=== PATIENT | female | born 1960 | race Two or more races ===

== ENCOUNTER 2020-04-25 13:24 | Outpatient (REF) | payer MEDICAID, SELFPAY ==
[2020-04-29 07:48] LABS: HPV mRNA E6/E7 Not Detected (Not Detected)
== END 2020-04-25 13:25 | disposition home or self-care (01) ==
LOC: HO.LAB 13:24
PROVIDERS: PCP Family Medicine; Visit Provider Obstetrics & Gynecology
DX: Z01.419 Encounter for gynecological examination (general) (routine) without abnormal findings (principal)
CPT/HCPCS: 87624; 88142

== ENCOUNTER 2020-05-13 10:08 | Outpatient (REF) | payer MEDICAID, SELFPAY | END 2020-05-13 10:09 | disposition home or self-care (01) | LOC: HO.LAB 10:08 | PROVIDERS: Visit Provider Internal Medicine | DX: Z20.828 Contact with and (suspected) exposure to other viral communicable diseases (principal) | CPT/HCPCS: C9803; U0003 ==

== ENCOUNTER 2020-07-11 17:25 | Outpatient (REF) | payer MEDICAID, SELFPAY | END 2020-07-11 17:26 | disposition home or self-care (01) | LOC: HO.LAB 17:25 | PROVIDERS: Visit Provider Internal Medicine | DX: Z20.822 Contact with and (suspected) exposure to COVID-19 (principal) | CPT/HCPCS: 36415; C9803; U0003 ==

== ENCOUNTER 2020-07-29 10:39 | Outpatient (REF) | payer MEDICAID, SELFPAY ==
--- NOTE | 2020-07-29 10:44 | MM_ITS ---
EXAMINATION: MM SCREENING DIGITAL BREAST TOMOSYNTHESIS, BILATERAL CLINICAL INFORMATION: Screening. Asymptomatic. The lifetime risk of breast cancer based on the Tyrer-Cuzick Model is 4.1%. COMPARISON: Mammography: 07/24/2019 and studies dating back to 03/24/2010 TECHNIQUE: Digital breast tomosynthesis is performed in both the craniocaudal and mediolateral oblique views along with computer-aided detection (CAD). Synthesized 2D images are generated from the tomosynthesis. FINDINGS: The breasts are heterogeneously dense, which may obscure small masses (ACR BI-RADS breast composition Category c). There is a stable parenchymal pattern within the right breast with no new abnormal dominant mass or suspicious grouping of microcalcifications. About the inferolateral aspect of the left breast, there is a 4 x 3 mm circumscribed density not definitely seen on previous studies lying approximately 6.5 cm from the nipple. Spot compression film and possible ultrasound is recommended. MM/MM tomosynthesis screening BI IMPRESSION: Left breast density for further evaluation as described. ASSESSMENT: BI-RADS 0: Incomplete - Need Additional Imaging Evaluation RECOMMENDATION: 1. Additional views of the left breast 2. Targeted ultrasound if warranted after review of the additional views. 3. Radiology department staff will contact the patient for additional imaging. This patient's information was entered into a reminder system with a target due date for their next mammogram.
== END 2020-07-29 10:40 | disposition home or self-care (01) ==
LOC: HO.MAMMO 10:39
PROVIDERS: PCP Family Medicine; Visit Provider Family Medicine
DX: Z12.31 Encounter for screening mammogram for malignant neoplasm of breast (principal)
CPT/HCPCS: 77063; 77067

== ENCOUNTER 2020-08-05 09:27 | Outpatient (REF) | payer MEDICAID, SELFPAY ==
--- NOTE | ~2020-08-05 | MM_ITS ---
EXAMINATION: MM DIAGNOSTIC DIGITAL BREAST TOMOSYNTHESIS, LEFT TARGETED LEFT BREAST ULTRASOUND CLINICAL INFORMATION: New density mid lateral inferior left breast. COMPARISON: Mammography: 07/29/2020 and studies dating back to 10/09/2011. TECHNIQUE: Digital breast tomosynthesis is performed. 2D images are generated from the tomosynthesis. The following views are obtained: Spot compression views of the left breast in mediolateral oblique and craniocaudal projections. Targeted left breast ultrasound. FINDINGS: The breasts are heterogeneously dense, which may obscure small masses (ACR BI-RADS breast composition Category c). Additional views demonstrate an approximately 6 x 3 mm density which on mediolateral oblique view has slightly irregular margins. This lies approximately 4.5 cm from the nipple. No associated microcalcifications. Targeted ultrasound evaluation of the left breast demonstrated a hypoechoic solid-appearing mass without internal vascularity measuring approximately 3 x 2 x 3 mm in size without distal sound shadowing and without distal sound enhancement. The margins are not definitely smooth. This lies at approximately the 3-4 o'clock position 4 cm from the nipple. Results are discussed with the patient at time of visit. MM/MM tomosynthesis added view BI IMPRESSION: Hypoechoic mass left breast for which ultrasound-guided core biopsy is recommended. ASSESSMENT: BI-RADS 4: Suspicious RECOMMENDATION: Ultrasound-guided core biopsy left breast hypoechoic lesion. The above was discussed with the patient at time of study. Breast center patient navigator will call report to referring provider's office. This patient's information was entered into a reminder system with a target due date for their next mammogram.
--- NOTE | ~2020-08-05 | US_ITS ---
EXAMINATION: US DIAGNOSTIC ULTRASOUND BREAST, LEFT CLINICAL INFORMATION: Density lower outer quadrant. COMPARISON: Mammography of same day as well as studies dating back to April 03, 2013. TECHNIQUE: Ultrasound of the breast is performed with real-time saunders scale imaging and color Doppler. FINDINGS: Targeted ultrasound evaluation of the left breast demonstrated a hypoechoic solid-appearing mass without internal vascularity measuring approximately 3 x 2 x 3 mm in size without distal sound shadowing and without distal sound enhancement. The margins are not definitely smooth. This lies at approximately the 3-4 clock position 4 cm from the nipple. Results are discussed with the patient at time of visit. US/US breast LT limited IMPRESSION: Hypoechoic mass left breast for which ultrasound-guided core biopsy is recommended. ASSESSMENT: BI-RADS 4: Suspicious RECOMMENDATION: Ultrasound-guided core biopsy left breast hypoechoic lesion. The above was discussed with the patient at time of study. Breast center patient navigator will call report to referring provider's office.
== END 2020-08-05 09:28 | disposition home or self-care (01) ==
LOC: HO.MAMMO 09:27
PROVIDERS: Visit Provider Family Medicine
DX: R92.2 Inconclusive mammogram (principal); N63.25 Unspecified lump in the left breast, overlapping quadrants
CPT/HCPCS: 76642; 77062; 77066

== ENCOUNTER 2020-08-16 09:11 | Outpatient (REF) | payer MEDICAID, SELFPAY ==
--- NOTE | ~2020-08-16 | US_ITS ---
EXAMINATION: ULTRASOUND GUIDED CORE BIOPSY BREAST, LEFT POST PROCEDURE DIGITAL MAMMOGRAM, LEFT CLINICAL INFORMATION: Tiny nodule 3 mm left breast with circumscribed margins. COMPARISON: Targeted left breast ultrasound 08/05/2020; mammography 07/29/2020, 07/24/2020. FINDINGS: Proper informed consent is obtained from the patient after discussion of the procedure, potential risks and complications, and alternatives. Patient was given an opportunity for questions. The patient appeared to understand. The patient consented to the procedure and signed the consent form. Hospital provided sheep and wheat farmer assisted for both the consent and throughout procedure. GUIDANCE: Ultrasound-guided; aseptic technique. LESION: 3 mm hypoechoic nodule, suspect benign complicated cyst or apocrine metaplasia. APPROACH: Lateral medial. ANESTHESIA: 8 mL 1% lidocaine. DERMATOTOMY: Single skin lupe dermatotomy performed. NEEDLE: 14-gauge Achieve core biopsy device with 13.5-gauge co-axial guide needle. CORES: 3. The lesion is not clearly visible after first sampling. CLIP: HydroMARK; shape: open coil. Clip placed in vicinity of sampling. The lesion is not clearly visible after first pass sampling. POST PROCEDURE UNILATERAL DIGITAL MAMMOGRAM: The post biopsy mammogram is performed in separate room using separate digital mammography equipment from the biopsy procedure. CC and ML views are obtained. The breasts are heterogeneously dense, which may obscure small masses (breast composition category: c). The clip marker is in expected position. The small nodule for sampling is no longer visible. No gross hematoma. The patient tolerated the procedure well. No immediate complications. Home instructions reviewed with the patient. Final pathology results are pending. US/US breast ndl core biopsy LT IMPRESSION: 1. Status post ultrasound-guided core biopsy left breast. 2. Clip placed: HydroMARK; shape: open coil. 3. Pathology pending. An addendum report will be issued.
== END 2020-08-16 09:12 | disposition home or self-care (01) ==
LOC: HO.MAMMO 09:11
PROVIDERS: PCP Family Medicine; Visit Provider Family Medicine
DX: N63.20 Unspecified lump in the left breast, unspecified quadrant (principal); N60.82 Other benign mammary dysplasias of left breast; R92.8 Other abnormal and inconclusive findings on diagnostic imaging of breast; F41.8 Other specified anxiety disorders; M79.7 Fibromyalgia; G62.9 Polyneuropathy, unspecified; E78.00 Pure hypercholesterolemia, unspecified; K21.9 Gastro-esophageal reflux disease without esophagitis; F17.200 Nicotine dependence, unspecified, uncomplicated; Z79.899 Other long term (current) drug therapy
CPT/HCPCS: 19083; 77065; 88305; 99202; A4648

== ENCOUNTER → 2020-08-19 09:43 | Outpatient (BNVA) | payer MEDICAID, SELFPAY | PROVIDERS: PCP Family Medicine; Visit Provider Surgery | DX: R92.8 Other abnormal and inconclusive findings on diagnostic imaging of breast (principal) | CPT/HCPCS: 99212 ==

== ENCOUNTER 2020-11-04 12:28 | Outpatient (REF) | payer MEDICAID, SELFPAY | END 2020-11-04 12:29 | disposition home or self-care (01) | LOC: HO.LAB 12:28 | PROVIDERS: Visit Provider Internal Medicine | DX: Z20.822 Contact with and (suspected) exposure to COVID-19 (principal) | CPT/HCPCS: C9803; U0003; U0005 ==

== ENCOUNTER 2021-02-10 12:41 | Outpatient (REF) | payer MEDICAID, SELFPAY | END 2021-02-10 12:42 | disposition home or self-care (01) | LOC: HO.LAB 12:41 | PROVIDERS: PCP Family Medicine; Visit Provider Internal Medicine | DX: Z20.822 Contact with and (suspected) exposure to COVID-19 (principal) | CPT/HCPCS: C9803; U0003; U0005 ==

== ENCOUNTER 2021-04-13 09:11 | Outpatient (REF) | payer MEDICAID, SELFPAY ==
--- NOTE | ~2021-04-13 | US_ITS ---
EXAMINATION: US ABDOMEN COMPLETE CLINICAL INFORMATION: Cholesterolosis of the gallbladder. COMPARISON: Ultrasound abdomen 09/23/2019 and 08/07/2018. CT abdomen and pelvis 11/18/2018. TECHNIQUE: Real-time imaging of the abdominal viscera. FINDINGS: PANCREAS: Normal. ABDOMINAL AORTA: Mild distal atherosclerosis. No significant dilatation. INFERIOR VENA CAVA: Visualized portions are normal. LIVER: The liver is normal in size. The liver contour is normal. There is diffuse increased liver parenchymal echogenicity, consistent with hepatic steatosis. Focal fatty sparing adjacent to the gallbladder fossa. No focal hepatic lesion. There is no intrahepatic biliary duct dilatation seen. GALLBLADDER: Nonmobile gallbladder wall polyps measuring 0.4 and 0.3 cm. The gallbladder is physiologically distended without evidence of stones, sludge, polyps, wall thickening or pericholecystic fluid. COMMON BILE DUCT: Normal in caliber measuring 0.4 cm in diameter. RIGHT KIDNEY: Hypertrophied column of Karthikeyan. No hydronephrosis. No renal calculi or focal parenchymal lesions. The kidney measures 11.5 cm in maximum dimension. LEFT KIDNEY: Hypertrophied column of Karthikeyan. No hydronephrosis. No renal calculi or focal parenchymal lesions. The kidney measures 11.8 cm in maximum dimension. SPLEEN: Normal. The spleen measures 10.4 cm in maximum dimension. FREE FLUID: None. US/US abdomen complete IMPRESSION: 1. Nonmobile gallbladder wall polyps measuring 0.4 and 0.3 cm. No cholelithiasis, gallbladder wall thickening, or pericholecystic free fluid to suggest acute cholecystitis. 2. Hepatic steatosis.
[2021-04-13 10:34] LABS: Cholesterol 155 mg/dL; HDL Cholesterol 39 mg/dL; LDL Cholesterol Calculated 83 mg/dl; Triglycerides 166 mg/dL
== END 2021-04-13 09:12 | disposition home or self-care (01) ==
LOC: HO.US 09:11
PROVIDERS: Absent Provider Internal Medicine Cardiovascular Disease; PCP Family Medicine; Visit Provider Family Medicine
DX: E78.5 Hyperlipidemia, unspecified (principal); K82.4 Cholesterolosis of gallbladder
CPT/HCPCS: 36415; 76700; 80061

== ENCOUNTER 2021-09-12 14:37 | Outpatient (REF) | payer MEDICAID, SELFPAY ==
--- NOTE | ~2021-09-12 | MM_ITS ---
EXAMINATION: MM SCREENING DIGITAL BREAST TOMOSYNTHESIS, BILATERAL CLINICAL INFORMATION: Screening. Asymptomatic. Benign left breast biopsy 08/16/2020 (Benign breast tissue with columnar cell change and apocrine metaplasia; no atypia or malignancy identified). The lifetime risk of breast cancer based on the Tyrer-Cuzick Model is 4%. COMPARISON: Mammography: 08/16/2020, 08/05/2020, 07/24/2019, 07/22/2018, 07/19/2017 TECHNIQUE: Digital breast tomosynthesis is performed in both the craniocaudal and mediolateral oblique views along with computer-aided detection (CAD). Synthesized 2D images are generated from the tomosynthesis. FINDINGS: The breasts are heterogeneously dense, which may obscure small masses (ACR BI-RADS breast composition Category c). Parenchymal pattern is similar to prior exams. There is no developing density or interval mass or interval architectural changes or abnormal calcifications. Chronic mild accentuated reticular markings are again seen overlying both axilla. There is a tiny oval nodule close to skin right axilla on MLO view similar to right MLO view 2018. The left breast has a biopsy clip marker overlying small stable nodule consistent with the apocrine metaplasia noted on previous biopsy. No significant changes. MM/MM tomosynthesis screening BI IMPRESSION: No mammographic evidence of malignancy. ASSESSMENT: BI-RADS 2: Benign RECOMMENDATION: Routine annual mammography screening. This patient's information was entered into a reminder system with a target due date for their next mammogram.
== END 2021-09-12 14:38 | disposition home or self-care (01) ==
LOC: HO.MAMMO 14:37
PROVIDERS: PCP Family Medicine; Visit Provider Family Medicine
DX: Z12.31 Encounter for screening mammogram for malignant neoplasm of breast (principal)
CPT/HCPCS: 77063; 77067

== ENCOUNTER 2021-09-13 10:43 | Outpatient (REF) | payer MEDICAID, SELFPAY ==
--- NOTE | ~2021-09-13 | US_ITS ---
EXAMINATION: US THYROID CLINICAL INFORMATION: Hypothyroidism. COMPARISON: Ultrasound soft tissue head/neck thyroid dated 03/27/2019 TECHNIQUE: Linear transducer grayscale and color Doppler examination with attention to the region of the thyroid. FINDINGS: SIZE: Measurements of the thyroid lobes and nodules are given in sagittal, anteroposterior and transverse dimensions respectively. Right Thyroid Lobe: 4.39 x 1.28 x 1.43 cm, volume 4.19 mL. Previously 4.5 x 1.9 x 1.3 cm, volume 5.7 mL. Parenchyma: The gland echotexture is heterogeneous. Thyroid vascularity is increased. Left Thyroid Lobe: 4.15 x 1.0 x 1.6 cm, volume 3.49 mL. Previously 4.0 x 1.2 x 1.7 cm, volume 4.1 mL. Parenchyma: The gland echotexture is heterogeneous. Thyroid vascularity is increased. Isthmus: 0.7 cm in maximum AP dimension. Previously 0.68 cm. Estimated total number of nodules greater than or equal to 1 cm: 0. [place]er nodules are described as follows: 1. Location: Isthmus. Size: 0.6 x 0.4 x 0.6 cm, volume 0.1 mL. Previously: 0.5 x 0.3 x 0.4 cm, volume 0.1 mL. Nodule characteristics: Composition: Solid (2). Echogenicity: Hypoechoic (2). Shape: Not taller than wide (0). Margins: Smooth (0). Echogenic Foci: None (0). ACR TI-RADS total points: 4 ACR TI-RADS category: 4 Significant change in size (>/= 20% in 2 dimensions and minimal increase of 2 mm or 50% or greater increase in volume): No Change in features: No Change in ACR TI-RADS risk category: No NODES: No lymphadenopathy is seen in the tissue surrounding the thyroid gland. US/US thyroid IMPRESSION: A 0.6 cm TR 4 isthmus nodule is not significantly changed in size. This does not meet criteria for follow-up given size less than 1 cm. Heterogeneous hypervascular thyroid which be seen in the setting of thyroiditis. ACR TI-RADS RECOMMENDATION REFERENCE: Ultrasound-guided fine-needle aspiration, followup ultrasound, no further follow up. * TR1 (0 point) and TR 2 (2 points): No FNA or follow up * TR3 (3 points): FNA if more than or equal to 2.5 cm in maximum dimension, followup ultrasound in 1, 3 and 5 years if 1.5 to 2.4 cm in maximum dimension. * TR4 (4-6 points): FNA if more than or equal to 1.5 cm in maximum dimension, followup ultrasound in 1, 2, 3 and 5 years if 1 to 1.4 cm in maximum dimension. * TR5 (more than or equal to 7 points): FNA if more than or equal to 1 cm in maximum dimension, followup ultrasound every year for 5 years if 0.5 to 0.9 cm in maximum dimension. * TR3, TR4 or TR5 nodules that are below the size threshold for follow up receive no follow up.
== END 2021-09-13 10:44 | disposition home or self-care (01) ==
LOC: HO.HMGCX 10:43
PROVIDERS: PCP Family Medicine; Visit Provider Family Medicine
DX: E03.9 Hypothyroidism, unspecified (principal)
CPT/HCPCS: 76536

== ENCOUNTER 2022-07-20 08:02 | Outpatient (REF) | payer MEDICAID, SELFPAY ==
[2022-07-20 08:57] LABS: Cholesterol 159 mg/dL; HDL Cholesterol 42 mg/dL; LDL Cholesterol Calculated 87 mg/dl; Triglycerides 154 mg/dL
== END 2022-07-20 08:03 | disposition home or self-care (01) ==
LOC: HO.LAB 08:02
PROVIDERS: PCP Family Medicine; Visit Provider Internal Medicine Cardiovascular Disease
DX: E78.5 Hyperlipidemia, unspecified (principal)
CPT/HCPCS: 36415; 80061

== ENCOUNTER 2022-07-25 07:14 | Outpatient (REF) | payer MEDICAID, SELFPAY ==
--- NOTE | ~2022-07-25 | US_ITS ---
EXAMINATION: US ABDOMEN COMPLETE CLINICAL INFORMATION: Cholesterolosis of gallbladder. COMPARISON: Ultrasound abdomen complete 04/13/2021 and 09/23/2019. CT abdomen and pelvis with contrast 11/18/2018. TECHNIQUE: Real-time imaging of the abdominal viscera. FINDINGS: PANCREAS: Normal. ABDOMINAL AORTA: The proximal, mid, and distal segments are normal in caliber. INFERIOR VENA CAVA: Visualized portions are normal. LIVER: The liver is normal in size. The liver contour is normal. There is diffuse increased liver parenchymal echogenicity, consistent with hepatic steatosis. No focal hepatic lesion. There is no intrahepatic biliary duct dilatation seen. GALLBLADDER: Gallbladder polyps measuring less than 3 mm. The gallbladder is physiologically distended without evidence of stones, sludge, wall thickening or pericholecystic fluid. COMMON BILE DUCT: Normal in caliber measuring 0.4 cm in diameter. RIGHT KIDNEY: No hydronephrosis. No renal calculi or focal parenchymal lesions. The kidney measures 10.5 cm in maximum dimension. LEFT KIDNEY: No hydronephrosis. No renal calculi or focal parenchymal lesions. The kidney measures 11.0 cm in maximum dimension. SPLEEN: Normal. The spleen measures 10.3 cm in maximum dimension. FREE FLUID: None. US/US abdomen complete IMPRESSION: A gallbladder polyp measuring less than 3 mm. If patient has no risk factors for gallbladder malignancy* or symptoms attributable to the gallbladder, follow-up recommendations are repeat ultrasound at one, 3, and 5 years from the date of original exam documenting the findings. If patient has symptoms attributable to the gallbladder, cholecystectomy is suggested if there are no alternative causes for the symptoms and the patient is fit for and accepts surgery. If cholecystectomy is not deemed appropriate follow-up as below. If patient has no symptoms and risk factors are present or patient is symptomatic and cholecystectomy is deemed not appropriate, follow-up.
== END 2022-07-25 07:15 | disposition home or self-care (01) ==
LOC: HO.US 07:14
PROVIDERS: PCP Family Medicine; Visit Provider Family Medicine
DX: K82.4 Cholesterolosis of gallbladder (principal)
CPT/HCPCS: 76700

== ENCOUNTER 2022-12-13 09:43 | Outpatient (REF) | payer MEDICAID, SELFPAY ==
--- NOTE | ~2022-12-13 | MM_ITS ---
EXAMINATION: MM SCREENING DIGITAL BREAST TOMOSYNTHESIS, BILATERAL CLINICAL INFORMATION: Screening. Asymptomatic. The lifetime risk of breast cancer based on the Tyrer-Cuzick Model is 4%. COMPARISON: Mammography: 09/12/2021, 08/16/2020, 08/05/2020, 07/29/2020, 07/24/2019 TECHNIQUE: Digital breast tomosynthesis is performed in both the craniocaudal and mediolateral oblique views along with computer-aided detection (CAD). Synthesized 2D images are generated from the tomosynthesis. Additional left CC view is provided. FINDINGS: The breasts are heterogeneously dense, which may obscure small masses (ACR BI-RADS breast composition Category c). There are no significant masses, abnormal calcifications, or other abnormalities. There is a biopsy clip marker mid 3:00 left breast. No developing density or architectural abnormality. Axillary nodes are unremarkable. There are accentuated reticular stromal markings overlying the axilla is similar to prior exams, possibly related to an old injury or infection/inflammatory process. No interval skin thickening or coarsening of the Tiburcio's ligaments. Right MLO view has a 4 mm circumscribed superficial nodule upper breast, 12 cm from nipple, possibly dermal in nature. Patient will be recalled for additional imaging. MM/MM tomosynthesis screening BI IMPRESSION: Right: -4 mm nodule close to skin upper right breast 12 cm from nipple. Left: -No mammographic evidence of malignancy. ASSESSMENT: BI-RADS 0: Incomplete - Need Additional Imaging Evaluation RECOMMENDATION: 1. Assess for dermal lesion and obtain image with dermal marker if applicable. 2. Otherwise, targeted ultrasound if warranted. 3. Radiology department staff will contact the patient for additional imaging. This patient's information was entered into a reminder system with a target due date for their next mammogram.
== END 2022-12-13 09:44 | disposition home or self-care (01) ==
LOC: HO.MAMMO 09:43
PROVIDERS: PCP Family Medicine; Visit Provider Family Medicine
DX: Z12.31 Encounter for screening mammogram for malignant neoplasm of breast (principal)
CPT/HCPCS: 77063; 77067

== ENCOUNTER 2023-05-13 12:12 | Outpatient (REF) | payer MEDICAID, SELFPAY ==
--- NOTE | ~2023-05-13 | MM_ITS ---
EXAMINATION: MM DIAGNOSTIC DIGITAL BREAST TOMOSYNTHESIS, RIGHT CLINICAL INFORMATION: Assess for dermal lesion in right inferior axillary region. COMPARISON: Mammography: 12/13/2022, 09/12/2021, 07/29/2020. TECHNIQUE: Digital right breast tomosynthesis is performed in mediolateral oblique view only along with computer-aided detection (CAD). Synthesized 2D images are generated from the tomosynthesis. FINDINGS: There are scattered areas of fibroglandular density (ACR BI-RADS breast composition Category b). A dermal marker has been placed on the small nodule in the inferior right axilla, marking density abnormality is indeed dermal in nature and has a central black spot suggestive of a sebaceous cyst. Otherwise, There are no suspicious masses, suspicious grouped calcifications, or areas of architectural distortion in the right breast. The parenchymal pattern is stable from prior exams. MM/MM tomosynthesis diagnostic RT IMPRESSION: No evidence of malignancy. The right inferior axillary asymmetry is dermal in origin, likely a sebaceous cyst, and clinical follow-up recommended if necessary. Otherwise, recommend resuming annual screening mammography. ASSESSMENT: BI-RADS BI-RADS 2 - Benign Findings RECOMMENDATION: 1 year F/U Results were provided to the patient at time of visit by the technologist. This patient's information was entered into a reminder system with a target due date for their next mammogram.
== END 2023-05-13 12:13 | disposition home or self-care (01) ==
LOC: HO.MAMMO 12:12
PROVIDERS: PCP Family Medicine; Visit Provider Family Medicine
DX: N63.31 Unspecified lump in axillary tail of the right breast (principal)
CPT/HCPCS: 77061; 77065

== ENCOUNTER → 2023-05-13 13:30 | Outpatient (BNV) | payer MEDICAID, SELFPAY | PROVIDERS: PCP Family Medicine; Visit Provider Radiology Diagnostic Radiology | DX: N60.01 Solitary cyst of right breast (principal) | CPT/HCPCS: 77061; 77065 ==

== ENCOUNTER 2023-05-17 09:41 | Outpatient (AMB) | payer MEDICAID, SELFPAY ==
--- NOTE | 2023-05-17 08:37 | A.OFFVIS_ITS ---
Intake Intake Visit Reasons: LDCT SD Allergies No Known Allergies Allergy (Mild, Verified 03/12/22 07:56) NONE HPI LDCT SD HPI Details Initial telehealth/phone SDM visit for this Pakistani speaking patient with interpretive services ([id number]) Lenora is a 62yo smoker with a 22PYH. She has been smoking since age 17 for 45 years at 1/2ppd. . Denies marijuana use. Denies second hand smoke exposure. Denies exposure to chemicals or substances like asbestos. . Denies known family history of lung cancer. Denies personal history of cancers. Denies chest CT in last year. . Denies recent travel outside the [place]. Denies recent respiratory illness or recent hospitalization for respiratory issues. Denies testing positive for COVID. Admits receiving COVID Vaccine. x 4. . Denies fever, chills, new/worsening cough, hemoptysis, hoarseness or dysphagia. Denies significant chest pain, significant dyspnea or unintentional weight loss. Patient Lung Cancer Screening Questionnaire reviewed with patient by provider. . Shared Decision Making Completed. Patient meets criteria. Discussed in detail with patient, the risk vs benefit of LDCT screening. Patient consents to proceed with scan. Discussed smoking cessation. [facility] Medical History (Updated 05/02/23 @ 14:37 by Jeannette Black PA-C) Fibromyalgia PAD (peripheral artery disease) High cholesterol Hypothyroidism Obstructive airway disease Nicotine dependence, cigarettes, uncomplicated GERD (gastroesophageal reflux disease) Irritable bowel syndrome with constipation Fatty liver Tubular adenoma of colon (~2012) Anemia Depression Neuropathy Post-menopausal Surgical History (Updated 05/02/23 @ 14:30 by Jeannette Black PA-C) History of left breast biopsy History of esophagogastroduodenoscopy (EGD) History of colonoscopy History of ovarian cystectomy History of bilateral tubal ligation Family History Father Kidney problem Mother Diabetes Social History (Updated 05/17/23 @ 09:49 by Jeannette Black PA-C) Household Members: None Housing: Apartment Alcohol intake: never Patient Tobacco Use Status: Current everyday Tobacco user Tobacco use type: Cigarette Years Smoked: onset 17yo - 1/2ppd x 45yrs - 22phy Current occupational status: disabled Sexual orientation: Straight/Heterosexual Gender identity: Female Female Reproductive History Menstrual Age of Menarche: 17 Date of menopause: 07/01/02 Assessment & Plan Assessment & Plan (1) Nicotine dependence, cigarettes, uncomplicated: Comment: (current smoker - onset 17yo - 1/2ppd x 45yrs - 22phy) Code(s): F17.210 - Nicotine dependence, cigarettes, uncomplicated Plan: - SDM visit completed today via phone, with interpretive services. - Patient meets criteria for LDCT for lung cancer screening purposes and is asymptomatic. - Smoking cessation counseling offered. Patients can always call [phone]. - Will arrange for a LDCT scan of the chest for screening purposes at [facility]. - Risks, benefits, and alternatives were discussed in detail and the patient agrees to proceed. - Risks discussed include but are not limited to: radiation exposure, anxiety during testing and while awaiting results, false negatives, false positives and possibility of additional intervention such as further imaging or surgical procedures for benign disease. - Benefits are obviously detection of lung cancer at an early stage which can lead to improved outcomes. - Discussed the importance of screening program compliance with adherence to yearly LDCT scan as scheduled - or sooner interval scans for personalized screening regimen. - Discussed follow up plan. Our office will send a letter discussing results and if needed set up phone call and office visit based on CT findings. - Patient educated on results categorization and the management decisions for suspicious findings potentially found on the screening LDCT scan. Any patient with a Lung RADS score of 3 or 4 will be reviewed by a multidisciplinary team at [facility] to form a plan of action in regards to scan findings. - If further work up is warranted for a suspicious lung finding this will be followed by the Lung Cancer Screening program in conjunction with the Thoracic Surgery Department at [facility]. - A copy of the office note and LDCT will be sent to the patient's PCP - as well as documentation on any associated further plans of care. - Incidental findings on LDCT are the PCP's responsibility. These findings are indicated with an S finding on the LDCT Assessment. A note discussing the findings will be sent to the PCP who is then responsible for further management. - All questions answered.? Telehealth Telehealth Location of provider rendering services: practice address Location of patient: address on file Patient Identification confirmed using: Name, : Yes Telehealth method: voice only Patient verbally consented to treatment: Yes Patient verbally consented to billing insurance company: Yes Patient informed of any privacy concerns related to visit: Yes Minutes spent on Phone/Video with Pt.: 15 Coding Level of Care Code Lung Cancer Screening [id number] Diagnoses Nicotine dependence, cigarettes, uncomplicated F17.210
== END 2023-05-17 10:26 | disposition home or self-care (01) ==
LOC: HO.HMS 09:41
PROVIDERS: PCP Family Medicine; Visit Provider Physician Assistant Medical
DX: F17.210 Nicotine dependence, cigarettes, uncomplicated (principal)
CPT/HCPCS: G0296

== ENCOUNTER 2023-05-17 13:48 | Outpatient (REF) | payer MEDICAID, SELFPAY ==
--- NOTE | ~2023-05-17 | CT_ITS ---
EXAMINATION: CT CHEST SCREENING CLINICAL INFORMATION: Current smoker, 50 pack year history. COMPARISON: None available. TECHNIQUE: Multidetector volumetric CT imaging of the chest is performed without contrast using low dose technique. Additional 2D coronal and sagittal reformatted images and axial 3D maximum intensity projection (MIP) images are generated on the CT workstation. This CT examination was performed using dose optimization techniques as appropriate, variously including the following: *Automated exposure control *Adjustment of mA and/or kV according to patient size (this includes techniques or standardized protocols for targeted exams where dose is matched to indication/reason for exam; i.e. extremities or head) *Use of iterative reconstruction technique DLP: 40 mGy-cm FINDINGS: TECHNOLOGY TEACHER: Clear lungs LUNGS: Trachea and bronchi are patent. Mild biapical pleural thickening. Scattered mild atelectasis. 3 mm CAROLINA subpleural nodule, 4:23. MEDIASTINUM: No thyroid nodules. No pathologic lymphadenopathy. Nonenlarged heart. No pericardial effusion. Degree of coronary calcifications: Mild. Nonaneurysmal aorta with atherosclerotic calcifications. Nonenlarged pulmonary arteries. PLEURA: There is no pleural effusion. No pleural mass or thickening. AXILLA: No lymphadenopathy. UPPER ABDOMEN: Possible tiny gallstones versus polyps in otherwise unremarkable gallbladder. OSSEOUS STRUCTURES: No suspicious osseous lesions. CT/CT lung screening IMPRESSION: 3 mm pulmonary nodule. ASSESSMENT: Lung-RADS category 2: Benign RECOMMENDATION: Routine annual low-dose CT screening in 12 months.
== END 2023-05-17 13:49 | disposition home or self-care (01) ==
LOC: HO.CT 13:48
PROVIDERS: PCP Family Medicine; Visit Provider Physician Assistant Medical
DX: Z12.2 Encounter for screening for malignant neoplasm of respiratory organs (principal); F17.210 Nicotine dependence, cigarettes, uncomplicated
CPT/HCPCS: 71271; G0296

== ENCOUNTER 2023-06-11 10:33 | Outpatient (REF) | payer MEDICAID, SELFPAY ==
[2023-06-11 12:30] LABS: Free T4 (Free Thyroxine) 0.88 ng/dL (0.71-1.85); Thyroid Stimulating Hormone 1.37 uIU/mL (0.32-4.0)
== END 2023-06-11 10:34 | disposition home or self-care (01) ==
LOC: HO.HHCL 10:33
PROVIDERS: Visit Provider Family Medicine
DX: E03.8 Other specified hypothyroidism (principal)
CPT/HCPCS: 36415; 84439; 84443

== ENCOUNTER 2023-09-16 11:18 | Outpatient (AMB) | payer MEDICAID, SELFPAY ==
--- NOTE | 2023-09-16 11:23 | MHC.OFFVIS ---
Intake Vital Signs 09/16/23 11:26 Height 5 ft 6 in Weight 150 lb BMI 24.2 BP 122/68 Intake Visit Reasons: Annual/confirmed appt Cabana Attendant Required: Yes Cabana Attendant Language: Dock Loader Name: Brooke BALL Information Interpreted: non-clinical & clinical Phosphorus Processing Supervisor: Phosphorus Processing Supervisor Present (Brooke BALL) Accompanied by: Self / Same As Patient Allergies No Known Allergies Allergy (Mild, Verified 09/16/23 11:31) NONE Post menopausal: Yes HPI HPI Comments History of Present Illness Details Presenting for annual exam. No complaints. Last Pap/HPV was negative in 04/19 Last Mammogram was BI-RADS 2 in 05/23 Last Colonoscopy was in 07/19, the recommendation was to repeat in 5 years [facility] Medical History Fibromyalgia PAD (peripheral artery disease) High cholesterol Hypothyroidism Obstructive airway disease Nicotine dependence, cigarettes, uncomplicated GERD (gastroesophageal reflux disease) Irritable bowel syndrome with constipation Fatty liver Tubular adenoma of colon (~2012) Anemia Depression Neuropathy Post-menopausal Surgical History History of left breast biopsy History of esophagogastroduodenoscopy (EGD) History of colonoscopy History of ovarian cystectomy History of bilateral tubal ligation Family History Father Kidney problem Mother Diabetes Social History Household Members: None Housing: Apartment Alcohol intake: never Patient Tobacco Use Status: Current everyday Tobacco user Tobacco use type: Cigarette Years Smoked: onset 17yo - 1/2ppd x 45yrs - 22phy Current occupational status: disabled Sexual orientation: Straight/Heterosexual Gender identity: Female Female Reproductive History Menstrual Age of Menarche: 17 Date of menopause: 07/01/02 Total pregnancies: 3 Full term: 3 Number of Living Children: 3 Date of last pap smear: 04/26/20 Date of Mammogram: 05/13/23 Review of Systems Const All systems reviewed & are unremarkable except as noted in HPI and below Card Reports as per HPI Resp Reports as per HPI GI Reports as per HPI and Reports no additional complaints Reports as per HPI Physical Exam Vital Signs: Last Vital Signs BP 122/68 09/16/23 11:26 BMI result Body Mass Index 24.2 Const General: cooperative, healthy appearing and comfortable Chest Chest palpation & inspection: normal inspection of the chest and normal palpation of entire chest wall Breast/axilla inspection: normal inspection of the breasts and normal inspection of the axillae Breast/axilla palpation: normal palpation of the breasts, normal palpation of the axillae and no axillary lymphadenopathy Resp Effort & Inspection: normal respiratory effort Auscultation: clear to auscultation bilaterally Percussion: percussion normal Cardio Palpation: normal PMI Rate: regular rate Rhythm: regular rhythm Heart sounds: no murmurs and no rubs Peripheral pulses: Peripheral pulses 2+ throughout GI Inspection: Yes normal to inspection Palpation (GI): Soft to palpation, nontender, no guarding, not rigid and No hepatosplenomegaly present Percussion: Yes normal to percussion Auscultation: normal bowel sounds Rectal Exam - Female: deferred General: Yes bladder normal to palpation External Female Exam: No lesion Speculum Exam - Vagina: normal appearance of the vagina, normal palpation, normal vaginal discharge and not erythematous Speculum Exam - Cervix: normal appearance of the cervix and normal palpation Bimanual exam- vagina & uterus: normal bimanual exam, normal palpation, uterine size normal, bladder normal to palpation, consistency normal and normal palpation Bimanual Exam- Adnexa, other: normal adnexae, no masses and no tenderness Assessment & Plan Assessment & Plan (1) Well woman exam: Code(s): Z01.419 - Encounter for gynecological examination (general) (routine) without abnormal findings Plan: Co testing at indicated this year. Counseled the patient about the recommended dietary allowance of 1200 mg of Calcium & 600 IU of vitamin D. Instructions given the patient to schedule next screening Mammogram in 05/23. The patient is scheduled with her GI for another screening colonoscopy in 01/21 . The patient was instructed to perform monthly self-breast exams and schedule annual exam in a year. All questions answered and the patient verbalized understanding. Coding Level of Care Code Est Pt Prev Care 40-64y(91136) Diagnoses Well woman exam Z01.419
[2023-09-16 11:26] VITALS: BP 122/68; BMI 24.2
== END 2023-09-16 11:48 | disposition home or self-care (01) ==
LOC: HO.HWS 11:18
PROVIDERS: PCP Family Medicine; Visit Provider Obstetrics & Gynecology
DX: Z01.419 Encounter for gynecological examination (general) (routine) without abnormal findings (principal)
CPT/HCPCS: 99396

== ENCOUNTER → 2023-09-16 11:18 | Outpatient (BNVA) | payer MEDICAID, SELFPAY | PROVIDERS: PCP Family Medicine; Visit Provider Obstetrics & Gynecology | DX: Z01.419 Encounter for gynecological examination (general) (routine) without abnormal findings (principal) | CPT/HCPCS: 99396 ==

== ENCOUNTER 2023-09-23 08:22 | Outpatient (REF) | payer MEDICAID, SELFPAY ==
[2023-09-23 12:04] LABS: Hematocrit 45.3 % (37.0-47.0); Hemoglobin 15.3 g/dl (12.0-16.0); Mean Corpuscular HGB Conc 33.8 g/dl (31.0-35.0); Mean Corpuscular Hemoglobin 30.1 pg (27.0-33.0); Mean Corpuscular Volume 89.2 fL (80.0-98.0); Mean Platelet Volume 10.4 fL (9.4-12.3); Platelet Count 316 X10*3/uL (160-400); Red Blood Count 5.08 X10*6/uL (4.20-5.50); Red Cell Distribution Width 12.9 % (11.0-16.0); White Blood Count 8.1 X10*3/uL (4.8-10.8)
[2023-09-23 12:44] LABS: Estimated Average Glucose 123 mg/dL; Hemoglobin A1c % 5.9 % (<6.0)
[2023-09-23 13:22] LABS: Alanine Aminotransferase 23 U/L (0-31); Albumin Level 4.1 g/dL (3.5-5.0); Alkaline Phosphatase 64 U/L (39-117); Anion Gap 11 (12-20); Aspartate Amino Transferase 21 U/L (5-31); Bilirubin Direct 0.2 mg/dL (0.0-0.5); Bilirubin Total 0.3 mg/dL (0.0-1.0); Blood Urea Nitrogen 11 mg/dL (9-16); Calcium 9.9 mg/dL (8.4-10.2); Carbon Dioxide 29 mmol/L (22-29); Chloride 104 mmol/L (96-108); Cholesterol 151 mg/dL (<200); Estimated Glomerular Filt Rate > 60; Free T4 (Free Thyroxine) 1.14 ng/dL (0.71-1.85); Glucose Random 111 mg/dL (60-115); HDL Cholesterol 42 mg/dL (>40); LDL Cholesterol Calculated 64 mg/dL (<100); Sodium 140 mmol/L (135-145); Thyroid Stimulating Hormone 0.55 uIU/mL (0.32-4.0); Total Protein 7.2 g/dL (6.5-8.0); Triglycerides 229 mg/dL (<150); Vitamin D 25-OH Total 68.8 ng/mL (>30)
[2023-09-23 13:54] LABS: Microalbum/Creatinine Ratio Ur 534.1 ug/mg cr (<30)
[2023-09-26 12:53] LABS: Alpha Fetoprotein 3.4 ng/mL
== END 2023-09-23 08:23 | disposition home or self-care (01) ==
LOC: HO.HHCL 08:22
PROVIDERS: Visit Provider Family Medicine
DX: K76.0 Fatty (change of) liver, not elsewhere classified (principal); E78.49 Other hyperlipidemia; E03.9 Hypothyroidism, unspecified
CPT/HCPCS: 36415; 80048; 80061; 80076; 82043; 82105; 82306; 82570; 83036; 84439; 84443; 85027

== ENCOUNTER 2023-09-30 10:20 | Outpatient (REF) | payer MEDICAID, SELFPAY ==
--- NOTE | ~2023-09-30 | US_ITS ---
EXAMINATION: US ABDOMEN COMPLETE CLINICAL INFORMATION: Fatty liver, gallbladder polyp followup. COMPARISON: Ultrasound abdomen complete 07/25/2022 and 04/13/2021. CT abdomen and pelvis 11/18/2018. TECHNIQUE: Real-time imaging of the abdominal viscera. Limited visualization due to bowel gas. FINDINGS: PANCREAS: Limited visualization of pancreatic tail and head. Imaged portion of pancreatic body is unremarkable. ABDOMINAL AORTA: Atherosclerosis in the [id number] abdominal aorta. INFERIOR VENA CAVA: Visualized portions are normal. LIVER: Increased hepatic parenchymal heterogeneity and echogenicity could be associated with hepatocellular disease/hepatic steatosis and substantially limits visualization. Correlation with liver function tests and clinical exam recommended to determine further management. Right hepatic 1.0 cm cyst. GALLBLADDER: No gallbladder wall thickening. Multiple small 2-3 mm echogenic foci in the gallbladder are characteristic of mobile gallstones. It is possible that these correspond to previously identified less than 3 mm gallbladder polyps seen on exam of 07/25/2022. COMMON BILE DUCT: Normal in caliber measuring 0.4 cm in diameter. RIGHT KIDNEY: 0.6 cm midpole cyst with benign features. There is no indication for follow-up imaging. No hydronephrosis or renal calculi. Limited visualization. The kidney measures 11.4 cm in maximum dimension. LEFT KIDNEY: 0.6 cm lateral midpole cyst with benign features. There is no indication for follow-up imaging. No hydronephrosis or renal calculi. Limited visualization. The kidney measures 11.4 cm in maximum dimension. SPLEEN: Normal. The spleen measures 10.3 cm in maximum dimension. FREE FLUID: None. US/US abdomen complete IMPRESSION: 1. Increased hepatic parenchymal heterogeneity and echogenicity could be associated with hepatocellular disease/hepatic steatosis and substantially limits visualization. Correlation with liver function tests and clinical exam recommended to determine further management. 2. Multiple small 2-3 mm echogenic foci in the gallbladder are characteristic of mobile gallstones. It is possible that these correspond to previously identified less than 3 mm gallbladder polyps seen on exam of 07/25/2022. 3. Atherosclerosis in the [id number]-mceokq abdominal aorta.
== END 2023-09-30 10:21 | disposition home or self-care (01) ==
LOC: HO.US 10:20
PROVIDERS: PCP Family Medicine; Visit Provider Family Medicine
DX: K76.0 Fatty (change of) liver, not elsewhere classified (principal); K82.4 Cholesterolosis of gallbladder
CPT/HCPCS: 76700

== ENCOUNTER 2023-10-11 09:33 | Outpatient (REF) | payer MEDICAID, SELFPAY ==
--- NOTE | ~2023-10-11 | XR_ITS ---
EXAMINATION: XR KNEE, LEFT CLINICAL INFORMATION: Pain after injury COMPARISON: None available. TECHNIQUE: Four views of the left knee. FINDINGS: No fracture or dislocation. No suprapatellar joint effusion. Joint spaces are well-maintained. No appreciable degenerative changes. No focal soft tissue swelling of the anterior knee. XR/XR knee LT 4V IMPRESSION: Unremarkable radiographs of the left knee.
--- NOTE | ~2023-10-11 | XR_ITS ---
EXAMINATION: XR ELBOW, LEFT CLINICAL INFORMATION: Fall 8 days ago. Pain. COMPARISON: None available. TECHNIQUE: AP, lateral, and oblique views of the left elbow. FINDINGS: Bone alignment is normal. There is no definite acute fracture or dislocation. There is question osteophyte versus posttraumatic change to the coronoid process, probably old. Soft tissue calcification adjacent to the radial head, question chondrocalcinosis. Joint spaces are otherwise normal. There is an elbow joint effusion. XR/XR elbow LT min 3V IMPRESSION: No definite acute fracture seen. Elbow joint effusion. Mild degenerative changes.
== END 2023-10-11 09:34 | disposition home or self-care (01) ==
LOC: HO.HHCX 09:33
PROVIDERS: Visit Provider Family Medicine
DX: M25.562 Pain in left knee (principal); M25.522 Pain in left elbow
CPT/HCPCS: 73080; 73564

== ENCOUNTER 2024-01-06 11:01 | Outpatient (REF) | payer MEDICAID, SELFPAY ==
[2024-01-06 14:56] LABS: Creatinine Urine 95.59 mg/dL
[2024-01-06 15:13] LABS: Microalbum/Creatinine Ratio Ur 766.8 ug/mg cr (<30)
== END 2024-01-06 11:02 | disposition home or self-care (01) ==
LOC: HO.HHCL 11:01
PROVIDERS: Visit Provider Family Medicine
DX: R73.03 Prediabetes (principal)
CPT/HCPCS: 82043; 82570

== ENCOUNTER 2024-05-01 12:59 | Outpatient (REF) | payer MEDICAID, SELFPAY ==
[2024-05-01 16:49] LABS: Hematocrit 43.6 % (37.0-47.0); Hemoglobin 15.5 g/dl (12.0-16.0); Mean Corpuscular HGB Conc 35.6 g/dl (31.0-35.0); Mean Corpuscular Hemoglobin 30.5 pg (27.0-33.0); Mean Corpuscular Volume 85.7 fL (80.0-98.0); Platelet Count 342 X10*3/uL (160-400); Red Blood Count 5.09 X10*6/uL (4.20-5.50); Red Cell Distribution Width 13.6 % (11.0-16.0); White Blood Count 10.9 X10*3/uL (4.8-10.8)
[2024-05-01 16:54] LABS: Estimated Average Glucose 123 mg/dL; Hemoglobin A1C 163.2389 umol/L; Hemoglobin A1c % 5.9 % (<6.0); Total Hemoglobin (HGBA1C) 4003.3145 umol/L
[2024-05-01 17:03] LABS: Alanine Aminotransferase 24 U/L (0-31); Albumin Level 4.4 g/dL (3.5-5.0); Alkaline Phosphatase 69 U/L (39-117); Anion Gap 16 (12-20); Aspartate Amino Transferase 26 U/L (5-31); Bilirubin Direct 0.2 mg/dL (0.0-0.5); Bilirubin Total 0.5 mg/dL (0.0-1.0); Blood Urea Nitrogen 9 mg/dL (9-16); Calcium 10.5 mg/dL (8.4-10.2); Carbon Dioxide 24 mmol/L (22-29); Chloride 105 mmol/L (96-108); Cholesterol 162 mg/dL (<200); Estimated Glomerular Filt Rate > 60; Glucose Random 90 mg/dL (60-115); HDL Cholesterol 43 mg/dL (>40); LDL Cholesterol Calculated 85 mg/dL (<100); Potassium 3.4 mmol/L (3.3-5.1); Sodium 142 mmol/L (135-145); Total Protein 7.8 g/dL (6.5-8.0); Triglycerides 171 mg/dL (<150)
[2024-05-01 17:18] LABS: Thyroid Stimulating Hormone 2.19 uIU/mL (0.32-4.0); Vitamin D 25-OH Total 62.7 ng/mL (>30)
[2024-05-01 17:39] LABS: Microalbum/Creatinine Ratio Ur 931.5 ug/mg cr (<30)
== END 2024-05-01 13:00 | disposition home or self-care (01) ==
LOC: HO.HHCL 12:59
PROVIDERS: Visit Provider Family Medicine
DX: R61 Generalized hyperhidrosis (principal); R80.9 Proteinuria, unspecified
CPT/HCPCS: 36415; 80048; 80061; 80076; 82043; 82306; 82570; 83036; 84439; 84443; 85027

== ENCOUNTER 2024-05-06 06:21 | Day surgery (SDC) | payer MEDICAID, SELFPAY ==
[2024-05-04 14:04] VITALS: BMI 24.4
--- NOTE | 2024-05-05 08:23 | P.CONAN_ITS ---
Documented by User: Zoey Levine NP 05/05/24 08:26 HPI - Anesthesia Eval Consult details Narrative: 63yo F for Colonoscopy PMFSH Active Problems Active Problems: All Active Problems Nicotine dependence, cigarettes, uncomplicated (Acute) Past Medical History Medical History Irritable bowel syndrome with constipation Fatty liver PAD (peripheral artery disease) Hypothyroidism Post-menopausal Obstructive airway disease Tubular adenoma of colon (~2012) Nicotine dependence, cigarettes, uncomplicated Neuropathy High cholesterol Anemia Depression GERD (gastroesophageal reflux disease) Fibromyalgia Family History Family History Father Kidney problem Mother Diabetes Surgical History Surgical History Hx of eye surgery History of left breast biopsy History of esophagogastroduodenoscopy (EGD) History of colonoscopy History of ovarian cystectomy History of bilateral tubal ligation Social History Social History Household Members: None Household Members Other:: lives alone Housing: Apartment Are you a primary anesthesiologist and critical care to a significant other at home: No Alcohol intake: never Patient Tobacco Use Status: Current everyday Tobacco user Tobacco use type: Cigarette Cigarettes Per Day: 10 Years Smoked: onset 17yo - 1/2ppd x 45yrs - 22phy Use of substances other than those prescribed or required for medical reasons: No Have you been hit, kicked, punched, or otherwise hurt by someone within the past year? If so, by whom?: No Are you DNR?: No Advance Directives: No Advance Directives Information Provided: Yes Recently lost weight without trying: No Nutrition Risks: No Nutritional Risk Current occupational status: disabled Sexual orientation: Straight/Heterosexual Gender identity: Female Meds Allergies Allergy/AdvReac Type Severity Reaction Status Date / Time No Known Allergies Allergy Verified 05/04/24 14:09 Home Medications ?Medication ?Instructions ?Recorded ?Confirmed ?Last Taken ?Type amitriptyline 10 mg tablet 20 mg PO BEDTIME 08/16/20 05/04/24 Unknown History aspirin 81 mg tablet,delayed 81 mg PO DAILY 08/16/20 05/06/24 04/05/24 History release (Adult Aspirin Regimen) levothyroxine 50 mcg capsule 100 mcg PO DAILY 08/16/20 05/04/24 Unknown History omeprazole 20 mg capsule,delayed 20 mg PO DAILY 08/16/20 05/04/24 Unknown History release rosuvastatin 20 mg tablet (Crestor) 20 mg PO DAILY 08/16/20 05/04/24 Unknown History Exam Height,Weight and Vital Signs: Height 5 ft 6 in Weight 68.492 kg Pertinent Lab Results Pertinent Lab Results: Laboratory Tests 05/01/24 13:00 WBC 10.9 H Hgb 15.5 Hct 43.6 Plt Count 342 Sodium 142 Potassium 3.4 Chloride 105 Carbon Dioxide 24 BUN 9 Creatinine 0.68 Documented by User: Jewels Dubois MD 05/06/24 08:17 [facility] Past Medical History Medical History Irritable bowel syndrome with constipation Fatty liver PAD (peripheral artery disease) Hypothyroidism Post-menopausal Obstructive airway disease Tubular adenoma of colon (~2012) Nicotine dependence, cigarettes, uncomplicated Neuropathy High cholesterol Anemia Depression GERD (gastroesophageal reflux disease) Fibromyalgia Family History Family History Father Kidney problem Mother Diabetes Family history of problems with anesthesia: No Surgical History Surgical History Hx of eye surgery History of left breast biopsy History of esophagogastroduodenoscopy (EGD) History of colonoscopy History of ovarian cystectomy History of bilateral tubal ligation History of Problems with Anesthesia: No Social History Social History Household Members: None Household Members Other:: lives alone Housing: Apartment Are you a primary anesthesiologist and critical care to a significant other at home: No Alcohol intake: never Patient Tobacco Use Status: Current everyday Tobacco user Tobacco use type: Cigarette Cigarettes Per Day: 10 Years Smoked: onset 17yo - 1/2ppd x 45yrs - 22phy Use of substances other than those prescribed or required for medical reasons: No Have you been hit, kicked, punched, or otherwise hurt by someone within the past year? If so, by whom?: No Are you DNR?: No Advance Directives: No Advance Directives Information Provided: Yes Recently lost weight without trying: No Nutrition Risks: No Nutritional Risk Current occupational status: disabled Sexual orientation: Straight/Heterosexual Gender identity: Female Meds Allergies Allergy/AdvReac Type Severity Reaction Status Date / Time No Known Allergies Allergy Verified 05/04/24 14:09 Home Medications ?Medication ?Instructions ?Recorded ?Confirmed ?Last Taken ?Type amitriptyline 10 mg tablet 20 mg PO BEDTIME 08/16/20 05/04/24 Unknown History aspirin 81 mg tablet,delayed 81 mg PO DAILY 08/16/20 05/06/24 04/05/24 History release (Adult Aspirin Regimen) levothyroxine 50 mcg capsule 100 mcg PO DAILY 08/16/20 05/04/24 Unknown History omeprazole 20 mg capsule,delayed 20 mg PO DAILY 08/16/20 05/04/24 Unknown History release rosuvastatin 20 mg tablet (Crestor) 20 mg PO DAILY 08/16/20 05/04/24 Unknown History Exam Airway Mallampati Class: II (caps all top teeth) TM Dist: >3cm Neck ROM: Full Heart: rrr Lungs: cta Assessment and Plan Assessment Anesthesia Assessment: Anesthesia Plan Discussed and Chart Reviewed Final Anesthetic Review Family History of Problems with Anesthesia: No History of Problems with Anesthesia: No NPO: Yes ASA Class: II Final Preanesthetic Review: No Changes in Pt Med Stat, Meds/Allgs Chart Reviewed and Consent Obtained/Reviewed Patient Risk: Low Procedure Risk: Low Anesthetic Plan Anesthetic Plan: MAC: Disposition: Standard PACU
[2024-05-06 07:49] VITALS: BMI 23.8
[2024-05-06 08:02] VITALS: BP 131/80; PULSE 75; RESP 16; TEMP 35.9; O2SAT 97
[2024-05-06] MEDS: Lactated Ringers 1,000 ML 100 ML IVCONT (08:11)
[2024-05-06 09:28] VITALS: BP 159/84; PULSE 65; RESP 16; TEMP 36.1; O2SAT 100
--- NOTE | 2024-05-06 09:31 | PM.OP ---
Brief Operative Note Date of Service: 05/06/24 Pre-op diagnosis: Screening Post-op diagnosis: other (Colon polyps) Procedure: Colonoscopy to the cecum and TI with cold snare polypectomy x 2 Surgeon: Rosendo Padilla MD Anesthesia: MAC Was an Pc Installation Engineer used for this Procedure?: No Estimated blood loss (mL): 2.0 Pathology: other (A. Polyps at 20cm) Condition: stable Disposition: PACU
[2024-05-06 09:43] VITALS: BP 132/58; PULSE 70; RESP 16; TEMP 36.2; O2SAT 100
--- NOTE | 2024-05-06 09:55 | OP_ITS ---
DATE OF SERVICE: 05/06/2024 SURGEON: Rosendo Padilla MD INDICATIONS: The patient presents for evaluation of colorectal cancer screening and personal history of tubular adenoma of the colon. Full consent has been obtained from her for this, including risks of bleeding and perforation. PREOPERATIVE DIAGNOSIS: Colorectal cancer screening and personal history of tubular adenoma of the colon. POSTOPERATIVE DIAGNOSIS: Colorectal cancer screening and personal history of tubular adenoma of the colon, colon polyps, diverticulosis, and internal hemorrhoids. PROCEDURE PERFORMED: Colonoscopy to cecum and terminal ileum with cold snare polypectomy x2. ESTIMATED BLOOD LOSS: COMPLICATIONS: ANESTHESIA: Monitored anesthesia care. ASSISTANTS: SPECIMENS: DESCRIPTION OF PROCEDURE: The patient was placed in the left lateral decubitus position. The digital rectal exam revealed no abnormalities. The Olympus video pediatric colonoscope was entered into the rectum and advanced easily to the cecum. Once in the cecum, I did identify normal-appearing cecal pouch with appendiceal orifice and a normal-appearing ileocecal valve. The terminal ileum was cannulated and appeared normal. The scope was withdrawn back in the colon. The entire cecum and ileocecal valve appeared normal. The scope was slowly withdrawn assessing all mucosal surfaces carefully. Preparation was excellent. At 20 cm, there were 2 less than 10 mm polyps, which were each removed by cold snare polypectomy. At least 1 was recovered by suction. The polypectomy sites appeared clean, without any sign of residual polyp nor significant bleeding. I did not visualize any other polyps, colitis, or angiodysplasia. There was a mild amount of sigmoid diverticulosis. In the rectum, scope was retroflexed visualizing internal hemorrhoids, but no other pathology. The rectal mucosa appeared normal. The scope was straightened and withdrawn from the patient. She tolerated the procedure well and was returned to the recovery area in stable condition. IMPRESSION: 1. Colon polyps. 2. Diverticulosis. 3. Internal hemorrhoids. PLAN: The results of the pathology will be checked. I would recommend a repeat colonoscopy in 5 years. She was advised not to use any aspirin or NSAIDs for 1 week. MD BRENDAN Mora/MAKEDA / [phone]
== END 2024-05-06 10:12 | disposition home or self-care (01) ==
PROVIDERS: PCP Family Medicine; Visit Provider Internal Medicine
PROC: 0DJD8ZZ Inspection of Lower Intestinal Tract, Via Natural or Artificial Opening Endoscopic (ICD-10-PCS; CPT 45378; principal; 2024-05-06 08:20)
DX: Z12.11 Encounter for screening for malignant neoplasm of colon (principal); K63.5 Polyp of colon; K57.30 Diverticulosis of large intestine without perforation or abscess without bleeding; K64.8 Other hemorrhoids; E78.5 Hyperlipidemia, unspecified; D64.9 Anemia, unspecified; K58.1 Irritable bowel syndrome with constipation; K76.0 Fatty (change of) liver, not elsewhere classified; G47.33 Obstructive sleep apnea (adult) (pediatric); F17.210 Nicotine dependence, cigarettes, uncomplicated; Z86.0101 Personal history of adenomatous and serrated colon polyps; Z79.82 Long term (current) use of aspirin; Z79.02 Long term (current) use of antithrombotics/antiplatelets; Z79.899 Other long term (current) drug therapy
CPT/HCPCS: 45385; 88305; J2003; J2704

== ENCOUNTER 2024-05-08 09:49 | Outpatient (AMB) | payer MEDICAID, SELFPAY ==
--- NOTE | 2024-05-08 10:36 | HO.NEPHOV ---
Vital Signs 05/08/24 10:37 Height 5 ft 6 in Weight 152 lb 4 oz BMI 24.6 BP 110/60 Blood Pressure Location Rt brachial Position Sitting Intake Visit Reasons: Proteinuria-LVM Fireworks Maker Required: Yes Fireworks Maker Language: Senior Peoplesoft Developer Services: Fireworks Maker Present Fireworks Maker Name: Joselito [id number] Accompanied by: Self / Same As Patient Allergies No Known Allergies Allergy (Verified 05/08/24 10:37) HPI Comments Details: I had the pleasure of seeing Ada in consultation for proteinuria. She has PAD. She denies being diabetic and hypertensive. She has been on PPI for a long time. Her proteinuria has been getting worse. She denies epistaxis, photosensitivity, new joint pains, new joint swellings, edema, new skin rashes, hematuria or sensori neural deafness. She has H/O tubular adenoma of the colon. She does not take excess NSAID's or has new bone/back pain. Her renal functions has been stable. [facility] Medical History (Updated 05/18/24 @ 21:14 by Zander Chacon MD) Irritable bowel syndrome with constipation Fatty liver PAD (peripheral artery disease) Hypothyroidism Post-menopausal Obstructive airway disease Tubular adenoma of colon (~2012) Nicotine dependence, cigarettes, uncomplicated Neuropathy High cholesterol Anemia Depression GERD (gastroesophageal reflux disease) Fibromyalgia Surgical History Hx of eye surgery History of left breast biopsy History of esophagogastroduodenoscopy (EGD) History of colonoscopy History of ovarian cystectomy History of bilateral tubal ligation Family History Father Kidney problem Mother Diabetes Social History Household Members: None Household Members Other:: lives alone Housing: Apartment Are you a primary interior plant caretaker to a significant other at home: No Alcohol intake: never Patient Tobacco Use Status: Current everyday Tobacco user Tobacco use type: Cigarette Cigarettes Per Day: 10 Years Smoked: onset 17yo - 1/2ppd x 45yrs - 22phy Current occupational status: disabled Sexual orientation: Straight/Heterosexual Gender identity: Female Female Reproductive History Menstrual Age of Menarche: 17 Date of menopause: 07/01/02 Review of Systems Const All systems reviewed & are unremarkable except as noted in HPI and below Physical Exam Vital Signs: Last Vital Signs BP 110/60 05/08/24 10:37 BMI result Body Mass Index 24.6 Const General: comfortable and no acute distress Orientation/consciousness: patient oriented x3 HEENT Head: Yes normocephalic Mouth: Normal oral and palatal mucosa present Eyes EOM: EOMs intact bilaterally Neck Neck: Yes supple Resp Auscultation: clear to auscultation bilaterally Cardio Jugular venous distension: no JVD Rate: regular rate GI Palpation (GI): Soft to palpation Auscultation: normal bowel sounds General: Yes no CVA tenderness Back/Spine/Pelvis Back: no CVA tenderness Skin General skin exam: no rashes or lesions noted Neuro General: patient oriented x3 and moves all extremities Extrem General: Yes no pedal edema Results Reviewed Nephrology Results: Hgb 15.5 g/dl (12.0-16.0) 05/01/24 WBC 10.9 X10*3/uL (4.8-10.8) H 05/01/24 Plt Count 342 X10*3/uL (160-400) 05/01/24 Sodium 142 mmol/L (135-145) 05/01/24 Potassium 3.4 mmol/L (3.3-5.1) 05/01/24 Chloride 105 mmol/L (96-108) 05/01/24 Carbon Dioxide 24 mmol/L (22-29) 05/01/24 BUN 9 mg/dL (9-16) 05/01/24 Creatinine 0.68 mg/dL (0.5-1.4) 05/01/24 Calcium 10.5 mg/dL (8.4-10.2) H 05/01/24 Urine Creatinine 179.60 mg/dL 05/01/24 Assessment & Plan Assessment & Plan (1) Proteinuria: Code(s): R80.9 - Proteinuria, unspecified Category: Medical Qualifiers: Proteinuria type: other Qualified Code(s): R80.8 - Other proteinuria (2) Renal cyst: Code(s): N28.1 - Cyst of kidney, acquired Category: Medical Plan Ada has proteinuria likely from vascular disease. Differentials are broad. She is on PPI for a long time. She does not take any excess NSAID's. Her renal USS has showed simple renal cysts. She has no new systemic complaints. I ordered detailed work up. She may need renal biopsy. I plan to initiate her on low dose ACEI @ next visit , if possible. Answered all questions. F/U given Orders: Orders Electrolytes 2 Weeks R80.9 - Proteinuria, unspecified Blood Urea Nitrogen 2 Weeks R80.9 - Proteinuria, unspecified Creatinine 2 Weeks R80.9 - Proteinuria, unspecified Hepatitis B Surface Antigen 2 Weeks R80.9 - Proteinuria, unspecified Anti DNA DS Antibody 2 Weeks R80.9 - Proteinuria, unspecified Myeloperoxidase Antibody 2 Weeks R80.9 - Proteinuria, unspecified Anti Glomerular Basement Memb 2 Weeks R80.9 - Proteinuria, unspecified Complement C3 2 Weeks R80.9 - Proteinuria, unspecified Immunofixation Pnl, Serum 2 Weeks R80.9 - Proteinuria, unspecified Immunofixation, Random Urine 2 Weeks R80.9 - Proteinuria, unspecified Calcium 2 Weeks R80.9 - Proteinuria, unspecified Hepatitis B Core Antibody 2 Weeks R80.9 - Proteinuria, unspecified Proteinase 3 PR3 Antibodies 2 Weeks R80.9 - Proteinuria, unspecified Complement C4 2 Weeks R80.9 - Proteinuria, unspecified Phospholipase A2 Receptor Pnl 2 Weeks R80.9 - Proteinuria, unspecified Complete Blood Count Auto Diff 2 Weeks R80.9 - Proteinuria, unspecified Prothrombin Time INR 2 Weeks R80.9 - Proteinuria, unspecified Coding Level of Care Code New Pt Level 4 (20596) Diagnoses Other proteinuria R80.8 Proteinuria type: other Renal cyst N28.1
[2024-05-08 10:37] VITALS: BP 110/60; BMI 24.6
== END 2024-05-08 11:03 | disposition home or self-care (01) ==
PROVIDERS: PCP Family Medicine; Referring Provider Family Medicine; Visit Provider Internal Medicine Nephrology
DX: R80.8 Other proteinuria (principal); N28.1 Cyst of kidney, acquired
CPT/HCPCS: 99204

== ENCOUNTER → 2024-05-08 09:49 | Outpatient (BNVA) | payer MEDICAID, SELFPAY | PROVIDERS: PCP Family Medicine; Referring Provider Family Medicine; Visit Provider Internal Medicine Nephrology | DX: N28.1 Cyst of kidney, acquired (principal); R80.8 Other proteinuria; I73.9 Peripheral vascular disease, unspecified; E11.9 Type 2 diabetes mellitus without complications; I10 Essential (primary) hypertension | CPT/HCPCS: 99202 ==

== ENCOUNTER 2024-05-15 16:19 | Outpatient (REF) | payer MEDICAID, SELFPAY | END 2024-05-15 16:20 | disposition home or self-care (01) | LOC: HO.CT 16:19 | PROVIDERS: PCP Family Medicine; Visit Provider Family Medicine | DX: R51.9 Headache, unspecified (principal) | CPT/HCPCS: 70450 ==

== ENCOUNTER 2024-05-19 12:11 | Outpatient (REF) | payer MEDICAID, SELFPAY ==
--- NOTE | ~2024-05-19 | MM_ITS ---
EXAMINATION: MM SCREENING DIGITAL BREAST TOMOSYNTHESIS, BILATERAL CLINICAL INFORMATION: Screening. Asymptomatic. COMPARISON: Mammography: Comparison is made with available priors TECHNIQUE: Digital breast mammography with tomosynthesis is performed in both the craniocaudal and mediolateral oblique views along with computer-aided detection (CAD). FINDINGS: The breasts are heterogeneously dense, which may obscure small masses (ACR BI-RADS breast composition Category c). There are no significant masses, abnormal calcifications, or other abnormalities. MM/MM tomosynthesis screening BI IMPRESSION: No mammographic evidence of malignancy. ASSESSMENT: BI-RADS BI-RADS 1 - Negative RECOMMENDATION: Routine annual mammography screening. 1 year F/U This examination should not preclude the clinical evaluation of a suspicious palpable abnormality. This patient's information was entered into a reminder system with a target due date for their next mammogram. Electronically signed by: Ashley Lazcano DO 05/27/2024 08:17 AM ELI
== END 2024-05-19 12:12 | disposition home or self-care (01) ==
LOC: HO.MAMMO 12:11
PROVIDERS: PCP Family Medicine; Visit Provider Family Medicine
DX: Z12.31 Encounter for screening mammogram for malignant neoplasm of breast (principal)
CPT/HCPCS: 77063; 77067

== ENCOUNTER → 2024-05-19 13:45 | Outpatient (BNV) | payer MEDICAID, SELFPAY | PROVIDERS: PCP Family Medicine; Visit Provider Internal Medicine | DX: Z12.31 Encounter for screening mammogram for malignant neoplasm of breast (principal) | CPT/HCPCS: 77063; 77067 ==

== ENCOUNTER 2024-05-21 12:04 | Outpatient (REF) | payer MEDICAID, SELFPAY | END 2024-05-21 12:05 | disposition home or self-care (01) | LOC: HO.CT 12:04 | PROVIDERS: PCP Family Medicine; Visit Provider Physician Assistant Medical | DX: Z12.2 Encounter for screening for malignant neoplasm of respiratory organs (principal); F17.210 Nicotine dependence, cigarettes, uncomplicated | CPT/HCPCS: 71271 ==

== ENCOUNTER 2024-05-22 09:23 | Outpatient (REF) | payer MEDICAID, SELFPAY ==
[2024-05-22 09:57] LABS: MANUAL DIFF FLAG NO
[2024-05-22 10:35] LABS: Basophils Absolute Auto 0.1 X10*3/uL (0.0-0.2); Eosinophils Absolute Auto 0.2 X10*3/uL (0.0-0.4); Eosinophils Percent Auto 1.9 % (0-4); Hematocrit 45.2 % (37.0-47.0); Hemoglobin 15.6 g/dl (12.0-16.0); Imm Gran Abs Auto 0.03 X10*3/uL (0.00-0.03); Imm Gran Pct Auto 0.4 % (0.0-0.4); Lymphocytes Absolute Auto 3.3 X10*3/uL (1.2-4.9); Lymphocytes Percent Auto 39.4 % (20-40); Mean Corpuscular HGB Conc 34.5 g/dl (31.0-35.0); Mean Corpuscular Hemoglobin 30.2 pg (27.0-33.0); Mean Corpuscular Volume 87.4 fL (80.0-98.0); Mean Platelet Volume 10.1 fL (9.4-12.3); Monocytes Absolute Auto 0.4 X10*3/uL (0.1-1.2); Monocytes Percent Auto 5.3 % (2-11); Neutrophils Absolute Auto 4.3 x10*3/uL (2.0-8.3); Platelet Count 366 X10*3/uL (160-400); Red Blood Count 5.17 X10*6/uL (4.20-5.50); Red Cell Distribution Width 13.9 % (11.0-16.0); White Blood Count 8.3 X10*3/uL (4.8-10.8)
[2024-05-22 10:50] LABS: INTERNATIONAL NORM RATIO 0.9 (0.9-1.1); Prothrombin Time 10.8 SEC (10.9-12.4)
[2024-05-22 11:12] LABS: Anion Gap 15 (12-20); Blood Urea Nitrogen 10 mg/dL (9-16); Calcium 10.1 mg/dL (8.4-10.2); Carbon Dioxide 26 mmol/L (22-29); Chloride 104 mmol/L (96-108); Estimated Glomerular Filt Rate > 60; Potassium 3.7 mmol/L (3.3-5.1); Sodium 141 mmol/L (135-145)
[2024-05-22 11:26] LABS: HBc Num1 0.07 S/CO (0.00-0.79); HBsAGNum1 0.31 S/CO (0.00-0.99); Hepatitis B Core Antibody Nonreactive (Nonreactive); Hepatitis B Surface Antigen Negative (Negative)
[2024-05-25 09:04] LABS: Complement C3 178 mg/dL (83-193)
[2024-05-25 21:28] LABS: Anti DNA DS Antibody 3 IU/mL; Anti Glomerular Basement Memb <1.0 AI; Myeloperoxidase Antibody <1.0 AI; Proteinase 3 PR3 Antibodies <1.0 AI
[2024-05-26 18:14] LABS: IgA 347 mg/dL (70-320); IgG 1019 mg/dL (600-1540); IgM 96 mg/dL (50-300)
[2024-05-30 22:43] LABS: Phospholipase A2 IgG ELISA <4 RU/mL; Phospholipase A2 IgG IFA NEGATIVE (NEGATIVE)
== END 2024-05-22 09:24 | disposition home or self-care (01) ==
LOC: HO.LAB 09:23
PROVIDERS: PCP Family Medicine; Visit Provider Internal Medicine Nephrology
DX: R80.9 Proteinuria, unspecified (principal)
CPT/HCPCS: 80051; 82310; 82565; 82784; 83520; 84520; 85025; 85610; 86021; 86160; 86225; 86255; 86334; 86335; 86704; 87340

== ENCOUNTER 2024-06-08 09:52 | Outpatient (AMB) | payer MEDICAID, SELFPAY ==
--- NOTE | 2024-06-08 09:58 | HO.NEPHOV_ITS ---
Vital Signs 06/08/24 10:02 Height 5 ft 6 in Weight 150 lb 8 oz BMI 24.3 BP 132/70 Blood Pressure Location Lt brachial Position Sitting Intake Visit Reasons: Proteinuria/ Conf Lead Painter Required: Yes Lead Painter Language: Mental Health Program Specialist Services: Lead Painter Offered & Declined ([facility] internet sales manager services refused. ) Accompanied by: Self / Same As Patient Allergies No Known Allergies Allergy (Verified 06/08/24 10:00) HPI Comments Details: I had the pleasure of seeing Ada in follow up for proteinuria. She has PAD. She denies being diabetic and hypertensive. She has been on PPI for a long time. Her proteinuria has been getting worse. She denies epistaxis, photosensitivity, new joint pains, new joint swellings, edema, new skin rashes, hematuria or sensori neural deafness. She has H/O tubular adenoma of the colon. She does not take excess NSAID's or has new bone/back pain. Her renal functions has been stable. Her dad of renal issues at the age of 37 years. Her niece has renal issues from lupus [facility] Medical History (Updated 05/18/24 @ 21:14 by Zander Chacon MD) Irritable bowel syndrome with constipation Fatty liver PAD (peripheral artery disease) Hypothyroidism Post-menopausal Obstructive airway disease Tubular adenoma of colon (~2012) Nicotine dependence, cigarettes, uncomplicated Neuropathy High cholesterol Anemia Depression GERD (gastroesophageal reflux disease) Fibromyalgia Surgical History Hx of eye surgery History of left breast biopsy History of esophagogastroduodenoscopy (EGD) History of colonoscopy History of ovarian cystectomy History of bilateral tubal ligation Family History Father Kidney problem Mother Diabetes Social History Household Members: None Household Members Other:: lives alone Housing: Apartment Are you a primary acute care registered nurse to a significant other at home: No Alcohol intake: never Patient Tobacco Use Status: Current everyday Tobacco user Tobacco use type: Cigarette Cigarettes Per Day: 10 Years Smoked: onset 17yo - 1/2ppd x 45yrs - 22phy Current occupational status: disabled Sexual orientation: Straight/Heterosexual Gender identity: Female Female Reproductive History Menstrual Age of Menarche: 17 Date of menopause: 07/01/02 Review of Systems Const All systems reviewed & are unremarkable except as noted in HPI and below Physical Exam Vital Signs: Last Vital Signs BP 132/70 06/08/24 10:02 BMI result Body Mass Index 24.3 Const General: comfortable and no acute distress Orientation/consciousness: patient oriented x3 HEENT Head: Yes normocephalic Mouth: Normal oral and palatal mucosa present Eyes EOM: EOMs intact bilaterally Neck Neck: Yes supple Resp Auscultation: clear to auscultation bilaterally Cardio Jugular venous distension: no JVD Rate: regular rate GI Palpation (GI): Soft to palpation Auscultation: normal bowel sounds General: Yes no CVA tenderness Back/Spine/Pelvis Back: no CVA tenderness Skin General skin exam: no rashes or lesions noted Neuro General: patient oriented x3 and moves all extremities Extrem General: Yes no pedal edema Results Reviewed Nephrology Results: Hgb 15.6 g/dl (12.0-16.0) 05/22/24 WBC 8.3 X10*3/uL (4.8-10.8) 05/22/24 Plt Count 366 X10*3/uL (160-400) 05/22/24 Sodium 141 mmol/L (135-145) 05/22/24 Potassium 3.7 mmol/L (3.3-5.1) 05/22/24 Chloride 104 mmol/L (96-108) 05/22/24 Carbon Dioxide 26 mmol/L (22-29) 05/22/24 BUN 10 mg/dL (9-16) 05/22/24 Creatinine 0.69 mg/dL (0.5-1.4) 05/22/24 Calcium 10.1 mg/dL (8.4-10.2) 05/22/24 Urine Creatinine 179.60 mg/dL 05/01/24 Assessment & Plan Assessment & Plan (1) Proteinuria: Code(s): R80.9 - Proteinuria, unspecified Category: Medical Qualifiers: Proteinuria type: other Qualified Code(s): R80.8 - Other proteinuria (2) Renal cyst: Code(s): N28.1 - Cyst of kidney, acquired Category: Medical Plan Ada has proteinuria likely from vascular disease. W/U so far is negative. She is on PPI for a long time. She does not take any excess NSAID's. Her renal USS has showed simple renal cysts. She has no new systemic complaints. I started her on lisinopril 2.5 mg daily. I discussed about interactions including NSAID's and need for hydration. She wants t wait for renal biopsy. Answered all questions. F/U given Orders: Orders Blood Urea Nitrogen 3 Months R80.8 - Other proteinuria Creatinine 3 Months R80.8 - Other proteinuria Electrolytes 3 Months R80.8 - Other proteinuria Protein Creatinine Ratio, Ur 3 Months R80.8 - Other proteinuria Medications: New lisinopril 2.5 mg PO DAILY 90 days 90 tabs 3RF Coding Level of Care Code Est Pt Level 4 (76417) Diagnoses Other proteinuria R80.8 Proteinuria type: other Renal cyst N28.1
[2024-06-08 10:02] VITALS: BP 132/70; BMI 24.3
--- OUTSIDE RECORDS SUMMARY | 2024-06-10 14:15 | XMS_ITS ---
Author Organization [facility] Address [address] [place] [address] Care Team Providers Care Electronics Parts Sales Representative Name Role Phone Sabina Cervantes M.D. Primary Care Provider Amy Rosendo Interiano Unavailable [phone] ALLERGIES No Known Allergies REASON FOR VISIT Patient presents today for a screening colonoscopy MEDICATIONS Medication SIG (Take, Route, Frequency, Duration) Notes Start Date End Date Status Amitriptyline HCl 10 MG TAKE 2 TABLETS B Y MOUTH EVERY DAY AT BEDTIME Oral for 90 R52,Unavailable Active Omeprazole 20 MG TAKE 1 CAPSULE BY MOUTH EVERY DAY BEFORE A MEAL Oral for 90 Active D3 Super Strength 50 MCG (2000 UT) TAKE 1 CAPSULE BY MOUTH EVERY DAY Oral for 90 E559,Unavailabl e Active Aspirin 81 MG 1 tablet Orally Once a day Active Simethicone 125 MG CHEW AND SWALLOW 1 TABLET BY MOUTH FOUR TIMES DAILY NEEDED FOR GAS Oral for 15 R140,Unavailabl e Active Loratadine 10 MG TAKE 1 TABLET BY MOUTH EVERY DAY Oral for 90 J302,Unavailabl e Active Rosuvastatin Calcium 20 MG TAKE 1 TABLET BY MOUTH EVERY DAY Oral for 90 I739,Unavailabl e Active Levothyroxine Sodium 100 MCG TAKE 1 TABLET BY MOUTH DAILY BEFORE BREAKFAST Oral for 90 Active Latanoprost 0.005 % INSTILL 1 DROP INTO BOTH EYES EVERY DAY AT NIGHT Ophthalmic for 90 Active Dicyclomine HCl 10 MG TAKE 1 CAPSULE BY MOUTH THREE TIMES DAILY NEEDED FOR ABDOMINAL PAIN Oral for 10 Active PROBLEMS Problem Type ICD Code Onset Dates Problem Status W/U Status Risk SNOMED Code Notes Problem GERD without esophagitis (K21.9) Active confirmed Gastroesophagea l reflux disease (318251490) VITAL SIGNS BMI 24.37 kg/m2 01/09/2024 Blood pressure systolic 00 mm Hg 01/09/20 24 Blood pressure diastolic 00 mm Hg 024 Height 66 in 01/09/2024 Weight 151 lbs 01/09/2024 Encounters Encounter Location Date Provider Diagnosis [facility] [address] [place] [address] 01/09/2024 Rosendo Padilla History of adenomato us polyp of colon Z86.010 ; GERD without esophagitis K21.9 and Encounter for screening for malignant neoplasm of colon Z12.11 ASSESSMENTS Encounter Date Diagnosis Assessment Notes Treatment Notes Treatment Clinical Notes 01/09/2024 History of adenomatous polyp of colon (ICD-10 - Z86.010) Stop aspirin for 1 week before the colonoscopy 01/09/2024 GERD without esophagitis (ICD-10 - K21.9) 01/09/2024 Encounter for screening for malignant neoplasm of colon (ICD-10 - Z12.11) PLAN OF TREATMENT Treatment Notes Assessment Notes History of adenomatous polyp of colon St op aspirin for 1 week before the colonoscopy Future Test Test Name Order Date COLONOSCOPY 01/09/2024 Next Appt Details Follow Up: prn, Reason: Progress Notes * Examination Category Sub-Category Detail Notes General Examination GENERAL APPEARANCE: pleasant , well nourished, well developed, in no acute distress EYES: sclera non-icteric NECK/THYROID: no cervical lymphade nopathy, neck supple HEART: S1, S2 normal LUNGS: clear to auscultatio n bilaterally ABDOMEN: normal bowel sounds, no guarding or rigidity, no hepatosplenomegaly, no masses palpable, soft, nontender, nondistended. NEUROLOGIC: alert and oriented SKIN: nonjaundiced, no spi ariana angiomata. EXTREMITIES: no edema ORAL CAVITY: mucosa moist
--- OUTSIDE RECORDS SUMMARY | 2024-06-10 14:15 | XMS_ITS ---
Author Organization [facility] Address [address] [place] [address] Care Team Providers Care Executive Officer Name Role Phone Sabina Cervantes M.D. Primary Care Provider Amy vailable Rosendo Padilla Unavailable [phone] REASON FOR VISIT screening,hx polyps PROBLEMS Problem Type ICD Code Onset Dates Problem Status W/U Status Risk SNOMED Code Notes Problem Diverticulosis of large intestine without perforation or abscess without bleeding (K57.30) Active confirmed Diverticul ar disease of colon (589538103) Encounters Encounter Location Date Provider Diagnosis [facility] [place] [address] [place], [place] [id number] 05/06/2024 Rosendo Padilla Colon cancer scree bhavesh Z12.11 ; Colon polyps K63.5 ; Diverticulosis of large intestine without perforation or abscess without bleeding K57.30 and Other hemorrhoids K64.8 ASSESSMENTS Encounter Date Diagnosis Assessment Notes Treatment Notes Treatment Clinical Notes 05/06/2024 Colon cancer screening (ICD-10 - Z12.11) 05/06/2024 Colon polyps (ICD-10 - K63.5) 05/06/2024 Diverticulosis of large intestine without perforation or abscess without bleeding (ICD-10 - K57.30) 05/06/2024 Other hemorrhoids (ICD-10 - K64.8) PLAN OF TREATMENT No Information
--- OUTSIDE RECORDS SUMMARY | 2024-06-10 14:15 | XMS_ITS | Patient Health Record ---
Author Organization [facility] Address [address] [place] [address] Care Team Providers Care Roving Changer Name Role Phone Sbaina Cervantes M.D. Primary Care Provider Rosendo Gilmore Unavailable [phone] ALLERGIES No Known Allergies RESULTS Component Value Reference Range Notes Pathology (Not yet reviewed by provider) Interpretation: Performing Lab:[facility], [address] [place] [id number] Notes/Report: REASON FOR REFERRAL Referring Provider First Name Sabina Referring Provider Last Name Billy Referred Organization [facility] Referred Provider Rosendo Padilla Referred Address [address],[place],[address], Referred Provider Specialty Gastroentero logy General Notes Tammy Villa 024 10:02:40 AM EDT > requested a [facility] referral [facility] for visit with Dr. Padilla on 01-09-2024. dx screening [phone] Referral Priority Routine MEDICATIONS Medication SIG (Take, Route, Frequency, Duration) Notes Start Date End Date Status Rosuvastatin Calcium 20 MG TAKE 1 TABLET BY MOUTH EVERY DAY Oral for 90 I739,Unavailabl e Active Levothyroxine Sodium 100 MCG TAKE 1 TABLET BY MOUTH DAILY BEFORE BREAKFAST Oral for 90 Active Amitriptyline HCl 10 MG TAKE 2 TABLETS B Y MOUTH EVERY DAY AT BEDTIME Oral for 90 R52,Unavailable Active Dulcolax (colon prep) 5 MG take at 3:00 p.m and 7:00p.m. Orally two tablets twice a day for one day for 1 day 01/11/2024 Active Omeprazole 20 MG TAKE 1 CAPSULE BY MOUTH EVERY DAY BEFORE A MEAL Oral for 90 Active Simethicone 125 MG CHEW AND SWALLOW 1 TABLET BY MOUTH FOUR TIMES DAILY NEEDED FOR GAS Oral for 15 R140,Unavailabl e Active Loratadine 10 MG TAKE 1 TABLET BY MOUTH EVERY DAY Oral for 90 J302,Unavailabl e Active Latanoprost 0.005 % INSTILL 1 DROP INTO BOTH EYES EVERY DAY AT NIGHT Ophthalmic for 90 Active Dicyclomine HCl 10 MG TAKE 1 CAPSULE BY MOUTH THREE TIMES DAILY NEEDED FOR ABDOMINAL PAIN Oral for 10 Active D3 Super Strength 50 MCG (1999 UT) TAKE 1 CAPSULE BY MOUTH EVERY DAY Oral for 90 E559,Unavailabl e Active MiraLax (colon prep) 17 GM/SCOOP 1 238Gm bottle mixed with Gatorade or Crystal Light Orally begin at 5:00 p.m. the day before the procedure for 1 day 01/11/2024 Active Aspirin 81 MG 1 tablet Orally Once a day Active IMMUNIZATIONS Vaccine Route Administration Date Status Comme nts Influenza Unknown 05/01/2018 Administered SOCIAL HISTORY Sex Assigned At : Social History Observation Description Sex Assigned At Unknown PROBLEMS Problem Type ICD Code Onset Dates Problem Status W/U Status Risk SNOMED Code Notes Problem Encounter for screening for malignant neoplasm of colon (Z12.11) Active confirmed 383182190 Problem History of adenomatous polyp of colon (Z86.010) Active confirmed 174772140 Problem Diverticulosis of large intestine without perforation or abscess without bleeding (K57.30) Active confirmed Diverticul ar disease of colon (494953675) Problem Constipation, unspecified constipation type (K59.00) Active confirmed 43392345 Problem GERD without esophagitis (K21.9) Active confirmed Gastroesophagea l reflux disease (276237807) VITAL SIGNS Blood pressure diastolic 00 mm Hg 01/09/2024 Height 66 in 01/09/2024 Blood pressure systolic 00 mm Hg 01/09/2024 Weight 151 lbs 01/09/2024 BMI 24.37 kg/m2 01/09/2024 Encounters Encounter Location Date Provider Diagnosis [facility] [address] [place], [place] [phone] 05/06/2024 Rosendo Padilla Colon cancer screeni ng Z12.11 ; Colon polyps K63.5 ; Diverticulosis of large intestine without perforation or abscess without bleeding K57.30 and Other hemorrhoids K64.8 [facility] [address] [facility] [place] [address] 01/09/2024 Rosendo Padilla History of adenomato us polyp of colon Z86.010 ; GERD without esophagitis K21.9 and Encounter for screening for malignant neoplasm of colon Z12.11 [facility] [address] [place] [address] 01/09/2024 Rosendo Padilla ASSESSMENTS Encounter Date Diagnosis Assessment Notes Treatment Notes Treatment Clinical Notes 05/06/2024 Colon cancer screening (ICD-10 - Z12.11) 05/06/2024 Colon polyps (ICD-10 - K63.5) 01/09/2024 History of adenomatous polyp of colon (ICD-10 - Z86.010) Stop aspirin for 1 week before the colonoscopy 01/09/2024 GERD without esophagitis (ICD-10 - K21.9) 05/06/2024 Diverticulosis of large intestine without perforation or abscess without bleeding (ICD-10 - K57.30) 01/09/2024 Encounter for screening for malignant neoplasm of colon (ICD-10 - Z12.11) 05/06/2024 Other hemorrhoids (ICD-10 - K64.8) PLAN OF TREATMENT Pending Test Test Name Order Date Pathology 05/06/2024 Future Test Test Name Order Date COLONOSCOPY 03/31/2013 COLONOSCOPY 05/06/2018 COLONOSCOPY 01/09/2024 Insurance Providers Payer Name Payer Address Payer Phone Subscriber Number Group Number Insured Name Patient Relationship to Insured Coverage Start Date Coverage End Date MEDICAID OF [employer] [address] [place] [address] [id number] RUBY CALLE Self - patient is the insured MEDICAL (GENERAL) HISTORY Medical History History ICD Code EGD 09-27-2010---mild gastritis-no H.pylo ri-no esophagitis GERD Claudication Fibromyalgia Ovarian cysts Denies SD,DM,CVA,Lung disease,renal dise ase Bronchitis Neuropathy--feet Colonoscopy in 03/2013--smal l tubular adenomas, diverticulosis, internal hemorroids Gallbladder polyps--sees Dr. Burnham Colonoscopy 07/2018 with 1 small tubular adenoma removed Surgical History Surgery Date(Month/Year) Tubal ligation Glaucoma eye surgery 2023
--- OUTSIDE RECORDS SUMMARY | 2024-06-10 14:15 | XMS_ITS ---
Author Organization [facility] Address [address] [place] [address] Care Team Providers Care Electronics Lead Name Role Phone Sbaina Cervantes M.D. Primary Care Provider Amy Rosendo Interiano Unavailable [phone] REASON FOR VISIT bowel prep MEDICATIONS Medication SIG (Take, Route, Frequency, Duration) Notes Start Date End Date Status Dulcolax (colon prep) 5 MG take at 3:00 p.m and 7:00p.m. Orally two tablets twice a day for one day for 1 day 01/11/2024 Active MiraLax (colon prep) 17 GM/SCOOP 1 238Gm bottle mixed with Gatorade or Crystal Light Orally begin at 5:00 p.m. the day before the procedure for 1 day 01/11/2024 Active Encounters Encounter Location Date Provider Diagnosis [facility] [address] [place] [address] [address] 01/09/2024 Rosendo Padilla PLAN OF TREATMENT Medication Medication Name Sig Start Date Stop Date Notes Dulcolax (colon prep) 5 MG take at 3:00 p.m and 7:00p.m. Orally two tablets twice a day for one day for 1 day 01/11/2024 MiraLax (colon prep) 17 GM/SCOOP 1 238Gm bottle mixed with Gatorade or Crystal Light Orally begin at 5:00 p.m. the day before the procedure for 1 day 01/11/2024
== END 2024-06-08 11:32 | disposition home or self-care (01) ==
PROVIDERS: PCP Family Medicine; Visit Provider Internal Medicine Nephrology
DX: R80.8 Other proteinuria (principal); N28.1 Cyst of kidney, acquired
CPT/HCPCS: 99214

== ENCOUNTER → 2024-06-08 09:52 | Outpatient (BNVA) | payer MEDICAID, SELFPAY | PROVIDERS: PCP Family Medicine; Visit Provider Internal Medicine Nephrology | DX: R80.8 Other proteinuria (principal); N28.1 Cyst of kidney, acquired | CPT/HCPCS: 99212 ==

== ENCOUNTER 2024-09-24 09:56 | Outpatient (REF) | payer MEDICAID, SELFPAY ==
[2024-09-24 11:23] LABS: Anion Gap 12 (12-20); Blood Urea Nitrogen 13 mg/dL (9-16); Carbon Dioxide 26 mmol/L (22-29); Chloride 107 mmol/L (96-108); Estimated Glomerular Filt Rate > 60; Potassium 4.2 mmol/L (3.3-5.1); Sodium 141 mmol/L (135-145)
[2024-09-24 11:50] LABS: Creatinine Urine 213.56 mg/dL
[2024-09-24 12:13] LABS: Protein/Creatinine Ratio, Ur 1.59 (<0.2); Total Protein Urine Random 339 mg/dL (<12)
== END 2024-09-24 09:57 | disposition home or self-care (01) ==
LOC: HO.LAB 09:56
PROVIDERS: PCP Family Medicine; Visit Provider Internal Medicine Nephrology
DX: R80.8 Other proteinuria (principal)
CPT/HCPCS: 36415; 80051; 82565; 82570; 84156; 84520

== ENCOUNTER 2024-09-30 09:39 | Outpatient (AMB) | payer MEDICAID, SELFPAY ==
--- NOTE | 2024-09-30 09:41 | HO.NEPHOV ---
Vital Signs 09/30/24 09:42 Height 5 ft 6 in Weight 147 lb 2 oz BMI 23.7 BP 110/60 Blood Pressure Location Rt brachial Position Sitting Intake Visit Reasons: Proteinuria-Conf Assistant Teaching Professor Required: No Accompanied by: Self / Same As Patient Allergies No Known Allergies Allergy (Verified 09/30/24 09:42) HPI Comments Details: Lenora was seen in follow up for proteinuria. She has PAD. She denies being diabetic and hypertensive. She has been on PPI for a long time. Her proteinuria has been getting worse. She denies epistaxis, photosensitivity, new joint pains, new joint swellings, edema, new skin rashes, hematuria or sensori neural deafness. She has H/O tubular adenoma of the colon. She does not take excess NSAID's or has new bone/back pain. Her renal functions has been stable. Her dad of renal issues at the age of 37 years. Her niece has renal issues from lupus. [facility] Medical History (Updated 07/31/24 @ 13:12 by Jeannette Black PA-C) Irritable bowel syndrome with constipation Fatty liver PAD (peripheral artery disease) Hypothyroidism Post-menopausal Obstructive airway disease Tubular adenoma of colon (~2012) Nicotine dependence, cigarettes, uncomplicated Neuropathy High cholesterol Anemia Depression GERD (gastroesophageal reflux disease) Fibromyalgia Surgical History Hx of eye surgery History of left breast biopsy History of esophagogastroduodenoscopy (EGD) History of colonoscopy History of ovarian cystectomy History of bilateral tubal ligation Family History Father Kidney problem Mother Diabetes Social History Household Members: None Household Members Other:: lives alone Housing: Apartment Are you a primary personal care worker to a significant other at home: No Alcohol intake: never Patient Tobacco Use Status: Current everyday Tobacco user Tobacco use type: Cigarette Cigarettes Per Day: 10 Years Smoked: onset 17yo - 1/2ppd x 45yrs - 22phy Current occupational status: disabled Sexual orientation: Straight/Heterosexual Gender identity: Female Female Reproductive History Menstrual Age of Menarche: 17 Date of menopause: 07/01/02 Review of Systems Const All systems reviewed & are unremarkable except as noted in HPI and below Physical Exam Vital Signs: Last Vital Signs BP 110/60 09/30/24 09:42 BMI result Body Mass Index 23.7 Const General: comfortable and no acute distress Orientation/consciousness: patient oriented x3 HEENT Head: Yes normocephalic Mouth: Normal oral and palatal mucosa present Eyes EOM: EOMs intact bilaterally Neck Neck: Yes supple Resp Auscultation: clear to auscultation bilaterally Cardio Jugular venous distension: no JVD Rate: regular rate GI Palpation (GI): Soft to palpation Auscultation: normal bowel sounds General: Yes no CVA tenderness Back/Spine/Pelvis Back: no CVA tenderness Skin General skin exam: no rashes or lesions noted Neuro General: patient oriented x3 and moves all extremities Extrem General: Yes no pedal edema Results Reviewed Nephrology Results: Hgb 15.6 g/dl (12.0-16.0) 05/22/24 WBC 8.3 X10*3/uL (4.8-10.8) 05/22/24 Plt Count 366 X10*3/uL (160-400) 05/22/24 Sodium 141 mmol/L (135-145) 09/24/24 Potassium 4.2 mmol/L (3.3-5.1) 09/24/24 Chloride 107 mmol/L (96-108) 09/24/24 Carbon Dioxide 26 mmol/L (22-29) 09/24/24 BUN 13 mg/dL (9-16) 09/24/24 Creatinine 0.65 mg/dL (0.5-1.4) 09/24/24 Calcium 10.1 mg/dL (8.4-10.2) 05/22/24 Urine Creatinine 213.56 mg/dL 09/24/24 Protein/Creatinin Ratio 1.59 (<0.2) H 09/24/24 Assessment & Plan Assessment & Plan (1) Proteinuria: Code(s): R80.9 - Proteinuria, unspecified Category: Medical Qualifiers: Proteinuria type: other Qualified Code(s): R80.8 - Other proteinuria Plan Ada has proteinuria likely from vascular disease. W/U so far is negative. She is on PPI for a long time. She does not take any excess NSAID's. Her renal USS has showed simple renal cysts. She has no new systemic complaints. I increased her lisinopril to 5 mg daily. I discussed about interactions including NSAID's and need for hydration. She wants to wait for renal biopsy. Answered all questions. F/U given Orders: Orders Protein Creatinine Ratio, Ur Today R80.8 - Other proteinuria Creatinine Today R80.8 - Other proteinuria Blood Urea Nitrogen Today R80.8 - Other proteinuria Electrolytes Today R80.8 - Other proteinuria Medications: Changed From lisinopril 2.5 mg PO DAILY 90 days 90 tabs 3RF To lisinopril 2.5 mg PO BID 90 days 180 tabs 3RF Coding Level of Care Code Est Pt Level 4 (41369) Diagnoses Other proteinuria R80.8 Proteinuria type: other
[2024-09-30 09:42] VITALS: BP 110/60; BMI 23.7
--- OUTSIDE RECORDS SUMMARY | 2024-09-30 10:54 | XMS_ITS | Encounter Summary ---
Author Organization [facility] Address [address] [place] [address] [address] [place] [address] Care Team Providers Care Blood Bank Custodian Name Role Phone Sabina Cervantes DO Primary Care Provider Encounter Details Date Type Department Care Team (Late st Contact Info) Description 06/13/2022 Orders Only [facility] [address] [place] [address] Va Toribio LPN Social History Tobacco Use Types Packs/Day Years Used Date Smoking Tobacco: Never Assessed Comments Unknown Sex and Gender Information Value Date Recorded Sex Assigned at Female 04/30/2022 10:18 AM EDT Legal Sex Female 10:18 AM EDT Gender Identity Female 04/30/2022 10:18 AM EDT Sexual Orientation Straight 04/30/2022 10 :18 AM EDT documented as of this encounter Plan of Treatment Upcoming Encounters Date Type Department Care Team (Late st Contact Info) Description 10/02/2024 11:00 AM EDT Office Visit [facility] [address] [place] [address] Joselito Quiñonez DDS [address] [place] [address] documented as of this encounter Visit Diagnoses Not on filedocumented in this encounter Care Teams Blood Bank Custodian Relationship Specialty Start Date End Date Sabina Cervantes DO [address] [place] [address] PCP - General Family Medicine 06/13/12 documented as of this encounter
--- OUTSIDE RECORDS SUMMARY | 2024-09-30 10:54 | XMS_ITS | Encounter Summary ---
Author Organization [employer] Address [address] [place] [address] [address] [place] [address] Care Team Providers Care Manager Market Intelligence Name Role Phone Sabina Cervantes DO Primary Care Provider + [phone] Reason for Visit * Reason Comments Med Refill Encounter Details Date Type Department Care Team (Late st Contact Info) Description 10/05/2022 Refill [facility] [address] [place] [address] Anika Hernandez MD [address] [place] [address] Social History Tobacco Use Types Packs/Day Years Used Date Smoking Tobacco: Every Day Cigarettes Passive Smoke Exposure: Current Alcohol Use Standard Drinks/Week Comments Never 0 (1 standard drink = 0.6 oz pur e alcohol) Depression Answer Date Recorded Patient Health Questionnaire-9 Score 0 07/23/2022 Depression Answer Date Recorded Patient Health Questionnaire-2 Score 0 07/23/2022 Comments Unknown Sex and Gender Information Value [...] Description 10/02/2024 11:00 AM EDT Office Visit [facility] [address] [place] [address] Joselito Quiñonez DDS [address] [place] [address] documented as of this encounter Visit Diagnoses Not on filedocumented in this encounter Additional Health Concerns Assessment Noted Time PHQ-9 Depression Total Score: 0 07/23/19 23 11:34 AM EST documented as of this encounter Care Teams Manager Market Intelligence Relationship Specialty Start Date End Date Sabina Cervantes DO [address] [place] [address] PCP - General Family Medicine 06/13/12 documented as of this encounter
--- OUTSIDE RECORDS SUMMARY | 2024-09-30 10:54 | XMS_ITS ---
Author Organization [facility] Address [address] [place] [address] Care Team Providers Care Maintenance Shop Manager Name Role Phone Sabina Cervantes M.D. Primary Care Provider Amy Rosendo Interiano [phone] REASON FOR VISIT bowel prep Medications Medication SIG (Take, Route, Frequency, Duration) Notes [...] Active Encounters Encounter Location Date Provider Diagnosis [facility] [address] [place] [address] 01/09/2024 Rosendo Padilla Plan Of Treatment Medication Medication Name Sig Start Date Stop Date Notes Dulcolax (colon prep) 5 MG take at 3:00 p.m and 7:00p.m. Orally two tablets twice a day for one day for 1 day 01/11/2024 MiraLax (colon prep) 17 GM/SCOOP 1 238Gm bottle mixed with Gatorade or Crystal Light Orally begin at 5:00 p.m. the day before the procedure for 1 day 01/11/2024 Progress Notes * RUBY CALLEDOB:1960 ( 63 yo F)Acc No.[id number]:01/09/2024 Patient:?SEMIDEY, ADA :1960???Age:63 Y???Sex:Female Address:[address] [place] [address] , [place] [address] * Refills? Start MiraLax (colon prep) Powder, 17 GM/SCOOP, Orally, 1, 1 238Gm bottle mixed with Gatorade or Crystal Light, begin at 5:00 p.m. the day before the procedure, 1 day, Refills=0 Start Dulcolax (colon prep) Tablet Delayed Release, 5 MG, Orally, 4, take at 3:00 p.m and 7:00p.m., two tablets twice a day for one day, 1 day, Refills=0 * true * Date:? Generated for Patria horta/Keanu/Nikkiitting on:?09/30/2024 10:54 AM EDT
--- OUTSIDE RECORDS SUMMARY | 2024-09-30 10:54 | XMS_ITS | Encounter Summary ---
Author Organization [employer] [facility] Address [address] [place] [address] [address] [place] [id number] Care Team Providers Care Oil Well Perforator Operator Name Role Phone Sabina Cervantes DO Primary Care Provider [phone] Encounter Details Date Type Department Care Team (Latest Contact Info) Description 04/22/2019 Abstract [facility] CONVERSIONS Dental, Provider, DDS Social History Tobacco Use Types Packs/Day Years [...] Description 10/02/2024 11:00 AM EDT Office Visit [facility] [address] [place] [address] Joselito Quiñonez, DDS [address] [place] [address] documented as of this encounter Visit Diagnoses Not on filedocumented in this encounter Care Teams Oil Well Perforator Operator Relationship Specialty Start Date End Date Sabina Cervantes DO [address] [place] [address] PCP - General Family Medicine 06/13/12 documented as of this encounter
--- OUTSIDE RECORDS SUMMARY | 2024-09-30 10:54 | XMS_ITS | Encounter Summary ---
Author Organization [employer] Address [address] [place] [address] Care Team Providers Care Senior Administrative Services Officer Name Role Phone Sabina Cervantes DO Primary Care Provider + [phone] Encounter Details Date Type Department Care Team (Late st Contact Info) Description 10/08/2023 Orders Only [facility] [address] [place], [place] [phone] Provider, MD Lizett Social History Tobacco Use Types Packs/Day Years Used Date Smoking Tobacco: Every Day Cigarettes Passive Smoke Exposure: Current Smokeless Tobacco: Never Alcohol Use Standard Drinks/Week Comments Never 0 (1 standard drink = 0.6 oz pur e alcohol) Depression Answer Date Recorded Patient Health Questionnaire-9 Score 0 07/23/2022 Housing Stability Answer Date Recorded What is your housing situation today? I have peter anders 04/18/[address] you li ve. Do you have problems with any of the following? None of the above 04/18/2023 Food Insecurity Answer Date Recorded Within the past 12 months, y ou worried that your food would run out before you got money to buy more: Never True 04/18/2023 Within the past 12 months,th e food you bought just didn't last and you didn't have enough money to get more: Never True Transportation Answer Date Recorded In the past 12 months, has l ack of transportation kept you from medical appts, meetings, work or from getting things needed for daily living? No 04/18/2023 Utilities Answer Date Recorded In the past 12 months, has t he electric, gas, oil or water company threatened to shut off services in your home? No 04/18/2023 Depression Answer Date Recorded Patient Health Questionnaire-2 [...] Description 10/02/2024 11:00 AM EDT Office Visit [facility] [address] [place] [address] Joselito Quiñonez DDS [address] [place] [address] documented as of this encounter Procedures Procedure Name Priority Date/Time Associated Diagnosis Comments HM COLONOSCOPY Routine 07/25/2018 10:20 AM EST documented in this encounter Results * Hm Colonoscopy (07/25/2018 10:20 AM EST) Historical Provider HEALTH MAINTENANCE Final Result documented in this encounter Visit Diagnoses Not on filedocumented in this encounter Additional Health Concerns Assessment Noted Time PHQ-9 Depression Total Score: 0 07/23/19 23 11:34 AM EST documented as of this encounter Care Teams Senior Administrative Services Officer Relationship Specialty Start Date End Date Sabina Cervantes DO [address] [place] [address] PCP - General Family Medicine 06/13/12 documented as of this encounter
--- OUTSIDE RECORDS SUMMARY | 2024-09-30 10:54 | XMS_ITS | Encounter Summary ---
Author Organization [employer] [facility] Address [address] [facility] [address] [place] [id number] Care Team Providers Care Carpet Sewing Machine Operator Name Role Phone Sabina Cervantes DO Primary Care Provider + [phone] Encounter Details Date Type Department Care Team (Late st Contact Info) Description 04/05/2023 Abstract [facility] [address] [place] [address] Padma Kim Social History Tobacco Use Types Packs/Day Years [...] Description 10/02/2024 11:00 AM EDT Office Visit [facility] [address] [place] [address] Joselito Quiñonez DDS [address] [place], [place] [phone] documented as of this encounter Procedures Procedure Name Priority Date/Time Associated Diagnosis Comments HM PAP/HPV Routine 04/25/2020 documented in this encounter Results * Hm Pap Smear (04/25/2020) Pap Negative for intraephithelial lesion or malignancy Negative for intraephithelial lesion or malignancy, Other us Historical Provider HEALTH MAINTENANCE Final Result documented in this encounter Visit Diagnoses Not on filedocumented in this encounter Additional Health Concerns Assessment Noted Time PHQ-9 Depression Total Score: 0 07/23/19 23 11:34 AM EST documented as of this encounter Care Teams Carpet Sewing Machine Operator Relationship Specialty Start Date End Date Sabina Cervantes DO [address] [place] [address] PCP - General Family Medicine 06/13/12 documented as of this encounter
--- OUTSIDE RECORDS SUMMARY | 2024-09-30 10:54 | XMS_ITS | Clinical Summary ---
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 Name Role Phone Sabina Cervantes DO Primary Care Provider Allergies No known active allergies Medications latanoprost (Xalatan) 0.005 % ophthalmic solution INSTILL 1 DROP INTO BOTH EYES AT BEDTIME 2 Active dicyclomine (Bentyl) 10 MG capsule TAKE 1 CAPSULE BY MOUTH THREE TIMES DAILY NEEDED FOR ABDOMINAL PAIN 30 capsule 1 3 Active simethicone (Mylicon) 125 MG chewable tabletIndication s:Bloating CHEW and SWALLOW 1 TABLET BY MOUTH FOUR TIMES DAILY NEEDED FOR GAS 60 tablet 1 3 Active Aspirin Adult Low Strength 81 MG EC tabletIndication s:Peripheral vascular disease (CMS/HCC) TAKE 1 TABLET BY MOUTH EVERY DAY 90 tablet 3 4 Active fluticasone (Flonase) 50 MCG/ACT nasal spray USE 2 SPRAYS IN EACH NOSTRIL EVERY DAY 48 g 4 Active rosuvastatin (Crestor) 20 MG tabletIndication s:Peripheral vascular disease (CMS/HCC) TAKE 1 TABLET BY MOUTH EVERY DAY 90 tablet 3 4 Active omeprazole (PriLOSEC) [address] capsule TAKE 1 CAPSULE BY MOUTH EVERY DAY BEFORE A MEAL 90 capsule 3 4 Active D3 Super Strength 50 MCG (1999 UT) capsuleIndicatio ns:Vitamin D deficiency TAKE 1 CAPSULE BY MOUTH EVERY DAY 90 capsule 3 4 Active ibuprofen 600 MG tablet TAKE 1 TABLET BY MOUTH EVERY 6 HOURS WITH FOOD NEEDED 40 tablet 4 Active Blood Pressure kit 1 each 1 (one) time per week. 1 kit 4 Active levothyroxine (Synthroid) 100 MCG tablet Take 1 tablet (100 mcg) by mouth before breakfast. 90 tablet 3 4 01/17/20 25 Active amitriptyline (Elavil) 10 MG tabletIndication s:Pain Take 2 tablets (20 mg) by mouth at bedtime. 180 tablet 1 4 Active Diclofenac Sodium 1 % gel Apply 2 g topically if needed in the morning, at noon, in the evening, and at bedtime (pain). 150 g 3 4 Active lidocaine (Lidoderm) 5 % patch Apply 2 patches topically if needed each day for mild pain. Remove & discard patch within 12 hours or as directed by MD. 60 patch 3 4 Active loratadine (Claritin) 10 MG tabletIndication s:Seasonal allergic rhinitis, unspecified trigger TAKE 1 TABLET BY MOUTH EVERY DAY 90 tablet 4 Active butalbital-aceta minophen-caffein e 50-325-40 MG tablet TAKE 1 TABLET BY MOUTH EVERY DAY NEEDED FOR HEADACHE 20 tablet 1 4 Active Active Problems Problem Noted Date Diagnosed Date Glaucoma 01/17/2024 History of adenomatous polyp of colon 09/20/2023 Dental calculus 01/14/2023 Localized gingival recession 01/14/2023 Healthcare maintenance 07/23/2022 Assessment & Plan (09/20/2023 1:29 PM EDT): -s/p flu vaccine MAY 2023 -encouraged COVID vaccine -encouraged RSV vaccine -s/p Tdap MAR 2012, repeat with RN next week -s/p pneumovax MAR 2013 -encouraged PCV20 with team RN -s/p Shingrix vaccine AUG 2021 -Hep A/B immune -pap smear nml/HPV negative MAR [address] Latisha VALERA 02 MAY 2023 -colonoscopy with diverticulosis, internal hemorrhoids and tubular adenoma JUL 2018, appt DEC 2023 -A1c 5.9% NOV 2022->repeat prior to next visit -STI/HIV screen negative DEC 2019 Hypothyroidism 07/23/2022 Assessment & Plan (09/20/2023 1:27 PM EDT): TFTs nml MAY 2023 -thyroid US with heterogenous thyroid with 0.6cm T4 nodule with no significant change from prior, no need for f/u AUG 2021 -cont levothyroxine daily -repeat TFTs prior to next visit Gallbladder polyp 07/23/2022 Assessment & Plan (09/20/2023 1:30 PM EDT): -abd US with polyps <3mm JUL 2022->referred for repeat -f/u with GS prn Fatty liver 07/23/2022 Assessment & Plan (09/20/2023 1:26 PM EDT): -abd US with echogenic liver, no focal lesion JUL 2022 -AFP nml DEC 2019->repeat with fasting labs -LFTs nml NOV 2022 -Hep A/B immune Assessment & Plan (07/23/2022 1:10 PM EST): -abd US with echogenic liver with fatty sparing Jul 2017 -LFTs, AFP wnl Jul 2018 -Hep A/B immune Hyperlipidemia 07/23/2022 Assessment & Plan (09/20/2023 1:26 PM EDT): LDL at-goal NOV 2022 -cont crestor nightly -cont aspirin daily -repeat lipids prior to next visit Assessment & Plan (07/23/2022 1:07 PM EST): LDL at-goal JAN 2022 -cont crestor nightly -cont aspirin daily Chronic low back pain 07/23/2022 Assessment & Plan (09/20/2023 1:29 PM EDT): No indication for surgical mgmt per NS, pain controlled -L-spine MRI with annular fissure and bulging disc L5-S1 AUG 2016 -cont baclofen and ibuprofen prn -she declines referral to PT or pain mgmt -advised rtc if sx worsen Prediabetes 07/12/2022 Anxiety 05/03/2015 Fibromyalgia 05/03/2015 Assessment & Plan (09/20/2023 1:30 PM EDT): With chronic pain -cont amitriptyline nightly -ESR, CRP, BERNARD and RF wnl MAR 2014 -cont baclofen and ibuprofen as needed -f/u with rheum prn Chronic gastroesophageal reflux disease 05/03/20 15 Irritable bowel syndrome with constipation 05/03 Assessment & Plan (09/20/2023 1:30 PM EDT): -continue bentyl as needed -f/u with GI prn Peripheral arterial disease 05/03/2015 Assessment & Plan (09/20/2023 1:27 PM EDT): -cont aspirin and statin daily -strongly encouraged tobacco cessation -f/u with cardiology annually as scheduled, due AUG 2024 Major depression, recurrent, chronic 05/03/2015 Assessment & Plan (09/20/2023 1:27 PM EDT): -she denies any current SI/HI -she has the number for crisis and contracts for safety -cont amitriptyline nightly -she declines referral to a therapist Tobacco dependence 05/03/2015 Assessment & Plan (09/20/2023 1:28 PM EDT): ~1/2 ppd x 45 years, she is not ready to quit at this time -CT chest LRADS 02 MAY 2023 Resolved Problems Problem Noted Date Diagnosed Date Resolved Date Low back pain radiating to both legs 07/23/2022 07/23/2022 Abdominal cramping 07/23/2022 4 Pain in lower limb 04/16/2016 3 Elevated fasting glucose 05/03/2015 Hyperlipidemia LDL goal <100 05/03/2015 01/17/2024 Steatosis of liver 05/03/2015 3 Encounters Date Type Department Care Team Description 09/24/2024 Telephone [facility] [address] [place] [address] Sabina Cervantes DO Results 09/24/2024 Orders Only GENERIC EXTERNAL DATA DEPARTMENT Provider, Generic External Data 09/11/2024 Population Health Risk Score [facility] ([facility]) [address] [phone] Provider, Population Health Generic from Last 3 Months Immunizations Name Administration Dates Next Due Hep B, adult 05/20/2007,05/31/2006,05/02/2006 Influenza injectable quadriv alent IIV4 with preservative 04/29/2018,07/18/2017,04/16/2016,05/03 Influenza injectable quadriv alent preservative free 06/11/2023,03/20/2021,04/21/2020,03/26 Influenza, IIV3, injectable 05/01/2018, 4 Influenza, Split (incl. lolis fied surface antigen) 04/16/2013,05/28/2012 Moderna Covid-19 Vaccine 12+ 07/23/2022 Pneumococcal Conjugate PCV 20 01/17/2024 Pneumococcal Polysaccharide PPSV23 04/16/2013 Tdap 09/24/2023,04/16/2013 Zoster, Recombinant 09/04/2021,03/16/2021 Family History Medical History Relation Name Comments Kidney disease Father Alcohol abuse Mother Diabetes Mother Liver disease Mother Diabetes Sister Relation Name Status Comments Father Mother Sister Social History Tobacco Use Types Packs/Day Years Used Date Smoking Tobacco: Every Day Cigarettes Passive Smoke Exposure: Current Smokeless Tobacco: Never Tobacco Cessation:Ready to Q uit: Not Asked; Counseling Given: Not Answered Alcohol Use Standard Drinks/Week Comments Never 0 (1 standard drink = 0.6 oz pur e alcohol) Depression Answer Date Recorded Patient Health Questionnaire-9 Score 0 01/17/2024 Patient Health Questionnaire-9 Score 0 01/17/2024 Last PHQ-9: Questionnaire Data Not on file 0 01/17/2024 Housing Stability Answer Date Recorded What is your housing situation today? I have peter anders 01/17/[address] you li ve. Do you have problems with any of the following? None of the above 01/17/2024 Food Insecurity Answer Date Recorded Within the past 12 months, y ou worried that your food would run out before you got money to buy more: Never True 01/17/2024 Within the past 12 months,th e food you bought just didn't last and you didn't have enough money to get more: Never True Transportation Answer Date Recorded In the past 12 months, has l ack of transportation kept you from medical appts, meetings, work or from getting things needed for daily living? No 01/17/2024 Utilities Answer Date Recorded In the past 12 months, has t he electric, gas, oil or water company threatened to shut off services in your home? No 01/17/2024 Depression Answer Date Recorded Patient Health Questionnaire-2 Score 0 01/17/2024 Internet Access Answer Date Recorded Internet Access Q1 No 03/02/2024 Internet Access Q2 I do not want or need it 08/2023 Comments Unknown Sex and Gender Information Value Date Recorded Sex Assigned at Female 04/30/2022 10:18 AM EDT Legal Sex Female 10:18 AM EDT Gender Identity Female 04/30/2022 10:18 AM EDT Sexual Orientation Straight 04/30/2022 10 :18 AM EDT Last Filed Vital Signs Vital Sign Reading Time Taken Comments Blood Pressure 144/80 05/04/2024 10:26 AM EST Pulse 83 05/04/2024 10:26 AM EST Temperature 36.8 ??C (98.3 ??F) 05/04/2024 10:[address] Respiratory Rate 18 05/04/2024 10:26 AM EST Oxygen Saturation 96% 05/04/2024 10:26 AM EST Inhaled Oxygen Concentration - - Weight 68.9 kg (152 lb) 05/04/2024 10:26 AM EST Height 167.6 cm (5' 6 ) 05/01/2024 11:05 AM EDT Body Mass Index 24.53 05/01/2024 11:05 AM EDT Plan of Treatment Upcoming Encounters Date Type Department Care Team (Late st Contact Info) Description 10/02/2024 11:00 AM EDT Office Visit [facility] [address] [place] [address] Joselito Quiñonez DDS [address] [place] [address] Health Maintenance Due Date Last Done Comments CT Colonography 1961 FIT DNA/Cologuard 1960 FIT 1960 FOBT 1960 Sigmoidoscopy 1960 Alcohol/Substance Use Screening 1973 Hepatitis A Vaccines (1 of 2 - Risk 2-dose series) 1980 RSV Patients and Patients Aged 60 years or older (1 - Risk 60-74 years 1-dose series) 2021 Dental Oral Exam 07/18/2023 01/14/2023, , 12/23/2017, Additional history exists Colonoscopy 07/25/2023 07/25/2018 Colorectal Cancer Screening 07/25/2023 Dental X-Ray: Bitewings 01/16/2024 01/15/20 23, 04/22/2019, 12/23/2017, Additional history exists COVID-19 Vaccine ( season) 2024 07/23/2022, 08/02/2021, 10/25/2020, Additional history exists Influenza Vaccine (#1) 2024 , 03/20/2021, 04/21/2020, Additional history exists Dental Prophylaxis 03/27/2024 09/24/2023, 0 01/14/2023, 04/22/2019, Additional history exists Depression Screening 01/16/2025 01/17/2024, 01/17/20 24 SDOH Screening 01/16/2025 01/17/2024 Cervical Cancer Screening 04/25/2025 HPV/Cotest 04/25/2025 04/25/2020 Pap Smear 04/25/2025 04/25/2020 Diabetes: Hemoglobin A1C 05/01/2025 024, 09/23/2023, 12/14/2022, Additional history exists Tobacco Screening 05/04/2025 05/04/2024 Mammogram 05/19/2025 05/19/2024, 05/01, 12/13/2022, Additional history exists Dental X-Ray: Full Mouth 01/15/2026 023, 12/23/2017, 09/10/2013 Lipid Panel 05/01/2029 05/01/2024, 08/30, 12/14/2022, Additional history exists DTaP/Tdap/Td Vaccines (3 - Td or Tdap) 09/23/2033 09/24/2023, 04/16/2013 Hepatitis B Vaccines Completed 05/20/2007, 05/31/2006, 05/02/2006 HIV Screening Completed 01/29/2020 Hepatitis C Screening Completed 01/29/2020 Zoster Vaccines Completed 09/04/2021, 03/16/2021 Pneumococcal Vaccine: 50+ Years Completed 01/17/2024, 04/16/2013 HIB Vaccines Aged Out No longer eligi ble based on patient's age to complete this topic HPV Vaccines Aged Out No longer eligi ble based on patient's age to complete this topic IPV Vaccines Aged Out No longer eligi ble based on patient's age to complete this topic Meningococcal Vaccine Aged Out No tomasa antonino eligible based on patient's age to complete this topic RSV under 20 months Aged Out No longe r eligible based on patient's age to complete this topic Rotavirus Vaccines Aged Out No longer eligible based on patient's age to complete this topic Procedures Procedure Name Priority Date/Time Associated Diagnosis Comments PROTEIN CREATININE RATIO, URINE Routine 09/24/2024 10:28 AM EDT CREATININE, SERUM Routine 09/24/2024 10: 27 AM EDT UREA NITROGEN (BUN) Routine 09/24/2024 1 0:27 AM EDT ELECTROLYTE PANEL Routine 09/24/2024 10: 27 AM EDT BI MAMMOGRAM SCREENING TOMOSYNTHESIS BILATERAL Routine 05/19/2024 12:33 PM EST HEMOGLOBIN A1C Routine 05/01/2024 1:00 PM EDT Excessive sweating LIPID PANEL, STANDARD Routine 05/01/2024 1:00 PM EDT Excessive sweating Full PROPHYLAXIS - ADULT Routine 09/24/2023 8:00 AM EDT INTRAORAL - COMPLETE SERIES OF RADIOGRAPHIC IMAGES Routine 01/14/2023 1:00 PM EDT Dental calculus Localized gingival recession PERIODIC ORAL EVALUATION - ESTABLISHED PATIENT Routine 01/14/2023 1:00 PM EDT ZZZ HISTORICAL HPV MRNA E6/E7 Routine 04/25/2020 2:46 PM EDT HM PAP/HPV Routine 04/25/2020 ZZZ HISTORICAL HEPATITIS C AB W/REFL TO HCV RNA, QN, PCR Routine 01/29/2020 10:04 AM EDT HIV 1/2 ANTIGEN/ANTIBODY, FOURTH GENERATION W/RFL Routine 01/29/2020 10:04 AM EDT HM COLONOSCOPY Routine 07/25/2018 10:20 AM EST from Last 3 Months or Most Recently Relevant to Health Maintenance Results * (ABNORMAL) Protein Creatinine Ratio, Urine (09/24/2024 10:28 AM EDT) Creatinine, Urine 213.56 mg/dL [facility] Protein, Total, Random Urine 339(H) <12 mg/dL [facility] Protein/Creati nine Ratio, Ur 1.59(H) <0.2 [facility] Comment:The spot urine prote in:creatinine ratio may increase to 0.3during normal . 09/24/2024 10:2 8 AM EDT 09/24/2024 11:02 AM EDT us Generic External Data Provider LAB URINE ORDERAB LES Final Result [facility] [address] [place] [address] [phone] * Creatinine, Serum (09/24/2024 10:27 AM EDT) Creatinine, Serum 0.65 0.5 - 1.4 mg/dL [facility] Estimated Glomerular Filt Rate >60 [facility] Comment:Chronic Kidney Disea se: Estimated GFR < 60 mL/min/[id number] Kidney Disease: Estimated GFR < 15 mL/min/1.73m2 09/24/2024 10:2 7 AM EDT 09/24/2024 10:27 AM EDT Generic External Data Provider LAB BLOOD ORDERAB LES Final Result Performing Organization Address [facility] Co de Phone Number [facility] [address] [place] [phone] * BUN (Blood Urea Nitrogen) (09/24/2024 10:27 AM EDT) Urea Nitrogen (BUN) 13 9 - 16 mg/dL [facility] 09/24/2024 10:2 7 AM EDT 09/24/2024 10:27 AM EDT Generic External Data Provider LAB BLOOD ORDERAB LES Final Result Performing Organization Address [facility] Phone Number [facility] [address] [place] [phone] * Electrolyte Panel (09/24/2024 10:27 AM EDT) Sodium 141 135 - 145 mmol/L [facility] Potassium 4.2 3.3 - 5.1 mmol/L [facility] Chloride 107 96 - 108 mmol/L [facility] Carbon Dioxide 26 22 - 29 mmol/L [facility] Anion Gap 12 12 - 20 [facility] 09/24/2024 10:2 7 AM EDT 09/24/2024 10:27 AM EDT Generic External Data Provider LAB BLOOD ORDERAB LES Final Result Performing Organization Address [facility] de Phone Number [facility] [address] [place] [phone] * BI Mammogram Screening Tomosynthesis Bilateral (05/19/2024 12:33 PM EST) Anatomical Region Laterality Modality Breast Bilateral Mammography 05/19/2024 12:3 3 PM EST Narrative 05/27/2024 8:21 AM EST ? [facility] ? [address] ?[place] [address] ? Mammography Report ? Signed ? Patient: Semidey,Ada I ?MR#: [id number] ?? 6 ? : 1960 ?Acct:[id number] ? Age/Sex: 63 / F ?ADM Date: 05/19/24 ? Loc: [place].MAMMO ? Attending Dr: Sabina Cervantes DO ? Ordering Physician: Sabina Cervantes DO ?Results: 1N ?? egative ? Date of Service: 05/19/24 ?Follow Up: 1 Year From Orig ?? inal Mammogram ? Procedure(s): MM tomosynthesis screening BI ?? Accession Number(s): [id number] ? cc: Sabina Cervantes DO ? EXAMINATION: ?? MM SCREENING DIGITAL BREAST TOMOSYNTHESIS, BILATERAL ? CLINICAL INFORMATION: ? Screening. Asymptomatic. ? COMPARISON: ?? Mammography: Comparison is made with available priors ? TECHNIQUE: ?? Digital breast mammography with tomosynthesis is performed in both the ?? craniocaudal and mediolateral oblique views along with computer-aided ?? detection (CAD). ? FINDINGS: ?? The breasts are heterogeneously dense, which may obscure small masses ?? (ACR BI-RADS breast composition Category c). ? There are no significant masses, abnormal calcifications, or other ?? abnormalities. ? MM/MM tomosynthesis screening BI ?? IMPRESSION: ?? No mammographic evidence of malignancy. ? ASSESSMENT: ? BI-RADS BI-RADS 1 - Negative ? RECOMMENDATION: ?? Routine annual mammography screening. ? 1 year F/U ? This examination should not preclude the clinical evaluation of a ?? suspicious palpable abnormality. ? This patient's information was entered into a reminder system with a ?? target due date for their next mammogram. ? Electronically signed by: ??Ashley Lazcano DO ??05/27/2024 08:17 AM EST ?? RP ? Dictated By: ?Ashley Lazcano DO ? Signed By: ?<Electronically signed by Ashley Lazcano, DO in OV> ? 05/27/24 0817 ? DD/ 1233 ? TD/TT: 05/19/24 1253 ? Labor/Excavator: ? Procedure Note Donkamar, Image - 05/27/2024 [facility] [address] [place] [address] Mammography Report Signed Patient: Lenora Leon IMR#: [id number] 6 : 2Acct:[id number] Age/Sex: 63 / FADM Date: 05/19/24 Loc: [place].MAMMO Attending Dr: Sabina Cervantes DO Ordering Physician: Sabina Cervantesults: 1N egative Date of Service: 05/19/24Follow Up: 1 Year From Orig inal Mammogram Procedure(s): MM tomosynthesis screening BI Accession Number(s): [id number] cc: Sabina Cervantes DO EXAMINATION: MM SCREENING DIGITAL BREAST TOMOSYNTHESIS, BILATERAL CLINICAL INFORMATION: Screening. Asymptomatic. COMPARISON: Mammography: Comparison is made with available priors TECHNIQUE: Digital breast mammography with tomosynthesis is performed in both the craniocaudal and mediolateral oblique views along with computer-aided detection (CAD). FINDINGS: The breasts are heterogeneously dense, which may obscure small masses (ACR BI-RADS breast composition Category c). There are no significant masses, abnormal calcifications, or other abnormalities. MM/MM tomosynthesis screening BI IMPRESSION: No mammographic evidence of malignancy. ASSESSMENT: BI-RADS BI-RADS 1 - Negative RECOMMENDATION: Routine annual mammography screening. 1 year F/U This examination should not preclude the clinical evaluation of a suspicious palpable abnormality. This patient's information was entered into a reminder system with a target due date for their next mammogram. Electronically signed by: Ashley Lazcano DO 05/27/2024 08:17 AM EST Dictated By: Ashley Lazcano DO Signed By: <Electronically signed by Ashley Lazcano DO in OV> 05/27/24 0817 DD/ 1233 TD/TT: 05/19/24 1253 Labor/Excavator: Sabina Cervantes DO IMG BI PROCEDURES Edited Res ult - Final * Hemoglobin A1c (05/01/2024 1:00 PM EDT) Hemoglobin A1c 5.9 <6.0 % [facility] Comment:Hemoglobin A1C Refer ence Range Adults: 4.8 - 6.0 % Non diabetic: < 6.0 % Goal: < 7.0 %Additional Action Suggested: > 8.0 %Note: Hemoglobin A1c results are invalid for patients with abnormal amounts of HbF. Blood transfusions may impact the HbA1c concentration in the patient sample. Estimated Average Glucose 123 mg/dL [facility] Comment:eAG = Estimated ave rage glucose which is %A1C expressed asaverage glucose, using the formula of the T8U-UjesqteHkwzkhi Glucose study (ADAG), Diabetes Care, Vol.31,#8,Aug. 2007 Blood Venous blood specimen / Unknown 05/01/2024 1:00 PM EDT 05/01/2024 4:32 PM EDT Sabina Cervantes DO LAB BLOOD ORDERABLES Final R esult [facility] [address] [place] [phone] * (ABNORMAL) Lipid Panel, Standard (05/01/2024 1:00 PM EDT) Triglycerides 171(H) <150 mg/dL [facility] Comment:Desirable Triglyceri de: less than 150 mg/dLBorderline High Triglyceride 150-199 mg/dLHigh Triglyceride: 200-499 mg/dLVery High Triglyceride: greater than or equal to 5OO mg/dL Cholesterol 162 <200 mg/dL [facility] Comment:Desirable Cholestero l: less than 200 mg/dLBorderline High Cholesterol: 200-239 mg/dLHigh Cholesterol: greater than 239 mg/dL LDL Cholesterol Calculated 85 <100 mg/dL [facility] Comment:Desirable LDL: less than 100 mg/dLNear Optimal/Above Optimal LDL: 110- 129 mg/dLBorderline High LDL: 130-159 mg/dLHigh LDL: 160-189 mg/dLVery High LDL: greater than or equal to 190 mg/dL HDL Cholesterol 43 >40 mg/dL [facility] Comment:Desirable HDL: great er than 40 mg/dL Note: This HDL assay may give artificially low results in patients with liver disease. Blood Venous blood specimen / Unknown 05/01/2024 1:00 PM EDT 05/01/2024 4:32 PM EDT Sabina Cervantes DO LAB BLOOD ORDERABLES Final R esult [facility] [address] [place] [phone] * HPV mRNA E6/E7 (04/25/2020 2:46 PM EDT) HPV mRNA E6/E7 Not Detected Not Detected [facility] Comment: This test was performed using the APTIMA HPV Assay ([employer] This assay detects E6/E7 viral messenger RNA (mRNA) from 14 high-risk HPV types (16,18,31,33,35,39,45,51,52,56,58,59,66,68). The analytical performance characteristics of this assay have been determined by [employer]. The modifications have not been cleared or approved by the FDA. This assay has been validated pursuant to the CLIA regulations and is used for clinical purposes. THIS TEST WAS PERFORMED AT: [employer] [address] [place] [address] [address] [place], [place] ??[phone] KI OCONNOR MD 04/25/2020 2:46 PM EDT Maurisio Good MD HISTORICAL/NON ORDERABLE LABS Fi nal Result [facility] [address] * Pap Smear (04/25/2020) Pap Negative for intraephithelial lesion or malignancy Negative for intraephithelial lesion or malignancy, Other Historical Provider HEALTH MAINTENANCE Final Result * HEPATITIS C AB W/REFL TO HCV RNA, QN, PCR (01/29/2020 10:04 AM EDT) HEPATITIS C ANTIBODY NON-REACT ALICIA NON-REACT ALICIA [facility] INDEX 0.01 <1.00 [facility] Comment: ?? HCV antibody was non-reactive. There is no laboratory ?? evidence of HCV infection. ?? In most cases, no further action is required. However, if recent HCV exposure is suspected, a test for HCV RNA (test code 20621) is suggested. ?? For additional information please refer to http://[employer].Isoflux/faq/JIZ45b7 (This link is being provided for informational/ educational purposes only.) ?? HEPATITIS C ANTIBODY NON-REACT ALICIA NON-REACT ALICIA [facility] INDEX 0.01 <1.00 [facility] Comment: ?? HCV antibody was non-reactive. There is no laboratory ?? evidence of HCV infection. ?? In most cases, no further action is required. However, if recent HCV exposure is suspected, a test for HCV RNA (test code 84555) is suggested. ?? For additional information please refer to http://[employer]/faq/QLR66w8 (This link is being provided for informational/ educational purposes only.) ?? HEPATITIS C ANTIBODY NON-REACT ALICIA NON-REACT ALICIA [facility] INDEX 0.01 <1.00 [facility] Comment: ?? HCV antibody was non-reactive. There is no laboratory ?? evidence of HCV infection. ?? In most cases, no further action is required. However, if recent HCV exposure is suspected, a test for HCV RNA (test code 24106) is suggested. ?? For additional information please refer to http://[employer].Isoflux/faq/DTC69p4 (This link is being provided for informational/ educational purposes only.) ?? HEPATITIS C ANTIBODY NON-REACT ALICIA NON-REACT ALICIA [facility] INDEX 0.01 <1.00 [facility] Comment: ?? HCV antibody was non-reactive. There is no laboratory ?? evidence of HCV infection. ?? In most cases, no further action is required. However, if recent HCV exposure is suspected, a test for HCV RNA (test code 71991) is suggested. ?? For additional information please refer to http://Identification Solutions/faq/[id number] (This link is being provided for informational/ educational purposes only.) ?? 01/29/2020 10:0 4 AM EDT Sabina Cervantes DO HISTORICAL/NON ORDERABLE LAB S Final Result [facility] [address] * HIV 1/2 ANTIGEN/ANTIBODY,FOURTH GENERATION W/RFL (01/29/2020 10:04 AM EDT) HIV-1/2 ANTIGEN AND ANTIBODIES, 4TH GENERATION W/ REFLEX NON-REACT ALICIA NON-REACT ALICIA [facility] Comment: HIV-1 antigen and HIV-1/HIV-2 antibodies were not detected. There is no laboratory evidence of HIV infection. ?? PLEASE NOTE: This information has been disclosed to you from records whose confidentiality may be protected by state law. ??If your state requires such protection, then the state law prohibits you from making any further disclosure of the information without the specific written consent of the person to whom it pertains, or as otherwise permitted by law. A general authorization for the release of medical or other information is NOT sufficient for this purpose. ? For additional information please refer to http://SolarBuddy.Isoflux/faq/HXN956 (This link is being provided for informational/ educational purposes only.) ? The performance of this assay has not been clinically validated in patients less than 2 years old. ?? HIV-1/2 ANTIGEN AND ANTIBODIES, 4TH GENERATION W/ REFLEX NON-REACT ALICIA NON-REACT [facility] Comment: HIV-1 antigen and HIV-1/HIV-2 antibodies were not detected. There is no laboratory evidence of HIV infection. ?? PLEASE NOTE: This information has been disclosed to you from records whose confidentiality may be protected by state law. ??If your state requires such protection, then the state law prohibits you from making any further disclosure of the information without the specific written consent of the person to whom it pertains, or as otherwise permitted by law. A general authorization for the release of medical or other information is NOT sufficient for this purpose. ? For additional information please refer to http://Identification Solutions/faq/QEU035 (This link is being provided for informational/ educational purposes only.) ? The performance of this assay has not been clinically validated in patients less than 2 years old. ?? HIV-1/2 ANTIGEN AND ANTIBODIES, 4TH GENERATION W/ REFLEX NON-REACT ALICIA NON-REACT [facility] Comment: HIV-1 antigen and HIV-1/HIV-2 antibodies were not detected. There is no laboratory evidence of HIV infection. ?? PLEASE NOTE: This information has been disclosed to you from records whose confidentiality may be protected by state law. ??If your state requires such protection, then the state law prohibits you from making any further disclosure of the information without the specific written consent of the person to whom it pertains, or as otherwise permitted by law. A general authorization for the release of medical or other information is NOT sufficient for this purpose. ? For additional information please refer to http://Identification Solutions/faq/WWL295 (This link is being provided for informational/ educational purposes only.) ? The performance of this assay has not been clinically validated in patients less than 2 years old. ?? 01/29/2020 10:0 4 AM EDT Sabina Cervantes DO LAB BLOOD ORDERABLES Final R esult [facility] [address] [place] [address], * Hm Colonoscopy (07/25/2018 10:20 AM EST) Historical Provider HEALTH MAINTENANCE Final Result from Last 3 Months or Most Recently Relevant to Health Maintenance Insurance [facility] C3 DENTAL-[facility] MEDICAID STAND ADULT Care Teams Cube Machine Tender Relationship Specialty Start Date End Date Sabina Cervantes DO [address] [place] [id number] PCP - General Family Medicine 06/13/12
--- OUTSIDE RECORDS SUMMARY | 2024-09-30 10:54 | XMS_ITS | Patient Health Record ---
Author Organization [facility] Address [address] [place] [address] Care Team Providers Care Senior Training Specialist Name Role Phone Sabina Cervantes M.D. Primary Care Provider Amy Rosendo Interiano Unavailable [phone] Allergies No Known Allergies Results Component Value Reference Range Notes Pathology (Not yet reviewed by provider) Interpretation: Performing Lab:[facility], [address] [facility], [place] [address] Notes/Report: Name: Lenora Calle I Age/Sex: 63/F : 1960 Unit#: [id number] Attend Dr: Rosendo Padilla MD Re05/06/24 Status : [facility] Location: [facility] Disch: SPEC : [id number] RECD : 05/06/24 STATUS: KYRIE REYNOLDS NUM: [id number] RENÉ: 05/06/[address] [facility] [address]: Rosendo Padilla MD ENTERED: 05/06/24 SP TYPE: Surgical OTHR DR: Sabina Cervantes DO ORDERED: HE Stain/3, Gross Micro L4 Diagnosis Colon, 20 cm, polype ctomies: Hyperplastic mucosal polyp (one fragment). Clinical History Pre-Op Dx: Hx coloni c polyps, screening Post-Op Dx: Colon po lyps, diverticulosis, hemorrhoids Microscopic Description Microscopic sections reviewed. Material Received Polyps at 20 Gross Description Received in formalin labeled ?polyps (sic) at 20? is a 0.35 cm noyola-pink papular tissue fragment, submitted in toto in a cassette labeled A. CEDS Copies To: [place] [address] Rosendo Padilla MD [address] [place] [address] Signed (si gnature on file) Corey Maharaj MD 05/07/24 1418 END OF REPORT Reason For Referral Referring Provider First Name Sabina Referring Provider Last Name Billy Referred Organization [facility] Referred Provider Rosendo Padilla Referred Address [address] [place] [address],[place] [address],[place], [place],[address],[place] Referred Provider Specialty Gastroentero logy General Notes AllenTammy 024 10:02:40 AM EDT > requested a [facility] referral from [facility] for visit with Dr. Padilla on 01-09-2024. dx screening [phone] Referral Priority Routine Medications Medication SIG (Take, Route, Frequency, Duration) [...] 10 Active D3 Super Strength 50 MCG (2000 UT) TAKE 1 CAPSULE BY MOUTH EVERY DAY Oral for 90 E559,Unavailabl e Active MiraLax (colon prep) 17 GM/SCOOP 1 238Gm bottle mixed with Gatorade or Crystal Light Orally begin at 5:00 p.m. the day before the procedure for 1 day 01/11/2024 Active Aspirin 81 MG 1 tablet Orally Once a day Active Immunizations Vaccine Route Administration Date Status Comme nts Influenza Unknown 05/01/2018 Administered Problems Problem Type SNOMED Code ICD Code Onset Dates Problem Status W/U Status Risk Notes Problem 140659912 Encounter for screening for malignant neoplasm of colon (Z12.11) Active confirmed Problem 967159788 History of adenomatous polyp of colon (Z86.010) Active confirmed Problem Diverticular disease of colon (659864451) Diverticulosis of large intestine without perforation or abscess without bleeding (K57.30) Active confirmed Problem 92701759 Constipation, unspecified constipation type (K59.00) Active confirmed Problem Gastroesophageal reflux disease (488358637) GERD without esophagitis (K21.9) Active confirmed Vital Signs Blood pressure diastolic 00 mm Hg 01/09/2024 Height 66 in 01/09/2024 Blood pressure systolic 00 mm Hg 01/09/2024 Weight 151 lbs 01/09/2024 BMI 24.37 kg/m2 01/09/2024 Encounters Encounter Location Date Provider Diagnosis [facility] Outpatient [address] [place], [place] [id number] 05/06/2024 Rosendo Padilla Colon cancer screeni ng Z12.11 ; Colon polyps K63.5 ; Diverticulosis of large intestine without perforation or abscess without bleeding K57.30 and Other hemorrhoids K64.8 [facility] [address] [place] [phone] 01/09/2024 Rosendo Padilla History of adenomato us polyp of colon Z86.010 ; GERD without esophagitis K21.9 and Encounter for screening for malignant neoplasm of colon Z12.11 [facility] [address] [place] [phone] 01/09/2024 Rosendo Padilla Assessments Encounter Date Diagnosis (ICD Code) Assessment Notes Treatment Notes Treatment Clinical Notes Section Notes 05/06/2024 Colon cancer screening (ICD-10 - Z12.11) 05/06/2024 Colon polyps (ICD-10 - K63.5) 01/09/2024 History of adenomatous polyp of colon (ICD-10 - Z86.010) Stop aspirin for 1 week before the colonoscopy Overall, Ada appears quite well. Her reflux seems to be remaining quite stable on her daily omeprazole. She is not having any new or worrisome symptoms in that regard and therefore I do not think she requires a followup upper endoscopy at this time. I did recommend a followup screening colonoscopy given her personal history of tubular adenomas and last colonoscopy being over 5 years ago. We did review the rationale for that in regard to colon cancer prevention. Full consent is obtained for this, including risks of bleeding and perforation. We did review the rationale for this in regard to colon cancer prevention. The procedure will be done with monitored anesthesia care. She was given the below instructions regarding adjustment of her medication for the procedure. Lenora was comfortable with this plan. Thank you again for allowing me to participate in Lenora's care. I shall continue to keep you advised of her progress. 01/09/2024 GERD without esophagitis (ICD-10 - K21.9) Overall, Lenora appears quite well. Her reflux seems to be remaining quite stable on her daily omeprazole. She is not having any new or worrisome symptoms in that regard and therefore I do not think she requires a followup upper endoscopy at this time. I did recommend a followup screening colonoscopy given her personal history of tubular adenomas and last colonoscopy being over 5 years ago. We did review the rationale for that in regard to colon cancer prevention. Full consent is obtained for this, including risks of bleeding and perforation. We did review the rationale for this in regard to colon cancer prevention. The procedure will be done with monitored anesthesia care. She was given the below instructions regarding adjustment of her medication for the procedure. Lenora was comfortable with this plan. Thank you again for allowing me to participate in Yuma's care. I shall continue to keep you advised of her progress. 05/06/2024 Diverticulosis of large intestine without perforation or abscess without bleeding (ICD-10 - K57.30) 01/09/2024 Encounter for screening for malignant neoplasm of colon (ICD-10 - Z12.11) Overall, Lenora appears quite well. Her reflux seems to be remaining quite stable on her daily omeprazole. She is not having any new or worrisome symptoms in that regard and therefore I do not think she requires a followup upper endoscopy at this time. I did recommend a followup screening colonoscopy given her personal history of tubular adenomas and last colonoscopy being over 5 years ago. We did review the rationale for that in regard to colon cancer prevention. Full consent is obtained for this, including risks of bleeding and perforation. We did review the rationale for this in regard to colon cancer prevention. The procedure will be done with monitored anesthesia care. She was given the below instructions regarding adjustment of her medication for the procedure. Lenora was comfortable with this plan. Thank you again for allowing me to participate in Yuma's care. I shall continue to keep you advised of her progress. 05/06/2024 Other hemorrhoids (ICD-10 - K64.8) Plan Of Treatment Pending Test Test Name Order Date Pathology 05/06/2024 Future Test Test Name Order Date COLONOSCOPY 03/31/2013 COLONOSCOPY 05/06/2018 COLONOSCOPY 01/09/2024 Insurance Providers Payer Name Payer Address Payer Phone Subscriber Number Group Number Insured Name Patient Relationship to Insured Coverage Start Date Coverage End Date MEDICAID OF [place] [address] [place] [id number] SEMIDEY, ADA Self - patient is the insured Medical (General) History Medical History History ICD Code EGD 09-27-2010---mild gastritis-no H.pylo ri-no esophagitis GERD Claudication Fibromyalgia Ovarian cysts Denies LA,DM,CVA,Lung disease,renal dise ase Bronchitis Neuropathy--feet Colonoscopy in 03/2013--smal l tubular adenomas, diverticulosis, internal hemorroids Gallbladder polyps--sees Dr. Burnham Colonoscopy 07/2018 with 1 small tubular adenoma removed Surgical History Surgery Date(Month/Year) Tubal ligation Glaucoma eye surgery 2023
--- OUTSIDE RECORDS SUMMARY | 2024-09-30 10:54 | XMS_ITS | Encounter Summary ---
Author Organization [employer] Address [address] [facility] [address] [place] [address] Care Team Providers Care Hand Weaver Name Role Phone Sabina Cervantes DO Primary Care Provider [phone] Encounter Details Date Type Department Care Team (Late st Contact Info) Description 07/04/2022 Orders Only [facility] [address] [place] [address] Sabina Barnard LPN Social History Tobacco Use Types Packs/Day [...] 11:00 AM EDT Office Visit [facility] ADULT DENTAL [address] [place] [address] Joselito Quiñonez DDS [address] [place] [address] documented as of this encounter Visit Diagnoses Not on filedocumented in this encounter Care Teams Hand Weaver Relationship Specialty Start Date End Date Sabina Cervantes DO [address] [place] [address] PCP - General Family Medicine 06/13/12 documented as of this encounter
--- OUTSIDE RECORDS SUMMARY | 2024-09-30 10:54 | XMS_ITS | Encounter Summary ---
Author Organization [employer] [facility] Address [address] [facility] [address] [place] [address] Care Team Providers Care Cover Stitch Machine Operator Name Role Phone Sabina Cervantes DO Primary Care Provider + [phone] Reason for Visit * Reason Onset Date Comments Med Refill 09/13/2023 Encounter Details Date Type Department Care Team ([facility] st Contact Info) Description 09/13/[address] [facility] [address] [place] [address] Sabina Cervantes DO [address] [place], [place] [phone] Med Refill Social History Tobacco Use Types Packs/Day Years [...] AM EDT documented as of this encounter Miscellaneous Notes * Telephone Encounter - Sabina Barnard LPN - 09/13/2023 10:20 AM EDT Please review medication not on active med list. * Telephone Encounter - Melani Saldaña - 09/13/2023 10:04 AM EDT Tc from pt requesting med refill; Ibuprofen 600MG Co Founder don't see med on chart but pt stated she received constantly. [facility] - [place], [place] - [address] [facility] documented in this encounter Plan of Treatment Upcoming Encounters Date Type Department Care Team (Late st Contact Info) Description 10/02/2024 11:00 AM EDT Office Visit [facility] ADULT DENTAL [address] [place] [address] Joselito Quiñonez DDS [address] [place] [address] documented as of this encounter Visit Diagnoses Not on filedocumented in this encounter Additional Health Concerns Assessment Noted Time PHQ-9 Depression Total Score: 0 07/23/19 11:34 AM EST documented as of this encounter Care Teams Cover Stitch Machine Operator Relationship Specialty Start Date End Date Sabina Cervantes DO [address] [place] [address] PCP - General Family Medicine 06/13/12 documented as of this encounter
--- OUTSIDE RECORDS SUMMARY | 2024-09-30 10:54 | XMS_ITS ---
Author Organization [facility] Address [address] [place] [address] Care Team Providers Care Nursing Service Administrator Name Role Phone Sabina Cervantes M.D. Primary Care Provider Amy modestailaRosendo Landis Unavailable [phone] REASON FOR VISIT screening,hx polyps Problems Problem Type SNOMED Code ICD Code Onset Dates Problem Status W/U Status Risk Notes Problem Diverticular disease of colon (340008258) Diverticulosis of large intestine without perforation or abscess without bleeding (K57.30) Active confirmed Encounters Encounter Location Date Provider Diagnosis [facility] Out[facility] [address] [place], [place] [phone] 05/06/2024 Rosendo Padilla Colon cancer scree bhavesh [...] Information Progress Notes * RUBY CALLEDOB:1960 ( 63 yo F)Acc No.[id number]:05/06/2024 COLON WITH MAC Patient:?RUBY CALLE Provider:?Rosendo Padilla MD :1960???Age:63 Y???Sex:Female D ate:05/06/2024 Address:[address] [place] [address] [address] [facility] , [phone] Pcp:Sabina Cervantes M.D. Subjective: * Chief Complaints: * ???1. Screening,hx polyps. * Medical History:? Objective: * Vitals:? Assessment: * Assessment: 1.?Colon cancer screening - Z12.11 (Primary)???2.?Colon polyps - K63.5???3.?Diverticulosis of large intestine without perforation or abscess without bleeding - K57.30???4.?Other hemorrhoids - K64.8??? Plan: * Treatment: * Procedure Codes:?93112 LESIO N REMOVAL COLONOSCOPY * * The named appointment provid er may or may not be the originator of this progress note, and it is not deemed complete until electronically signed by the appointment provider. Sign off status: Pending * Provider:?Rosendo Padilla MD Date:? 024 Generated for Patria horta/Keanu/eTransmitting on:?09/30/2024 10:54 AM EDT
--- OUTSIDE RECORDS SUMMARY | 2024-09-30 10:55 | XMS_ITS ---
Author Organization [facility] Address [address] [place] [address] Care Team Providers Care Compensation Agent Name Role Phone Sabina Cervantes M.D. Primary Care Provider Amy Rosendo Interiano Unavailable [phone] Allergies No Known Allergies REASON FOR VISIT Patient presents today for a screening colonoscopy Medications Medication SIG (Take, Route, Frequency, Duration) [...] FOR ABDOMINAL PAIN Oral for 10 Active Problems Problem Type SNOMED Code ICD Code Onset Dates Problem Status W/U Status Risk Notes Problem Gastroesophageal reflux disease (716822860) GERD without esophagitis (K21.9) Active confirmed Vital Signs Blood pressure systolic 00 mm Hg 01/09/20 24 Blood pressure diastolic 00 mm Hg 024 Height 66 in 01/09/2024 Weight 151 lbs 01/09/2024 BMI 24.37 kg/m2 01/09/2024 Encounters Encounter Location Date Provider Diagnosis [facility] [address] [place] [address] 01/09/2024 Rosendo Padilla History of adenomato us polyp of colon Z86.010 ; GERD without esophagitis K21.9 and Encounter for screening for malignant neoplasm of colon Z12.11 Assessments Encounter Date Diagnosis (ICD Code) Assessment Notes Treatment Notes Treatment Clinical Notes Section Notes 01/09/2024 History of adenomatous polyp of colon (ICD-10 - Z86.010) Stop aspirin for 1 week before the colonoscopy Overall, Ruby appears quite well. Her reflux seems to [...] adjustment of her medication for the procedure. Ruby was comfortable with this plan. Thank you again for allowing me to participate in Ruby's care. I shall continue to keep you advised of her progress. 01/09/2024 GERD without esophagitis (ICD-10 - K21.9) Overall, Ruby appears quite well. Her reflux seems to [...] adjustment of her medication for the procedure. Ruby was comfortable with this plan. Thank you again for allowing me to participate in Ruby's care. I shall continue to keep you advised of her progress. 01/09/2024 Encounter for screening for malignant neoplasm of colon (ICD-10 - Z12.11) Overall, Ruby appears quite well. Her reflux seems to [...] adjustment of her medication for the procedure. Ruby was comfortable with this plan. Thank you again for allowing me to participate in Ruby's care. I shall continue to keep you advised of her progress. Plan Of Treatment Treatment Notes Assessment Notes History of adenomatous polyp of colon St op aspirin for 1 week before the colonoscopy Future Test Test Name Order Date COLONOSCOPY 01/09/2024 Next Appt Details Follow Up: prn, Reason: Progress Notes * RUBY CALLEDOB:1960 ( 63 yo F)Acc No.[id number]:01/09/2024 Progress Notes Patient:?RUBY CALLE Provider:?Rosendo Padilla MD :1960???Age:63 Y???Sex:Female D ate:01/09/2024 Address:[address] [place], [place] [id number] Pcp:Sabina Cervantes M.D. Subjective: * Chief Complaints: * ???Patient presents today fo r a screening colonoscopy * HPI: ???incontinence:? I saw Ruby in consultation today for evaluation of her personal history of tubular adenomas of the colon and need for colorectal cancer screening, as well as her underlying history of gastroesophageal reflux. ?I last saw Ruby in July of 2018, at which time she underwent a followup screening colonoscopy with removal of a small tubular adenoma. She presently feels well. She does remain on her omeprazole with good relief of her previous reflux symptoms. She denies any dysphagia, anorexia, early satiety, significant heartburn, nausea, nor vomiting. Her previous upper endoscopy was negative for any sign of significant esophagitis or Shaw's esophagus. Her bowel movements have been regular and without any signs of bleeding. She denies any abdominal pain, signs of jaundice, nor unintentional weight loss. * ROS:?General/Constitutional:?Change in appetite?denies.?Chills?denies.?Fatigue?denies.?Ophthalmologic:?Patient denies? Negative..?ENT:?Patient denies?Negative..?Respiratory:?Patient denies?No coughing/hemoptysis..?Cardiovascular:?Patient denies? No chest pain/orthopnea..?Gastrointestinal:?Comments?See HPI for details.?Genitourinary:?Patient denies? No dysuria/hematuria..?Musculoskeletal:?Patient denies? No specific arthralgias/myalgias..?Skin:?Patient denies?No rash/pruritus..?Neurologic:?Patient denies? No headaches/seizures..?Psychiatric:?Patient denies?Negative..? * Medical History:? * Surgical History:?Tubal liga tion Glaucoma eye surgery 2023 * Hospitalization/Major Diagno stic Procedure:?No Hospitalization History. * Family History:?Father: dece ased, kidney.?Mother: , alcohol abuse/liver.? No family history of colorectal cancer. * Social History:?Tobacco Use:?Tobacco Use/Smoking?Are you a: current smoker , How often do you smoke cigarettes?: every day, How many cigarettes a day do you smoke?: 11-, Are you interested in quitting?: Thinking about quitting.?Drugs/Alcohol:?Alcohol Screen?Points: 0, Interpretation: Negative.?Miscellaneous:?Marital status: single. Occupation: unemployed. ???Smoker approx 1 ppd; no alcohol. * Medications:?TakingAspirin 8 1 MG Tablet Chewable 1 tablet Orally Once a dayD3 Super Strength 50 MCG (2000 UT) Capsule TAKE 1 CAPSULE BY MOUTH EVERY DAY Oral , Notes: E559,UnavailableAmitriptyline HCl 10 MG Tablet TAKE 2 TABLETS BY MOUTH EVERY DAY AT BEDTIME Oral , Notes: R52,UnavailableOmeprazole 20 MG Capsule Delayed Release TAKE 1 CAPSULE BY MOUTH EVERY DAY BEFORE A MEAL Oral Rosuvastatin Calcium 20 MG Tablet TAKE 1 TABLET BY MOUTH EVERY DAY Oral , Notes: I739,UnavailableLevothyroxine Sodium 100 MCG Tablet TAKE 1 TABLET BY MOUTH DAILY BEFORE BREAKFAST Oral Latanoprost 0.005 % Solution INSTILL 1 DROP INTO BOTH EYES EVERY DAY AT NIGHT Ophthalmic Dicyclomine HCl 10 MG Capsule TAKE 1 CAPSULE BY MOUTH THREE TIMES DAILY NEEDED FOR ABDOMINAL PAIN Oral Simethicone 125 MG Tablet Chewable CHEW AND SWALLOW 1 TABLET BY MOUTH FOUR TIMES DAILY NEEDED FOR GAS Oral , Notes: R140,UnavailableLoratadine 10 MG Tablet TAKE 1 TABLET BY MOUTH EVERY DAY Oral , Notes: J302,UnavailableTaking Aspirin 81 MG Tablet Chewable 1 tablet Orally Once a dayTaking D3 Super Strength 50 MCG (2000 UT) Capsule TAKE 1 CAPSULE BY MOUTH EVERY DAY Oral , Notes: E559,UnavailableTaking Amitriptyline HCl 10 MG Tablet TAKE 2 TABLETS BY MOUTH EVERY DAY AT BEDTIME Oral , Notes: R52,UnavailableTaking Omeprazole 20 MG Capsule Delayed Release TAKE 1 CAPSULE BY MOUTH EVERY DAY BEFORE A MEAL Oral Taking Rosuvastatin Calcium 20 MG Tablet TAKE 1 TABLET BY MOUTH EVERY DAY Oral , Notes: I739,UnavailableTaking Levothyroxine Sodium 100 MCG Tablet TAKE 1 TABLET BY MOUTH DAILY BEFORE BREAKFAST Oral Taking Latanoprost 0.005 % Solution INSTILL 1 DROP INTO BOTH EYES EVERY DAY AT NIGHT Ophthalmic Taking Dicyclomine HCl 10 MG Capsule TAKE 1 CAPSULE BY MOUTH THREE TIMES DAILY NEEDED FOR ABDOMINAL PAIN Oral Taking Simethicone 125 MG Tablet Chewable CHEW AND SWALLOW 1 TABLET BY MOUTH FOUR TIMES DAILY NEEDED FOR GAS Oral , Notes: R140,UnavailableTaking Loratadine 10 MG Tablet TAKE 1 TABLET BY MOUTH EVERY DAY Oral , Notes: J302,UnavailableDiscontinuedFamotidine Vicodin not daily, Notes: every 2nd or 3rd day for painColace prnColyte w Flavor Packs 240 GM Solution Reconstituted as directed Orally as directedMedication List reviewed and reconciled with the patientDiscontinued Famotidine Discontinued Vicodin not daily, Notes: every 2nd or 3rd day for painDiscontinued Colace prnDiscontinued Colyte w Flavor Packs 240 GM Solution Reconstituted as directed Orally as directedMedication List reviewed and reconciled with the patient * Allergies:?N.K.D.A.yes[Aller gies Verified] Objective: * Vitals:?Wt: 151 lbs, Ht: 66 in, BMI:24.37 Index, BP: 00/00 mm Hg. * Examination: ???General Examination: ?GENERAL APPEARANCE:?pleasant, well nourished, well developed, in no acute distress.?EYES:?sclera non-icteric.?ORAL CAVITY:?mucosa moist.?NECK/THYROID:?no cervical lymphadenopathy, neck supple.?SKIN:?nonjaundiced, no spider angiomata..?HEART:?S1, S2 normal.?LUNGS:?clear to auscultation bilaterally.?ABDOMEN:?normal bowel sounds, no guarding or rigidity, no hepatosplenomegaly, no masses palpable, soft, nontender, nondistended..?EXTREMITIES:?no edema.?NEUROLOGIC:?alert and oriented.? Assessment: * Assessment: 1.?GERD without esophagitis - K21.9 (Primary)?2.?History of adenomatous polyp of colon - Z86.010?3.?Encounter for screening for malignant neoplasm of colon - Z12.11? Overall, Ada appears quite w ell. Her reflux seems to be remaining quite [...] adjustment of her medication for the procedure. Ruby was comfortable with this plan. Thank you again for allowing me to participate in Ruby's care. I shall continue to keep you advised of her progress. Plan: * Treatment: Notes: Stop aspirin for 1 week before the colonoscopy??2.?Encounter for screening for malignant neoplasm of colon?Procedure: COLONOSCOPY (Ordered for 01/09/2024)* with MACsched for 05/06/24 at 9:40 ammiralax * Procedure Codes:?3017F COLOR ECTAL CA SCREEN DOC [id number] Pt scrn tbco and id as [id number] BP SCR NOT PRFRM REC REASON NOS * Follow Up:?prn * * Sign off status: Completed true * Provider:?Rosendo Padilla MD Date:? 024 Generated for Patria horta/Keanu/Mercedes on:?09/30/2024 10:54 AM EDT History and Physical Notes * HPI (History of Present Illness) Category Sub-Category Detail Notes Category Not es incontinence I saw Ruby in consultation today for evaluation of her personal history of tubular adenomas of the colon and need for colorectal cancer screening, as well as her underlying history of gastroesophageal reflux. I last saw Ruby in July of 2018, at which time she underwent a followup screening colonoscopy with removal of a small tubular adenoma. She presently feels well. She does remain on her omeprazole with good relief of her previous reflux symptoms. She denies any dysphagia, anorexia, early satiety, significant heartburn, nausea, nor vomiting. Her previous upper endoscopy was negative for any sign of significant esophagitis or Shaw's esophagus. Her bowel movements have been regular and without any signs of bleeding. She denies any abdominal pain, signs of jaundice, nor unintentional weight loss. Examination Category Sub-Category Detail Notes Category Not es General Examination GENERAL APPEARANCE: pleasant , well [...]
== END 2024-09-30 10:00 | disposition home or self-care (01) ==
LOC: HO.HKA 09:39
PROVIDERS: PCP Family Medicine; Visit Provider Internal Medicine Nephrology
DX: R80.8 Other proteinuria (principal)
CPT/HCPCS: 99214

== ENCOUNTER → 2024-09-30 09:39 | Outpatient (BNVA) | payer MEDICAID, SELFPAY | PROVIDERS: PCP Family Medicine; Visit Provider Internal Medicine Nephrology | DX: R80.8 Other proteinuria (principal) | CPT/HCPCS: 99212 ==

== ENCOUNTER 2024-11-27 09:51 | Outpatient (REF) | payer MEDICAID, SELFPAY ==
--- OUTSIDE RECORDS SUMMARY | 2024-11-27 10:18 | XMS_ITS | Encounter Summary ---
Author Organization [employer] Address [address] [place] [address] Care Team Providers Care Ripper Operator Name Role Phone Sabina Cervantes DO Primary Care Provider [phone] Encounter Details Date Type Department Care Team (Late st Contact Info) Description 06/13/2022 Orders Only [facility] [address] [place], [place] [phone] Va Toribio LPN Social History Tobacco Use Types Packs/Day Years Used Date Smoking Tobacco: Never Assessed Comments Unknown Sex and Gender Information Value Date Recorded Sex Assigned at Female 04/30/2022 10:18 AM EDT Legal Sex Female 10:18 AM EDT Gender Identity Female 04/30/2022 10:18 AM EDT Sexual Orientation Straight 04/30/2022 10 :18 AM EDT documented as of this encounter Plan of Treatment Not on file documented as of this encounter Visit Diagnoses Not on filedocumented in this encounter Care Teams Ripper Operator Relationship Specialty Start Date End Date Sabina Cervantes DO [address] [place] [address] PCP - General Family Medicine 06/13/12 documented as of this encounter
[2024-11-27 12:25] LABS: Anion Gap 10 (12-20); Blood Urea Nitrogen 18 mg/dL (9-16); Carbon Dioxide 28 mmol/L (22-29); Chloride 104 mmol/L (96-108); Estimated Glomerular Filt Rate > 60; Potassium 3.9 mmol/L (3.3-5.1); Sodium 138 mmol/L (135-145)
[2024-11-27 12:26] LABS: Creatinine Urine 55.07 mg/dL; Protein/Creatinine Ratio, Ur 0.47 (<0.2); Total Protein Urine Random 26 mg/dL (<12)
== END 2024-11-27 09:52 | disposition home or self-care (01) ==
LOC: HO.LAB 09:51
PROVIDERS: PCP Family Medicine; Visit Provider Internal Medicine Nephrology
DX: R80.8 Other proteinuria (principal)
CPT/HCPCS: 36415; 80051; 82565; 82570; 84156; 84520

== ENCOUNTER 2024-12-02 08:52 | Outpatient (REF) | payer MEDICAID, SELFPAY ==
--- OUTSIDE RECORDS SUMMARY | 2024-12-02 09:13 | XMS_ITS | Encounter Summary ---
Author Organization [employer] Address [address] [place] [address] Care Team Providers Care Senior Health Consultant Name Role Phone Sabina Cervantes DO Primary Care Provider Encounter Details Date Type Department Care Team (Late st Contact Info) Description 06/13/2022 Orders Only [facility] [address] [place], [place] [phone] Va Toribio LPN Social History Tobacco Use [...] on filedocumented in this encounter Care Teams Senior Health Consultant Relationship Specialty Start Date End Date Sabina Cervantes DO [address] [place] [address] PCP - General Family Medicine 06/13/12 documented as of this encounter
== END 2024-12-02 08:53 | disposition home or self-care (01) ==
LOC: HO.US 08:52
PROVIDERS: PCP Family Medicine; Visit Provider Family Medicine
DX: K76.0 Fatty (change of) liver, not elsewhere classified (principal); R80.8 Other proteinuria; N28.1 Cyst of kidney, acquired
CPT/HCPCS: 99212

== ENCOUNTER 2024-12-02 09:30 | Outpatient (AMB) | payer MEDICAID, SELFPAY ==
--- NOTE | 2024-12-02 09:30 | HO.NEPHOV_ITS ---
Vital Signs 12/02/24 09:31 Height 5 ft 6 in Weight 153 lb 4 oz BMI 24.7 BP 122/70 Blood Pressure Location Lt brachial Position Sitting Intake Visit Reasons: 2 MO FU Cardiologist Required: No Accompanied by: Self / Same As Patient Allergies No Known Allergies Allergy (Verified 12/02/24 09:31) HPI Comments Details: Lenora was seen in follow up for proteinuria. She has PAD. She denies being diabetic and hypertensive. She has been on PPI for a long time. Her proteinuria has been getting worse. She denies epistaxis, photosensitivity, new joint pains, new joint swellings, edema, new skin rashes, hematuria or sensori neural deafness. She has H/O tubular adenoma of the colon. She does not take excess NSAID's or has new bone/back pain. Her renal functions has been stable. Her dad of renal issues at the age of 37 years. Her niece has renal issues from lupus. [facility] Medical History (Updated 07/31/24 @ 13:12 by Jeannette Black PA-C) Irritable bowel syndrome with constipation Fatty liver PAD (peripheral artery disease) Hypothyroidism Post-menopausal Obstructive airway disease Tubular adenoma of colon (~2012) Nicotine dependence, cigarettes, uncomplicated Neuropathy High cholesterol Anemia Depression GERD (gastroesophageal reflux disease) Fibromyalgia Surgical History Hx of eye surgery History of left breast biopsy History of esophagogastroduodenoscopy (EGD) History of colonoscopy History of ovarian cystectomy History of bilateral tubal ligation Family History Father Kidney problem Mother Diabetes Social History Household Members: None Household Members Other:: lives alone Housing: Apartment Are you a primary home health care social worker to a significant other at home: No Alcohol intake: never Patient Tobacco Use Status: Current everyday Tobacco user Tobacco use type: Cigarette Cigarettes Per Day: 10 Years Smoked: onset 17yo - 1/2ppd x 45yrs - 22phy Current occupational status: disabled Sexual orientation: Straight/Heterosexual Gender identity: Female Female Reproductive History Menstrual Age of Menarche: 17 Date of menopause: 07/01/02 Review of Systems Const All systems reviewed & are unremarkable except as noted in HPI and below Physical Exam Vital Signs: Last Vital Signs BP 122/70 12/02/24 09:31 BMI result Body Mass Index 24.7 Const General: comfortable and no acute distress Orientation/consciousness: patient oriented x3 HEENT Head: Yes normocephalic Mouth: Normal oral and palatal mucosa present Eyes EOM: EOMs intact bilaterally Neck Neck: Yes supple Resp Auscultation: clear to auscultation bilaterally Cardio Jugular venous distension: no JVD Rate: regular rate GI Palpation (GI): Soft to palpation Auscultation: normal bowel sounds General: Yes no CVA tenderness Back/Spine/Pelvis Back: no CVA tenderness Skin General skin exam: no rashes or lesions noted Neuro General: patient oriented x3 and moves all extremities Extrem General: Yes no pedal edema Results Reviewed Nephrology Results: Hgb 15.6 g/dl (12.0-16.0) 05/22/24 WBC 8.3 X10*3/uL (4.8-10.8) 05/22/24 Plt Count 366 X10*3/uL (160-400) 05/22/24 Sodium 138 mmol/L (135-145) 11/27/24 Potassium 3.9 mmol/L (3.3-5.1) 11/27/24 Chloride 104 mmol/L (96-108) 11/27/24 Carbon Dioxide 28 mmol/L (22-29) 11/27/24 BUN 18 mg/dL (9-16) H 11/27/24 Creatinine 0.69 mg/dL (0.5-1.4) 11/27/24 Calcium 10.1 mg/dL (8.4-10.2) 05/22/24 Urine Creatinine 55.07 mg/dL 11/27/24 Protein/Creatinin Ratio 0.47 (<0.2) H 11/27/24 Assessment & Plan Assessment & Plan (1) Proteinuria: Code(s): R80.9 - Proteinuria, unspecified Category: Medical Qualifiers: Proteinuria type: other Qualified Code(s): R80.8 - Other proteinuria (2) Renal cyst: Code(s): N28.1 - Cyst of kidney, acquired Category: Medical Plan Ada has proteinuria likely from vascular disease. W/U so far is negative. She is on PPI for a long time. She does not take any excess NSAID's. Her renal USS has showed simple renal cysts. She has no new systemic complaints. She can continue lisinopril 5 mg daily. Her proteinuria is better and her BP is at goal. I discussed about interactions including NSAID's and need for hydration. She wants to wait for renal biopsy. Answered all questions. F/U given Orders: Orders Creatinine 4 Months N28.1 - Cyst of kidney, acquired, R80.8 - Other proteinuria Blood Urea Nitrogen 4 Months N28.1 - Cyst of kidney, acquired, R80.8 - Other proteinuria Electrolytes 4 Months N28.1 - Cyst of kidney, acquired, R80.8 - Other proteinuria Protein Creatinine Ratio, Ur 4 Months N28.1 - Cyst of kidney, acquired, R80.8 - Other proteinuria Medications: Refilled lisinopril 2.5 mg PO BID 180 tabs 3RF 90 days Coding Level of Care Code Est Pt Level 4 (60821) Diagnoses Other proteinuria R80.8 Proteinuria type: other Renal cyst N28.1
[2024-12-02 09:31] VITALS: BP 122/70; BMI 24.7
== END 2024-12-02 09:48 | disposition home or self-care (01) ==
LOC: HO.HKA 09:31
PROVIDERS: PCP Family Medicine; Visit Provider Internal Medicine Nephrology
DX: R80.8 Other proteinuria (principal); N28.1 Cyst of kidney, acquired
CPT/HCPCS: 99214

== ENCOUNTER 2024-12-07 12:25 | Outpatient (REF) | payer MEDICAID, SELFPAY ==
--- NOTE | ~2024-12-07 | US_ITS ---
CLINICAL HISTORY: h o PAD US Bilateral Carotid Duplex Comparison: None Findings: No significant plaque within the common carotid arteries. Mild plaque within the carotid bulbs. Color doppler and spectral tracings normal. Peak systolic velocities: Right CCA: 111 cm/s. Right ICA: 117 cm/s. ICA/CCA ratio: Normal. Right ECA: 93.2 cm/s. Right vertebral artery flow antegrade. Left CCA: 99 cm/s. Left ICA: 95 cm/s. ICA/CCA ratio: Normal. Left ECA: 102 cm/s. Left vertebral artery flow antegrade. IMPRESSION: Normal carotid velocities, no significant stenosis (0-49% stenosis). This document has been electronically signed by: Henry Arnold MD, PHD on 12/08/2024 05:17:15
--- NOTE | ~2024-12-07 | US_ITS ---
CLINICAL HISTORY: f u fatty liver, ? GB polyps vs stones for eval US abdomen complete Comparison: None Findings: The visualized pancreas is normal. The aorta and inferior vena cava are normal caliber. The liver is normal in size and echotexture. 1.2 cm anechoic right hepatic cyst is present. There is no intrahepatic bile duct dilatation. The common duct is 4 mm in diameter. The gallbladder is normal. Several nonmobile nodular echogenicities are seen along the gallbladder wall measuring up to 5 mm. There is no gallbladder wall thickening or pericholecystic fluid. The main portal vein is antegrade. The right kidney is 10.7 cm in length. 0.6 cm anechoic right renal cyst is present. The left kidney is 10.8 cm in length. 0.4 cm anechoic left renal cyst is present. The spleen is normal. IMPRESSION: 1. Several nonmobile nodular echogenicities along the gallbladder wall measuring up to 5 mm, likely representing polyps. Nonmobile gallstones can not be excluded. 2. 1.2 cm simple right hepatic cyst. 3. 0.6 cm simple right renal cyst and 0.4 cm simple left renal cyst. This document has been electronically signed by: Bethanie Iraheta on 12/08/2024 09:13:30
--- OUTSIDE RECORDS SUMMARY | 2024-12-07 14:04 | XMS_ITS | Encounter Summary ---
Author Organization [employer] Address [address] [place] [address] Care Team Providers Care Supply Person Name Role Phone Sabina Cervantes DO Primary Care Provider Encounter Details Date Type Department Care Team (Late st Contact Info) Description 06/13/2022 Orders Only [facility] [address] [place] [address] Va Toribio LPN Social History Tobacco Use [...] on filedocumented in this encounter Care Teams Supply Person Relationship Specialty Start Date End Date Sabina Cervantes DO [address] [place] [address] PCP - General Family Medicine 06/13/12 documented as of this encounter
== END 2024-12-07 12:26 | disposition home or self-care (01) ==
LOC: HO.US 12:25
PROVIDERS: PCP Family Medicine; Visit Provider Family Medicine
DX: I73.9 Peripheral vascular disease, unspecified (principal); K76.0 Fatty (change of) liver, not elsewhere classified
CPT/HCPCS: 76700; 93880

== ENCOUNTER → 2024-12-07 12:27 | Outpatient (BNV) | payer MEDICAID, SELFPAY | PROVIDERS: PCP Family Medicine; Visit Provider General Practice | DX: K82.8 Other specified diseases of gallbladder (principal); K76.89 Other specified diseases of liver; N28.1 Cyst of kidney, acquired; Z86.79 Personal history of other diseases of the circulatory system | CPT/HCPCS: 76700; 93880 ==

== ENCOUNTER 2025-03-17 07:43 | Outpatient (AMB) | payer MEDICAID, SELFPAY ==
--- OUTSIDE RECORDS SUMMARY | 2024-05-06 04:30 | XMS_ITS ---
Author Organization [facility] Address [address] [place] [address] Care Team Providers Care Qualifications Examiner Name Role Phone Sabina Cervantes M.D. Primary Care Provider Amy Rosendo Interiano Unavailable [phone] REASON FOR VISIT screening,hx polyps Problems Problem Type SNOMED Code ICD Code Onset Dates Problem Status W/U Status Risk Notes Problem Diverticular disease of colon (292927729) Diverticulosis of large intestine without perforation or abscess without bleeding (K57.30) Active confirmed Encounters Encounter Location Date Provider [place] [facility] [place] [address] [place], [place] [phone] 05/06/2024 Rosendo Padilla Colon cancer scree bhavesh [...] * RUBY CALLEDOB:1960 ( 64 yo F)Acc No.[id number]:05/06/2024 COLON WITH MAC Patient: RUBY CHARLTON Provider: Mike Padilla MD :1960 A ge:63 Y S ex:Female Date:05/06/2024 Address:[address] [place] [address] [address] , [place], [id number] Pcp:Sabina Cervantes M.D. Subjective: * Chief Complaints: * 1 . Screening,hx polyps. * Medical History: Objective: * Vitals: Assessment: * Assessment: 1. C olon cancer screening - Z12.11 (Primary) 2 . C olon polyps - K63.5? 3. D iverticulosis of large intestine without perforation or abscess without bleeding - K57.30 4 . O ther hemorrhoids - K64.8 Plan: * Treatment: * Procedure Codes: 4 5385 LESION REMOVAL COLONOSCOPY * * The named appointment provid er may or may not be the originator of this progress note, and it is not deemed complete until electronically signed by the appointment provider. Sign off status: Pending * Provider: Mike Padilla MD Date: 1 07/06/2023 Generated for Patria horta/Keanu/Nikkiitting on: 0 03/17/2025 07:48 AM EDT
--- OUTSIDE RECORDS SUMMARY | 2025-03-15 09:00 | XMS_ITS | Encounter Summary ---
Author Organization [employer] Address [address] [facility] [address] [place] [address] Care Team Providers Care Psychology Teacher Name Role Phone Sabina Cervantes DO Primary Care Provider + [phone] Jermaine Mary Unavailable Reason for Referral * Imaging (Routine) - Authorized Specialty Diagnoses / Procedures Referred By Contac t Referred To Contact Cardiology Diagnoses Cardiomyopathy, unspecified type (CMS/HCC) Procedures Transthoracic Echo (TTE) Complete Sabina Cervantes DO [address], [place] Phone: tel: fax: [address] Phone: tel: fax: Referral ID Status Reason Start Date Expiration Date Visits Requested Visits Authorized [id number] Authorized Perform Procedure 03/15/2025 03/15/2026 1 1 * Consultation (Routine) - Authorized Specialty Diagnoses / Procedures Referred By Contac t Referred To Contact Cardiology Diagnoses Cardiomyopathy, unspecified type (CMS/HCC) Sabina Cervantes DO [address] [place] [address] Phone: tel: fax: [facility] [address] [place] [address] Phone: tel: fax: Referral ID Status Reason Start Date Expiration Date Visits Requested Visits Authorized [id number] Authorized Specialty Services Required 03/15/2025 03/15/2026 6 6 * Consultation (Urgent) - Authorized Specialty Diagnoses / Procedures Referred By Marcelle pitts Referred To Contact Vascular Surgery Diagnoses Peripheral arterial disease (CMS/HCC) Sabina Cervantes DO [address] [place] [address] Phone: tel: fax: Willi Banuelos MD [address] [place] [address] Phone: tel: Referral ID Status Reason Start Date Expiration Date Visits Requested Visits Authorized [id number] Authorized Specialty Services Required 03/15/2025 03/15/2026 6 6 Encounter Details Date Type Department Care Team (Late st Contact Info) Description 03/15/2025 9:00 AM EDT Office Visit [facility] [address] [place] [address] Sabina Cervantes DO [address] [place] [address] Peripheral arterial disease (CMS/HCC) (Primary Dx); Other hyperlipidemia; Major depression, recurrent, chronic (CMS/HCC); Fatty liver; Hypothyroidism, unspecified type; Gallbladder polyp; Irritable bowel syndrome with constipation; Fibromyalgia; Chronic bilateral low back pain with bilateral sciatica; Tobacco dependence; Proteinuria, unspecified type; Cardiomyopathy, unspecified type (CMS/HCC); Bereavement; Healthcare maintenance; Dietary counseling; Exercise counseling Social History Tobacco Use Types Packs/Day Years Used Date Smoking Tobacco: Every Day Cigarettes Passive Smoke Exposure: Current Smokeless Tobacco: Never Alcohol Use Standard Drinks/Week Comments Never 0 (1 standard drink = 0.6 oz pur e alcohol) Depression Answer Date Recorded Patient Health Questionnaire-9 Score 12 03/15/2025 Patient Health Questionnaire-9 Score 12 03/15/2025 Last PHQ-9: Questionnaire Data Not on file 0 03/15/2025 Housing Stability Answer Date Recorded What is your housing situation today? I do not have housing (Staying with others, in a hotel, in a half-way, living outside on the street, on a beach, in a car, or in a park 03/08/[address] you li ve. Do you have problems with any of the following? None of the above 03/08/2025 Food Insecurity Answer Date Recorded Within the past 12 months, y ou worried that your food would run out before you got money to buy more: Never True 03/08/2025 Within the past 12 months,th e food you bought just didn't last and you didn't have enough money to get more: Never True 01/2025 Transportation Answer Date Recorded In the past 12 months, has l ack of transportation kept you from medical appts, meetings, work or from getting things needed for daily living? Yes, it has kept me from medical appointments or getting medications. 03/08/2025 Utilities Answer Date Recorded In the past 12 months, has t he electric, gas, oil or water company threatened to shut off services in your home? No 03/08/2025 Depression Answer Date Recorded Patient Health Questionnaire-2 Score 5 03/15/2025 Internet Access Answer Date Recorded Internet Access Q1 Yes 03/08/2025 Internet Access Q2 Not on file 03/08/2025 Comments No Sex and Gender Information Value Date Recorded Sex Assigned at Female 04/30/2022 10:18 AM EDT Legal Sex Female 10:18 AM EDT Gender Identity Female 04/30/2022 10:18 AM EDT Sexual Orientation Straight 04/30/2022 10 :18 AM EDT documented as of this encounter Last Filed Vital Signs Vital Sign Reading Time Taken Comments Blood Pressure 112/60 03/15/2025 8:57 AM EDT Pulse 89 03/15/2025 8:57 AM EDT Temperature 36.6 C (97.9 F) 03/15/2025 8:57 AM EDT Respiratory Rate 21 03/15/2025 8:57 AM EDT Oxygen Saturation 99% 03/15/2025 8:57 AM EDT Inhaled Oxygen Concentration - - Weight 69.5 kg (153 lb 2 oz) 03/15/2025 8:57 AM EDT Height 160 cm (5' 3 ) 03/15/2025 8:57 AM EDT Body Mass Index 27.12 03/15/2025 8:57 AM EDT documented in this encounter Functional Status * Over the past 2 weeks, how often have you been bothered by any of the following problems? Question Answer Date of Assessment Author Patient Health Questionnaire -2 Score 5 03/15/2025 8:59 AM EDT Jumana Rivera MA * Little interest or pleasure in doing things Answer Date of Assessment Author More than half the days 03/15/2025 8:59 AM EDT Jumana Montgomery MA * Feeling down, depressed, or hopeless Answer Date of Assessment Author Nearly every day 03/15/2025 8:59 AM EDT Jumana Rivera MA * Trouble falling or staying asleep, or sleeping too much Answer Date of Assessment Author Several days 03/15/2025 8:59 AM EDT Mihai Rivera MA * Feeling tired or having little energy Answer Date of Assessment Author More than half the days 03/15/2025 8:59 AM EDT Jumana Montgomery MA * Poor appetite or overeating Answer Date of Assessment Author More than half the days 03/15/2025 8:59 AM EDT Jumana Montgomery MA * Feeling bad about yourself - or that you are a failure or have let yourself or your family down Answer Date of Assessment Author Not at all 03/15/2025 8:59 AM LILAT Mihai Rivera MA * Trouble concentrating on things, such as reading the newspaper or watching television Answer Date of Assessment Author Several days 03/15/2025 8:59 AM LILAT Mihai Rivera MA * Moving or speaking so slowly that other people could have noticed? Or the opposite - being so fidgety or restless that you have been moving around a lot more than usual. Answer Date of Assessment Author Several days 03/15/2025 8:59 AM Mihai Green MA * Thoughts that you would be better off or hurting yourself in some way Answer Date of Assessment Author Not at all 03/15/2025 8:59 AM Mihai Green MA * Patient Health Questionnaire-9 Score Answer Date of Assessment Author 12 03/15/2025 8:59 AM EDT Mihai Rivera MA * How difficult have these problems made it for you to do your work, take care of things at home, or get along with other people? Answer Date of Assessment Author Very difficult 03/15/2025 8:59 AM EDT Mihai Rivera MA * Over the last 2 weeks, how often have you been bothered by any of the following problems? Question Answer Date of Assessment Author Feeling nervous, anxious, or on edge 3 03/15/2025 9:00 AM EDT Jumana Rivera MA Not being able to stop or co ntrol worrying 3 03/15/2025 9:00 AM EDT Jumana Rivera MA Worrying too much about diff erent things 2 03/15/2025 9:00 AM LILAT Jumana Rivera MA Trouble relaxing 2 03/15/2025 9:00 AM EDT Jumana Montgomery MA Being so restless that it is hard to sit still 3 03/15/2025 9:00 AM LILAT Jumana Rivera MA Becoming easily annoyed or irritable 2 03/15/2025 9:00 AM EDT Jumana Rivera MA Feeling afraid as if somethi ng awful might happen 1 03/15/2025 9:00 AM LILAT Jumana Rivera MA JYOTI-7 Total Score 16 03/15/2025 9:00 AM EDT Jumana Rivera MA documented as of this encounter Progress Notes * Sabina Cervantes, DO - 03/15/2025 9:00 AM EDT SUJIT Leon is a 64 y.o. female who presents for Office Visit. HPI She was seen by renal in November who felt that her proteinuria is from her vascular disease. Her w/u was negative. She was advised to repeat labs and f/u in 4 mos. She has f/u on Apr 02. She had f/u with cardiology in October and was clinically doing well and advised to f/u in a year. 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 She says that she's not going to be going back to [place] right now because her brother in November. She says that they were the only two raised together and were born a year and a day apart. She says that some days she cries a lot. She started seeing a therapist, Kaia, at [facility] which has helpeda lot. She is not sleeing good. She falls asleep but ok but wakes up, she woke up today at 4 am. She is currently staying with friend and is in the process of applying for housing but was told that she needs to get a letter. She can't stay with her friend long because she has section 8. She can't stay with son because she is allergic to his dogs. She feels that her animal allergies have worsened over the years and is interested in shots She feels like her leg pain is getting worse. She says that she did the leg US when she did the other ultrasounds. She has appt with [facility] for her pap in 2 days. She already has her mammo scheduled. Review of Systems Constitutional: Negative for chills and fever. Respiratory: Negative for shortness of breath. Cardiovascular: Negative for chest pain and leg swelling. Gastrointestinal: Negative for abdominal pain, diarrhea and vomiting. Neurological: Negative for headaches. Patient Active Problem List Diagnosis Anxiety Fibromyalgia Chronic gastroesophageal reflux disease Irritable bowel syndrome with constipation Peripheral arterial disease (CMS/HCC) Prediabetes Major depression, recurrent, chronic (CMS/HCC) Tobacco dependence Healthcare maintenance Hypothyroidism Gallbladder polyp Fatty liver Hyperlipidemia Chronic low back pain Dental calculus Localized gingival recession History of adenomatous polyp of colon Glaucoma Pain due to dental caries No Known Allergies OBJECTIVE Visit Vitals BP 112/60 (BP Location: Left arm, Patient Position: Sitting, BP Cuff Size: Adult) Pulse 89 Temp 97.9 ??F (36.6 ??C) (Oral) Resp 21 Ht 5' 3 (1.6 m) Wt 153 lb 2 oz (69.5 kg) SpO2 99% BMI 27.12 kg/m?? OB Status Postmenopausal Smoking Status Every Day BSA 1.76 m?? Physical Exam Constitutional: General: She is not in acute distress. Appearance: Normal appearance. Cardiovascular: Rate and Rhythm: Normal rate and regular rhythm. Heart sounds: Normal heart sounds. No murmur heard. Pulmonary: Effort: Pulmonary effort is normal. Breath sounds: Normal breath sounds. No wheezing or rhonchi. Neurological: General: No focal deficit present. Mental Status: She is alert. Psychiatric: Mood and Affect: Mood normal. Assessment/Plan Diagnoses and all orders for this visit: Peripheral arterial disease (CMS/HCC) With worsening leg pain -will get copy of carotid US and LE arterial studies -cont aspirin and statin daily -strongly encouraged tobacco cessation -referred to vascular for eval Other hyperlipidemia Slight bump LDL MAY 2024 -cont crestor nightly -cont aspirin daily -repeat prior to next visit Major depression, recurrent, chronic (CMS/HCC) Bereavement With worsening sx since of her brother -she denies any current SI/HI -she has the number for crisis -cont amitriptyline nightly -trial addition of melatonin to help with sleept -f/u with therapist as scheduled Fatty liver -abd US with nml liver and R hepatic simple cyst November 2024 -AFP nml AUG 2023 -LFTs nml MAY 2024 -Hep A/B immune Hypothyroidism, unspecified type TFTs nml MAY 2024 -repeat TFTs with fasting labs -thyroid US with heterogenous thyroid with 0.6cm T4 nodule with no significant change from prior, no need for f/u AUG 2021 -cont levothyroxine daily Gallbladder polyp -abd US with several nonmobile nodular echogenicities along the gallbladder wall measuring up to 5 mm, likely representing polyps November 2024 Irritable bowel syndrome with constipation -cont bentyl as needed -f/u with GI prn Fibromyalgia With chronic pain -cont amitriptyline nightly -ESR, CRP, BERNARD and RF wnl MAR 2014 -cont baclofen and ibuprofen as needed -f/u with rheum prn Chronic bilateral low back pain with bilateral sciatica With intermittent flaring, s/p NS eval with no indication for surgical intervention -L-spine MRI with annular fissure and bulging disc L5-S1 AUG 2016 -cont baclofen as needed -encouraged tylenol prn -encouraged diclofenac gel and lidocaine patches -she declines referral to PT or PM -advised rtc if sx change or worsen Tobacco dependence ~1/2 ppd x 45 years, she is not ready to quit at this time -LD CT chest LRADS 03 MAY 2024, will get copy of repeat results Proteinuria, unspecified type Likely 2/2 PAD per renal -advised avoid NSAIDs -cont low dose lisinopril BID -f/u with renal as scheduled, appt next mos Cardiomyopathy 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 Good, appt with [employer] this week -mammo BIRADS 01 MAY 2024, repeat scheduled -colonoscopy with diverticulosis and hyperplastic polyp MAY 2024 -A1c 5.09 MAY 2024 -STI/HIV screen negative DEC 2019 Dietary counseling Exercise counseling -encouraged [id number] Servings of fruit and vegetables each day 2 Hour limit of screen time 1 Hour of physical activity each day 0 Sugary drinks --Follow-up with me in 3 mos or sooner prn-- Current Outpatient Medications: amitriptyline (Elavil) 10 MG tablet, TAKE 2 TABLETS BY MOUTH AT BEDTIME, Disp: 180 tablet, Rfl: 1 Aspirin Low Dose 81 MG EC tablet, TAKE 1 TABLET BY MOUTH EVERY DAY, Disp: 90 tablet, Rfl: 3 Blood Pressure kit, 1 each 1 (one) time per week., Disp: 1 kit, Rfl: 0 vpjfximxpm-zrmjfjfqbkhay-eyebzivi 50-325-40 MG tablet, TAKE 1 TABLET BY MOUTH EVERY DAY NEEDED FOR HEADACHE, Disp: 20 tablet, Rfl: 1 D3 Super Strength 50 MCG (2000 UT) capsule, TAKE 1 CAPSULE BY MOUTH EVERY DAY, Disp: 90 capsule, Rfl: 3 Diclofenac Sodium 1 % gel, Apply 2 g topically if needed in the morning, at noon, in the evening, and at bedtime (pain)., Disp: 150 g, Rfl: 3 dicyclomine (Bentyl) 10 MG capsule, TAKE 1 CAPSULE BY MOUTH THREE TIMES DAILY NEEDED FOR ABDOMINAL PAIN, Disp: 30 capsule, Rfl: 1 fluticasone (Flonase) 50 MCG/ACT nasal spray, USE 2 SPRAYS IN EACH NOSTRIL EVERY DAY, Disp: 48 g, Rfl: 0 latanoprost (Xalatan) 0.005 % ophthalmic solution, INSTILL 1 DROP INTO BOTH EYES AT BEDTIME, Disp: , Rfl: levothyroxine (Synthroid) 100 MCG tablet, Take 1 tablet (100 mcg) by mouth before breakfast., Disp:90 tablet, Rfl: 3 lidocaine (Lidoderm) 5 % patch, APPLY 2 PATCHES TOPICALLY TO SKIN, LEAVE ON FOR 12 HOURS AND OFF FOR 12 HOURS DIRECTED, Disp: 60 patch, Rfl: 3 lisinopril 2.5 MG tablet, Take 1 tablet by mouth 2 times daily., Disp: , Rfl: loratadine (Claritin) 10 MG tablet, TAKE 1 TABLET BY MOUTH EVERY DAY, Disp: 90 tablet, Rfl: 0 omeprazole (PriLOSEC) [address] capsule, TAKE 1 CAPSULE BY MOUTH EVERY DAY BEFORE A MEAL, Disp: 90 capsule, Rfl: 3 rosuvastatin (Crestor) 20 MG tablet, TAKE 1 TABLET BY MOUTH EVERY DAY, Disp: 90 tablet, Rfl: 3 simethicone (Mylicon) 125 MG chewable tablet, CHEW and SWALLOW 1 TABLET BY MOUTH FOUR TIMES DAILY NEEDED FOR GAS, Disp: 60 tablet, Rfl: 1 documented in this encounter Plan of Treatment Upcoming Encounters Date Type Department Care Team (Late st Contact Info) Description 05/14/2025 3:30 PM EST Office Visit [facility] [address] [place] [address] [place], Nimisha, OD [address] [place] [address] Scheduled Orders Name Type Priority Associated Diagnoses Orde r Schedule Transthoracic Echo (TTE) Complete Echocardiography Routine Cardiomyopathy, unspecified type (CMS/HCC) Expected: 03/15/2025 (Approximate), Expires: 03/15/2027 T4, Free Lab Routine Peripheral arterial disease (CMS/HCC) Other hyperlipidemia Major depression, recurrent, chronic (CMS/HCC) Fatty liver Hypothyroidism, unspecified type Gallbladder polyp Irritable bowel syndrome with constipation Fibromyalgia Chronic bilateral low back pain with bilateral sciatica Tobacco dependence Proteinuria, unspecified type Cardiomyopathy, unspecified type (CMS/HCC) Bereavement Healthcare maintenance Dietary counseling Exercise counseling Expected: 03/15/2025 (Approximate), Expires: 03/15/2026 Lipid Panel, Standard Lab Routine Peripheral arterial disease (CMS/HCC) Other hyperlipidemia Major depression, recurrent, chronic (CMS/HCC) Fatty liver Hypothyroidism, unspecified type Gallbladder polyp Irritable bowel syndrome with constipation Fibromyalgia Chronic bilateral low back pain with bilateral sciatica Tobacco dependence Proteinuria, unspecified type Cardiomyopathy, unspecified type (CMS/HCC) Bereavement Healthcare maintenance Dietary counseling Exercise counseling Expected: 03/15/2025 (Approximate), Expires: 03/15/2026 TSH Lab Routine Peripheral arterial disease (CMS/HCC) Other hyperlipidemia Major depression, recurrent, chronic (CMS/HCC) Fatty liver Hypothyroidism, unspecified type Gallbladder polyp Irritable bowel syndrome with constipation Fibromyalgia Chronic bilateral low back pain with bilateral sciatica Tobacco dependence Proteinuria, unspecified type Cardiomyopathy, unspecified type (CMS/HCC) Bereavement Healthcare maintenance Dietary counseling Exercise counseling Expected: 03/15/2025 (Approximate), Expires: 03/15/2026 Vitamin D, 25-Hydroxy, Total, Immunoassay Lab Routine Peripheral arterial disease (CMS/HCC) Other hyperlipidemia Major depression, recurrent, chronic (CMS/HCC) Fatty liver Hypothyroidism, unspecified type Gallbladder polyp Irritable bowel syndrome with constipation Fibromyalgia Chronic bilateral low back pain with bilateral sciatica Tobacco dependence Proteinuria, unspecified type Cardiomyopathy, unspecified type (CMS/HCC) Bereavement Healthcare maintenance Dietary counseling Exercise counseling Expected: 03/15/2025 (Approximate), Expires: 03/15/2026 Hepatic Function Panel Lab Routine Peripheral arterial disease (CMS/HCC) Other hyperlipidemia Major depression, recurrent, chronic (CMS/HCC) Fatty liver Hypothyroidism, unspecified type Gallbladder polyp Irritable bowel syndrome with constipation Fibromyalgia Chronic bilateral low back pain with bilateral sciatica Tobacco dependence Proteinuria, unspecified type Cardiomyopathy, unspecified type (CMS/HCC) Bereavement Healthcare maintenance Dietary counseling Exercise counseling Expected: 03/15/2025 (Approximate), Expires: 03/15/2026 Hemoglobin A1c Lab Routine Peripheral arterial disease (CMS/HCC) Other hyperlipidemia Major depression, recurrent, chronic (CMS/HCC) Fatty liver Hypothyroidism, unspecified type Gallbladder polyp Irritable bowel syndrome with constipation Fibromyalgia Chronic bilateral low back pain with bilateral sciatica Tobacco dependence Proteinuria, unspecified type Cardiomyopathy, unspecified type (CMS/HCC) Bereavement Healthcare maintenance Dietary counseling Exercise counseling Expected: 03/15/2025 (Approximate), Expires: 03/15/2026 CBC Lab Routine Peripheral arterial disease (CMS/HCC) Other hyperlipidemia Major depression, recurrent, chronic (CMS/HCC) Fatty liver Hypothyroidism, unspecified type Gallbladder polyp Irritable bowel syndrome with constipation Fibromyalgia Chronic bilateral low back pain with bilateral sciatica Tobacco dependence Proteinuria, unspecified type Cardiomyopathy, unspecified type (CMS/HCC) Bereavement Healthcare maintenance Dietary counseling Exercise counseling Expected: 03/15/2025, Expires: 03/15/2026 Basic Metabolic Panel Lab Routine Peripheral arterial disease (CMS/HCC) Other hyperlipidemia Major depression, recurrent, chronic (CMS/HCC) Fatty liver Hypothyroidism, unspecified type Gallbladder polyp Irritable bowel syndrome with constipation Fibromyalgia Chronic bilateral low back pain with bilateral sciatica Tobacco dependence Proteinuria, unspecified type Cardiomyopathy, unspecified type (CMS/HCC) Bereavement Healthcare maintenance Dietary counseling Exercise counseling Expected: 03/15/2025 (Approximate), Expires: 03/15/2026 Alpha-Fetoprotein, Tumor Marker Lab Routine Fatty liver Expected: 03/15/2025 (Approximate), Expires: 03/15/2026 Scheduled Referrals Name Type Priority Associated Diagnoses Orde r Schedule Referral to Vascular Surgery Outpatient Referral Urgent Peripheral arterial disease (CMS/HCC) Expected: 03/15/2025 (Approximate), Expires: 03/15/2026 Referral to Cardiology Outpatient Referral Routine Cardiomyopathy, unspecified type (CMS/HCC) Expected: 03/15/2025 (Approximate), Expires: 03/15/2026 documented as of this encounter Visit Diagnoses Diagnosis Peripheral arterial disease (CMS/HCC)- Primary Unspecified peripheral vascular disease Other hyperlipidemia Major depression, recurrent, chronic (CMS/HCC) Fatty liver Other chronic nonalcoholic liver disease Hypothyroidism, unspecified type Gallbladder polyp Cholesterolosis of gallbladder Irritable bowel syndrome with constipation Irritable bowel syndrome Fibromyalgia Unspecified myalgia and myositis Chronic bilateral low back pain with bilateral sciatica Tobacco dependence Tobacco use disorder Proteinuria, unspecified type Cardiomyopathy, unspecified type (CMS/HCC) Bereavement Bereavement, uncomplicated Healthcare maintenance Dietary counseling Dietary surveillance and counseling Exercise counseling documented in this encounter Additional Health Concerns Assessment Noted Time PHQ-9 Depression Total Score: 12 025 8:59 AM EDT documented as of this encounter Care Teams Psychology Teacher Relationship Specialty Start Date End Date Sabina Cervantes DO [address] [place] [address] PCP - General Family Medicine 06/13/12 Mary Dean 03/09/25 documented as of this encounter
[2025-03-17 07:48] VITALS: BMI 24.2
--- NOTE | 2025-03-17 07:48 | A.OFFVIS_ITS ---
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 No complaints. Last Pap/HPV was negative in 04/19 Last Mammogram with a BI-RADS 1 in 05/24 Last Colonoscopy was in 05/24, the recommendation was to repeat in 5 years [facility] Medical History Irritable bowel syndrome with constipation Fatty liver PAD (peripheral artery disease) Hypothyroidism Post-menopausal Obstructive airway disease Tubular adenoma of colon (~2012) Nicotine dependence, cigarettes, uncomplicated Neuropathy High cholesterol Anemia Depression GERD (gastroesophageal reflux disease) Fibromyalgia Surgical History Hx of eye surgery History of left breast biopsy History of esophagogastroduodenoscopy (EGD) History of colonoscopy History of ovarian cystectomy History of bilateral tubal ligation Family History Father Kidney problem Mother Diabetes Social History Household Members: None Household Members Other:: lives alone Housing: Apartment Are you a primary health care assistant to a significant other at home: No Alcohol intake: never Patient Tobacco Use Status: Current everyday Tobacco user Tobacco use type: Cigarette Cigarettes Per Day: 10 Years Smoked: onset 17yo - 1/2ppd x 45yrs - 22phy Current occupational status: disabled Sexual orientation: Straight/Heterosexual Gender identity: Female Female Reproductive History Menstrual Age of Menarche: 17 control method: permanent sterilization Date of menopause: 07/01/02 Total pregnancies: 3 Full term: 3 Number of Living Children: 3 Date of last pap smear: 04/26/20 Date of Mammogram: 05/19/24 Review of Systems Const All systems reviewed & are unremarkable except as noted in HPI and below Card Reports as per HPI Resp Reports as per HPI GI Reports as per HPI and Reports no additional complaints Reports as per HPI Physical Exam Vital Signs: BMI result Body Mass Index 24.2 Const General: cooperative, healthy appearing and comfortable Chest Chest palpation & inspection: normal inspection of the chest and normal palpation of entire chest wall Breast/axilla inspection: normal inspection of the breasts and normal inspection of the axillae Breast/axilla palpation: normal palpation of the breasts, normal palpation of the axillae and no axillary lymphadenopathy Resp Effort & Inspection: normal respiratory effort Auscultation: clear to auscultation bilaterally Percussion: percussion normal Cardio Palpation: normal PMI Rate: regular rate Rhythm: regular rhythm Heart sounds: no murmurs and no rubs Peripheral pulses: Peripheral pulses 2+ throughout GI Inspection: Yes normal to inspection Palpation (GI): Soft to palpation, nontender, no guarding, not rigid and No hepatosplenomegaly present Percussion: Yes normal to percussion Auscultation: normal bowel sounds Rectal Exam - Female: deferred General: Yes bladder normal to palpation External Female Exam: No lesion Speculum Exam - Vagina: normal appearance of the vagina, normal palpation, normal vaginal discharge and not erythematous Speculum Exam - Cervix: normal appearance of the cervix and normal palpation Bimanual exam- vagina & uterus: normal bimanual exam, normal palpation, uterine size normal, bladder normal to palpation, consistency normal and normal palpation Bimanual Exam- Adnexa, other: normal adnexae, no masses and no tenderness Assessment & Plan Assessment & Plan (1) Well woman exam: Code(s): Z01.419 - Encounter for gynecological examination (general) (routine) without abnormal findings Category: Medical Plan: Co testing done. Counseled the patient about the recommended dietary allowance of 1200 mg of Calcium & 600 IU of vitamin D. Mammogram ordered The patient was instructed to perform monthly self-breast exams and schedule annual exam in a year. All questions answered and the patient verbalized understanding. Orders: Orders MM tomosynthesis screening BI Today Z12.31 - Encounter for screening mammogram for malignant neoplasm of breast Coding Level of Care Code Est Pt Prev Care 40-64y(03223) Diagnoses Well woman exam Z01.419
--- OUTSIDE RECORDS SUMMARY | 2025-03-17 07:48 | XMS_ITS | Encounter Summary ---
Author Organization [employer] Address [address] [facility] [address] [place] [address] Care Team Providers Care Line Construction Superintendent Name Role Phone Sabina Cervantes DO Primary Care Provider + [phone] JermaineMary Unavailable Encounter Details Date Type Department Care Team (Latest Contact Info) Description 03/15/2025 Travel Social History Tobacco Use Types Packs/Day Years [...] with others, in a hotel, in a assisted, living outside on the street, on a [...] AM EDT documented as of this encounter Functional Status * Over the [...] Author Nearly every day 03/15/2025 8:59 AM LILAT Jumana Rivera MA * Trouble falling or staying asleep, or sleeping too much Answer Date of Assessment Author Several days 03/15/2025 8:59 AM LILAT Mihai Rivera MA * Feeling tired or having little energy Answer Date of Assessment Author More than half the days 03/15/2025 8:59 AM EDT Jumana Montgomery MA * Poor appetite or overeating Answer Date of Assessment Author More than half the days 03/15/2025 8:59 AM LILAT Jumana Montgomery MA * Feeling bad about [...] 8:59 AM EDT Mihai Rivera MA * Moving or speaking so slowly that other people could have noticed? Or the opposite - being so fidgety or restless that you have been moving around a lot more than usual. Answer Date of Assessment Author Several days 03/15/2025 8:59 AM LILAT Mihai Rivera MA * Thoughts that you would be better off or hurting yourself in some way Answer Date of Assessment Author Not at all 03/15/2025 8:59 AM LILAT Mihai Rivera MA * Patient Health Questionnaire-9 Score Answer Date of Assessment Author 12 03/15/2025 8:59 AM LILAT Mihai Rivera MA * How difficult have these problems made it for you to do your work, take care of things at home, or get along with other people? Answer Date of Assessment Author Very difficult 03/15/2025 8:59 AM Mihai Green MA * Over the last 2 weeks, how often have you been bothered by any of the following problems? Question Answer Date of Assessment Author Feeling nervous, anxious, or on edge 3 03/15/2025 9:00 AM Jumana Green MA Not being able to stop or co ntrol worrying 3 03/15/2025 9:00 AM Jumana Green MA Worrying too much about diff erent things 2 03/15/2025 9:00 AM Jumana Green MA Trouble relaxing 2 03/15/2025 9:00 AM Jumana Lowe MA Being so restless that it is hard to sit still 3 03/15/2025 9:00 AM Jumana Green MA Becoming easily annoyed or irritable 2 03/15/2025 9:00 AM Jumana Green MA Feeling afraid as if somethi ng awful might happen 1 03/15/2025 9:00 AM Jumana Green MA JYOTI-7 Total Score 16 03/15/2025 9:00 AM Jumana Green MA documented as of this encounter Plan of Treatment Upcoming Encounters Date Type Department Care Team (Late st Contact Info) Description 05/14/2025 3:30 PM EST Office Visit [facility] OPTOMETRY [address] [place] [address] Nimisha Haynes, AMIE [address] [place] [address] documented as of this encounter Visit Diagnoses Not on filedocumented in this encounter Additional Health Concerns Assessment Noted Time PHQ-9 Depression Total Score: 12 025 8:59 AM EDT documented as of this encounter Care Teams Line Construction Superintendent Relationship Specialty Start Date End Date Sabina Cervantes DO [address] [place], [place] [id number] PCP - General Family Medicine 06/13/12 Mary Dean 03/09/25 documented as of this encounter
--- OUTSIDE RECORDS SUMMARY | 2025-03-17 07:48 | XMS_ITS | Encounter Summary ---
Author Organization [employer] Address [address] [facility] [address] [place] [address] Care Team Providers Care Tax Compliance Agent Name Role Phone Sabina Cervantes DO Primary Care Provider [phone]- [phone] Mary Dean Unavailable Encounter Details Date Type Department Care Team (Late st Contact Info) Description 06/13/2022 Orders Only [facility] [address] [place] [address] Va Toribio LPN Social History Tobacco Use [...] Description 05/14/2025 3:30 PM EST Office Visit [facility] OPTOMETRY [address] [place] [address] [place], Nimisha, OD [address] [place] [address] documented as of this encounter Visit Diagnoses Not on filedocumented in this encounter Care Teams Tax Compliance Agent Relationship Specialty Start Date End Date Sabina Cervantes DO [address] [place] [address] PCP - General Family Medicine 06/13/12 Mary Dean 03/09/25 documented as of this encounter
--- OUTSIDE RECORDS SUMMARY | 2025-03-17 07:48 | XMS_ITS | Encounter Summary ---
Author Organization [employer] Address [address] [facility] [address] [place] [address] Care Team Providers Care Aviation Consultant Name Role Phone Sabina Cervantes DO Primary Care Provider [phone]- [phone] Mary Dean Unavailable Encounter Details Date Type Department Care Team (Latest Contact Info) Description 04/22/2019 Abstract [facility] CONVERSIONS Dental, Provider, DDS Social History Tobacco [...] 05/14/2025 3:30 PM EST Office Visit [facility] OPTOMETRY [address] [place] [address] [place], Nimisha, OD [address] [place] [address] documented as of this encounter Visit Diagnoses Not on filedocumented in this encounter Care Teams Aviation Consultant Relationship Specialty Start Date End Date Sabina Cervantes DO [address] [place] [address] PCP - General Family Medicine 06/13/12 Mary Dean 03/09/25 documented as of this encounter
--- OUTSIDE RECORDS SUMMARY | 2025-03-17 07:48 | XMS_ITS | Encounter Summary ---
Author Organization [employer] Address [address] [facility] [address] [place] [address] Care Team Providers Care Fibreglass Lay Up Worker Name Role Phone Sabina Cervantes DO Primary Care Provider [phone]- [phone] Mary Dean Unavailable Encounter Details Date Type Department Care Team (Late st Contact Info) Description 07/04/2022 Orders Only [facility]EDS [address] [place], [place] [phone] Sabina Barnard LPN Social History Tobacco Use [...] Description 05/14/2025 3:30 PM EST Office Visit [facility] OPTOMETRY [address] [place] [address] [place], Nimisha, OD [address] [place] [address] documented as of this encounter Visit Diagnoses Not on filedocumented in this encounter Care Teams Fibreglass Lay Up Worker Relationship Specialty Start Date End Date Sabina Cervantes DO [address] [place] [address] PCP - General Family Medicine 06/13/12 Mary Dean 03/09/25 documented as of this encounter
--- OUTSIDE RECORDS SUMMARY | 2025-03-17 07:49 | XMS_ITS | Encounter Summary ---
Author Organization [employer] Address [address] [facility] [address] [place] [address] Care Team Providers Care Vascular Surgery Physician Name Role Phone Sabina Cervantes DO Primary Care Provider + [phone] Pola Deanester Unavailable Reason for Visit * Reason Comments Med Refill Encounter Details Date Type Department Care Team (Late Contact Info) Description 10/05/2022 Refill [facility] MEDICINE [address] [place] [address] Anika Hernandez MD [address] [place] [address] Social History Tobacco Use Types Packs/Day Years [...] Encounters Date Type Department Care Team (Late Contact Info) Description 05/14/2025 3:30 PM EST Office Visit [facility] OPTOMETRY [address] [place] [address] Nimisha Haynes, AMIE [address] [place] [address] documented as of this encounter Visit Diagnoses Not on filedocumented in this encounter Additional Health Concerns Assessment Noted Time PHQ-9 Depression Total Score: 0 07/23/19 23 11:34 AM EST documented as of this encounter Care Teams Vascular Surgery Physician Relationship Specialty Start Date End Date Sabina Cervantes DO [address] [place] [address] PCP - General Family Medicine 06/13/12 Mary Dean 03/09/25 documented as of this encounter
--- OUTSIDE RECORDS SUMMARY | 2025-03-17 07:49 | XMS_ITS | Encounter Summary ---
Author Organization [employer] Address [address] [facility] [address] [place] [address] Care Team Providers Care Steel Plate Caulker Name Role Phone Sabina Cervantes DO Primary Care Provider +- [phone] JermaineMary Unavailable Encounter Details Date Type Department Care Team (Late Contact Info) Description 04/05/2023 Abstract [facility] MEDICINE [address] [place] [address] Padma Kim Social History Tobacco Use Types [...] Description 05/14/2025 3:30 PM EST Office Visit [facility] OPTOMETRY [address] [place] [address] Nimisha Haynes, OD [address] [place] [address] documented as of this encounter Procedures Procedure [...] documented as of this encounter Care Teams Steel Plate Caulker Relationship Specialty Start Date End Date Sabina Cervantes DO [address] [place] [address] PCP - General Family Medicine 06/13/12 Mary Dean 03/09/25 documented as of this encounter
--- OUTSIDE RECORDS SUMMARY | 2025-03-17 07:49 | XMS_ITS | Patient Health Record ---
Author Organization [facility] Address [address] [place] [address] Care Team Providers Care Barback Name Role Phone Sabina Cervantes M.D. Primary Care Provider Rosendo Gilmore Unavailable [phone] Allergies No Known Allergies Results Component Value Reference Range Notes Pathology (Not yet reviewed by provider) Interpretation: Performing Lab:[facility], [address] [place] [phone] Notes/Report: Reason For Referral No Information Medications Medication SIG (Take, Route, Frequency, Duration) [...] Problem Status W/U Status Risk Notes Problem 101267908 Encounter for screening for malignant neoplasm of colon (Z12.11) Active confirmed Problem 300085487 History of adenomatous polyp of colon (Z86.010) Active confirmed Problem Diverticular disease of colon (187688295) Diverticulosis of large intestine without perforation or abscess without bleeding (K57.30) Active confirmed Problem 50266106 Constipation, unspecified constipation type (K59.00) Active confirmed Problem Gastroesophageal reflux disease (942091041) GERD without esophagitis (K21.9) Active confirmed Encounters Encounter Location Date Provider Diagnosis [facility] Outpatient [address] [place] [phone] 05/06/2024 Rosendo Padilla Colon cancer scree bhavesh [...] Start Date Coverage End Date [place] [address] [place] [phone] [id number] RUBY CALLE Self - patient is the insured Medical (General) History Medical History History ICD Code EGD 09-27-2010---mild gastritis-no H.pylo ri-no esophagitis GERD Claudication Fibromyalgia Ovarian cysts Denies MS,DM,CVA,Lung disease,renal dise ase Bronchitis Neuropathy--feet Colonoscopy in 03/2013--smal l tubular adenomas, diverticulosis, internal hemorroids Gallbladder polyps--sees Dr. Burnham Colonoscopy 07/2018 with 1 small tubular adenoma removed Surgical History Surgery Date(Month/Year) Tubal ligation Glaucoma eye surgery 2023
--- OUTSIDE RECORDS SUMMARY | 2025-03-17 07:49 | XMS_ITS | Clinical Summary ---
Author Organization [employer] Address [address] [facility] 7[address] [place] [address] Care Team Providers Care Informatics Manager Name Role Phone Sabina Cervantes DO Primary Care Provider JermaineMary Unavailable Allergies No known active allergies Medications latanoprost [...] FOR GAS 60 tablet 1 3 Active fluticasone (Flonase) 50 MCG/ACT nasal spray USE 2 SPRAYS IN EACH NOSTRIL EVERY DAY 48 g 4 Active Blood Pressure kit 1 each 1 (one) time per week. 1 kit 4 Active Diclofenac Sodium 1 % gel Apply 2 g topically if needed in the morning, at noon, in the evening, and at bedtime (pain). 150 g 3 4 Active loratadine (Claritin) 10 MG tabletIndication s:Seasonal allergic rhinitis, unspecified trigger TAKE 1 TABLET BY MOUTH EVERY DAY 90 tablet 4 Active lisinopril 2.5 MG tablet Take 1 tablet by mouth 2 times daily. 5 Active amitriptyline (Elavil) 10 MG tabletIndication s:Pain TAKE 2 TABLETS BY MOUTH AT BEDTIME 180 tablet 1 5 Active Aspirin Low Dose 81 MG EC tabletIndication s:Peripheral vascular disease (CMS/HCC) TAKE 1 TABLET BY MOUTH EVERY DAY 90 tablet 3 5 Active butalbital-aceta minophen-caffein e 50-325-40 MG tablet TAKE 1 TABLET BY MOUTH EVERY DAY NEEDED FOR HEADACHE 20 tablet 1 5 Active lidocaine (Lidoderm) 5 % patch APPLY 2 PATCHES TOPICALLY TO SKIN, LEAVE ON FOR 12 HOURS AND OFF FOR 12 HOURS DIRECTED 60 patch 3 5 Active omeprazole (PriLOSEC) [address] capsule TAKE 1 CAPSULE BY MOUTH EVERY DAY BEFORE A MEAL 90 capsule 3 5 Active rosuvastatin (Crestor) 20 MG tabletIndication s:Peripheral vascular disease (CMS/HCC) TAKE 1 TABLET BY MOUTH EVERY DAY 90 tablet 3 5 Active D3 Super Strength 50 MCG (2000 UT) capsuleIndicatio ns:Vitamin D deficiency TAKE 1 CAPSULE BY MOUTH EVERY DAY 90 capsule 3 5 Active levothyroxine (Synthroid) 100 MCG tablet Take 1 tablet (100 mcg) by mouth before breakfast. 90 tablet 3 5 02/03/20 26 Active melatonin 5 MG tablet Take 1-2 tablets (5-10 mg) by mouth if needed at bedtime (insomnia). 60 tablet 3 5 Active Active Problems Problem Noted Date Diagnosed Date Pain due to dental caries 10/02/2024 Glaucoma 01/17/2024 History of adenomatous polyp of [...] Encounters Date Type Department Care Team Description 03/15/2025 9:00 AM EDT Office Visit [address] [address] Sabina Cervantes DO Peripheral arterial disease (CMS/HCC) (Primary Dx); Other hyperlipidemia; Major depression, recurrent, chronic (CMS/HCC); Fatty liver; Hypothyroidism, unspecified type; Gallbladder polyp; Irritable bowel syndrome with constipation; Fibromyalgia; Chronic bilateral low back pain with bilateral sciatica; Tobacco dependence; Proteinuria, unspecified type; Cardiomyopathy, unspecified type (CMS/HCC); Bereavement; Healthcare maintenance; Dietary counseling; Exercise counseling 03/15/2025 Travel 03/10/[address] [address] Sabina Cervantes DO Chart Prep 03/09/2025 Patient Outreach [address] [address] Sabina Cervantes DO Care Coordination (C3/PRESTON Dean, CM enrollment) 03/09/2025 Patient Outreach [address] [address] Sabina Cervantes DO Care Coordination (C3/PRESTON Dean, Chart review ) 03/08/2025 Patient Outreach [address] [address] Sabina Cervantes DO Pre-visit Planning (SDOH Screening positive and Tobacco screening positive) 01/31/[address] [address] Sabina Cervantes DO Peripheral vascular disease ([facility]/HCC); Vitamin D deficiency 01/05/[address] [address] Sabina Cervantes DO Results from Last 3 Months Immunizations Immunization Administration Dates Next Due Hep B, adult [...] with others, in a hotel, in a long-term, living outside on the street, on a [...] Mass Index 27.12 03/15/2025 8:57 AM EDT Plan of Treatment Upcoming Encounters Date Type Department Care Team (Late st Contact Info) Description 05/14/2025 3:30 PM EST Office Visit [facility] [address] [place] [address] [place], Nimisha, OD [address] [place] [address] Health Maintenance Due Date Last Done Comments CT Colonography 1960 FIT DNA/Cologuard 1960 FIT 1960 FOBT 1960 Sigmoidoscopy 1960 Hepatitis A Vaccines (1 of 2 - Risk 2-dose series) 1980 RSV Patients and Patients Aged 60 years or older (1 - Risk 60-74 years 1-dose series) 2021 Dental Oral Exam 07/18/2023 01/14/2023, , 12/23/2017, Additional history exists Colonoscopy 07/25/2023 07/25/2018 Colorectal Cancer Screening 07/25/2023 Dental X-Ray: Bitewings 01/16/2024 01/15/20 23, 04/22/2019, 12/23/2017, Additional history exists Dental Prophylaxis 03/27/2024 09/24/2023, 0 01/14/2023, 04/22/2019, Additional history exists COVID-19 Vaccine ( season) 2025 07/23/2022, 08/02/2021, 10/25/2020, Additional history exists Influenza Vaccine (#1) 2025 , 03/20/2021, 04/21/2020, Additional history exists Cervical Cancer Screening 04/25/2025 HPV/Cotest 04/25/2025 04/25/2020 Pap Smear 04/25/2025 04/25/2020 Diabetes: Hemoglobin A1C 05/01/2025 024, 09/23/2023, 12/14/2022, Additional history exists Mammogram 05/19/2025 05/19/2024, 05/01, 12/13/2022, Additional history exists Depression Monitoring 09/12/2025 03/15/2025, 025 Alcohol/Substance Use Screening 10/23/2025 10/23/2024 Disability Screening 10/23/2025 10/23/2024 SDOH Screening 03/08/2026 03/08/2025 Tobacco Screening 03/15/2026 03/15/2025 Dental X-Ray: Full Mouth 10/04/2027 025, 01/14/2023, 12/23/2017, Additional history exists Lipid Panel 05/01/2029 05/01/2024, 08/30, 12/14/2022, Additional [...] patient's age to complete this topic Meningococcal B Vaccine Aged Out No l onger eligible based on patient's age to complete [...] Procedure Name Priority Date/Time Associated Diagnosis Comments PANORAMIC RADIOGRAPHIC IMAGE Routine 10/02/2024 11:00 AM EDT BI MAMMOGRAM SCREENING TOMOSYNTHESIS BILATERAL [...] Recently Relevant to Health Maintenance Results * BI Mammogram Screening Tomosynthesis Bilateral (05/19/2024 12:33 PM EST) Anatomical Region Laterality Modality Breast Bilateral Mammography 05/19/2024 12:3 3 PM EST Narrative 05/27/2024 8:21 AM EST [facility] [place] [address] Mammography Report Signed Patient: Lenora Leon I MR#: [id number] 6 : 1960 Acct:[id number] Age/Sex: 63 / F ADM Date: 05/19/24 Loc: HO.MAMMO Attending Dr: Sabina Cervantes DO Ordering Physician: Sabina Cervantes DO Results: 1N egative Date of Service: 05/19/24 Follow Up: 1 Year From Orig ina Mammogram Procedure(s): MM tomosynthesis screening BI Accession Number(s): [id number] cc: Sabina Cervantes DO EXAMINATION: MM SCREENING [...] 05/27/24 0817 DD/ 1233 TD/TT: 05/19/24 1253 Rehabilitation Counselor: Procedure Note Donotuseinterpreter, Image - 05/27/2024 [facility] [address] [place] [address] Mammography Report Signed Patient: Lenora Leon IMR#: [id number] 6 : 2Acct:[id number] Age/Sex: 63 / FADM Date: 05/19/24 Loc: HO.MAMMO Attending Dr: Sabina Cervantes DO Ordering Physician: Sabina Cervantesults: 1N egative Date of Service: 05/19/24Follow Up: 1 Year From Orig inal Mammogram Procedure(s): MM tomosynthesis screening BI Accession Number(s): [id number] cc: Sabina Cervantes DO EXAMINATION: MM SCREENING [...] by: Ashley Lazcano DO 05/27/2024 08:17 AM [facility] Dictated By: Ashley Lazcano DO Signed By: <Electronically signed by Ashley Lazcano DO in OV> 05/27/24 0817 DD/ 1233 TD/TT: 05/19/24 1253 Rehabilitation Counselor: us Sabina Jurcsak DO IMG BI PROCEDURES Edited Res ult - Final * Hemoglobin A1c (05/01/2024 1:00 PM EDT) Hemoglobin A1c 5.9 <6.0 % [facility] Comment:Hemoglobin A1C Refer ence Range Adults: 4.8 - 6.0 % Non diabetic: < 6.0 % Goal: < 7.0 %Additional Action Suggested: > 8.0 %Note: Hemoglobin A1c results are invalid for patients with abnormal amounts of HbF. Blood transfusions may impact the HbA1c concentration in the patient sample. Estimated Average Glucose 123 mg/dL [facility] Comment:eAG = Estimated ave rage glucose which is %A1C expressed asaverage glucose, using the formula of the Y3Y-LclooryFehqjmk Glucose study (ADAG), Diabetes Care, Vol.31,#8,Jan. 2007 Blood Venous blood specimen / Unknown 05/01/2024 1:00 PM EDT 05/01/2024 4:32 PM EDT us Sabina Billy MEHTA LAB BLOOD ORDERABLES Final R esult [facility] [address] [place] [phone] * (ABNORMAL) Lipid Panel, Standard (05/01/2024 1:00 PM EDT) Triglycerides 171(H) <150 mg/dL [facility] Comment:Desirable Triglyceri de: less than 150 mg/dLBorderline High Triglyceride 150-199 mg/dLHigh Triglyceride: 200-499 mg/dLVery High Triglyceride: greater than or equal to 5OO mg/dL Cholesterol 162 <200 mg/dL [facility] Comment:Desirable Cholestero l: less than 200 mg/dLBorderline High Cholesterol: 200-239 mg/dLHigh Cholesterol: greater than 239 mg/dL LDL Cholesterol Calculated 85 <100 mg/dL [facility] Comment:Desirable LDL: less than 100 mg/dLNear Optimal/Above Optimal LDL: 110- 129 mg/dLBorderline High LDL: 130-159 mg/dLHigh LDL: 160-189 mg/dLVery High LDL: greater than or equal to 190 mg/dL HDL Cholesterol 43 >40 mg/dL [facility] Comment:Desirable HDL: great er than 40 mg/dL Note: This HDL assay may give artificially low results in patients with liver disease. Blood Venous blood specimen / Unknown 05/01/2024 1:00 PM EDT 05/01/2024 4:32 PM EDT Sabina Cervantes DO LAB BLOOD ORDERABLES Final R esult [facility] [address] [place] [address] [phone] * HPV mRNA E6/E7 (04/25/2020 2:46 PM EDT) Pathologist [facility] HPV mRNA E6/E7 Not Detected Not Detected [facility] Comment: This test was performed using the APTIMA HPV Assay ([employer] This assay detects E6/E7 viral messenger RNA (mRNA) from 14 high-risk HPV types (16,18,31,33,35,39,45,51,52,56,58,59,66,68). The analytical performance characteristics of this assay have been determined by [employer]. The modifications have not been cleared or approved by the FDA. This assay has been validated pursuant to the CLIA regulations and is used for clinical purposes. THIS TEST WAS PERFORMED AT: [facility] [address] [place] [address] [address],[place] [address] KI OCONNOR MD 04/25/2020 2:46 PM EDT us Maurisio Good MD HISTORICAL/NON ORDERABLE LABS Fi nal Result Performing Organization Address City/[facility] [address]/ZIP Co de Phone Number [facility] [address] [place] [address], * Hm Pap Smear (04/25/2020) Pap Negative for intraephithelial lesion or malignancy Negative for intraephithelial lesion or malignancy, Other us Historical Provider HEALTH MAINTENANCE Final Result * HEPATITIS C AB W/REFL TO HCV RNA, QN, PCR (01/29/2020 10:04 AM EDT) HEPATITIS C ANTIBODY NON-REACT ALICIA NON-REACT ALICIA [facility] INDEX 0.01 <1.00 [facility] Comment: HCV antibody was non-reactive. There is no laboratory evidence of HCV infection. In most cases, no further action is required. However, if recent HCV exposure is suspected, a test for HCV RNA (test code 79797) is suggested. For additional information please refer to http://[employer]/faq/LYI72r5 (This link is being provided for informational/ educational purposes only.) HEPATITIS C ANTIBODY NON-REACT ALICIA NON-REACT ALICIA [facility] INDEX 0.01 <1.00 [facility] Comment: HCV antibody was non-reactive. There is no laboratory evidence of HCV infection. In most cases, no further action is required. However, if recent HCV exposure is suspected, a test for HCV RNA (test code 56614) is suggested. For additional information please refer to http://[employer]/faq/BOC54n1 (This link is being provided for informational/ educational purposes only.) HEPATITIS C ANTIBODY NON-REACT ALICIA NON-REACT ALICIA [facility] INDEX 0.01 <1.00 [facility] Comment: HCV antibody was non-reactive. There is no laboratory evidence of HCV infection. In most cases, no further action is required. However, if recent HCV exposure is suspected, a test for HCV RNA (test code 26077) is suggested. For additional information please refer to http://[employer]/faq/VUF07b7 (This link is being provided for informational/ educational purposes only.) HEPATITIS C ANTIBODY NON-REACT ALICIA NON-REACT ALICIA [facility] INDEX 0.01 <1.00 [facility] Comment: HCV antibody was non-reactive. There is no laboratory evidence of HCV infection. In most cases, no further action is required. However, if recent HCV exposure is suspected, a test for HCV RNA (test code 40451) is suggested. For additional information please refer to http://[employer]/faq/IGU33k2 (This link is being provided for informational/ educational purposes only.) 01/29/2020 10:0 4 AM EDT Sabina Cervantes DO HISTORICAL/NON ORDERABLE LAB S Final Result [facility] [address] * HIV 1/2 ANTIGEN/ANTIBODY,FOURTH GENERATION W/RFL (01/29/2020 10:04 AM EDT) HIV-1/2 ANTIGEN AND ANTIBODIES, 4TH GENERATION W/ REFLEX NON-REACT [facility] NON-REACT [facility] Comment: HIV-1 antigen and HIV-1/HIV-2 antibodies were not detected. There is no laboratory evidence of HIV infection. PLEASE NOTE: This information has been disclosed to you from records whose confidentiality may be protected by state law. If your state requires such protection, then the state law prohibits you from making any further disclosure of the information without the specific written consent of the person to whom it pertains, or as otherwise permitted by law. A general authorization for the release of medical or other information is NOT sufficient for this purpose. For additional information please refer to http://[employer]/faq/JSL058 (This link is being provided for informational/ educational purposes only.) The performance of this assay has not been clinically validated in patients less than 2 years old. HIV-1/2 ANTIGEN AND ANTIBODIES, 4TH GENERATION W/ REFLEX NON-REACT ALICIA NON-REACT ALICIA [facility] Comment: HIV-1 antigen and HIV-1/HIV-2 antibodies were not detected. There is no laboratory evidence of HIV infection. PLEASE NOTE: This information has been disclosed to you from records whose confidentiality may be protected by state law. If your state requires such protection, then the state law prohibits you from making any further disclosure of the information without the specific written consent of the person to whom it pertains, or as otherwise permitted by law. A general authorization for the release of medical or other information is NOT sufficient for this purpose. For additional information please refer to http://[employer]/faq/LXP042 (This link is being provided for informational/ educational purposes only.) The performance of this assay has not been clinically validated in patients less than 2 years old. HIV-1/2 ANTIGEN AND ANTIBODIES, 4TH GENERATION W/ REFLEX NON-REACT ALICIA NON-REACT ALICIA [facility] Comment: HIV-1 antigen and HIV-1/HIV-2 antibodies were not detected. There is no laboratory evidence of HIV infection. PLEASE NOTE: This information has been disclosed to you from records whose confidentiality may be protected by state law. If your state requires such protection, then the state law prohibits you from making any further disclosure of the information without the specific written consent of the person to whom it pertains, or as otherwise permitted by law. A general authorization for the release of medical or other information is NOT sufficient for this purpose. For additional information please refer to http://education.[employer]Content/faq/VJM765 (This link is being provided for informational/ educational purposes only.) The performance of this assay has not been clinically validated in patients less than 2 years old. 01/29/2020 10:0 4 AM EDT Sabina Cervantes DO LAB BLOOD ORDERABLES Final R esult [facility] [address] * Hm Colonoscopy (07/25/2018 10:20 AM EST) Historical Provider HEALTH MAINTENANCE Final Result from Last 3 Months or Most Recently Relevant to Health Maintenance Insurance [facility] AD[facility] Care Teams Informatics Manager Relationship Specialty Start Date End Date Sabina Cervantes DO [address] [place] [address] PCP - General Family Medicine 06/13/12 Mary Dean 03/09/25
--- OUTSIDE RECORDS SUMMARY | 2025-03-17 07:49 | XMS_ITS | Encounter Summary ---
Author Organization [employer] Address [address] [facility] [address] [place] [address] Care Team Providers Care Inspector Of Weights And Measures Name Role Phone Sabina Cervantes DO Primary Care Provider + [phone] Mary Dean Unavailable Encounter Details Date Type Department Care Team (Late st Contact Info) Description 10/08/2023 Orders Only [facility] [address] [place] [address] ProviderLizett MD Social History Tobacco Use Types Packs/Day Years [...] Description 05/14/2025 3:30 PM EST Office Visit [facility] [address] [place] [address] [place], Nimisha, OD [address] [place] [address] documented as of this encounter Procedures Procedure [...] documented as of this encounter Care Teams Inspector Of Weights And Measures Relationship Specialty Start Date End Date Sabina Cervantes DO [address] [place] [address] PCP - General Family Medicine 06/13/12 Mary Dean 03/09/25 documented as of this encounter
--- OUTSIDE RECORDS SUMMARY | 2025-03-17 07:49 | XMS_ITS ---
Author Organization [employer] Address [address] [facility] [address] [place] [address] Care Team Providers Care Commercial Painter Name Role Phone Sabina Cervantes DO Primary Care Provider + [phone] Mary Dean CHW Complex Status:Enrolled (Active) Start date:03/09/2025 Enrollment date:03/09/2025 Case Team Name Relationship Phone Mary Dean(Responsible Staff) [phone] Continued Care and Services Coordination
--- OUTSIDE RECORDS SUMMARY | 2025-03-17 07:49 | XMS_ITS | Encounter Summary ---
Author Organization [employer] Address [address] [facility] [address] [place] [address] Care Team Providers Care Anthropology Professor Name Role Phone Sabina Cervantes DO Primary Care Provider + [phone] Mary Dean Unavailable Reason for Visit * Reason Onset Date Comments Med Refill 09/13/2023 Encounter Details Date Type Department Care Team ([facility] st Contact Info) Description 09/13/2023 Telephone [facility] [address] [place] [address] Sabina Cervantes DO [address] [place], [place] [phone] Med Refill Social History Tobacco Use Types [...] from pt requesting med refill; Ibuprofen 600MG Army Ranger don't see med on chart but pt stated she received constantly. [facility] - [place], [place] - [address] [facility] documented in this encounter Plan of Treatment Upcoming Encounters Date Type Department Care Team (Late st Contact Info) Description 05/14/2025 3:30 PM EST Office Visit [facility] [address] [place] [address] Nimisha Haynes, OD [address] [place] [address] documented as of this encounter Visit Diagnoses Not on filedocumented in this encounter Additional Health Concerns Assessment Noted Time PHQ-9 Depression Total Score: 0 07/23/19 23 11:34 AM EST documented as of this encounter Care Teams Anthropology Professor Relationship Specialty Start Date End Date Sabina Cervantes DO [address] [place] [address] PCP - General Family Medicine 06/13/12 Mary Dean 03/09/25 documented as of this encounter
== END 2025-03-17 08:16 | disposition home or self-care (01) ==
LOC: HO.HWS 07:43
PROVIDERS: PCP Family Medicine; Visit Provider Obstetrics & Gynecology
DX: Z01.419 Encounter for gynecological examination (general) (routine) without abnormal findings (principal)
CPT/HCPCS: 99396; 99459

== ENCOUNTER 2025-03-17 07:43 | Outpatient (REF) | payer MEDICAID, SELFPAY | END 2025-03-17 07:44 | disposition home or self-care (01) | LOC: HO.LNP 07:43 | PROVIDERS: PCP Family Medicine; Visit Provider Obstetrics & Gynecology | DX: Z01.419 Encounter for gynecological examination (general) (routine) without abnormal findings (principal); Z11.51 Encounter for screening for human papillomavirus (HPV) | CPT/HCPCS: 87626; 88175; 99396 ==

== ENCOUNTER 2025-03-29 07:50 | Outpatient (REF) | payer MEDICAID, SELFPAY ==
--- OUTSIDE RECORDS SUMMARY | 2024-05-06 04:30 | XMS_ITS ---
Author Organization [facility] Address [address] [place] [address] Care Team Providers Care Delivery Representative Name Role Phone Sabina Cervantes M.D. Primary Care Provider Amy Rosendo Interiano Unavailable [phone] REASON FOR VISIT screening,hx polyps Problems Problem Type SNOMED Code ICD Code Onset Dates Problem Status W/U Status Risk Notes Problem Diverticular disease of colon (418217336) Diverticulosis of large intestine without perforation or abscess without bleeding (K57.30) Active confirmed Encounters Encounter Location Date Provider Diagnosis [facility] [place] [address], [place] [phone] 05/06/2024 Rosendo Padilla Colon cancer scree bhavesh [...] * RUBY CALLEDOB:1960 ( 64 yo F)Acc No.[id number]:05/06/2024 COLON WITH MAC Patient: RUBY CHARLTON Provider: Mike Padilla MD :1960 A ge:63 Y S ex:Female Date:05/06/2024 Address:[address] [place] [address] [address] , [place], [id number] Pcp:Sabina Cervantes M.D. Subjective: * Chief Complaints: [...] 07/06/2023 Generated for Patria horta/Keanu/Nikkiitting on: 0 03/29/2025 07:54 AM EDT
--- OUTSIDE RECORDS SUMMARY | 2025-03-29 07:53 | XMS_ITS | Encounter Summary ---
Author Organization [employer] Address [address] [facility] [address] [place] [address] Care Team Providers Care Soda Tester Name Role Phone Sabina Cervantes DO Primary Care Provider [phone] Mary Dean Unavailable Encounter Details Date Type Department Care Team (Late st Contact Info) Description 06/13/2022 Orders Only [facility] [address] [place] [address] Va Toribio LPN Social History Tobacco Use [...] Description 05/14/2025 3:30 PM EST Office Visit [facility] [address] [place] [address] [place], Nimisha, OD [address] [place] [address] documented as of this encounter Visit Diagnoses Not on filedocumented in this encounter Care Teams Soda Tester Relationship Specialty Start Date End Date Sabina Cervantes DO [address] [place] [address] PCP - General Family Medicine 06/13/12 Mary Dean 03/09/25 documented as of this encounter
--- OUTSIDE RECORDS SUMMARY | 2025-03-29 07:54 | XMS_ITS | Encounter Summary ---
Author Organization [employer] Address [address] [facility] [address] [place] [address] Care Team Providers Care Structural Shop Helper Name Role Phone Sabina Cervantes DO Primary Care Provider +[phone]- [phone] Mary Dean Unavailable Encounter Details Date Type Department Care Team (Latest Contact Info) Description 04/22/[address] [facility] Dental, Provider, DDS Social History [...] Description 05/14/2025 3:30 PM EST Office Visit [facility] [address] [place] [address] [place], Nimisha, OD [address] [place] [address] documented as of this encounter Visit Diagnoses Not on filedocumented in this encounter Care Teams Structural Shop Helper Relationship Specialty Start Date End Date Sabina Cervantes DO [address] [place] [address] PCP - General Family Medicine 06/13/12 Mary Dean 03/09/25 documented as of this encounter
--- OUTSIDE RECORDS SUMMARY | 2025-03-29 07:54 | XMS_ITS ---
Author Organization [employer] Address [address] [facility] [address] [place] [address] Care Team Providers Care Adult Literacy Instructor Name Role Phone Sabina Cervantes DO Primary Care Provider + [phone] Mary Dean CHW Complex Status:Enrolled (Active) Start date:03/09/2025 Enrollment date:03/09/2025 Case Team Name Relationship Phone Mary Dean(Responsible Staff) [phone] Continued Care and Services Coordination
--- OUTSIDE RECORDS SUMMARY | 2025-03-29 07:54 | XMS_ITS | Patient Health Record ---
Author Organization [facility] Address [address] [place] [address] Care Team Providers Care Training Mgr Name Role Phone Sabina Cervantes M.D. Primary Care Provider Rosendo Gilmore Unavailable [phone] Allergies No Known Allergies Results Component Value Reference Range Notes Pathology (Not yet reviewed by provider) Interpretation: Performing Lab:[facility], [address] [place] [phone] Notes/Report: Reason For Referral No Information Medications [...] Problem Status W/U Status Risk Notes Problem 419791518 Encounter for screening for malignant neoplasm of colon (Z12.11) Active confirmed Problem 749521509 History of adenomatous polyp of colon (Z86.010) Active confirmed Problem Diverticular disease of colon (922361282) Diverticulosis of large intestine without perforation or abscess without bleeding (K57.30) Active confirmed Problem 36591060 Constipation, unspecified constipation type (K59.00) Active confirmed Problem Gastroesophageal reflux disease (685928463) GERD without esophagitis (K21.9) Active confirmed Encounters Encounter Location Date Provider Diagnosis [facility] [address] [place] [phone] 05/06/2024 Rosendo Padilla Colon cancer scree bhavesh [...] Date [place] [address] [place] [address] [id number] RUBY CALLE Self - patient is the insured Medical (General) History Medical History History ICD Code EGD 09-27-2010---mild gastritis-no H.pylo ri-no esophagitis GERD Claudication Fibromyalgia Ovarian cysts Denies [place],DM,CVA,Lung disease,renal dise ase Bronchitis Neuropathy--feet Colonoscopy in 03/2013--smal l tubular adenomas, diverticulosis, internal hemorroids Gallbladder polyps--sees Dr. Burnham Colonoscopy 07/2018 with 1 small tubular adenoma removed Surgical History Surgery Date(Month/Year) Tubal ligation Glaucoma eye surgery 2023
--- OUTSIDE RECORDS SUMMARY | 2025-03-29 07:54 | XMS_ITS | Encounter Summary ---
Author Organization [employer] Address [address] [facility] 7t [place] [address] Care Team Providers Care Vault Teller Name Role Phone Sabina Cervantes DO Primary Care Provider +1- [phone] Mary Dean Unavailable Encounter Details Date Type Department Care Team (Late st Contact Info) Description 07/04/2022 Orders Only [facility] PEDS [address] [place], [place] [phone] Sabina Barnard LPN Social History Tobacco Use [...] Description 05/14/2025 3:30 PM EST Office Visit [facility] OPTOMETRY [address] [place] [address] [place], Nimisha, OD [address] [place] [address] documented as of this encounter Visit Diagnoses Not on filedocumented in this encounter Care Teams Vault Teller Relationship Specialty Start Date End Date Sabina Cervantes DO [address] [place] [address] PCP - General Family Medicine 06/13/12 Mary Dean 03/09/25 documented as of this encounter
--- OUTSIDE RECORDS SUMMARY | 2025-03-29 07:54 | XMS_ITS | Encounter Summary ---
Author Organization [employer] Address [address] [facility] 7t [place] [address] Care Team Providers Care Wagon Washer Name Role Phone Sabina Cervantes DO Primary Care Provider + [phone] Mary Dean Reason for Visit * Reason Comments Care Coordination C3CM/CHW Kayode Rodriguezoh f/u call Encounter Details Date Type Department Care Team (Latest Contact Info) Description 03/25/2025 Patient Outreach [facility] MEDICINE [address] [place] [address] Sabina Cervantes DO [address] [place] [address] Care Coordination (C3CM/Kayode Raeoh f/u call) Social History Tobacco Use Types Packs/Day Years [...] with others, in a hotel, in a retirement, living outside on the street, on a [...] AM EDT documented as of this encounter Progress Notes * Mary Dean - 03/25/2025 1:08 PM EDT CHW Mary Dean placed outbound call to patient to follow up on SDOH needs. Patient???s name, , and address were confirmed. Patient reported doing well and confirmed receipt of the [employer] low-income application. CHW informed patient that previously submitted PT-1s have been approved and provided instructions on how to schedule transportation for future appointments. No further questions or concerns were reported. CHW reinforced direct contact information ([phone]). Patient verbalizedunderstanding and was able to repeat instructions back to CHW. A follow-up call will be placed within 10 days; patient agreed with the plan. documented in this encounter Plan of Treatment Upcoming Encounters Date Type Department Care Team ([facility] Contact Info) Description 05/14/2025 3:30 PM EST Office Visit [facility] OPTOMETRY [address] [place] [phone] Nimisha Haynes, OD [address] [place] [address] documented as of this encounter Visit Diagnoses Not on filedocumented in this encounter Additional Health Concerns Assessment Noted Time PHQ-9 Depression Total Score: 12 03/15/ 025 8:59 AM EDT documented as of this encounter Care Teams Wagon Washer Relationship Specialty Start Date End Date Sabina Cervantes DO [address] [place] [address] PCP - General Family Medicine 06/13/12 Mary Dean 03/09/25 documented as of this encounter
--- OUTSIDE RECORDS SUMMARY | 2025-03-29 07:54 | XMS_ITS | Encounter Summary ---
Author Organization [employer] Address [address] [facility] 7t [place] [address] Care Team Providers Care Lithograph Printer Name Role Phone Sabina Cervantes DO Primary Care Provider + [phone] Pola Deanester Unavailable Reason for Visit * Reason Comments Med Refill Encounter Details Date Type Department Care Team (Late Contact Info) Description 10/05/2022 Refill [facility] MED[facility]INE [address] [place] [address] Anika Hernandez MD [address] [place] [address] Social History Tobacco Use Types Packs/Day Years [...] Description 05/14/2025 3:30 PM EST Office Visit [facility] OPTOMETRY [address] [place] [address] Nimisha Haynes, AMIE [address] [place] [address] documented as of this encounter Visit Diagnoses Not on filedocumented in this encounter Additional Health Concerns Assessment Noted Time PHQ-9 Depression Total Score: 0 07/23/19 23 11:34 AM EST documented as of this encounter Care Teams Lithograph Printer Relationship Specialty Start Date End Date Sabina Cervantes DO [address] [place] [address] PCP - General Family Medicine 06/13/12 Mary Dean 03/09/25 documented as of this encounter
--- OUTSIDE RECORDS SUMMARY | 2025-03-29 07:54 | XMS_ITS | Clinical Summary ---
Author Organization [employer] Address [address] [facility] 7t [place] [address] Care Team Providers Care Veneer Clipper Helper Name Role Phone Sabina Cervantes DO [...] Encounters Date Type Department Care Team Description 03/25/2025 Patient Outreach [facility] MED[facility] [address] [place] [address] Sabina Cervantes DO Care Coordination (C3CM/CHW Mary Dean, Sdoh f/u call) 03/17/2025 Orders Only GENERIC EXTERNAL DATA DEPARTMENT Provider, Generic External Data 03/15/2025 9:00 AM EDT Office Visit [address] [address] Sabina Cervantes DO Peripheral arterial disease (CMS/HCC) (Primary Dx); Other hyperlipidemia; Major depression, recurrent, chronic (CMS/HCC); Fatty liver; Hypothyroidism, unspecified type; Gallbladder polyp; Irritable bowel syndrome with constipation; Fibromyalgia; Chronic bilateral low back pain with bilateral sciatica; Tobacco dependence; Proteinuria, unspecified type; Cardiomyopathy, unspecified type (CMS/HCC); Bereavement; Healthcare maintenance; Dietary counseling; Exercise counseling 03/15/2025 Travel 03/10/[address] [address] Sabina Cervantes DO Chart Prep 03/09/2025 Patient Outreach [address] [address] Sabina Cervantes DO Care Coordination (C3LISANDRO/PRESTON Dean, CM enrollment) 03/09/2025 Patient Outreach [address] [address] Sabina Cervantes DO Care Coordination (MIQUEL/PRESTON Dean, Chart review ) 03/08/2025 Patient Outreach [address] [address] Sabina Cervantes DO Pre-visit Planning (SDOH Screening positive and Tobacco screening positive) 01/31/[address] [address] Sabina Cervantes DO Peripheral vascular disease (CMS/HCC); Vitamin D deficiency 01/05/[address] [address] Sabina Cervantes DO Results from Last 3 [...] Answer Date Recorded Patient Health Questionnaire-9 Score 03/15/2025 Patient Health Questionnaire-9 Score 12 03/15/2025 Last PHQ-9: Questionnaire Data Not on file 0 03/15/2025 Housing Stability Answer Date Recorded What is your housing situation today? I do not have housing (Staying with others, in a hotel, in a fdc, living outside on the street, on a [...] 3:30 PM EST Office Visit [facility] OPTOMETRY [address] [place] [address] [place], Nimisha, OD [address] [place] [address] Health Maintenance Due Date Last Done Comments [...] Cancer Screening 07/25/2023 Dental X-Ray: Bitewings 01/16/2024 01/15/20, 04/22/2019, 12/23/2017, Additional history exists Dental Prophylaxis 03/27/2024 09/24/2023, 0 01/14/2023, 04/22/2019, Additional history exists COVID-19 Vaccine ( season) 2025 07/23/2022, 08/02/2021, 10/25/2020, Additional history exists Influenza Vaccine (#1) 2025 , 03/20/2021, 04/21/2020, Additional history exists Diabetes: Hemoglobin A1C 05/01/2025 024, 09/23/2023, 12/14/2022, Additional history exists Mammogram 05/19/2025 05/19/2024, 05/01, 12/13/2022, Additional history exists Depression Monitoring 09/12/2025 03/15/2025, 025 Alcohol/Substance Use Screening 10/23/2025 10/23/2024 Disability Screening 10/23/2025 10/23/2024 SDOH Screening 03/08/2026 03/08/2025 Tobacco Screening 03/15/2026 03/15/2025 Dental X-Ray: Full Mouth 10/04/2027 025, 01/14/2023, 12/23/2017, Additional history exists Lipid Panel 05/01/2029 05/01/2024, 08/30, 12/14/2022, Additional history exists Cervical Cancer Screening 03/17/2030 HPV/Cotest 03/17/2030 03/17/2025, 04/25/2020 Pap Smear 03/17/2030 03/17/2025, 04/25/2020 DTaP/Tdap/Td Vaccines (3 - Td or Tdap) [...] Procedure Name Priority Date/Time Associated Diagnosis Comments PAP SMEAR Routine 03/17/2025 8:13 AM EDT HPV DNA, LOW/HIGH RISK Routine 8:13 AM EDT PANORAMIC RADIOGRAPHIC IMAGE Routine 10/02/2024 11:00 AM [...] Routine 01/14/2023 1:00 PM EDT ZZZ HISTORICAL HEPATITIS C AB W/REFL TO HCV RNA, QN, PCR Routine 01/29/2020 10:04 AM EDT HIV 1/2 ANTIGEN/ANTIBODY, FOURTH GENERATION W/RFL Routine 01/29/2020 10:04 AM EDT HM COLONOSCOPY Routine 07/25/2018 10:20 AM EST from Last 3 Months or Most Recently Relevant to Health Maintenance Results * HPV DNA, Low/High Risk (03/17/2025 8:13 AM EDT) HPV High Risk Negative Negative [facility] HPV Genotype 16 Negative Negative [facility] HPV Genotype 18 Negative Negative [facility] Comment:HPV testing performe d at [facility] (CLIA#[id number]), [address] [place] [address].Testing for HPV was performed using the [employer]ron AMAYA 6800system. The presence of HPV in the female genital tract isassociated with a number of diseases, including cervicalcarcinoma. The HPV DNA high risk pool tests for HPV 31, 33,35, 39, 45, 51, 52, 56, 58, 59, 66 and 68. The testing forHPV 16 and 18 genotypes has also been performed. A positiveresult indicates detection of nucleic acid sequences fromone or more subtypes, whereas a negative result indicatessuch sequences were not detected. 03/17/2025 8:13 AM EDT 03/18/2025 7:46 AM EDT us Generic External Data Provider LAB BLOOD ORDERAB LES Final Result [facility] [address] [place] [phone] * Pap Smear (03/17/2025 8:13 AM EDT) 03/17/2025 8:13 AM EDT 03/18/2025 7:46 AM EDT Narrative [facility] - 03/22/2025 9:26 AM EDT ----- ------- Name: Lenora Leon I Age/Sex: 64/F : 1960 Unit#: [id number] Attend Dr: Maurisio Good MD Re03/17/25 Status: DEP REF Location: [facility] Disch: ----- ------- SPEC : [id number] RECD: 03/18/25 STATUS: KYRIE REYNOLDS NUM: [id number] RENÉ: 03/17/[address] [facility] [address]: Maurisio Good MD ENTERED: 03/18/25 SP TYPE: Pap Smr OTHR DR: Sabina Cervantes DO ORDERED: Pap Smear Interpretation Satisfactory for evaluation. Negative for intraepithelial lesion or malignancy. HPV High Risk: Negative HPV Genotyping 16: Negative HPV Genotyping 18: Negative Clinical Information LMP: Unknown date Previous PAP test: 04/26/2020, Unknown findings Other history: Encounter for annual routine gynecological examination Material Received ThinPrep-Cervical PAP Disclaimer As of April 22, 2024, the technical services to include automated prescreening performed by the ThinPrep Imaging System, PAP screening and HPV testing will be performed at [facility] (CLIA #[id number]), [address] [place] [address]. Testing for HPV was performed using the [employer] system. The presence of HPV in the female genital tract is associated with a number of diseases, including cervical carcinoma. The HPV DNA high risk pool tests for HPV 31, 33, 35, 39, 45, 51, 52, 56, 58, 59, 66 and 68. The testing for HPV 16 and 18 genotypes has also been performed. A positive result indicates detection of nucleic acid sequences from one or more subtypes, whereas a negative result indicates such sequences were not detected. All professional services are performed by [facility] ([address] [place] [address]; ; CLIA #[id number]). The PAP Test is a screening procedure with the inherent possibility of both false negative and false positive results. Results should be interpreted in the context of historic and current clinical findings. Reliability of the PAP Test is enhanced by performing the test on a regular repetitive basis. CONTINUED ON NEXT PAGE ----- ------- Name: Lenora Leon I Age/Sex: 64/F : 1960 Unit#: [id number] Attend Dr: Maurisio Good MD Re03/17/25 Status: DEP REF Location: [facility] Disch: ----- ------- SPEC : [id number] RECD: 03/18/25 STATUS: KYRIE REYNOLDS NUM: [id number] RENÉ: 03/17/[address]: Maurisio Good MD ENTERED: 03/18/25 SP TYPE: Pap Smr OTHR DR: Sabina Cervantes DO ORDERED: Pap Smear Copies To: Sabina Cervantes DO [facility] [address] [place] [address] Maurisio Good MD [facility] [address] [place] [address] ----- ------- Signed (signature on file) BG Tucker (ASCP) 03/22/25 0926 ----- ------- END OF REPORT Generic External Data Provider LAB CYTOLOGY MANOJ SPARROW Final Result [facility] [address] [place], [place] [phone] * BI Mammogram Screening Tomosynthesis Bilateral (05/19/2024 12:33 PM EST) Anatomical Region Laterality Modality Breast Bilateral Mammography 05/19/2024 12:3 3 PM EST Narrative 05/27/2024 8:21 AM EST [address] [place] [address] Mammography Report Signed Patient: Lenora Leon I MR#: [id number] 6 : 1960 Acct:[id number] Age/Sex: 63 / F ADM Date: 05/19/24 Loc: MAMMO Attending Dr: Sabina Cervantes DO Ordering Physician: Sabina Cervantes DO Results: 1N egative Date of Service: 05/19/24 Follow Up: 1 Year From Orig ina Mammogram Procedure(s): MM tomosynthesis screening BI Accession Number(s): [id number] cc: Sabina Cervantes DO EXAMINATION: MM SCREENING [...] by: Ashley Lazcano DO 05/27/2024 08:17 AM [facility] Dictated By: Ashley Lazcano DO Signed By: <Electronically signed by Ashley Lazcano DO in OV> 05/27/24 0817 DD/ 1233 TD/TT: 05/19/24 1253 Transitional Nurse: Procedure Note Donotuseinterpreter, Image - 05/27/2024 [facility] [address] [place] [address] Mammography Report Signed Patient: Lenora Leon IMR#: [id number] 6 : 2Acct:[id number] Age/Sex: 63 / FADM Date: 05/19/24 Loc: MAMMO Attending Dr: Sabina Cervantes DO Ordering Physician: Sabina Cervantesults: 1N egative Date of Service: 05/19/24Follow Up: 1 Year From Orig ina Mammogram Procedure(s): MM tomosynthesis screening BI Accession Number(s): [id number] cc: Sabina Cervantes DO EXAMINATION: MM SCREENING [...] by: Ashley Lazcano DO 05/27/2024 08:17 AM [facility] Dictated By: Ashley Lazcano DO Signed By: <Electronically signed by Ashley Lazcano DO in OV> 05/27/24 0817 DD/ 1233 TD/TT: 05/19/24 1253 Transitional Nurse: Sabina Cervantes DO [facility] BI PROCEDURES Edited Res ult - Final * Hemoglobin A1c (05/01/2024 1:00 PM EDT) Hemoglobin A1c 5.9 <6.0 % [facility] Comment:Hemoglobin A1C Refer ence Range Adults: 4.8 - 6.0 % Non diabetic: < 6.0 % Goal: < 7.0 %Additional Action Suggested: > 8.0 %Note: Hemoglobin A1c results are invalid for patients with abnormal amounts of HbF. Blood transfusions may impact the HbA1c concentration in the patient sample. Estimated Average Glucose 123 mg/dL [facility] Comment:eAG = Estimated ave rage glucose which is %A1C expressed asaverage glucose, using the formula of the G9D-ZnwrocmArrytem Glucose study (ADAG), Diabetes Care, Vol.31,#8,Jan. 2007 Blood Venous blood specimen / Unknown 05/01/2024 1:00 PM EDT 05/01/2024 4:32 PM EDT us Sabina Cervantes DO LAB BLOOD ORDERABLES Final R esult Performing Organization Address City/[facility] Co de Phone Number [facility] [address] [place] [phone] * (ABNORMAL) Lipid Panel, Standard (05/01/2024 1:00 PM EDT) Triglycerides 171(H) <150 mg/dL [facility] Comment:Desirable Triglyceri de: less than 150 mg/dLBorderline High Triglyceride 150-199 mg/dLHigh Triglyceride: 200-499 mg/dLVery High Triglyceride: greater than or equal to 5OO mg/dL Cholesterol 162 <200 mg/dL [facility] Comment:Desirable Cholestero l: less than 200 mg/dLBorderline High Cholesterol: 200-239 mg/dLHigh Cholesterol: greater than 239 mg/dL LDL Cholesterol Calculated 85 <100 mg/dL [facility] Comment:Desirable LDL: less than 100 mg/dLNear Optimal/Above Optimal LDL: 110- 129 mg/dLBorderline High LDL: 130-159 mg/dLHigh LDL: 160-189 mg/dLVery High LDL: greater than or equal to 190 mg/dL HDL Cholesterol 43 >40 mg/dL [facility] Comment:Desirable HDL: great er than 40 mg/dL Note: This HDL assay may give artificially low results in patients with liver disease. Blood Venous blood specimen / Unknown 05/01/2024 1:00 PM EDT 05/01/2024 4:32 PM EDT us Sabina Cervantes DO LAB BLOOD ORDERABLES Final R esult Performing Organization Address City/State/[facility] Co de Phone Number [facility] [address] [place] [address] [phone] * HEPATITIS C AB W/REFL TO HCV RNA, QN, PCR (01/29/2020 10:04 AM EDT) HEPATITIS C ANTIBODY NON-REACT ALICIA NON-REACT [facility] INDEX 0.01 <1.00 [facility] Comment: HCV antibody was non-reactive. There is no laboratory evidence of HCV infection. In most cases, no further action is required. However, if recent HCV exposure is suspected, a test for HCV RNA (test code 77228) is suggested. For additional information please refer to http://Definition 6.[employer]/faq/WEV74m2 (This link is being provided for informational/ educational purposes only.) HEPATITIS C ANTIBODY NON-REACT ALICIA NON-REACT [facility] INDEX 0.01 <1.00 [facility] Comment: HCV antibody was non-reactive. There is no laboratory evidence of HCV infection. In most cases, no further action is required. However, if recent HCV exposure is suspected, a test for HCV RNA (test code 44437) is suggested. For additional information please refer to http://Definition 6.[employer]/faq/EFH00k9 (This link is being provided for informational/ educational purposes only.) HEPATITIS C ANTIBODY NON-REACT ALICIA NON-REACT [facility] INDEX 0.01 <1.00 [facility] Comment: HCV antibody was non-reactive. There is no laboratory evidence of HCV infection. In most cases, no further action is required. However, if recent HCV exposure is suspected, a test for HCV RNA (test code 18161) is suggested. For additional information please refer to http://Definition 6.[employer]/faq/NAT99t4 (This link is being provided for informational/ educational purposes only.) HEPATITIS C ANTIBODY NON-REACT ALICIA NON-REACT [facility] INDEX 0.01 <1.00 [facility] Comment: HCV antibody was non-reactive. There is no laboratory evidence of HCV infection. In most cases, no further action is required. However, if recent HCV exposure is suspected, a test for HCV RNA (test code 92541) is suggested. For additional information please refer to http://Definition 6.[employer]/faq/XSX60n7 (This link is being provided for informational/ educational purposes only.) 01/29/2020 10:0 4 AM EDT Sabina Billy DO HISTORICAL/NON ORDERABLE LAB S Final Result [facility] [address] * HIV 1/2 ANTIGEN/ANTIBODY,FOURTH GENERATION W/RFL [...] purpose. For additional information please refer to http://Definition 6.[employer]/faq/RBH895 (This link is being provided for informational/ educational purposes only.) The performance of this assay has not been clinically validated in patients less than 2 years old. HIV-1/2 ANTIGEN AND ANTIBODIES, 4TH GENERATION W/ REFLEX NON-REACT ALICIA NON-REACT [facility] Comment: HIV-1 antigen and HIV-1/HIV-2 [...] purpose. For additional information please refer to http://Definition 6.[employer]/faq/FZU990 (This link is being provided for informational/ educational purposes only.) The performance of this assay has not been clinically validated in patients less than 2 years old. HIV-1/2 ANTIGEN AND ANTIBODIES, 4TH GENERATION W/ REFLEX NON-REACT ALICIA NON-REACT ALICIA [facility] Comment: HIV-1 antigen and HIV-1/HIV-2 [...] purpose. For additional information please refer to http://Definition 6.[employer]/faq/LRR626 (This link is being provided for informational/ educational purposes only.) The performance of this assay has not been clinically validated in patients less than 2 years old. 01/29/2020 10:0 4 AM EDT Sabina Cervantes DO LAB BLOOD ORDERABLES Final R esult [facility] [address] * Hm Colonoscopy (07/25/2018 10:20 AM EST) Historical Provider HEALTH MAINTENANCE Final Result from Last 3 Months or Most Recently Relevant to Health Maintenance Insurance [facility] [employer] AD[facility] Care Teams Veneer Clipper Helper Relationship Specialty Start Date End Date Sabina Cervantes DO [address] [place] [address] PCP - General Family Medicine 06/13/12 Mary Dean 03/09/25
--- OUTSIDE RECORDS SUMMARY | 2025-03-29 07:54 | XMS_ITS | Encounter Summary ---
Author Organization [employer] Address [address] [facility] 7t [place] [address] Care Team Providers Care Warp Tying Machine Knotter Name Role Phone Sabina Cervantes DO Primary Care Provider +- [phone] JermaineMary Unavailable Encounter Details Date Type Department Care Team (Late Contact Info) Description 04/05/2023 Abstract [facility] MEDICINE [address] [place] [address] Padma Kim Social History Tobacco Use Types [...] Description 05/14/2025 3:30 PM EST Office Visit [facility] OPTOMETRY [address] [place] [address] Nimisha Haynes, OD [address] [place] [address] documented as of this encounter Procedures Procedure [...] documented as of this encounter Care Teams Warp Tying Machine Knotter Relationship Specialty Start Date End Date Sabina Cervantes DO [address] [place] [address] PCP - General Family Medicine 06/13/12 Mary Dean 03/09/25 documented as of this encounter
--- OUTSIDE RECORDS SUMMARY | 2025-03-29 07:54 | XMS_ITS | Encounter Summary ---
Author Organization [employer] Address [address] [place] [address] Care Team Providers Care Clinical Admissions Manager Name Role Phone Sabina Cervantes DO Primary Care Provider + [phone] Mary Dean Unavailable Encounter Details Date Type Department Care Team (Late st Contact Info) Description 10/08/2023 Orders Only [facility] MEDICINE [address] [place] [address] ProviderLizett MD Social History Tobacco Use Types [...] PM EST Office Visit [facility] OPTOMETRY [address] [place] [address] Dallas, Nimisha, OD [address] [place] [address] documented as of this encounter Procedures Procedure [...] documented as of this encounter Care Teams Clinical Admissions Manager Relationship Specialty Start Date End Date Sabina Cervantes DO [address] [place] [address] PCP - General Family Medicine 06/13/12 Mary Dean 03/09/25 documented as of this encounter
--- OUTSIDE RECORDS SUMMARY | 2025-03-29 07:54 | XMS_ITS | Encounter Summary ---
Author Organization [employer] Address [address] [place] [address] Care Team Providers Care Medical Or Surgical Instrument Maker Name Role Phone Sabina Cervantes DO Primary Care Provider + [phone] Mary Dean Unavailable Reason for Visit * Reason Onset Date Comments Med Refill 09/13/2023 Encounter Details Date Type Department Care Team ([facility] st Contact Info) Description 09/13/2023 Telephone [facility] MEDICINE [address] [place] [address] Sabina Cervantes DO [address] [place], [place] [id number] Med Refill Social History Tobacco Use Types [...] from pt requesting med refill; Ibuprofen 600MG Tube Mounter don't see med on chart but pt stated she received constantly. [facility] - [place], [place] - [address] [facility] documented in this encounter Plan of Treatment Upcoming Encounters Date Type Department Care Team (Late st Contact Info) Description 05/14/2025 3:30 PM EST Office Visit [facility] OPTOMETRY [address] [place] [address] Nimisha Haynes, OD [address] [place] [address] documented as of this encounter Visit Diagnoses Not on filedocumented in this encounter Additional Health Concerns Assessment Noted Time PHQ-9 Depression Total Score: 0 07/23/19 23 11:34 AM EST documented as of this encounter Care Teams Medical Or Surgical Instrument Maker Relationship Specialty Start Date End Date Sabina Cervantes DO [address] [place] [address] PCP - General Family Medicine 06/13/12 Mary Dean 03/09/25 documented as of this encounter
[2025-03-29 09:10] LABS: Hematocrit 41.0 % (37.0-47.0); Hemoglobin 13.8 g/dl (12.0-16.0); Mean Corpuscular HGB Conc 33.7 g/dl (31.0-35.0); Mean Corpuscular Hemoglobin 29.8 pg (27.0-33.0); Mean Corpuscular Volume 88.6 fL (80.0-98.0); NRBC Abs Auto 0.000 X10*3/uL (0.0-0.012); NRBC Pct Auto 0.0 /100WBC (0.0-0.2); Platelet Count 298 X10*3/uL (160-400); Red Blood Count 4.63 X10*6/uL (4.20-5.50); White Blood Count 8.6 X10*3/uL (4.8-10.8)
[2025-03-29 09:18] LABS: Total Hemoglobin (HGBA1C) 3570.6238 umol/L
[2025-03-29 09:44] LABS: Alanine Aminotransferase 20 U/L (0-31); Albumin Level 4.4 g/dL (3.5-5.0); Alkaline Phosphatase 67 U/L (39-117); Anion Gap 12 (12-20); Aspartate Amino Transferase 19 U/L (5-31); Blood Urea Nitrogen 14 mg/dL (9-16); Calcium 9.8 mg/dL (8.4-10.2); Carbon Dioxide 27 mmol/L (22-29); Chloride 107 mmol/L (96-108); Cholesterol 151 mg/dL (<200); Estimated Glomerular Filt Rate > 60; HDL Cholesterol 40 mg/dL (>40); Potassium 3.8 mmol/L (3.3-5.1); Sodium 142 mmol/L (135-145); Total Protein 7.1 g/dL (6.5-8.0); Triglycerides 216 mg/dL (<150)
[2025-03-29 09:55] LABS: Free T4 (Free Thyroxine) 1.30 ng/dL (0.71-1.85)
[2025-03-29 10:03] LABS: Thyroid Stimulating Hormone 0.91 uIU/mL (0.32-4.0)
[2025-03-29 11:02] LABS: Protein/Creatinine Ratio, Ur 0.56 (<0.2); Total Protein Urine Random 19 mg/dL (<12)
== END 2025-03-29 07:51 | disposition home or self-care (01) ==
LOC: HO.LAB 07:50
PROVIDERS: PCP Family Medicine; Visit Provider Internal Medicine Nephrology
DX: Z00.00 Encounter for general adult medical examination without abnormal findings (principal); M54.42 Lumbago with sciatica, left side; M54.41 Lumbago with sciatica, right side; N28.1 Cyst of kidney, acquired; R80.8 Other proteinuria; E78.49 Other hyperlipidemia; K76.0 Fatty (change of) liver, not elsewhere classified; K82.4 Cholesterolosis of gallbladder; K58.1 Irritable bowel syndrome with constipation; M79.7 Fibromyalgia; I73.9 Peripheral vascular disease, unspecified; I42.9 Cardiomyopathy, unspecified; F33.9 Major depressive disorder, recurrent, unspecified; E03.9 Hypothyroidism, unspecified; G89.29 Other chronic pain; F17.200 Nicotine dependence, unspecified, uncomplicated; Z63.4 Disappearance and death of family member; Z71.3 Dietary counseling and surveillance; Z71.82 Exercise counseling
CPT/HCPCS: 36415; 80048; 80061; 80076; 82105; 82306; 82570; 83036; 84156; 84439; 84443; 85027

== ENCOUNTER 2025-04-02 09:13 | Outpatient (AMB) | payer MEDICAID, SELFPAY ==
--- OUTSIDE RECORDS SUMMARY | 2024-05-06 04:30 | XMS_ITS ---
Author Organization [facility] Address [address] [place] [address] Care Team Providers Care Drum Builder Name Role Phone Sabina Cervantes M.D. Primary Care Provider Amy Rosendo Interiano Unavailable [phone] REASON FOR VISIT screening,hx polyps Problems Problem Type SNOMED Code ICD Code Onset Dates Problem Status W/U Status Risk Notes Problem Diverticular disease of colon (551049750) Diverticulosis of large intestine without perforation or abscess without bleeding (K57.30) Active confirmed Encounters Encounter Location Date Provider Diagnosis [facility] [place] Out[place] [address] [place], [place] [phone] 05/06/2024 Rosendo Padilla Colon cancer scree bhavesh [...] * RUBY CALLEDOB:1960 ( 64 yo F)Acc No.[id number]:05/06/2024 COLON WITH MAC Patient: RUBY CHARLTON Provider: Mike Padilla MD :1960 A ge:63 Y S ex:Female Date:05/06/2024 Address:[address] [place] [address] [address] , [place], [id number] Pcp:Sabina Cervantes M.D. Subjective: * Chief Complaints: [...] MD Date: 1 07/06/2023 Generated for Patria horta/Keanu/Williamsmitting on: 09:39 AM EDT
--- NOTE | 2025-04-02 09:30 | HO.NEPHOV_ITS ---
Vital Signs 04/02/25 09:36 Height 5 ft 6 in Weight 152 lb BMI 24.5 BP 110/60 Blood Pressure Location Rt brachial Position Sitting Pulse 71 Pulse Source Pulse Oximeter Pulse Oximetry (%) 98 Oxygen Delivery Method Room Air Intake Visit Reasons: FU-Conf Transportation Program Director Required: Yes Transportation Program Director Language: Medical Billing Assistant Services: Transportation Program Director Offered & Declined ([facility] [place] Transportation Program Director services refused ) Accompanied by: Self / Same As Patient Allergies No Known Allergies Allergy (Verified 04/02/25 09:35) HPI Comments Details: Lenora was seen in follow up for proteinuria. She has PAD. She denies being diabetic and hypertensive. She has been on PPI for a long time. Her proteinuria has been stable She denies epistaxis, photosensitivity, new joint pains, new joint swellings, edema, new skin rashes, hematuria or sensori neural deafness. She has H/O tubular adenoma of the colon. She does not take excess NSAID's or has new bone/back pain. Her renal functions has been stable. Her dad of renal issues at the age of 37 years. Her niece has renal issues from lupus. [facility] Medical History Irritable bowel syndrome with constipation Fatty liver PAD (peripheral artery disease) Hypothyroidism Post-menopausal Obstructive airway disease Tubular adenoma of colon (~2012) Nicotine dependence, cigarettes, uncomplicated Neuropathy High cholesterol Anemia Depression GERD (gastroesophageal reflux disease) Fibromyalgia Surgical History Hx of eye surgery History of left breast biopsy History of esophagogastroduodenoscopy (EGD) History of colonoscopy History of ovarian cystectomy History of bilateral tubal ligation Family History Father Kidney problem Mother Diabetes Social History Household Members: None Household Members Other:: lives alone Housing: Apartment Are you a primary healthcare marketer to a significant other at home: No Alcohol intake: never Patient Tobacco Use Status: Current everyday Tobacco user Tobacco use type: Cigarette Cigarettes Per Day: 10 Years Smoked: onset 17yo - 1/2ppd x 45yrs - 22phy Current occupational status: disabled Sexual orientation: Straight/Heterosexual Gender identity: Female Female Reproductive History Menstrual Age of Menarche: 17 Date of menopause: 07/01/02 Review of Systems Const All systems reviewed & are unremarkable except as noted in HPI and below Physical Exam Const General: comfortable and no acute distress Orientation/consciousness: patient oriented x3 HEENT Head: Yes normocephalic Mouth: Normal oral and palatal mucosa present Eyes EOM: EOMs intact bilaterally Neck Neck: Yes supple Resp Auscultation: clear to auscultation bilaterally Cardio Jugular venous distension: no JVD Rate: regular rate GI Palpation (GI): Soft to palpation Auscultation: normal bowel sounds General: Yes no CVA tenderness Back/Spine/Pelvis Back: no CVA tenderness Skin General skin exam: no rashes or lesions noted Neuro General: patient oriented x3 and moves all extremities Extrem General: Yes no pedal edema Results Reviewed Nephrology Results: Hgb, (12.0-16.0) 13.8 g/dl 03/29/25 WBC, (4.8-10.8) 8.6 X10*3/uL 03/29/25 Plt Count, (160-400) 298 X10*3/uL 03/29/25 Sodium, (135-145) 142 mmol/L 03/29/25 Potassium, (3.3-5.1) 3.8 mmol/L 03/29/25 Chloride, (96-108) 107 mmol/L 03/29/25 Carbon Dioxide, (22-29) 27 mmol/L 03/29/25 BUN, (9-16) 14 mg/dL 03/29/25 Creatinine, (0.5-1.4) 0.62 mg/dL 03/29/25 Calcium, (8.4-10.2) 9.8 mg/dL 03/29/25 Urine Creatinine 33.79 mg/dL 03/29/25 Protein/Creatinin Ratio, (<0.2) 0.56 H 03/29/25 Assessment & Plan Assessment & Plan (1) Proteinuria: Code(s): R80.9 - Proteinuria, unspecified Category: Medical Qualifiers: Proteinuria type: other Qualified Code(s): R80.8 - Other proteinuria Plan Ada has proteinuria likely from vascular disease. W/U so far is negative. She is on PPI for a long time. She does not take any excess NSAID's. Her renal USS has showed simple renal cysts. She has no new systemic complaints. I increased her lisinopril to 2.5 mg AM and 5 mg PM . Her proteinuria is better and her BP is at goal. I discussed about interactions including NSAID's and need for hydration. She wants to wait for renal biopsy. Answered all questions. F/U given Orders: Orders Creatinine 4 Months R80.8 - Other proteinuria Electrolytes 4 Months R80.8 - Other proteinuria Blood Urea Nitrogen 4 Months R80.8 - Other proteinuria Protein Creatinine Ratio, Ur 4 Months R80.8 - Other proteinuria Medications: Changed From lisinopril 2.5 mg PO BID 90 days 180 tabs 3RF To lisinopril 7.5 mg orally 2.5 mg AM and 5 mg PM; 270 tabs 3RF 90 days Coding Level of Care Code Est Pt Level 4 (24478) Diagnoses Other proteinuria R80.8 Proteinuria type: other
[2025-04-02 09:36] VITALS: BP 110/60; PULSE 71; O2SAT 98; BMI 24.5
--- OUTSIDE RECORDS SUMMARY | 2025-04-02 09:39 | XMS_ITS | Encounter Summary ---
Author Organization [employer] Address [address] [place] [address] Care Team Providers Care Reservoir Engineer Name Role Phone Sabina Cervantes DO Primary Care Provider + [phone] Mary Dean Unavailable Encounter Details Date Type Department Care Team (Late st Contact Info) Description 10/08/2023 Orders Only [facility] MEDICINE [address] [place] [address] ProviderLizett MD Social History Tobacco Use Types [...] Description 05/14/2025 3:30 PM EST Office Visit [facility] OPTOMETRY [address] [place] [address] Dallas, Nimisha, OD [address] [place] [address] documented as of this encounter Procedures Procedure [...] documented as of this encounter Care Teams Reservoir Engineer Relationship Specialty Start Date End Date Sabina Cervantes DO 230 [place] [address] PCP - General Family Medicine 06/13/12 Mary Dean 03/09/25 documented as of this encounter
--- OUTSIDE RECORDS SUMMARY | 2025-04-02 09:39 | XMS_ITS | Encounter Summary ---
Author Organization [employer] Address [address] [facility] 7t [place] [address] Care Team Providers Care Fisher Diver Net Name Role Phone Sabina Cervantes DO Primary Care Provider + [phone] Mary Dean Unavailable Reason for Visit * Reason Onset Date Comments telephone call 03/31/2025 Encounter Details Date Type Department Care Team ([facility] st Contact Info) Description 03/31/2025 Telephone [facility] MEDICINE [address] [place] [address] Sabina Cervantes DO [address] [place] [address] telephone call Social History Tobacco Use Types Packs/Day Years [...] with others, in a hotel, in a usp, living outside on the street, on a [...] encounter Miscellaneous Notes * Telephone Encounter - Cristal Tiwari - 03/31/2025 2:33 PM EDT Pt walked in requesting if you can give her a call she has some questions she needs to ask you regarding PT-1. documented in this encounter Plan of Treatment Upcoming Encounters Date Type Department Care Team (Late st Contact Info) Description 05/14/2025 3:30 PM EST Office Visit [facility] OPTOMETRY [address] [place] [address] Dallas, Nimisha, OD [address] [place] [address] documented as of this encounter Visit Diagnoses Not on filedocumented in this encounter Additional Health Concerns Assessment Noted Time PHQ-9 Depression Total Score: 12 025 8:59 AM EDT documented as of this encounter Care Teams Fisher Diver Net Relationship Specialty Start Date End Date Sabina Cervantes DO [address] [place] [address] PCP - General Family Medicine 06/13/12 Mary Dean 03/09/25 documented as of this encounter
--- OUTSIDE RECORDS SUMMARY | 2025-04-02 09:39 | XMS_ITS | Encounter Summary ---
Author Organization [employer] Address [address] [facility] [address] [place] [address] Care Team Providers Care 3Rd Grade Teacher Name Role Phone Sabina Cervantes DO Primary Care Provider + [phone] Mary Dean Unavailable Reason for Visit * Reason Onset Date Comments Results 03/30/2025 Encounter Details Date Type Department Care Team ([facility] st Contact Info) Description 03/30/[address] [facility] MEDICINE [address] [place] [address] Sabina Cervantes DO [address] [place] [address] Social History Tobacco Use Types Packs/Day Years [...] encounter Miscellaneous Notes * Telephone Encounter - Izabella Herring RN - 03/30/2025 3:49 PM EDT RN reviewed BW results with PCP. BW returned showing elevation in A1c (6.2) and elevation in triglycerides. PCP would like patient to be informed to decrease intake of sugars and carbs to prevent progression to DM and to start daily fish oil supplement. TC placed to patient [phone] in regards to above message. Patient verbalized understanding andreports she will p/u prescription tomorrow. Patient did not have any further questions. Patient to f/u PRN. documented in this encounter Plan of Treatment Upcoming Encounters Date Type Department Care Team (Late st Contact Info) Description 05/14/2025 3:30 PM EST Office Visit [facility] OPTOMETRY [address] [place], [place] [phone] [place], Nimisha, OD [address] [place], [place] [id number] documented as of this encounter Visit Diagnoses Not on filedocumented in this encounter Additional Health Concerns Assessment Noted Time PHQ-9 Depression Total Score: 12 025 8:59 AM EDT documented as of this encounter Care Teams 3Rd Grade Teacher Relationship Specialty Start Date End Date Sabina Cervantes DO [address] [place] [address] PCP - General Family Medicine 06/13/12 Mary Dean 03/09/25 documented as of this encounter
--- OUTSIDE RECORDS SUMMARY | 2025-04-02 09:39 | XMS_ITS | Encounter Summary ---
Author Organization [employer] Address [address] [facility] [address] [place] [address] Care Team Providers Care Freight Weigher Name Role Phone Sabina Cervantes DO Primary Care Provider +[phone] Mary Dean Unavailable Encounter Details Date Type Department Care Team (Late st Contact Info) Description 07/04/2022 Orders Only [facility] [address] [place], [place] [phone] Sabina Barnard LPN Social History Tobacco Use [...] 05/14/2025 3:30 PM EST Office Visit [facility] OPTOMETRY [address] [place] [address] Dallas, Nimisha, OD [address] [place] [address] documented as of this encounter Visit Diagnoses Not on filedocumented in this encounter Care Teams Freight Weigher Relationship Specialty Start Date End Date Sabina Cervantes DO [address] [place] [address] PCP - General Family Medicine 06/13/12 Mary Dean 03/09/25 documented as of this encounter
--- OUTSIDE RECORDS SUMMARY | 2025-04-02 09:39 | XMS_ITS | Encounter Summary ---
Author Organization [employer] Address [address] [facility] [address] [place] [address] Care Team Providers Care Laserist Name Role Phone Sabina Cervantes DO Primary Care Provider + [phone] Pola Deanester Unavailable Reason for Visit * Reason Comments Med Refill Encounter Details Date Type Department Care Team (Late Contact Info) Description 10/05/2022 Refill [facility] MEDICINE [address] [place] [address] Anika Hernandez MD [address] [place] [address] Social History Tobacco Use Types Packs/Day Years [...] Description 05/14/2025 3:30 PM EST Office Visit [facility] OPTOMETRY [address] [place] [address] Nimisha Haynes, OD [address] [place] [address] documented as of this encounter Visit Diagnoses Not on filedocumented in this encounter Additional Health Concerns Assessment Noted Time PHQ-9 Depression Total Score: 0 07/23/19 23 11:34 AM EST documented as of this encounter Care Teams Laserist Relationship Specialty Start Date End Date Sabina Cervantes DO [address] [place] [address] PCP - General Family Medicine 06/13/12 Mary Dean 03/09/25 documented as of this encounter
--- OUTSIDE RECORDS SUMMARY | 2025-04-02 09:39 | XMS_ITS ---
Author Organization [employer] Address [address] [facility] 7[address] [place] [address] Care Team Providers Care Store Worker Name Role Phone Sabina Cervantes DO Primary Care Provider +- [phone] Mary Dean [facility] Status:Enrolled (Active) Start date:03/09/2025 Enrollment date:03/09/2025 Case Team Name Relationship Phone Mary Dean(Responsible Staff) [phone] Continued Care and Services Coordination
--- OUTSIDE RECORDS SUMMARY | 2025-04-02 09:39 | XMS_ITS | Encounter Summary ---
Author Organization [employer] Address [address] [facility] [address] [place] [address] Care Team Providers Care Desktop Publishing Specialist Name Role Phone Sabina Cervantes DO Primary Care Provider +[phone] Mary Dean Unavailable Encounter Details Date Type Department Care Team (Latest Contact Info) Description 04/22/2019 Abstract [facility] CONVERSIONS Dental, Provider, DDS Social [...] Description 05/14/2025 3:30 PM EST Office Visit [facility] OPTOMETRY [address] [place] [address] Dallas, Nimisha, OD [address] [place] [address] documented as of this encounter Visit Diagnoses Not on filedocumented in this encounter Care Teams Desktop Publishing Specialist Relationship Specialty Start Date End Date Sabina Cervantes DO [address] [place] [address] PCP - General Family Medicine 06/13/12 Mary Dean 03/09/25 documented as of this encounter
--- OUTSIDE RECORDS SUMMARY | 2025-04-02 09:39 | XMS_ITS | Encounter Summary ---
Author Organization [employer] Address [address] [facility] [address] [place] [address] Care Team Providers Care Eclectic Doctor Name Role Phone Sabina Cervantes DO Primary Care Provider +- [phone] JermaineMary Unavailable Encounter Details Date Type Department Care Team (Late Contact Info) Description 04/05/2023 Abstract [facility] MEDICINE [address] [place] [address] Padma Kim Social History Tobacco Use Types [...] Description 05/14/2025 3:30 PM EST Office Visit [facility] OPTOMETRY [address] [place] [address] Nimisha Haynes, OD [address] [place] [address] documented as of this encounter Procedures Procedure [...] documented as of this encounter Care Teams Eclectic Doctor Relationship Specialty Start Date End Date Sabina Cervantes DO [address] [place] [address] PCP - General Family Medicine 06/13/12 Mary Dean 03/09/25 documented as of this encounter
--- OUTSIDE RECORDS SUMMARY | 2025-04-02 09:39 | XMS_ITS | Clinical Summary ---
Author Organization [employer] Address [address] [facility] 7[address] [place] [address] Care Team Providers Care Quality Assurance Lab Technician Name Role Phone Sabina Cervantes DO Primary [...] bedtime (insomnia). 60 tablet 3 5 Active omega-3 (Fish Oil) 1000 MG capsule Take 1 capsule (1,000 mg) by mouth Once per day. 90 capsule 3 5 Active Active Problems Problem Noted [...] smear nml/HPV negative MAR [address] Good -mammo BIRADS 02 MAY 2023 -colonoscopy with diverticulosis, internal [...] Encounters Date Type Department Care Team Description 03/31/[address] [address] Sabina Cervantes DO telephone call 03/30/[address] [address] Sabina Cervantes DO 03/29/2025 Orders Only GENERIC EXTERNAL DATA DEPARTMENT Provider, Generic External Data 03/25/2025 Patient Outreach [address] [address] Sabina Cervantes DO Care Coordination (C3LISANDRO/PRESTON Dean [facility] f/u call) 03/17/2025 Orders Only GENERIC EXTERNAL DATA DEPARTMENT Provider, Generic External Data 03/15/2025 9:00 AM EDT Office Visit [address] [address] Sabina Cervantes DO Peripheral arterial disease (CMS/HCC) (Primary Dx); Other hyperlipidemia; Major depression, recurrent, chronic (CMS/HCC); Fatty liver; Hypothyroidism, unspecified type; Gallbladder polyp; Irritable bowel syndrome with constipation; Fibromyalgia; Chronic bilateral low back pain with bilateral sciatica; Tobacco dependence; Proteinuria, unspecified type; Cardiomyopathy, unspecified type (CMS/HCC); Bereavement; Healthcare maintenance; Dietary counseling; Exercise counseling 03/15/2025 Travel 03/10/[address] [address] Sabina Cervantes DO Chart Prep 03/09/2025 Patient Outreach [address] [address] Sabina Cervantes DO Care Coordination (MIQUEL/PRESTON Dean, CM enrollment) 03/09/2025 Patient Outreach [address] [address] Sabina Cervantes DO Care Coordination (MIQUEL/PRESTON Dean, Chart review ) 03/08/2025 Patient Outreach [address] [address] Sabina Cervantes DO Pre-visit Planning (SDOH Screening positive and Tobacco screening positive) 01/31/2025 Refill [facility] MEDICINE [address] [place] [address] Sabina Cervantes DO Peripheral vascular disease (CMS/HCC); Vitamin D deficiency 01/05/2025 Telephone [facility] MEDICINE [address] [place] [address] Sabina Cervantes, Results from Last 3 Months Immunizations Immunization [...] with others, in a hotel, in a long term, living outside on the street, on a [...] 05/14/2025 3:30 PM EST Office Visit [facility] OPTOMETRY [address] [place] [address] Nimihsa Haynes, OD [address] [place] [address] Health Maintenance Due Date Last Done Comments [...] 2025 , 03/20/2021, 04/21/2020, Additional history exists Mammogram 05/19/2025 05/19/2024, 05/01, 12/13/2022, Additional history exists Depression Monitoring 09/12/2025 03/15/2025, 025 Alcohol/Substance Use Screening 10/23/2025 10/23/2024 Disability Screening 10/23/2025 10/23/2024 SDOH Screening 03/08/2026 03/08/2025 Tobacco Screening 03/15/2026 03/15/2025 Diabetes: Hemoglobin A1C 03/29/2026 025, 05/01/2024, 09/23/2023, Additional history exists Dental X-Ray: Full Mouth 10/04/2027 , 01/14/2023, 12/23/2017, Additional history exists Cervical Cancer Screening 03/17/2030 HPV/Cotest 03/17/2030 03/17/2025, 04/25/2020 Pap Smear 03/17/2030 03/17/2025, 04/25/2020 Lipid Panel 03/29/2030 03/29/2025, 11/0 07/2023, 09/23/2023, Additional history exists DTaP/Tdap/Td Vaccines (3 - [...] Procedure Name Priority Date/Time Associated Diagnosis Comments ALPHA FETOPROTEIN, TUMOR MARKER Routine 03/29/2025 8:03 AM EDT Fatty liver BASIC METABOLIC PANEL Routine 03/29/2025 8:03 AM EDT Peripheral arterial disease (CMS/HCC) Other hyperlipidemia Major depression, recurrent, chronic (CMS/HCC) Fatty liver Hypothyroidism, unspecified type Gallbladder polyp Irritable bowel syndrome with constipation Fibromyalgia Chronic bilateral low back pain with bilateral sciatica Tobacco dependence Proteinuria, unspecified type Cardiomyopathy, unspecified type (CMS/HCC) Bereavement Healthcare maintenance Dietary counseling Exercise counseling HEMOGLOBIN A1C Routine 03/29/2025 8:03 AM EDT Peripheral arterial disease (CMS/HCC) Other hyperlipidemia Major depression, recurrent, chronic (CMS/HCC) Fatty liver Hypothyroidism, unspecified type Gallbladder polyp Irritable bowel syndrome with constipation Fibromyalgia Chronic bilateral low back pain with bilateral sciatica Tobacco dependence Proteinuria, unspecified type Cardiomyopathy, unspecified type (CMS/HCC) Bereavement Healthcare maintenance Dietary counseling Exercise counseling HEPATIC FUNCTION PANEL Routine 8:03 AM EDT Peripheral arterial disease (CMS/HCC) Other hyperlipidemia Major depression, recurrent, chronic (CMS/HCC) Fatty liver Hypothyroidism, unspecified type Gallbladder polyp Irritable bowel syndrome with constipation Fibromyalgia Chronic bilateral low back pain with bilateral sciatica Tobacco dependence Proteinuria, unspecified type Cardiomyopathy, unspecified type (CMS/HCC) Bereavement Healthcare maintenance Dietary counseling Exercise counseling VITAMIN D,25-OH,TOTAL,IA Routine 03/29/2025 8:03 AM EDT Peripheral arterial disease (CMS/HCC) Other hyperlipidemia Major depression, recurrent, chronic (CMS/HCC) Fatty liver Hypothyroidism, unspecified type Gallbladder polyp Irritable bowel syndrome with constipation Fibromyalgia Chronic bilateral low back pain with bilateral sciatica Tobacco dependence Proteinuria, unspecified type Cardiomyopathy, unspecified type (CMS/HCC) Bereavement Healthcare maintenance Dietary counseling Exercise counseling TSH Routine 03/29/2025 8:03 AM EDT Peripheral arterial disease (CMS/HCC) Other hyperlipidemia Major depression, recurrent, chronic (CMS/HCC) Fatty liver Hypothyroidism, unspecified type Gallbladder polyp Irritable bowel syndrome with constipation Fibromyalgia Chronic bilateral low back pain with bilateral sciatica Tobacco dependence Proteinuria, unspecified type Cardiomyopathy, unspecified type (CMS/HCC) Bereavement Healthcare maintenance Dietary counseling Exercise counseling LIPID PANEL, STANDARD Routine 03/29/2025 8:03 AM EDT Peripheral arterial disease (CMS/HCC) Other hyperlipidemia Major depression, recurrent, chronic (CMS/HCC) Fatty liver Hypothyroidism, unspecified type Gallbladder polyp Irritable bowel syndrome with constipation Fibromyalgia Chronic bilateral low back pain with bilateral sciatica Tobacco dependence Proteinuria, unspecified type Cardiomyopathy, unspecified type (CMS/HCC) Bereavement Healthcare maintenance Dietary counseling Exercise counseling T4, FREE Routine 03/29/2025 8:03 AM EDT Peripheral arterial disease (CMS/HCC) Other hyperlipidemia Major depression, recurrent, chronic (CMS/HCC) Fatty liver Hypothyroidism, unspecified type Gallbladder polyp Irritable bowel syndrome with constipation Fibromyalgia Chronic bilateral low back pain with bilateral sciatica Tobacco dependence Proteinuria, unspecified type Cardiomyopathy, unspecified type (CMS/HCC) Bereavement Healthcare maintenance Dietary counseling Exercise counseling PROTEIN CREATININE RATIO, URINE Routine 03/29/2025 7:58 AM EDT CBC Routine 03/29/2025 7:55 AM EDT Peripheral arterial disease (CMS/HCC) Other hyperlipidemia Major depression, recurrent, chronic (CMS/HCC) Fatty liver Hypothyroidism, unspecified type Gallbladder polyp Irritable bowel syndrome with constipation Fibromyalgia Chronic bilateral low back pain with bilateral sciatica Tobacco dependence Proteinuria, unspecified type Cardiomyopathy, unspecified type (CMS/HCC) Bereavement Healthcare maintenance Dietary counseling Exercise counseling PAP SMEAR Routine 03/17/2025 8:13 AM EDT HPV DNA, LOW/HIGH RISK Routine 8:13 AM EDT PANORAMIC RADIOGRAPHIC IMAGE Routine 10/02/2024 11:00 AM EDT BI MAMMOGRAM SCREENING TOMOSYNTHESIS BILATERAL Routine 05/19/2024 12:33 PM EST Full PROPHYLAXIS - ADULT Routine 09/24/2023 8:00 [...] GENERATION W/RFL Routine 01/29/2020 10:04 AM EDT COLONOSCOPY Routine 07/25/2018 10:20 AM EST from Last 3 Months or Most Recently Relevant to Health Maintenance Results * Vitamin D, 25-Hydroxy, Total, Immunoassay (03/29/2025 8:03 AM EDT) Vitamin D 25-OH Total 43.7 >30 ng/mL [facility] Comment: Health Based Reference Values*< 20 ng/mL [id number] ng/mL Insufficient> 30 ng/mL Sufficient*Maribel VANESSA. N Engl J Med. 2007;357:266-280There is no well-established upper level of normal vitamin Dlevels. Some laboratories use 50 ng/mL as an upper limit ofnormal. However, toxicity is patient-dependent and may occurat any level. Careful correlation with the patient'spresentation is necessary and, if there is concern forvitamin D toxicity, treatment should be consideredirrespective of the serum level.Care must be taken in interpreting Vitamin D results fromdifferent laboratories and methodologies. Published datademonstrated that results from patients undergoinghemodialysis may show a negative bias when tested withvarious automated 25-OH vitamin D assays when compared toLC-MS/MS.When testing samples from patients whose predominant form ofVitamin D is Vitamin D2, such as patients receiving VitaminD2 supplementation, results that are subtherapeutic shouldbe confirmed with another method such as LC-MS/MS. Blood Venous blood specimen / Unknown 03/29/2025 8:03 AM EDT 03/29/2025 8:03 AM EDT us Sabina Cervantes DO LAB BLOOD ORDERABLES Final R esult [facility] [address] [place] [phone] * Alpha-Fetoprotein, Tumor Marker (03/29/2025 8:03 AM EDT) Alpha Fetoprotein 3.8 ng/mL [facility] Comment:Reference Range: <6. 1The use of AFP as a tumor marker in females is not recommended.This test was performed using the Sunitha Coulterchemiluminescent method. Values obtained fromdifferent assay methods cannot be usedinterchangeably. AFP levels, regardless ofvalue, should not be interpreted as absoluteevidence of the presence or absence of disease.THIS TEST WAS PERFORMED AT:[facility] [address] [phone] OCONNOR MD Blood Venous blood specimen / Unknown 03/29/2025 8:03 AM EDT 03/29/2025 8:03 AM EDT Sabina Billy LAB BLOOD ORDERABLES Final R esult Performing Organization Address [facility]/ZIP Co de Phone Number [facility] [address] [place] [phone] * TSH (03/29/2025 8:03 AM EDT) Thyroid Stimulating Hormone 0.91 0.32 - 4.0 uIU/mL [facility] Comment:TSH 3rd Generation ( [facility]) Blood Venous blood specimen / Unknown 03/29/2025 8:03 AM EDT 03/29/2025 8:03 AM EDT Sabina Cervantes DO LAB BLOOD ORDERABLES Final R esult Performing Organization Address [facility] Co de Phone Number [facility] [address] [place] [phone] * T4, Free (03/29/2025 8:03 AM EDT) Free T4 (Free Thyroxine) 1.30 0.71 - 1.85 ng/dL [facility] Blood Venous blood specimen / Unknown 03/29/2025 8:03 AM EDT 03/29/2025 8:03 AM EDT Sabina Billy LAB BLOOD ORDERABLES Final R esult Performing Organization Address City/[facility]/ZIP Co de Phone Number [facility] [address] [place] [phone] * (ABNORMAL) Hemoglobin A1c (03/29/2025 8:03 AM EDT) Hemoglobin A1c 6.2(H) <6.0 % [facility] Comment:Hemoglobin A1C Refer ence Range Adults: 4.8 - 6.0 % Non diabetic: < 6.0 % Goal: < 7.0 %Additional Action Suggested: > 8.0 %Note: Hemoglobin A1c results are invalid for patients with abnormal amounts of HbF. Blood transfusions may impact the HbA1c concentration in the patient sample. Estimated Average Glucose 131 mg/dL [facility] Comment:eAG = Estimated ave rage glucose which is %A1C expressed asaverage glucose, using the formula of the P9U-UirkwluKnhovsv Glucose study (ADAG), Diabetes Care, Vol.31,#8,2007 Blood Venous blood specimen / Unknown 03/29/2025 8:03 AM EDT 03/29/2025 8:03 AM EDT us Sabina Cervantes DO LAB BLOOD ORDERABLES Final R esult [facility] [address] [place] [phone] * Hepatic Function Panel (03/29/2025 8:03 AM EDT) Bilirubin, Total 0.4 0.0 - 1.0 mg/dL [facility] Bilirubin, Direct 0.2 0.0 - 0.5 mg/dL [facility] Aspartate Amino Transferase 19 5 - 31 U/L [facility] Alanine Aminotransferase 20 0 - 31 U/L [facility] Total Protein 7.1 6.5 - 8.0 g/dL [facility] Albumin Level 4.4 3.5 - 5.0 g/dL [facility] Alkaline Phosphatase 67 39 - 117 U/L [facility] Blood Venous blood specimen / Unknown 03/29/2025 8:03 AM EDT 03/29/2025 8:03 AM EDT us Sabina Cervantes DO LAB BLOOD ORDERABLES Final R esult Performing Organization Address City/[facility]/ZIP Co de Phone Number [facility] [address] [place] [phone] * (ABNORMAL) Lipid Panel, Standard (03/29/2025 8:03 AM EDT) Triglycerides 216(H) <150 mg/dL [facility] Comment:Desirable Triglyceri de: less than 150 mg/dLBorderline High Triglyceride 150-199 mg/dLHigh Triglyceride: 200-499 mg/dLVery High Triglyceride: greater than or equal to 5OO mg/dL Cholesterol 151 <200 mg/dL [facility] Comment:Desirable Cholestero l: less than 200 mg/dLBorderline High Cholesterol: 200-239 mg/dLHigh Cholesterol: greater than 239 mg/dL LDL Cholesterol Calculated 68 <100 mg/dL [facility] Comment:Desirable LDL: less than 100 mg/dLNear Optimal/Above Optimal LDL: 110- 129 mg/dLBorderline High LDL: 130-159 mg/dLHigh LDL: 160-189 mg/dLVery High LDL: greater than or equal to 190 mg/dL HDL Cholesterol 40(L) >40 mg/dL [facility] Comment:Desirable HDL: great er than 40 mg/dL Note: This HDL assay may give artificially low results in patients with liver disease. Blood Venous blood specimen / Unknown 03/29/2025 8:03 AM EDT 03/29/2025 8:03 AM EDT us Sabina Cervantes DO LAB BLOOD ORDERABLES Final R esult Performing Organization Address City/[facility]/ZIP Co de Phone Number [facility] [address] [place] [phone] * Basic Metabolic Panel (03/29/2025 8:03 AM EDT) Sodium 142 135 - 145 mmol/L [facility] Potassium 3.8 3.3 - 5.1 mmol/L [facility] Chloride 107 96 - 108 mmol/L [facility] Carbon Dioxide 27 22 - 29 mmol/L [facility] Anion Gap 12 12 - 20 [facility] Urea Nitrogen (BUN) 14 9 - 16 mg/dL [facility] Creatinine, Serum 0.62 0.5 - 1.4 mg/dL [facility] Estimated Glomerular Filt Rate >60 [facility] Comment:Chronic Kidney Disea se: Estimated GFR < 60 mL/min/[id number] Kidney Disease: Estimated GFR < 15 mL/min/1.73m2 Glucose 84 60 - 115 mg/dL [facility] Calcium 9.8 8.4 - 10.2 mg/dL [facility] Blood Venous blood specimen / Unknown 03/29/2025 8:03 AM EDT 03/29/2025 8:03 AM EDT us Sabina Cervantes DO LAB BLOOD ORDERABLES Final R esult Performing Organization Address [facility] Co de Phone Number [facility] [address] [place] [phone] * (ABNORMAL) Protein Creatinine Ratio, Urine (03/29/2025 7:58 AM EDT) Creatinine, Urine 33.79 mg/dL [facility] Protein, Total, Random Urine 19(H) <12 mg/dL [facility] Protein/Creati nine Ratio, Ur 0.56(H) <0.2 [facility] Comment:The spot urine prote in:creatinine ratio may increase to 0.3during normal . 03/29/2025 7:58 AM EDT 03/29/2025 9:02 AM EDT us Generic External Data Provider LAB URINE ORDERAB LES Final Result Performing Organization Address [facility]/ZIP Co de Phone Number [facility] [address] [place] [phone] * CBC (03/29/2025 7:55 AM EDT) White Blood Count 8.6 4.8 - 10.8 X10*3/uL [facility] Red Blood Count 4.63 4.20 - 5.50 X10*6/uL [facility] Hemoglobin 13.8 12.0 - 16.0 g/dl [facility] Hematocrit 41.0 37.0 - 47.0 % [facility] Mean Corpuscular Volume 88.6 80.0 - 98.0 fL [facility] Mean Corpuscular Hemoglobin 29.8 27.0 - 33.0 pg [facility] Mean Corpuscular HGB Conc 33.7 31.0 - 35.0 g/dl [facility] Red Cell Distribution Width 13.2 11.0 - 16.0 % [facility] Platelet Count 298 160 - 400 X10*3/uL [facility] Mean Platelet Volume 10.2 9.4 - 12.3 fL [facility] NRBC Pct Auto 0.0 0.0 - 0.2 /100WBC [facility] NRBC Abs Auto 0.000 0.0 - 0.012 X10*3/uL [facility] Blood Venous blood specimen / Unknown 03/29/2025 7:55 AM EDT 03/29/2025 9:11 AM EDT us Sabina Cervantes DO LAB BLOOD ORDERABLES Final R esult [facility] [address] [place] [phone] * HPV DNA, Low/High Risk (03/17/2025 8:13 AM EDT) HPV High Risk Negative Negative [facility] HPV Genotype 16 Negative Negative [facility] HPV Genotype 18 Negative Negative [facility] Comment:HPV testing performe d at (CLIA#[id number]), [address] [place] [phone].Testing for HPV was performed using the Aron [...] ORDERAB LES Final Result Performing Organization Address City/State/[facility] Co de Phone Number [facility] [address] [place] [phone] * Pap Smear (03/17/2025 8:13 AM EDT) 03/17/2025 8:13 AM EDT 03/18/2025 7:46 AM EDT Narrative [facility] - 03/22/2025 9:26 AM EDT ----- ------- Name: Lenora Leon Benitez Age/Sex: 64/F : 1960 Unit#: [id number] Attend Dr: Maurisio Good MD Re03/17/25 Status: DEP REF Location: [facility] Disch: ----- ------- SPEC : [id number] RECD: 03/18/25 STATUS: KYRIE REYNOLDS NUM: [id number] RENÉ: 03/17/[address] [facility] [address]: Maurisio Good MD ENTERED: 03/18/25 SP TYPE: Pap Smr [facility] DR: Sabina Cervantes DO ORDERED: Pap Smear [...] and HPV testing will be performed at (CLIA #[id number]), [address] [place] [address]. Testing for HPV was performed using the Aron AMAYA 6800 system. The presence of HPV in the [...] detected. All professional services are performed by [facility] ([address] [place] [address], [place] [address]; ; CLIA #[id number]). The PAP Test is a screening procedure with the inherent possibility of both false negative and false positive results. Results should be interpreted in the context of historic and current clinical findings. Reliability of the PAP Test is enhanced by performing the test on a regular repetitive basis. CONTINUED ON NEXT PAGE ----- ------- Name: Lenora Leon I Age/Sex: 64/F : 1960 Unit#: [id number] Attend Dr: Maurisio Good MD Re03/17/25 Status: DEP REF Location: [facility] Disch: ----- ------- SPEC : [id number] RECD: 03/18/25 STATUS: KYRIE VELAZCOShayy NUM: [id number] RENÉ: 03/17/[address] [facility] [address]: Maurisio Good MD ENTERED: 03/18/25 SP TYPE: Pap Smr [facility] DR: Sabina Cervantes DO ORDERED: Pap Smear Copies To: Sabina Cervantes DO [address] [address] Maurisio Good MD [facility] [address] [place] [address] [place] [phone] ----- ------- Signed (signature on file) Porfirio BG Ayala ([facility]) 03/22/25 0926 ----- ------- END OF REPORT us Generic External Data Provider LAB CYTOLOGY MANOJ SPARROW Final Result [facility] [address] [place] [phone] * BI Mammogram Screening Tomosynthesis Bilateral (05/19/2024 12:33 PM EST) Anatomical Region Laterality Modality Breast Bilateral Mammography 05/19/2024 12:3 3 PM EST Narrative 05/27/2024 8:21 AM EST [address] [place] [address] Mammography Report Signed Patient: Lenora Leon I MR#: [id number] 6 : 1960 Acct:[id number] Age/Sex: 63 / F ADM Date: 05/19/24 Loc: HO.MAMMO Attending Dr: Sabina Cervantes DO Ordering Physician: Sabina Cervantes DO Results: 1N egative Date of Service: 05/19/24 Follow Up: 1 Year From Orig ina Mammogram Procedure(s): MM tomosynthesis screening BI Accession Number(s): [id number] cc: Sabina Cervantes DO EXAMINATION: MM SCREENING [...] 05/27/24 0817 DD/ 1233 TD/TT: 05/19/24 1253 Weatherization Technician: Procedure Note Donotuseinterpreter, Image - [facility]/27/20[facility] [address] [place] [address] Mammography Report Signed Patient: Lenora Leon IMR#: [id number] 6 : 2Acct:[id number] Age/Sex: 63 / FADM Date: 05/19/24 Loc: HO.MAMMO Attending Dr: Sabina Cervantes DO Ordering Physician: Sabina Cervantes DOResults: 1N egative Date of Service: 05/19/24Follow Up: 1 Year From Orig inal Mammogram Procedure(s): MM tomosynthesis screening BI Accession Number(s): [id number] cc: Sabina Cervantes DO EXAMINATION: MM SCREENING [...] 05/27/24 0817 DD/ 1233 TD/TT: 05/19/24 1253 Weatherization Technician: Sabina Billy DO IMG BI PROCEDURES Edited Res ult - Final * HEPATITIS C AB W/REFL TO HCV RNA, QN, PCR (01/29/2020 10:04 AM EDT) HEPATITIS C ANTIBODY NON-REACT ALICIA NON-REACT ALICIA [facility] INDEX 0.01 <1.00 [facility] Comment: HCV antibody was non-reactive. There is no laboratory evidence of HCV infection. In most cases, no further action is required. However, if recent HCV exposure is suspected, a test for HCV RNA (test code 91406) is suggested. For additional information please refer to http://[place]/faq/YHF96b6 (This link is being provided for informational/ educational purposes only.) HEPATITIS C ANTIBODY NON-REACT ALICIA NON-REACT ALICIA [facility] INDEX 0.01 <1.00 [facility] Comment: HCV antibody was non-reactive. There is no laboratory evidence of HCV infection. In most cases, no further action is required. However, if recent HCV exposure is suspected, a test for HCV RNA (test code 48387) is suggested. For additional information please refer to http://[place]/faq/DRQ54b7 (This link is being provided for informational/ educational purposes only.) HEPATITIS C ANTIBODY NON-REACT ALICIA NON-REACT ALICIA [facility] INDEX 0.01 <1.00 [facility] Comment: HCV antibody was non-reactive. There is no laboratory evidence of HCV infection. In most cases, no further action is required. However, if recent HCV exposure is suspected, a test for HCV RNA (test code 15842) is suggested. For additional information please refer to http://[employer]/faq/EKJ62n4 (This link is being provided for informational/ educational purposes only.) HEPATITIS C ANTIBODY NON-REACT ALICIA NON-REACT ALICIA [facility] INDEX 0.01 <1.00 [facility] Comment: HCV antibody was non-reactive. There is no laboratory evidence of HCV infection. In most cases, no further action is required. However, if recent HCV exposure is suspected, a test for HCV RNA (test code 66580) is suggested. For additional information please refer to http://[employer]/faq/HPJ77z3 (This link is being provided for informational/ educational purposes only.) 01/29/2020 10:0 4 AM EDT us Sabina Cervantes DO HISTORICAL/NON ORDERABLE LAB S Final Result [facility] [address] * HIV 1/2 ANTIGEN/ANTIBODY,FOURTH GENERATION W/RFL (01/29/2020 10:04 AM EDT) HIV-1/2 ANTIGEN AND ANTIBODIES, 4TH GENERATION W/ REFLEX NON-REACT ALICIA NON-REACT ALICIA [facility] Comment: HIV-1 antigen and HIV-1/HIV-2 [...] purpose. For additional information please refer to http://[place]/faq/HPC130 (This link is being provided for informational/ [...] purpose. For additional information please refer to http://[place]/faq/NNP017 (This link is being provided for informational/ educational purposes only.) The performance of this assay has not been clinically validated in patients less than 2 years old. HIV-1/2 ANTIGEN AND ANTIBODIES, 4TH GENERATION W/ REFLEX NON-REACT ALICIA NON-REACT ALICIA [facility] Comment: HIV-1 antigen and HIV-1/HIV-2 [...] purpose. For additional information please refer to http://[place]/faq/WEA158 (This link is being provided for informational/ educational purposes only.) The performance of this assay has not been clinically validated in patients less than 2 years old. 01/29/2020 10:0 4 AM EDT us Sabina Cervantes DO LAB BLOOD ORDERABLES Final R esult [facility] [address] [place] [address], * Hm Colonoscopy (07/25/2018 10:20 AM EST) us Historical Provider HEALTH MAINTENANCE Final Result from Last 3 Months or Most Recently Relevant to Health Maintenance Insurance [facility] C3 DENTAL-[facility] MEDICAID STAND ADULT Care Teams Quality Assurance Lab Technician Relationship Specialty Start Date End Date Sabina Cervantes DO [address] [place] [address] PCP - General Family Medicine 06/13/12 Mary Dean 03/09/25
--- OUTSIDE RECORDS SUMMARY | 2025-04-02 09:39 | XMS_ITS | Encounter Summary ---
Author Organization [employer] Address [address] 7t [place] [address] Care Team Providers Care Unit Aide Name Role Phone Sabina Cervantes DO Primary Care Provider + [phone] Mary Dean Unavailable Reason for Visit * Reason Onset Date Comments Med Refill 09/13/2023 Encounter Details Date Type Department Care Team ([facility] st Contact Info) Description 09/13/2023 Telephone [facility] [address] [place] [address] Sabina Cervantes DO [address] [place], [place] [phone] Med Refill Social History Tobacco Use Types [...] from pt requesting med refill; Ibuprofen 600MG Maturity Checker don't see med on chart but pt stated she received constantly. [facility] - [place], [place] - [address] [facility] documented in this encounter Plan of Treatment Upcoming Encounters Date Type Department Care Team (Late st Contact Info) Description 05/14/2025 3:30 PM EST Office Visit [facility] OPT[facility] [address] [place] [address] Nimisha Haynes, OD [address] [place] [address] documented as of this encounter Visit Diagnoses Not on filedocumented in this encounter Additional Health Concerns Assessment Noted Time PHQ-9 Depression Total Score: 0 07/23/19 23 11:34 AM EST documented as of this encounter Care Teams Unit Aide Relationship Specialty Start Date End Date Sabina Cervantes DO [address] [place] [address] PCP - General Family Medicine 06/13/12 Mary Dean 03/09/25 documented as of this encounter
--- OUTSIDE RECORDS SUMMARY | 2025-04-02 09:39 | XMS_ITS | Patient Health Record ---
Author Organization [facility] Address [address] [place] [address] Care Team Providers Care Patient Service Coordinator Name Role Phone Sabina Cervantes M.D. Primary Care Provider Rosendo Gilmore Unavailable [phone] Allergies No Known Allergies Results Component Value Reference Range Notes Pathology (Not yet reviewed by provider) Interpretation: Performing Lab:[facility], [address] [place] [id number] Notes/Report: Reason For Referral No Information Medications [...] Problem Status W/U Status Risk Notes Problem [id number] Encounter for screening for malignant neoplasm of colon (Z12.11) Active confirmed Problem 296312190 History of adenomatous polyp of colon (Z86.010) Active confirmed Problem Diverticular disease of colon (961747137) Diverticulosis of large intestine without perforation or abscess without bleeding (K57.30) Active confirmed Problem 39274397 Constipation, unspecified constipation type (K59.00) Active confirmed Problem Gastroesophageal reflux disease (169519002) GERD without esophagitis (K21.9) Active confirmed Encounters Encounter Location Date Provider Diagnosis [facility] [place] Outpatient [address] [place] [id number] 05/06/2024 Rosendo Padilla Colon cancer scree bhavesh [...] Date [place] [address] [place] [phone] [id number] RUBY CALLE Self - patient is the insured Medical (General) History Medical History History ICD Code EGD 09-27-2010---mild gastritis-no H.pylo ri-no esophagitis GERD Claudication Fibromyalgia Ovarian cysts Denies CO,DM,CVA,Lung disease,renal dise ase Bronchitis Neuropathy--feet Colonoscopy in 03/2013--smal l tubular adenomas, diverticulosis, internal hemorroids Gallbladder polyps--sees Dr. Burnham Colonoscopy 07/2018 with 1 small tubular adenoma removed Surgical History Surgery Date(Month/Year) Tubal ligation Glaucoma eye surgery 2023
--- OUTSIDE RECORDS SUMMARY | 2025-04-02 09:39 | XMS_ITS | Encounter Summary ---
Author Organization [employer] Address [address] [place] [address] Care Team Providers Care Fan Blade Truer Name Role Phone Sabina Cervantes DO Primary Care Provider + [phone] JermaineMary Unavailable Encounter Details Date Type Department Care Team (Late st Contact Info) Description 03/29/2025 Orders Only GENERIC EXTERNAL DATA DEPARTMENT Provider, Generic External Data Social History Tobacco Use Types Packs/Day Years [...] with others, in a hotel, in a nursing home, living outside on the street, on a [...] Description 05/14/2025 3:30 PM EST Office Visit [facility] [address] [place] [address] Dallas, Nimisha, OD [address] [place] [address] documented as of this encounter Procedures Procedure Name Priority Date/Time Associated Diagnosis Comments PROTEIN CREATININE RATIO, URINE Routine 03/29/2025 7:58 AM EDT documented in this encounter Results * (ABNORMAL) Protein Creatinine Ratio, Urine (03/29/2025 7:58 AM EDT) Creatinine, Urine 33.79 mg/dL [facility] Protein, Total, Random Urine 19(H) <12 mg/dL [facility] Protein/Creati nine Ratio, Ur 0.56(H) <0.2 [facility] Comment:The spot urine prote in:creatinine ratio may increase to 0.3during normal . 03/29/2025 7:58 AM EDT 03/29/2025 9:02 AM EDT us Generic External Data Provider LAB URINE ORDERAB LES Final Result [facility] [address] [place] [address] [phone] documented in this encounter Visit Diagnoses Not on filedocumented in this encounter Additional Health Concerns Assessment Noted Time PHQ-9 Depression Total Score: 12 025 8:59 AM EDT documented as of this encounter Care Teams Fan Blade Truer Relationship Specialty Start Date End Date Sabina Cervantes DO [address] [place] [address] PCP - General Family Medicine 06/13/12 Mary Dean 03/09/25 documented as of this encounter
--- OUTSIDE RECORDS SUMMARY | 2025-04-02 09:39 | XMS_ITS | Encounter Summary ---
Author Organization [employer] Address [address] [facility] 7t [place] [address] Care Team Providers Care Pharmacist Critical Care Name Role Phone Sabina Cervantes DO Primary Care Provider +1- [phone] Mary Dean Unavailable Encounter Details Date Type Department Care Team (Late st Contact Info) Description 06/13/2022 Orders Only [facility] [address] [place] [address] Va Toribio LPN Social History Tobacco Use [...] 3:30 PM EST Office Visit [facility] [address] [place] [address] Dallas, Nimisha, OD [address] [place] [address] documented as of this encounter Visit Diagnoses Not on filedocumented in this encounter Care Teams Pharmacist Critical Care Relationship Specialty Start Date End Date Sabina Cervantes DO [address] [place] [address] PCP - General Family Medicine 06/13/12 Mary Dean 03/09/25 documented as of this encounter
== END 2025-04-02 09:47 | disposition home or self-care (01) ==
LOC: HO.HKA 09:13
PROVIDERS: PCP Family Medicine; Visit Provider Internal Medicine Nephrology
DX: R80.8 Other proteinuria (principal)
CPT/HCPCS: 99214

== ENCOUNTER → 2025-04-02 09:13 | Outpatient (BNVA) | payer MEDICAID, SELFPAY | PROVIDERS: PCP Family Medicine; Visit Provider Internal Medicine Nephrology | DX: R80.8 Other proteinuria (principal); I73.9 Peripheral vascular disease, unspecified | CPT/HCPCS: 99212 ==

== ENCOUNTER → 2025-04-07 07:34 | Outpatient (REF) | payer MEDICAID, SELFPAY ==
--- NOTE | 2025-04-07 07:37 | CA_ITS ---
Transthoracic Echocardiogram Patient (Last, First, Middle): Lenora Leon I Gender: F Date of : 1960 Age: 64 Procedure Date: 04/07/2025 Procedure Type: Transthoracic Echocardiogram Location: OP Height: 167.64 cm Weight: 68.49 kg BSA: 1.77 m2 Heart Rate: bpm BP: 122 / 70 mmHg Showroom Consultant: Referring MD: Sabina Cervantes DO Artificial Pearl Maker: Anthony Lopez MD Symptoms: I42.9 CARDIOMYOPATH, UNSPECIFIED TYPE Study Quality: Adequate ECG Rhythm: Sinus Conclusions: - 1. Normal LV ejection fraction of 60-65% with grade 1 diastolic dysfunction 2. Normal cardiac valvular Dopplers 3. No gross pericardial effusion 4. Normal RV systolic pressure Findings Left Ventricle Normal left ventricular size, thickness, and systolic function. The visually estimated ejection fraction is between 60-65%. Spectral Doppler is indicative of an impaired relaxation filling pattern. E/E prime ratio is <8, consistent with normal filling pressures. Evidence suggests grade I (mild) diastolic dysfunction. Right Ventricle Normal right ventricular cavity size and systolic function. Atria Both atria are normal in size. There is an interatrial septal aneurysm seen bowing to the right. Interatrial shunt cannot be excluded. Aortic Valve Normal aortic valve structure and function. There is no aortic valve stenosis. There is no aortic valve regurgitation. Mitral Valve Normal mitral valve structure and function. There is no mitral valve regurgitation. There is no mitral valve stenosis. Pulmonic Valve The pulmonic valve is likely normal. Tricuspid Valve Normal tricuspid valve structure. There is trace tricuspid valve regurgitation. The right ventricular systolic pressure is normal. The right ventricular systolic pressure is 8 mmHg. Normal right atrial pressure. There is no evidence of pulmonary hypertension. Great Vessels All visible segments of the aorta are normal in size. The pulmonary artery was not well visualized. Venous The inferior vena cava is normal in size and collapses greater than 50% with inspiration. Pericardium/Pleural There is no evidence of pericardial effusion. Prior Study Comparison No prior study available for comparison. Measurements 2D Linear Measurements IVSd: 0.99 0.6-0.9/0.6-1.0 cm LVIDd: 3.93 3.9-5.3/4.2-5.9 cm LVIDd Index: 2.22 2.4-3.2/2.2-3.1 cm/m2 LVIDs: 2.39 2.0-3.6 cm LVPWd: 0.96 0.7-1.1 cm Ao Root: 2.90 2.1-3.5 cm LA Diam: 2.50 2.7-3.8/3.0-4.0 cm LAIDs Index: 1.41 1.5-2.3 cm/m2 LV Mass: 148.41 67-162/88-224 g LV Mass Index: 83.85 43-95/49-115 g/m2 LVOT Diam: 2.20 3.0+(-)1.3 cm 2D Systolic Function EF 4C: 58.20 >55% EF 2C: 62.60 >55% EF BiP: 60.40 >55% Mitral Valve MV Pk E: 0.54 MV PK A: 0.78 MV Decel Time: 165.00 E/A: 0.70 E'Lateral: 6.20 E'Medial: 5.00 E/E' Med: 10.70 E/E' Lat: 8.60 PHT: 48.00 MVA PHT: 4.58 Decel [place]: 3.24 Aortic Valve AoV Pk Sergio: 1.14 AoV Mn Sergio: 0.74 AoV VTI: 0.23 AoV Pk Grad: 5.00 Aov Mn Grad: 3.00 AXEL Cont.VTI: 3.15 LVOT LVOT Pk Sergio: 0.83 LVOT Mn Sergio: 0.60 LVOT VTI: 0.19 LVOT Pk Grad: 3.00 LVOT Mn Grad: 2.00 LVOT Diam: 2.20 LVOT Area: 3.80 Diastolic Function MV Pk E: 0.54 MV Pk A: 0.78 E/A: 0.70 E'Medial: 5.00 E/E' Med: 10.70 E' Laterial: 6.20 E/E' Lat: 8.60 Right Ventricle TAPSE (mm): 23.00 TVS' Sergio: 9.00 Tricuspid Valve TR Pk Sergio: 1.09 TR Pk Grad: 5.00 RA Press: 3.00 RVSP: 8.00 Great Vessels Aorta Ao Root-2D: 2.90 2.0-3.7 cm Ao Asc: 2.90 2.1-3.4 cm Pulmonary Valve PV Pk Sergio: 0.83 Peak PV Grad: 3.00 Updated in Other Vendor System with Status of Final Anthony Lopez MD electronically signed on 04/07/2025 4:56:33 PM with status of Final
--- OUTSIDE RECORDS SUMMARY | 2025-04-07 07:37 | XMS_ITS | Encounter Summary ---
Author Organization [employer] Address [address] [facility] [address]t [place] [address] Care Team Providers Care Instructional Technology Director Name Role Phone Sabina Cervantes DO Primary Care Provider +1- [phone] Mary Dean Unavailable Encounter Details Date Type Department Care Team (Late st Contact Info) Description 06/13/2022 Orders Only [facility] [address] [place] [address] Va Toribio LPN Social History Tobacco Use [...] Description 05/14/2025 3:30 PM EST Office Visit [facility] [address] [place] [address] Dallas, Nimisha, OD [address] [place] [address] documented as of this encounter Visit Diagnoses Not on filedocumented in this encounter Care Teams Instructional Technology Director Relationship Specialty Start Date End Date Sabina Cervantes DO [address] [place] [address] PCP - General Family Medicine 06/13/12 Mary Dean 03/09/25 documented as of this encounter
--- OUTSIDE RECORDS SUMMARY | 2025-04-07 07:38 | XMS_ITS | Encounter Summary ---
Author Organization [employer] Address [address] [facility] [address]t [place] [address] Care Team Providers Care Lime Burner Name Role Phone Sabina Cervantes DO Primary Care Provider +1- [phone] Mary Dean Unavailable Encounter Details Date Type Department Care Team (Late st Contact Info) Description 07/04/2022 Orders Only [facility] [address] [place], [place] [phone] Sabina Barnard LPN Social History Tobacco Use [...] Description 05/14/2025 3:30 PM EST Office Visit [facility] [address] [place] [address] [place], Nimisha, OD [address] [place] [address] documented as of this encounter Visit Diagnoses Not on filedocumented in this encounter Care Teams Lime Burner Relationship Specialty Start Date End Date Sabina Cervantes DO [address] [place] [address] PCP - General Family Medicine 06/13/12 Mary Dean 03/09/25 documented as of this encounter
--- OUTSIDE RECORDS SUMMARY | 2025-04-07 07:38 | XMS_ITS | Encounter Summary ---
Author Organization [employer] Address [address] [place] [address] Care Team Providers Care Radiator Cleaner Name Role Phone Sabina Cervantes DO Primary Care Provider + [phone] Mary Dean Unavailable Encounter Details Date Type Department Care Team (Late st Contact Info) Description 10/08/2023 Orders Only [facility] [address] [place] [address] ProviderLizett MD Social History Tobacco Use Types [...] Description 05/14/2025 3:30 PM EST Office Visit [facility] [address] [place] [address] Dallas, Nimisha, OD [address] [place] [address] documented as of this encounter Procedures Procedure [...] documented as of this encounter Care Teams Radiator Cleaner Relationship Specialty Start Date End Date Sabina Cervantes DO [address] [place] [address] PCP - General Family Medicine 06/13/12 Mary Dean 03/09/25 documented as of this encounter
--- OUTSIDE RECORDS SUMMARY | 2025-04-07 07:38 | XMS_ITS | Encounter Summary ---
Author Organization [employer] Address [address] [facility] [address]t [place] [address] Care Team Providers Care Supervisor Drying And Winding Name Role Phone Sabina Cervantes DO Primary Care Provider +- [phone] JermaineMary Unavailable Encounter Details Date Type Department Care Team (Late Contact Info) Description 04/05/2023 Abstract [facility] [address] [place] [address] Padma Kim Social History Tobacco Use Types [...] Description 05/14/2025 3:30 PM EST Office Visit [facility] OPT[facility] [address] [place] [address] Nimisha Haynes, OD [address] [place] [address] documented as of this encounter Procedures Procedure [...] documented as of this encounter Care Teams Supervisor Drying And Winding Relationship Specialty Start Date End Date Sabina Cervantes DO [address] [place] [address] PCP - General Family Medicine 06/13/12 Mary Dean 03/09/25 documented as of this encounter
--- OUTSIDE RECORDS SUMMARY | 2025-04-07 07:38 | XMS_ITS | Encounter Summary ---
Author Organization [employer] Address [address] [facility] [address]t [place] [address] Care Team Providers Care Shelter Advocate Name Role Phone Sabina Cervantes DO Primary Care Provider + [phone] Pola Deanester Unavailable Reason for Visit * Reason Comments Med Refill Encounter Details Date Type Department Care Team (Late Contact Info) Description 10/05/2022 Refill [facility] [address] [place] [address] Anika Hernandez MD [address] [place] [address] Social History Tobacco Use Types Packs/Day Years [facility] [address] [place] [address] Nimisha Haynes, AMIE [address] [place] [address] documented as of this encounter Visit Diagnoses Not on filedocumented in this encounter Additional Health Concerns Assessment Noted Time PHQ-9 Depression Total Score: 0 07/23/19 23 11:34 AM EST documented as of this encounter Care Teams Shelter Advocate Relationship Specialty Start Date End Date Sabina Cervantes DO [address] [place] [address] PCP - General Family Medicine 06/13/12 Mary Dean 03/09/25 documented as of this encounter
--- OUTSIDE RECORDS SUMMARY | 2025-04-07 07:38 | XMS_ITS | Encounter Summary ---
Author Organization [employer] Address [address] [place] [address] Care Team Providers Care Commercial Pest Control Technician Name Role Phone Sabina Cervantes DO Primary Care Provider + [phone] Mary Dean Unavailable Reason for Visit * Reason Onset Date Comments Med Refill 09/13/2023 Encounter Details Date Type Department Care Team ([facility] st Contact Info) Description 09/13/2023 Telephone [facility] [address] [place] [address] Sabina Cervantes DO [address] [place], [place] [phone] Med Refill Social History Tobacco Use Types [...] from pt requesting med refill; Ibuprofen 600MG Chief Passenger Ship Steward/Stewardess don't see med on chart but pt stated she received constantly. [facility] - [place], [place] - [address] [facility] documented in this encounter Plan of Treatment Upcoming Encounters Date Type Department Care Team (Late st Contact Info) Description 05/14/2025 3:30 PM EST Office Visit [facility] [address] [place] [address] Nimisha Haynes, OD [address] [place] [address] documented as of this encounter Visit Diagnoses Not on filedocumented in this encounter Additional Health Concerns Assessment Noted Time PHQ-9 Depression Total Score: 0 07/23/19 23 11:34 AM EST documented as of this encounter Care Teams Commercial Pest Control Technician Relationship Specialty Start Date End Date Sabina Cervantes DO [address] [place] [address] PCP - General Family Medicine 06/13/12 Mary Dean 03/09/25 documented as of this encounter
--- OUTSIDE RECORDS SUMMARY | 2025-04-07 07:38 | XMS_ITS | Encounter Summary ---
Author Organization [employer] Address [address] [facility] [address] [place] [address] Care Team Providers Care Narrow Fabric Loom Fixer Name Role Phone Sabina Cervantes DO Primary Care Provider +1- [phone] Mary Dean Unavailable Encounter Details Date Type Department Care Team (Latest Contact Info) Description 04/22/2019 Abstract [facility] CONVERSIONS Dental, Provider, DDS Social History [...] 05/14/2025 3:30 PM EST Office Visit [facility] OPT[facility] [address] [place] [address] Dallas, Nimisha, OD [address] [place] [address] documented as of this encounter Visit Diagnoses Not on filedocumented in this encounter Care Teams Narrow Fabric Loom Fixer Relationship Specialty Start Date End Date Sabina Cervantes DO [address] [place] [address] PCP - General Family Medicine 06/13/12 Mary Dean 03/09/25 documented as of this encounter
--- OUTSIDE RECORDS SUMMARY | 2025-04-07 07:39 | XMS_ITS | Clinical Summary ---
Author Organization [employer] Address [address] [facility] 7t [place] [address] Care Team Providers Care Senior Audit Manager Name Role Phone Sabina Cervantes DO Primary Care Provider eJrmaineMary Unavailable Allergies No known active allergies Medications [...] Type Department Care Team Description 03/31/[address] [address] Sabina Cervantes DO telephone call 03/30/[address] [address] Sabina Cervantes DO 03/29/2025 Orders Only GENERIC EXTERNAL DATA DEPARTMENT Provider, Generic External Data 03/25/2025 Patient Outreach [address] [address] Sabina Cervantes DO Care Coordination (C3LISANDRO/PRESTON Dean [facility] [place] f/u call) 03/17/2025 Orders Only GENERIC EXTERNAL DATA DEPARTMENT Provider, Generic External Data 03/15/2025 9:00 AM EDT Office Visit [address] [address] Sabina Cervantes DO Peripheral arterial disease (CMS/HCC) (Primary Dx); Other hyperlipidemia; Major depression, recurrent, chronic (CMS/HCC); Fatty liver; Hypothyroidism, unspecified type; Gallbladder polyp; Irritable bowel syndrome with constipation; Fibromyalgia; Chronic bilateral low back pain with bilateral sciatica; Tobacco dependence; Proteinuria, unspecified type; Cardiomyopathy, unspecified type (CMS/HCC); Bereavement; Healthcare maintenance; Dietary counseling; Exercise counseling 03/15/2025 Travel 03/10/[address] [address] Sabina Cervantes DO Chart Prep 03/09/2025 Patient Outreach [address] [address] Sabina Cervantes DO Care Coordination (MIQUEL/PRESTON Dean, CM enrollment) 03/09/2025 Patient Outreach [address] [address] Sabina Cervantes DO Care Coordination (MIQUEL/PRESTON Dean, Chart review ) 03/08/2025 Patient Outreach [address] [address] Sabina Cervantes DO Pre-visit Planning (SDOH Screening positive and Tobacco screening positive) 01/31/2025 Refill [facility] MEDICINE [address] [place] [address] Sabina Cervantes DO Peripheral vascular disease (CMS/HCC); Vitamin D deficiency 01/05/2025 Telephone [facility] MEDICINE [address] [place] [address] Sabina Cervantes, Results from Last 3 Months [...] with others, in a hotel, in a detention, living outside on the street, on a [...] 3:30 PM EST Office Visit [facility] OPTOMETRY [address] [place] [address] Nimisha Haynes, OD [address] [place] [address] Health Maintenance Due Date Last Done Comments [...] Vitamin D 25-OH Total 43.7 >30 ng/mL [facility] Comment: Health Based Reference Values*< 20 ng/mL Pnhdbbcif03-78 ng/mL Insufficient> 30 ng/mL Sufficient*Maribel VANESSA. N [...] DO LAB BLOOD ORDERABLES Final R esult [facility] [address] [place] [phone] [phone] * Alpha-Fetoprotein, Tumor Marker (03/29/2025 8:03 AM EDT) Alpha Fetoprotein 3.8 ng/mL [facility] Comment:Reference Range: <6. 1The use of AFP as a tumor marker in females is not recommended.This test was performed using the Sunitha Coulterchemiluminescent method. Values obtained fromdifferent assay methods cannot be usedinterchangeably. AFP levels, regardless ofvalue, should not be interpreted as absoluteevidence of the presence or absence of disease.THIS TEST WAS PERFORMED AT:[employer] [address] [phone] OCONNOR MD Blood Venous blood specimen / Unknown 03/29/2025 8:03 AM EDT 03/29/2025 8:03 AM EDT Sabina Billy LAB BLOOD ORDERABLES Final R esult Performing Organization Address [facility]/ZIP Co de Phone Number [facility] [address] [place] [phone] * TSH (03/29/2025 8:03 AM EDT) Thyroid Stimulating Hormone 0.91 0.32 - 4.0 uIU/mL [facility] Comment:TSH 3rd Generation ( [facility]) Blood Venous blood specimen / Unknown 03/29/2025 8:03 AM EDT 03/29/2025 8:03 AM EDT Sabina Cervantes DO LAB BLOOD ORDERABLES Final R esult Performing Organization Address [facility] Co de Phone Number [facility] [address] [place] [phone] * T4, Free (03/29/2025 8:03 AM EDT) Free T4 (Free Thyroxine) 1.30 0.71 - 1.85 ng/dL [facility] Blood Venous blood specimen / Unknown 03/29/2025 8:03 AM EDT 03/29/2025 8:03 AM EDT Sabina Billy LAB BLOOD ORDERABLES Final R esult Performing Organization Address City/[facility]/ZIP Co de Phone Number [facility] [address] [place] [address] [phone] * (ABNORMAL) Hemoglobin A1c (03/29/2025 8:03 AM EDT) Hemoglobin A1c 6.2(H) <6.0 % [facility] Comment:Hemoglobin A1C Refer ence Range Adults: 4.8 - 6.0 % Non diabetic: < 6.0 % Goal: < 7.0 %Additional Action Suggested: > 8.0 %Note: Hemoglobin A1c results are invalid for patients with abnormal amounts of HbF. Blood transfusions may impact the HbA1c concentration in the patient sample. Estimated Average Glucose 131 mg/dL [facility] Comment:eAG = Estimated ave rage glucose which is %A1C expressed asaverage glucose, using the formula of the T3T-UypgdupNxhvvhk Glucose study (ADAG), Diabetes Care, Vol.31,#8,2007 Blood Venous blood specimen / Unknown 03/29/2025 8:03 AM EDT 03/29/2025 8:03 AM EDT us Sabina Cervantes DO LAB BLOOD ORDERABLES Final R esult [facility] [address] [place] [phone] * Hepatic Function Panel (03/29/2025 8:03 AM EDT) Bilirubin, Total 0.4 0.0 - 1.0 mg/dL [facility] Bilirubin, Direct 0.2 0.0 - 0.5 mg/dL [facility] Aspartate Amino Transferase 19 5 - 31 U/L [facility] Alanine Aminotransferase 20 0 - 31 U/L [facility] Total Protein 7.1 6.5 - 8.0 g/dL [facility] Albumin Level 4.4 3.5 - 5.0 g/dL [facility] Alkaline Phosphatase 67 39 - 117 U/L [facility] Blood Venous blood specimen / Unknown 03/29/2025 8:03 AM EDT 03/29/2025 8:03 AM EDT us Sabina Cervantes DO LAB BLOOD ORDERABLES Final R esult Performing Organization Address City/[facility]/ZIP Co de Phone Number [facility] [address] [place] [phone] [phone] * (ABNORMAL) Lipid Panel, Standard (03/29/2025 8:03 AM EDT) Triglycerides 216(H) <150 mg/dL [facility] Comment:Desirable Triglyceri de: less than 150 mg/dLBorderline High Triglyceride 150-199 mg/dLHigh Triglyceride: 200-499 mg/dLVery High Triglyceride: greater than or equal to 5OO mg/dL Cholesterol 151 <200 mg/dL [facility] Comment:Desirable Cholestero l: less than 200 mg/dLBorderline High Cholesterol: 200-239 mg/dLHigh Cholesterol: greater than 239 mg/dL LDL Cholesterol Calculated 68 <100 mg/dL [facility] Comment:Desirable LDL: less than 100 mg/dLNear Optimal/Above Optimal LDL: 110- 129 mg/dLBorderline High LDL: 130-159 mg/dLHigh LDL: 160-189 mg/dLVery High LDL: greater than or equal to 190 mg/dL HDL Cholesterol 40(L) >40 mg/dL [facility] Comment:Desirable HDL: great er than 40 mg/dL Note: This HDL assay may give artificially low results in patients with liver disease. Blood Venous blood specimen / Unknown 03/29/2025 8:03 AM EDT 03/29/2025 8:03 AM EDT us Sabina Cervantes DO LAB BLOOD ORDERABLES Final R esult Performing Organization Address City/[facility]/ZIP Co de Phone Number [facility] [address] [place] [phone] * Basic Metabolic Panel (03/29/2025 8:03 AM EDT) Sodium 142 135 - 145 mmol/L [facility] Potassium 3.8 3.3 - 5.1 mmol/L [facility] Chloride 107 96 - 108 mmol/L [facility] Carbon Dioxide 27 22 - 29 mmol/L [facility] Anion Gap 12 12 - 20 [facility] Urea Nitrogen (BUN) 14 9 - 16 mg/dL [facility] Creatinine, Serum 0.62 0.5 - 1.4 mg/dL [facility] Estimated Glomerular Filt Rate >60 [facility] Comment:Chronic Kidney Disea se: Estimated GFR < 60 mL/min/1.01r9Uwvblm Kidney Disease: Estimated GFR < 15 mL/min/1.73m2 Glucose 84 60 - 115 mg/dL [facility] Calcium 9.8 8.4 - 10.2 mg/dL [facility] Blood Venous blood specimen / Unknown 03/29/2025 8:03 AM EDT 03/29/2025 8:03 AM EDT us Sabina Cervantes DO LAB BLOOD ORDERABLES Final R esult Performing Organization Address [facility] Co de Phone Number [facility] [address] [place] [phone] * (ABNORMAL) Protein Creatinine Ratio, Urine (03/29/2025 7:58 AM EDT) Creatinine, Urine 33.79 mg/dL [facility] Protein, Total, Random Urine 19(H) <12 mg/dL [facility] Protein/Creati nine Ratio, Ur 0.56(H) <0.2 [facility] Comment:The spot urine prote in:creatinine ratio may increase to 0.3during normal . 03/29/2025 7:58 AM EDT 03/29/2025 9:02 AM EDT us Generic External Data Provider LAB URINE ORDERAB LES Final Result Performing Organization Address [facility]/ZIP Co de Phone Number [facility] [address] [place] [phone] * CBC (03/29/2025 7:55 AM EDT) White Blood Count 8.6 4.8 - 10.8 X10*3/uL [facility] Red Blood Count 4.63 4.20 - 5.50 X10*6/uL [facility] Hemoglobin 13.8 12.0 - 16.0 g/dl [facility] Hematocrit 41.0 37.0 - 47.0 % [facility] Mean Corpuscular Volume 88.6 80.0 - 98.0 fL [facility] Mean Corpuscular Hemoglobin 29.8 27.0 - 33.0 pg [facility] Mean Corpuscular HGB Conc 33.7 31.0 - 35.0 g/dl [facility] Red Cell Distribution Width 13.2 11.0 - 16.0 % [facility] Platelet Count 298 160 - 400 X10*3/uL [facility] Mean Platelet Volume 10.2 9.4 - 12.3 fL [facility] NRBC Pct Auto 0.0 0.0 - 0.2 /100WBC [facility] NRBC Abs Auto 0.000 0.0 - 0.012 X10*3/uL [facility] Blood Venous blood specimen / Unknown 03/29/2025 7:55 AM EDT 03/29/2025 9:11 AM EDT us Sabina Cervantes DO LAB BLOOD ORDERABLES Final R esult [facility] [address] [place] [phone] [phone] * HPV DNA, Low/High Risk (03/17/2025 8:13 AM EDT) HPV High Risk Negative Negative [facility] HPV Genotype 16 Negative Negative [facility] HPV Genotype 18 Negative Negative [facility] Comment:HPV testing performe d at [facility] (CLIA#[id number]), [address] [place] [address].Testing for HPV was performed using the Aron [...] ORDERAB LES Final Result Performing Organization Address City/State/[facility] Co de Phone Number [facility] [address] [place] [phone] * Pap Smear (03/17/2025 8:13 AM EDT) 03/17/2025 8:13 AM EDT 03/18/2025 7:46 AM EDT Narrative [facility] - 03/22/2025 9:26 AM EDT ----- ------- Name: Lenora Leon Benitez Age/Sex: 64/F : 1960 Unit#: [id number] Attend Dr: Maurisio Good MD Re03/17/25 Status: DEP REF Location: [facility] Disch: ----- ------- SPEC : [id number] RECD: 03/18/25 STATUS: KYRIE REYNOLDS NUM: [id number] RENÉ: 03/17/[address] [facility] [address]: Maurisio Good MD ENTERED: 03/18/25 SP TYPE: Pap Smr [facility] DR: Sabina Cervantes DO ORDERED: Pap Smear [...] HPV testing will be performed at [facility] (CLIA #[id number]), [address] [place] [address]. Testing for HPV was performed using the [...] detected. All professional services are performed by [facility] ([address] [place] [address], [place] [address]; ; CLIA #[id number]). The PAP Test is a screening procedure with the inherent possibility of both false negative and false positive results. Results should be interpreted in the context of historic and current clinical findings. Reliability of the PAP Test is enhanced by performing the test on a regular repetitive basis. CONTINUED ON NEXT PAGE ----- ------- Name: Lenora Leon I Age/Sex: 64/F : 1960 Unit#: [id number] Attend Dr: Maurisio Good MD Re03/17/25 Status: DEP REF Location: [facility] Disch: ----- ------- SPEC : [id number] RECD: 03/18/25 STATUS: KYRIE VELAZCOShayy NUM: [id number] RENÉ: 03/17/[address] [facility] [address]: Maurisio Good MD ENTERED: 03/18/25 SP TYPE: Pap Smr [facility] DR: Sabina Cervantes DO ORDERED: Pap Smear Copies To: Sabina Cervantes DO [address] [address] Maurisio Good MD [facility] [address] [place] [address] [place] [phone] ----- ------- Signed (signature on file) Porfirio BG Ayala ([facility]) 03/22/25 0926 ----- ------- END OF REPORT us Generic External Data Provider LAB CYTOLOGY MANOJ SPARROW Final Result [facility] [address] [place] [phone] * BI Mammogram Screening Tomosynthesis Bilateral (05/19/2024 12:33 PM EST) Anatomical Region Laterality Modality Breast Bilateral Mammography 05/19/2024 12:3 3 PM EST Narrative 05/27/2024 8:21 AM EST [address] [place] [address] Mammography Report Signed Patient: Lenora Leon I MR#: [id number] 6 : 1960 Acct:[id number] Age/Sex: 63 / F ADM Date: 05/19/24 Loc: HO.MAMMO Attending Dr: Sabina Cervantes DO Ordering Physician: Sabina Cervantes DO Results: 1N egative Date of Service: 05/19/24 Follow Up: 1 Year From Orig ina Mammogram Procedure(s): MM tomosynthesis screening BI Accession Number(s): [id number] cc: Sabina Cervantes DO EXAMINATION: MM SCREENING [...] 05/27/24 0817 DD/ 1233 TD/TT: 05/19/24 1253 Cable Installer Repairer Helper: Procedure Note Donotuseinterpreter, Image - 05/27/2024 [facility] [address] [place] [address] Mammography Report Signed Patient: Lenora Leon IMR#: [id number] 6 : 2Acct:[id number] Age/Sex: 63 / FADM Date: 05/19/24 Loc: HO.MAMMO Attending Dr: Sabina Cervantes DO Ordering Physician: Sabina Cervantes DOResults: 1N egative Date of Service: 05/19/24Follow Up: 1 Year From Orig inal Mammogram Procedure(s): MM tomosynthesis screening BI Accession Number(s): [id number] cc: Sabina Cervantes DO EXAMINATION: MM SCREENING [...] 05/27/24 0817 DD/ 1233 TD/TT: 05/19/24 1253 Cable Installer Repairer Helper: Sabina Billy DO IMG BI PROCEDURES Edited Res ult - Final * HEPATITIS C AB W/REFL TO HCV RNA, QN, PCR (01/29/2020 10:04 AM EDT) HEPATITIS C ANTIBODY NON-REACT ALICIA NON-REACT ALICIA [facility] INDEX 0.01 <1.00 [facility] Comment: HCV antibody was non-reactive. There is no laboratory evidence of HCV infection. In most cases, no further action is required. However, if recent HCV exposure is suspected, a test for HCV RNA (test code 01162) is suggested. For additional information please refer to http://eTipping.[employer]/faq/VIA99b2 (This link is being provided for informational/ educational purposes only.) HEPATITIS C ANTIBODY NON-REACT ALICIA NON-REACT ALICIA [facility] INDEX 0.01 <1.00 [facility] Comment: HCV antibody was non-reactive. There is no laboratory evidence of HCV infection. In most cases, no further action is required. However, if recent HCV exposure is suspected, a test for HCV RNA (test code 18383) is suggested. For additional information please refer to http://eTipping.[employer]/faq/KVO04z4 (This link is being provided for informational/ educational purposes only.) HEPATITIS C ANTIBODY NON-REACT ALICIA NON-REACT ALICIA [facility] INDEX 0.01 <1.00 [facility] Comment: HCV antibody was non-reactive. There is no laboratory evidence of HCV infection. In most cases, no further action is required. However, if recent HCV exposure is suspected, a test for HCV RNA (test code 86244) is suggested. For additional information please refer to http://Orgdot/faq/KWL37s2 (This link is being provided for informational/ educational purposes only.) HEPATITIS C ANTIBODY NON-REACT ALICIA NON-REACT ALICIA [facility] INDEX 0.01 <1.00 [facility] Comment: HCV antibody was non-reactive. There is no laboratory evidence of HCV infection. In most cases, no further action is required. However, if recent HCV exposure is suspected, a test for HCV RNA (test code 73163) is suggested. For additional information please refer to http://Orgdot/faq/LOK38p8 (This link is being provided for informational/ educational purposes only.) 01/29/2020 10:0 4 AM EDT us Sabina Cervantes DO HISTORICAL/NON ORDERABLE LAB S Final Result [facility] [address] * HIV 1/2 ANTIGEN/ANTIBODY,FOURTH GENERATION W/RFL (01/29/2020 10:04 AM EDT) HIV-1/2 ANTIGEN AND ANTIBODIES, 4TH GENERATION W/ REFLEX NON-REACT ALICIA NON-REACT ALICIA [facility] Comment: HIV-1 antigen and [...] purpose. For additional information please refer to http://eTipping.[employer]/faq/FSI518 (This link is being provided for informational/ [...] purpose. For additional information please refer to http://eTipping.[employer]/faq/OXU908 (This link is being provided for informational/ educational purposes only.) The performance of this assay has not been clinically validated in patients less than 2 years old. HIV-1/2 ANTIGEN AND ANTIBODIES, 4TH GENERATION W/ REFLEX NON-REACT ALICIA NON-REACT ALICIA [facility] Comment: HIV-1 antigen and HIV-1/HIV-2 [...] purpose. For additional information please refer to http://eTipping.[employer]/faq/BIM048 (This link is being provided for informational/ educational purposes only.) The performance of this assay has not been clinically validated in patients less than 2 years old. 01/29/2020 10:0 4 AM EDT us Sabina Cervantes DO LAB BLOOD ORDERABLES Final R esult [facility] [address] [place] [address], * Hm Colonoscopy (07/25/2018 10:20 AM EST) us Historical Provider HEALTH MAINTENANCE Final Result from Last 3 Months or Most Recently Relevant to Health Maintenance Insurance [facility] C3 DENTAL-[facility] MEDICAID STAND ADULT Care Teams Senior Audit Manager Relationship Specialty Start Date End Date Sabina Cervantes DO [address] [place] [address] PCP - General Family Medicine 06/13/12 Mary Dean 03/09/25
--- OUTSIDE RECORDS SUMMARY | 2025-04-07 07:39 | XMS_ITS ---
Author Organization [employer] Address [address] [facility] 7t [place] [address] Care Team Providers Care Fish And Wildlife Technician Name Role Phone Sabina Cervantes DO Primary Care Provider + [phone] Mary Dean [facility] Status:Enrolled (Active) Start date:03/09/2025 Enrollment date:03/09/2025 Case Team Name Relationship Phone Mary Dean(Responsible Staff) [phone] Continued Care and Services Coordination
== END ==
LOC: HO.CARD 07:34
PROVIDERS: PCP Family Medicine; Visit Provider Family Medicine
DX: I42.9 Cardiomyopathy, unspecified (principal)
CPT/HCPCS: 93306

== ENCOUNTER → 2025-04-07 07:37 | Outpatient (BNV) | payer MEDICAID, SELFPAY | PROVIDERS: PCP Family Medicine; Visit Provider Internal Medicine Cardiovascular Disease | DX: I42.9 Cardiomyopathy, unspecified (principal) | CPT/HCPCS: 93306 ==

== ENCOUNTER 2025-04-08 12:28 | Outpatient (REF) | payer MEDICAID, SELFPAY ==
--- NOTE | ~2025-04-08 | CT_ITS ---
CLINICAL HISTORY: RUL nodule --- Additional Notes or Special Instructions: (new 4mm RUL nodule on 05 21 24 LDCT = Lung RADS 3 - plan [address] lung cancer screening (LDCT) Comparison: 05/21/2024 12:09 PM EST: CTSR: CT LUNG SCREENING Technique: Axial CT images of the chest using low-dose technique. Referring provider counseled the patient on shared decision-making for LDCT screening. Additional counseling was provided on smoking cessation. Effective radiation dose total: DLP 32.1 mGycm, CTDIvol 1 mGy. Findings: Lung: No solid or semi solid lesion Coronary artery calcifications: Moderate Limited upper abdomen: Unremarkable Other: None IMPRESSION: Lung-RADS 1, negative. Continued annual screening recommended This document has been electronically signed by: Marcin Martinez MD on 04/09/2025 08:58:54
== END 2025-04-08 12:29 | disposition home or self-care (01) ==
LOC: HO.CT 12:28
PROVIDERS: PCP Family Medicine; Visit Provider Physician Assistant Medical
DX: R91.1 Solitary pulmonary nodule (principal); F17.210 Nicotine dependence, cigarettes, uncomplicated
CPT/HCPCS: 71250

== ENCOUNTER → 2025-04-08 12:31 | Outpatient (BNV) | payer MEDICAID, SELFPAY | PROVIDERS: PCP Family Medicine; Visit Provider Specialist | DX: R91.1 Solitary pulmonary nodule (principal) | CPT/HCPCS: 71250 ==

== ENCOUNTER 2025-05-25 11:38 | Outpatient (REF) | payer MEDICAID, SELFPAY ==
--- OUTSIDE RECORDS SUMMARY | 2024-05-06 03:30 | XMS_ITS ---
Author Organization [facility] Address [address] [place] [address] Care Team Providers Care Physical Therapy Resident Name Role Phone Sabina Cervantes M.D. Primary Care Provider Amy Rosendo Interiano Unavailable [phone] REASON FOR VISIT screening,hx polyps Problems Problem Type SNOMED Code ICD Code Onset Dates Problem Status W/U Status Risk Notes Problem Diverticular disease of colon (551467048) Diverticulosis of large intestine without perforation or abscess without bleeding (K57.30) Active confirmed Encounters Encounter Location Date Provider Diagnosis [facility] [place] Outpatient [address], [place] [id number] 05/06/2024 Rosendo Padilla Colon cancer scree bhavesh Z12.11 ; Colon polyps K63.5 ; Diverticulosis of large intestine without perforation or abscess without bleeding K57.30 and Other hemorrhoids K64.8 Assessments Encounter Date Diagnosis (ICD Code) Assessment Notes Treatment Notes Treatment Clinical Notes Section Notes 05/06/2024 Colon cancer screening (ICD-10 - Z12.11) 05/06/2024 Colon polyps (ICD-10 - K63.5) 05/06/2024 Diverticulosis of large intestine without perforation or abscess without bleeding (ICD-10 - K57.30) 05/06/2024 Other hemorrhoids (ICD-10 - K64.8) Plan Of Treatment No Information Progress Notes * RUBY CALLEDOB:1960 ( 64 yo F)Acc No.[id number]:05/06/2024 COLON WITH MAC Patient: RUBY CHARLTON Provider: Mike Padilla MD :1960 A ge:63 Y S ex:Female Date:05/06/2024 Address:[address] [place] [address] [address] , [id number] Pcp:Sabina Cervantes M.D. Subjective: * Chief Complaints: * S creening,hx polyps Assessment: * Assessment: 1. C olon cancer screening - Z12.11 (Primary) 2 . C olon polyps - K63.5? 3. D iverticulosis of large intestine without perforation or abscess without bleeding - K57.30 4 . O ther hemorrhoids - K64.8 Plan: * Procedure Codes: 4 5385 LESION REMOVAL COLONOSCOPY Billing Information: * Procedure Codes: 66034 LESION REMOVAL COLONOSCOPY. * The named appointment provid er may or may not be the originator of this progress note, and it is not deemed complete until electronically signed by the appointment provider. Sign off status: Pending * Provider: Mike Padilla MD Date: 07/06/2023 Generated for Patria horta/Keanu/Nikkiitting on: 07/25/2024 03:29 PM EST
--- OUTSIDE RECORDS SUMMARY | 2025-05-25 15:29 | XMS_ITS | Encounter Summary ---
Author Organization [employer] Address [address] [facility] [address]t [place] [address] Care Team Providers Care Direct Service Professional Name Role Phone Sabina Cervantes DO Primary Care Provider [phone] Mary Dean Unavailable Encounter Details Date Type Department Care Team (Late st Contact Info) Description 07/04/2022 Orders Only [facility] MED & PEDS [address] [place], [place] [phone] Sabina Barnard LPN Social History Tobacco Use [...] Care Team (Late st Contact Info) Description 08/11/2025 8:45 AM EST Office Visit [facility] ADULT DENTAL [address] [place] [address] Amado, Inna [address] [place] [address] documented as of this encounter Visit Diagnoses Not on filedocumented in this encounter Care Teams Direct Service Professional Relationship Specialty Start Date End Date Sabina Cervantes DO [address] [place] [address] PCP - General Family Medicine 06/13/12 Mary Dean 03/09/25 04/28/25 documented as of this encounter
--- OUTSIDE RECORDS SUMMARY | 2025-05-25 15:29 | XMS_ITS | Encounter Summary ---
Author Organization [employer] Address [address] [facility] [address] [place] [address] Care Team Providers Care Freight Service Inspector Name Role Phone Sabina Cervantes DO Primary Care Provider + [phone] Mary Dean Unavailable Encounter Details Date Type Department Care Team (Late st Contact Info) Description 10/08/2023 Orders Only [facility] MEDICINE [address] [place] [address] ProviderLizett MD Social History Tobacco Use Types [...] Description 08/11/2025 8:45 AM EST Office Visit [facility] ADULT DENTAL [address] [place] [address] Amado, Inna [address] [place] [address] documented as of this encounter Procedures Procedure [...] documented as of this encounter Care Teams Freight Service Inspector Relationship Specialty Start Date End Date Sabina Cervantes DO [address] [place] [address] PCP - General Family Medicine 06/13/12 Mary Dean 03/09/25 04/28/25 documented as of this encounter
--- OUTSIDE RECORDS SUMMARY | 2025-05-25 15:29 | XMS_ITS | Encounter Summary ---
Author Organization [employer] Address [address] [facility] [address] [place] [address] Care Team Providers Care Mud Worker Name Role Phone Sabina Cervantes DO Primary Care Provider + [phone] Mary Dean Unavailable Reason for Visit * Reason Comments Med Refill Encounter Details Date Type Department Care Team (Late st Contact Info) Description 10/05/2022 Refill [facility] MEDICINE [address] [place] [address] Anika Hernandez MD [address] [place] [address] Social History Tobacco Use Types Packs/Day Years [...] Description 08/11/2025 8:45 AM EST Office Visit [facility] ADULT DENTAL [address] [place] [address] Inna Fischer [address] [place] [address] documented as of this encounter Visit Diagnoses Not on filedocumented in this encounter Additional Health Concerns Assessment Noted Time PHQ-9 Depression Total Score: 0 07/23/19 23 11:34 AM EST documented as of this encounter Care Teams Mud Worker Relationship Specialty Start Date End Date Sabina Cervantes DO [address] [place] [address] PCP - General Family Medicine 06/13/12 Mary Dean 03/09/25 04/28/25 documented as of this encounter
--- OUTSIDE RECORDS SUMMARY | 2025-05-25 15:29 | XMS_ITS | Encounter Summary ---
Author Organization [employer] Address [address] [facility] [address] [place] [address] Care Team Providers Care Ordained Minister Name Role Phone Sabina Cervantes DO Primary Care Provider + [phone] JermaineMary Unavailable Encounter Details Date Type Department Care Team (Late Contact Info) Description 04/05/2023 Abstract [facility] [address] [place] [address] Padma Kim Social History Tobacco Use Types [...] Department Care Team (Late Contact Info) Description 08/11/2025 8:45 AM EST Office Visit [facility] [address] [place] [address] Amado Inna [address] [place] [address] documented as of this encounter Procedures Procedure [...] documented as of this encounter Care Teams Ordained Minister Relationship Specialty Start Date End Date Sabina Cervantes DO [address] [place] [address] PCP - General Family Medicine 06/13/12 Mary Dean 03/09/25 04/28/25 documented as of this encounter
--- OUTSIDE RECORDS SUMMARY | 2025-05-25 15:29 | XMS_ITS | Encounter Summary ---
Author Organization [employer] Address [address] [facility] [address] [place] [address] Care Team Providers Care Foot Setter Name Role Phone Sabina Cervantes DO Primary Care Provider [phone] Mary Dean Unavailable Encounter Details Date Type Department Care Team (Late st Contact Info) Description 06/13/2022 Orders Only [facility] [address] [place] [address] Va Toribio LPN Social History Tobacco Use [...] Description 08/11/2025 8:45 AM EST Office Visit [facility] [address] [place] [address] Amado, Inna [address] [place] [address] documented as of this encounter Visit Diagnoses Not on filedocumented in this encounter Care Teams Foot Setter Relationship Specialty Start Date End Date Sabina Cervantes DO [address] [place] [address] PCP - General Family Medicine 06/13/12 Mary Dean 03/09/25 04/28/25 documented as of this encounter
--- OUTSIDE RECORDS SUMMARY | 2025-05-25 15:29 | XMS_ITS | Clinical Summary ---
Author Organization [employer] Address [address] [facility] [address] [place] [address] Care Team Providers Care E Learning Manager Name Role Phone Sabina Cervantes DO Primary Care Provider [phone] Allergies No known active allergies Medications latanoprost (Xalatan) 0.005 % ophthalmic solution INSTILL 1 DROP INTO BOTH EYES AT BEDTIME 04/18/20 22 Active dicyclomine (Bentyl) 10 MG capsule TAKE 1 CAPSULE BY MOUTH THREE TIMES DAILY NEEDED FOR ABDOMINAL PAIN 30 capsule 1 05/14/20 23 Active simethicone (Mylicon) 125 MG chewable tabletIndicatio ns:Bloating CHEW and SWALLOW 1 TABLET BY MOUTH FOUR TIMES DAILY NEEDED FOR GAS 60 tablet 1 05/17/20 23 Active fluticasone (Flonase) 50 MCG/ACT nasal spray USE 2 SPRAYS IN EACH NOSTRIL EVERY DAY 48 g 10/16/19 24 Active Blood Pressure kit 1 each 1 (one) time per week. 1 kit 01/17/20 24 Active Diclofenac Sodium 1 % gel Apply 2 g topically if needed in the morning, at noon, in the evening, and at bedtime (pain). 150 g 3 01/17/20 24 Active loratadine (Claritin) 10 MG tabletIndicatio ns:Seasonal allergic rhinitis, unspecified trigger TAKE 1 TABLET BY MOUTH EVERY DAY 90 tablet 04/30/20 24 Active lisinopril 2.5 MG tablet Take 1 tablet by mouth 2 times daily. 10/01/19 25 Active Aspirin Low Dose 81 MG EC tabletIndicatio ns:Peripheral vascular disease (CMS/HCC) TAKE 1 TABLET BY MOUTH EVERY DAY 90 tablet 3 10/28/19 25 Active butalbital-acet aminophen-caffe ine 50-325-40 MG tablet TAKE 1 TABLET BY MOUTH EVERY DAY NEEDED FOR HEADACHE 20 tablet 1 5 11:05 AM EST 11/06/19 25 Active lidocaine (Lidoderm) 5 % patch APPLY 2 PATCHES TOPICALLY TO SKIN, LEAVE ON FOR 12 HOURS AND OFF FOR 12 HOURS DIRECTED 60 patch 3 5 10:32 AM EST 11/17/19 25 Active omeprazole (PriLOSEC) [address] capsule TAKE 1 CAPSULE BY MOUTH EVERY DAY BEFORE A MEAL 90 capsule 3 02/03/20 25 Active rosuvastatin (Crestor) 20 MG tabletIndicatio ns:Peripheral vascular disease (CMS/HCC) TAKE 1 TABLET BY MOUTH EVERY DAY 90 tablet 3 02/03/20 25 Active D3 Super Strength 50 MCG (2000 UT) capsuleIndicati ons:Vitamin D deficiency TAKE 1 CAPSULE BY MOUTH EVERY DAY 90 capsule 3 02/03/20 25 Active levothyroxine (Synthroid) 100 MCG tablet Take 1 tablet (100 mcg) by mouth before breakfast. 90 tablet 3 5 10:32 AM EST 02/03/20 25 026 Active melatonin 5 MG tablet Take 1-2 tablets (5-10 mg) by mouth if needed at bedtime (insomnia). 60 tablet 3 5 10:32 AM EST 03/15/20 25 Active omega-3 (Fish Oil) 1000 MG capsule Take 1 capsule (1,000 mg) by mouth Once per day. 90 capsule 3 03/30/20 25 Active amitriptyline (Elavil) 10 MG tabletIndicatio ns:Pain TAKE 2 TABLETS BY MOUTH EVERY DAY AT BEDTIME 180 tablet 1 5 11:05 AM EST 05/18/20 25 Active amitriptyline (Elavil) 10 MG tabletIndicatio ns:Pain TAKE 2 TABLETS BY MOUTH AT BEDTIME 180 tablet 1 10/28/19 25 025 Discontinued Active Problems Problem Noted Date Diagnosed Date [...] Encounters Date Type Department Care Team Description 05/17/2025 Refill [facility] [address] [place] [address] Sabina Cervantes DO Pain 05/14/2025 3:30 PM EST Office Visit [facility] [address] [place] [address] Dallas, Nimisha, OD Primary open angle glaucoma of both eyes, unspecified glaucoma stage (Primary Dx); Sebaceous cyst of left upper eyelid; Presbyopia of both eyes 05/14/2025 Travel 04/28/2025 Patient Outreach [facility] [address] [place] [phone] Sabina Cervantes DO Care Coordination (C3/Kayode Raeia f/u, program graduation ) 04/08/2025 Orders Only [facility] External Provider, [facility] 04/08/2025 Patient Outreach [facility] [address] [place] [phone] Sabina Cervantes DO Care Coordination (C3/kayode Raeoh f/u, program graduation ) 03/31/2025 Telephone [facility] [address] [place] [phone] Sabina Cervantes DO telephone call 03/30/2025 Refill [facility] [address] [place] [phone] Sabina Cervantes DO 03/29/2025 Orders Only GENERIC EXTERNAL DATA DEPARTMENT Provider, Generic External Data 03/25/2025 Patient Outreach [facility] [address] [place] [phone] Sabina Cervantes DO Care Coordination (C3/PRESTON Dean, [facility] f/u call) 03/17/2025 Orders Only GENERIC EXTERNAL DATA DEPARTMENT Provider, Generic External Data 03/15/2025 9:00 AM EDT Office Visit [address] [address] Sabina Cervantes DO Peripheral arterial disease (CMS/HCC) (Primary Dx); Other hyperlipidemia; Major depression, recurrent, chronic (CMS/HCC); Fatty liver; Hypothyroidism, unspecified type; Gallbladder polyp; Irritable bowel syndrome with constipation; Fibromyalgia; Chronic bilateral low back pain with bilateral sciatica; Tobacco dependence; Proteinuria, unspecified type; Cardiomyopathy, unspecified type (CMS/HCC); Bereavement; Healthcare maintenance; Dietary counseling; Exercise counseling 03/15/2025 Travel 03/10/[address] [address] Sabina Cervantes DO Chart Prep 03/09/2025 Patient Outreach [address] [address] Sabina Cervantes DO Care Coordination ([facility]/PRESTON Dean, CM enrollment) 03/09/2025 Patient Outreach [address] [address] Sabina Cervantes DO Care Coordination ([facility]/PRESTON Dean, Chart review ) 03/08/2025 Patient Outreach [address] [address] Sabina Cervantes DO Pre-visit Planning (SDOH Screening positive and Tobacco screening positive) from Last 3 Months Immunizations Immunization Administration [...] with others, in a hotel, in a correction, living outside on the street, on a [...] Description 08/11/2025 8:45 AM EST Office Visit [facility] ADULT DENTAL [address] [place] [address] Amado, Inna [address] [place] [address] Health Maintenance Due Date Last Done Comments CT Colonography 1960 FIT DNA/Cologuard 1960 FIT 1960 FOBT 1960 Sigmoidoscopy 1960 Hepatitis A Vaccines (1 of 2 - Risk 2-dose series) 1980 RSV Patients and Patients Aged 60 years or older (1 - Risk 50-74 years 1-dose series) 12/13/2011 Dental Oral Exam 07/18/2023 01/14/2023, , 12/23/2017, Additional history exists Colonoscopy 07/25/2023 07/25/2018 Colorectal Cancer Screening 07/25/2023 Dental X-Ray: Bitewings 01/16/2024 01/15/20, 04/22/2019, 12/23/2017, Additional history exists Dental Prophylaxis 03/27/2024 09/24/2023, 0 01/14/2023, 04/22/2019, Additional history exists COVID-19 Vaccine ( season) 2025 07/23/2022, 08/02/2021, 10/25/2020, Additional history exists Influenza Vaccine (#1) 2025 , 03/20/2021, 04/21/2020, Additional history exists Mammogram 05/19/2025 05/19/2024, 05/01, 05/13/2023, Additional history exists Depression Monitoring 09/12/2025 03/15/2025, 025 Alcohol/Substance Use Screening 10/23/2025 10/23/2024 Disability Screening 10/23/2025 10/23/2024 SDOH Screening 03/08/2026 03/08/2025 Diabetes: Hemoglobin A1C 03/29/2026 025, 05/01/2024, 09/23/2023, Additional history exists Tobacco Screening 05/14/2026 05/14/2025 Dental X-Ray: Full Mouth 10/04/2027 025, 01/14/2023, 12/23/2017, Additional history exists Cervical Cancer [...] Procedure Name Priority Date/Time Associated Diagnosis Comments CT LUNG SCREENING Routine 04/09/2025 8:5 8 AM EDT ALPHA FETOPROTEIN, TUMOR MARKER Routine 03/29/2025 8:03 [...] Recently Relevant to Health Maintenance Results * CT Lung Screening Low dose (04/09/2025 8:58 AM EDT) Anatomical Region Laterality Modality Lung Computed Tomogra phy 04/09/2025 8:58 AM EDT Narrative 04/09/2025 9:00 AM EDT [address] [address] [address] Scan Report Signed Patient: Lenora Leon I MR#: [id number] 6 : 1960 Acct:[id number] Age/Sex: 64 / F ADM Date: 04/08/25 Loc: HO.CT Attending Dr: Jeannette Black PA-C Ordering Physician: Jeannette Black PA-C Date of Service: 04/08/25 Procedure(s): CT lung screen follow up Accession Number(s): [id number] cc: Sabina Cervantes DO; Jeannette Black PA-C Report Number: [id number]: Total DLP = 43.00 mGy-cm Reason for Exam: RUL nodule CLINICAL HISTORY: RUL nodule --- Additional Notes or Special Instructions: (new 4mm RUL nodule on 05 21 24 LDCT = Lung RADS 3 - plan [address] lung cancer screening (LDCT) Comparison: 05/21/2024 12:09 PM EST: CTSR: CT LUNG SCREENING Technique: Axial CT images of the chest using low-dose technique. Referring provider counseled the patient on shared decision-making for LDCT screening. Additional counseling was provided on smoking cessation. Effective radiation dose total: DLP 32.1 mGycm, CTDIvol 1 mGy. Findings: Lung: No solid or semi solid lesion Coronary artery calcifications: Moderate Limited upper abdomen: Unremarkable Other: None IMPRESSION: Lung-RADS 1, negative. Continued annual screening recommended This document has been electronically signed by: Marcin Martinez MD on 04/09/2025 08:58:54 Dictated By: Marcin Martinez MD Signed By: <Electronically signed by Marcin Martinez MD in OV> 04/09/25899 DD/ 7 TD/TT: 04/09/25857 Solutions Developer: Procedure Note Donotuseinterpreter, Image - 04/09/[address] [place] [address] [address] Scan Report Signed Patient: Lenora Leon IMR#: [id number] 6 : 2Acct:[id number] Age/Sex: 64 / FADM Date: 04/08/25 Loc: HO.CT Attending Dr: Jeannette Black PA-C Ordering Physician: Jeannette Black PA-C Date of Service: 04/08/25 Procedure(s): CT lung screen follow up Accession Number(s): [id number] cc: Sabina Cervantes DO; Jeannette Black PA-C Report Number: [id number]: Total DLP = 43.00 mGy-cm Reason for Exam: RUL nodule CLINICAL HISTORY: RUL nodule --- Additional Notes or Special Instructions:(new 4mm RUL nodule on 05 21 24 LDCT = Lung RADS 3 - plan [address] lung cancer screening (LDCT) Comparison: 05/21/2024 12:09 PM EST: CTSR: CT LUNG SCREENING Technique: Axial CT images of the chest using low-dose technique. Referring provider counseled the patient on shared decision-making for LDCT screening. Additional counseling was provided on smoking cessation. Effective radiation dose total: DLP 32.1 mGycm, CTDIvol 1 mGy. Findings: Lung: No solid or semi solid lesion Coronary artery calcifications: Moderate Limited upper abdomen: Unremarkable Other: None IMPRESSION: Lung-RADS 1, negative. Continued annual screening recommended This document has been electronically signed by: Marcin Martinez MD on 04/09/2025 08:58:54 Dictated By: Marcin Martinez MD Signed By: <Electronically signed by Marcin Martinez MD in OV> 04/09/25899 DD/ 7 TD/TT: 04/09/25857 Solutions Developer: [facility] External Provider IMG CT PROCEDURES Final Result * Vitamin D, 25-Hydroxy, Total, Immunoassay (03/29/2025 8:03 AM EDT) Vitamin D 25-OH Total 43.7 >30 ng/mL [facility] Comment: Health Based Reference Values*< 20 ng/mL Ddbdkmsns94-97 ng/mL Insufficient> 30 ng/mL Sufficient*Maribel VAENSSA. N Engl J Med. 2007;357:266-280There is no [...] ORDERABLES Final R esult Performing Organization Address City/[facility]/ZIP Co de Phone Number [facility] [address] [place] [phone] * Alpha-Fetoprotein, Tumor Marker (03/29/2025 8:03 AM EDT) Alpha Fetoprotein 3.8 ng/mL [facility] Comment:Reference Range: <6. 1The use of AFP as a tumor marker in females is not recommended.This test was performed using the Sunitha Coulterchemiluminescent method. Values obtained fromdifferent assay methods cannot be usedinterchangeably. AFP levels, regardless ofvalue, should not be interpreted as absoluteevidence of the presence or absence of disease.THIS TEST WAS PERFORMED AT:[facility] [place] [id number] OCONNOR MD Blood Venous blood specimen / Unknown 03/29/2025 8:03 AM EDT 03/29/2025 8:03 AM EDT us Sabina Cervantes DO LAB BLOOD ORDERABLES Final R esult Performing Organization Address [facility]/ZIP Co de Phone Number [facility] [address] [place] [phone] * TSH (03/29/2025 8:03 AM EDT) Thyroid Stimulating Hormone 0.91 0.32 - 4.0 uIU/mL [facility] Comment:TSH 3rd Generation ( [facility]) Blood Venous blood specimen / Unknown 03/29/2025 8:03 AM EDT 03/29/2025 8:03 AM EDT Sabina Cervantes DO LAB BLOOD ORDERABLES Final R esult [facility] [address] [place] [phone] * T4, Free (03/29/2025 8:03 AM EDT) Free T4 (Free Thyroxine) 1.30 0.71 - 1.85 ng/dL [facility] Blood Venous blood specimen / Unknown 03/29/2025 8:03 AM EDT 03/29/2025 8:03 AM EDT Sabina Cervantes DO LAB BLOOD ORDERABLES Final R esult Performing Organization Address City/[facility]/ZIP Co de Phone Number [facility] [address] [place] [phone] * (ABNORMAL) Hemoglobin A1c (03/29/2025 8:03 AM EDT) Hemoglobin A1c 6.2(H) <6.0 % [facility] Comment:Hemoglobin A1C Refer ence Range Adults: 4.8 - 6.0 % Non diabetic: < 6.0 % Goal: < 7.0 %Additional Action Suggested: > 8.0 %Note: Hemoglobin A1c results are invalid for patients with abnormal amounts of HbF. Blood transfusions may impact the HbA1c concentration in the patient sample. Estimated Average Glucose 131 mg/dL [facility] Comment:eAG = Estimated ave rage glucose which is %A1C expressed asaverage glucose, using the formula of the A2R-QlsuhxjAyqljjv Glucose study (ADAG), Diabetes Care, Vol.31,#8,2007 Blood Venous blood specimen / Unknown 03/29/2025 8:03 AM EDT 03/29/2025 8:03 AM EDT Sabina Fordjonagold DO LAB BLOOD ORDERABLES Final R esult Performing Organization Address [facility]/ZIP Co de Phone Number [facility] [address] [place] [phone] * Hepatic Function Panel (03/29/2025 8:03 AM EDT) Bilirubin, Total 0.4 0.0 - 1.0 mg/dL [facility] Bilirubin, Direct 0.2 0.0 - 0.5 mg/dL [facility] Aspartate Amino Transferase 19 5 - 31 U/L [facility] Alanine Aminotransferase 20 0 - 31 U/L [facility] Total Protein 7.1 6.5 - 8.0 g/dL [facility] Albumin Level 4.4 3.5 - 5.0 g/dL [facility] Alkaline Phosphatase 67 39 - 117 U/L [facility] Blood Venous blood specimen / Unknown 03/29/2025 8:03 AM EDT 03/29/2025 8:03 AM EDT Sabina Fordjonagold MEHTA LAB BLOOD ORDERABLES Final R [facility] Performing Organization Address [facility] Co de Phone Number [facility] [address] [place] [phone] * (ABNORMAL) Lipid Panel, Standard (03/29/2025 8:03 AM EDT) Triglycerides 216(H) <150 mg/dL [facility] Comment:Desirable Triglyceri de: less than 150 mg/dLBorderline High Triglyceride 150-199 mg/dLHigh Triglyceride: 200-499 mg/dLVery High Triglyceride: greater than or equal to 5OO mg/dL Cholesterol 151 <200 mg/dL [facility] Comment:Desirable Cholestero l: less than 200 mg/dLBorderline High Cholesterol: 200-239 mg/dLHigh Cholesterol: greater than 239 mg/dL LDL Cholesterol Calculated 68 <100 mg/dL [facility] Comment:Desirable LDL: less than 100 mg/dLNear Optimal/Above Optimal LDL: 110- 129 mg/dLBorderline High LDL: 130-159 mg/dLHigh LDL: 160-189 mg/dLVery High LDL: greater than or equal to 190 mg/dL HDL Cholesterol 40(L) >40 mg/dL [facility] Comment:Desirable HDL: great er than 40 mg/dL Note: This HDL assay may give artificially low results in patients with liver disease. Blood Venous blood specimen / Unknown 03/29/2025 8:03 AM EDT 03/29/2025 8:03 AM EDT Sabina Cervantes DO LAB BLOOD ORDERABLES Final R esult [facility] [address] [place] [phone] * Basic Metabolic Panel (03/29/2025 8:03 AM EDT) Sodium 142 135 - 145 mmol/L [facility] Potassium 3.8 3.3 - 5.1 mmol/L [facility] Chloride 107 96 - 108 mmol/L [facility] Carbon Dioxide 27 22 - 29 mmol/L [facility] Anion Gap 12 12 - 20 [facility] Urea Nitrogen (BUN) 14 9 - 16 mg/dL [facility] Creatinine, Serum 0.62 0.5 - 1.4 mg/dL [facility] Estimated Glomerular Filt Rate >60 [facility] Comment:Chronic Kidney Disea se: Estimated GFR < 60 mL/min/1.08e9Ofiwgt Kidney Disease: Estimated GFR < 15 mL/min/1.73m2 Glucose 84 60 - 115 mg/dL [facility] Calcium 9.8 8.4 - 10.2 mg/dL [facility] Blood Venous blood specimen / Unknown 03/29/2025 8:03 AM EDT 03/29/2025 8:03 AM EDT Sabina Cervantes DO LAB BLOOD ORDERABLES Final R esult Performing Organization Address City/State/[facility] Co de Phone Number [facility] [address] [place] [phone] * (ABNORMAL) Protein Creatinine Ratio, Urine (03/29/2025 7:58 AM EDT) Creatinine, Urine 33.79 mg/dL [facility] Protein, Total, Random Urine 19(H) <12 mg/dL [facility] Protein/Creati nine Ratio, Ur 0.56(H) <0.2 [facility] Comment:The spot urine prote in:creatinine ratio may increase to 0.3during normal . 03/29/2025 7:58 AM EDT 03/29/2025 9:02 AM EDT us Generic External Data Provider LAB URINE ORDERAB LES Final Result Performing Organization Address [facility] Co de Phone Number [facility] [address] [place] [phone] * CBC (03/29/2025 7:55 AM EDT) White Blood Count 8.6 4.8 - 10.8 X10*3/uL [facility] Red Blood Count 4.63 4.20 - 5.50 X10*6/uL [facility] Hemoglobin 13.8 12.0 - 16.0 g/dl [facility] Hematocrit 41.0 37.0 - 47.0 % [facility] Mean Corpuscular Volume 88.6 80.0 - 98.0 fL [facility] Mean Corpuscular Hemoglobin 29.8 27.0 - 33.0 pg [facility] Mean Corpuscular HGB Conc 33.7 31.0 - 35.0 g/dl [facility] Red Cell Distribution Width 13.2 11.0 - 16.0 % [facility] Platelet Count 298 160 - 400 X10*3/uL [facility] Mean Platelet Volume 10.2 9.4 - 12.3 fL [facility] NRBC Pct Auto 0.0 0.0 - 0.2 /100WBC [facility] NRBC Abs Auto 0.000 0.0 - 0.012 X10*3/uL [facility] Blood Venous blood specimen / Unknown 03/29/2025 7:55 AM EDT 03/29/2025 9:11 AM EDT us Sabina Cervantes DO LAB BLOOD ORDERABLES Final R esult Performing Organization Address City/[facility]/ZIP Co de Phone Number [facility] [address] [place] [phone] * HPV DNA, Low/High Risk (03/17/2025 8:13 AM EDT) HPV High Risk Negative Negative [facility] HPV Genotype 16 Negative Negative [facility] HPV Genotype 18 Negative Negative [facility] Comment:HPV testing performe d at [facility] (CLIA#[id number]), [address] [place] [address].Testing for HPV was performed using the Aron [...] ORDERAB LES Final Result Performing Organization Address [facility]/ZIP Co de Phone Number [facility] [address] [place] [phone] * Pap Smear (03/17/2025 8:13 AM EDT) 03/17/2025 8:13 AM EDT 03/18/2025 7:46 AM EDT [facility] - 03/22/2025 9:26 AM EDT ----- ------- Name: Lenora Leon I Age/Sex: 64/F : 1960 Unit#: [id number] Attend Dr: Maurisio Good MD Re03/17/25 Status: [facility] Location: [facility] Disch: ----- ------- SPEC : [id number] RECD: 03/18/25 STATUS: KYRIE REYNOLDS NUM: [id number] RENÉ: 03/17/[address] [facility] [address]: Maurisio Good MD ENTERED: 03/18/25 SP TYPE: Pap Smr OTHR DR: Sbaina Cervantes DO ORDERED: Pap Smear Interpretation Satisfactory [...] performed at [facility] (CLIA #[id number]), [address] [place] [phone]. Testing for HPV was performed using the [...] detected. All professional services are performed by [facility] ([address] [place] [address]; ; CLIA #[id number]). The PAP Test is a screening procedure with the inherent possibility of both false negative and false positive results. Results should be interpreted in the context of historic and current clinical findings. Reliability of the PAP Test is enhanced by performing the test on a regular repetitive basis. CONTINUED ON NEXT PAGE ----- ------- Name: Lenora Leon Benitez Age/Sex: 64/F : 1960 Unit#: [id number] Attend Dr: Maurisio Good MD Re03/17/25 Status: DEP REF Location: [facility] Disch: ----- ------- SPEC : [id number] RECD: 03/18/25 STATUS: KYRIE REYNOLDS NUM: [id number] RENÉ: 03/17/[address] [facility] [address]: Maurisio Good MD ENTERED: 03/18/25 SP TYPE: Pap Smr OTHR DR: Sabina Cervantes DO ORDERED: Pap Smear Copies To: Sabina Cervantes DO [facility] [address] [place], [place] [phone] Maurisio Good MD [facility] Women's Services [address] [place], [place] [phone] ----- ------- Signed (signature on file) BG Tucker (ASCP) 03/22/25 0926 ----- ------- END OF REPORT us Generic External Data Provider LAB CYTOLOGY MANOJ SPARROW Final Result [facility] [address], [place] [phone] * BI Mammogram Screening Tomosynthesis Bilateral (05/19/2024 12:33 PM EST) Anatomical Region Laterality Modality Breast Bilateral Mammography 05/19/2024 12:3 3 PM EST Narrative 05/27/2024 8:21 AM EST [address] [place] [address] Mammography Report Signed Patient: Lenora Leon I MR#: [id number] 6 : 1960 Acct:[id number] Age/Sex: 63 / F ADM Date: 05/19/24 Loc: HO.MAMMO Attending Dr: Sabina Cervantes DO Ordering Physician: Sabina Cervantes DO Results: 1N egative Date of Service: 05/19/24 Follow Up: 1 Year From Orig inal Mammogram Procedure(s): MM tomosynthesis screening BI Accession Number(s): [id number] cc: Sabina Cervantes DO EXAMINATION: MM SCREENING [...] 05/27/24 0817 DD/ 1233 TD/TT: 05/19/24 1253 Solutions Developer: Procedure Note Donotuseinterpreter, Image - 05/27/[address] [place] [address] Mammography Report Signed Patient: Lenora Leon IMR#: [id number] 6 : 2Acct:[id number] Age/Sex: 63 / FADM Date: 05/19/24 Loc: HO.MAMMO Attending Dr: Sabina Cervantes DO Ordering Physician: Sabina Cervantesults: 1N egative Date of Service: 05/19/24Follow Up: 1 Year From Orig inal Mammogram Procedure(s): MM tomosynthesis screening BI Accession Number(s): [id number] cc: Sabina Cervantes DO EXAMINATION: MM SCREENING [...] by: Ashley Lazcano DO 05/27/2024 08:17 AM [facility] Dictated By: Ashley Lazcano DO Signed By: <Electronically signed by Ashley Lazcano DO in OV> 05/27/24 0817 DD/ 1233 TD/TT: 05/19/24 1253 Solutions Developer: us Sabina Cervantes DO IMG BI PROCEDURES Edited Res ult - Final * HEPATITIS C AB W/REFL TO HCV RNA, QN, PCR (01/29/2020 10:04 AM EDT) HEPATITIS C ANTIBODY NON-REACT ALICIA NON-REACT ALICIA [facility] INDEX 0.01 <1.00 [facility] Comment: HCV antibody was non-reactive. There is no laboratory evidence of HCV infection. In most cases, no further action is required. However, if recent HCV exposure is suspected, a test for HCV RNA (test code 27125) is suggested. For additional information please refer to http://[address]/faq/NKI25a4 (This link is being provided for informational/ educational purposes only.) HEPATITIS C ANTIBODY NON-REACT ALICIA NON-REACT ALICIA [facility] INDEX 0.01 <1.00 [facility] Comment: HCV antibody was non-reactive. There is no laboratory evidence of HCV infection. In most cases, no further action is required. However, if recent HCV exposure is suspected, a test for HCV RNA (test code 96528) is suggested. For additional information please refer to http://[address]/faq/AVX51s0 (This link is being provided for informational/ educational purposes only.) HEPATITIS C ANTIBODY NON-REACT ALICIA NON-REACT ALICIA [facility] INDEX 0.01 <1.00 [facility] Comment: HCV antibody was non-reactive. There is no laboratory evidence of HCV infection. In most cases, no further action is required. However, if recent HCV exposure is suspected, a test for HCV RNA (test code 07263) is suggested. For additional information please refer to http://[address]/faq/HYF74b7 (This link is being provided for informational/ educational purposes only.) HEPATITIS C ANTIBODY NON-REACT ALICIA NON-REACT ALICIA [facility] INDEX 0.01 <1.00 [facility] Comment: HCV antibody was non-reactive. There is no laboratory evidence of HCV infection. In most cases, no further action is required. However, if recent HCV exposure is suspected, a test for HCV RNA (test code 35938) is suggested. For additional information please refer to http://[employer]/faq/FIM00m8 (This link is being provided for informational/ educational purposes only.) 01/29/2020 10:0 4 AM EDT us Sabina Cervantes DO HISTORICAL/NON ORDERABLE LAB S Final Result [facility] [address] [place] [address], * HIV 1/2 ANTIGEN/ANTIBODY,FOURTH GENERATION W/RFL (01/29/2020 [...] purpose. For additional information please refer to http://[employer]/faq/RZE603 (This link is being provided for informational/ educational purposes only.) The performance of this assay has not been clinically validated in patients less than 2 years old. HIV-1/2 ANTIGEN AND ANTIBODIES, 4TH GENERATION W/ REFLEX NON-REACT ALICIA NON-REACT ALICIA [facility] Comment: HIV-1 antigen and HIV-1/HIV-2 [...] purpose. For additional information please refer to http://[employer]/faq/ADK449 (This link is being provided for informational/ educational purposes only.) The performance of this assay has not been clinically validated in patients less than 2 years old. HIV-1/2 ANTIGEN AND ANTIBODIES, 4TH GENERATION W/ REFLEX NON-REACT ALICIA NON-REACT ALICIA [facility] Comment: HIV-1 antigen and HIV-1/HIV-2 [...] purpose. For additional information please refer to http://education.[employer]/faq/FRD407 (This link is being provided for informational/ educational purposes only.) The performance of this assay has not been clinically validated in patients less than 2 years old. 01/29/2020 10:0 4 AM EDT Sabina Cervantes DO LAB BLOOD ORDERABLES Final R esult Performing Organization Address City/State/[facility] Co de Phone Number [facility] [address] * Hm Colonoscopy (07/25/2018 10:20 AM EST) Historical Provider HEALTH MAINTENANCE Final Result from Last 3 Months or Most Recently Relevant to Health Maintenance Insurance [facility] C3 [place] AD[place] Care Teams E Learning Manager Relationship Specialty Start Date End Date Sabina Cervantes DO [address] [place] [address] PCP - General Family Medicine 06/13/12
--- OUTSIDE RECORDS SUMMARY | 2025-05-25 15:29 | XMS_ITS | Encounter Summary ---
Author Organization [employer] Address [address] [place] [address] Care Team Providers Care Restaurant General Manager Name Role Phone Sabina Cervantes DO Primary Care Provider [phone] Mary Dean Unavailable Encounter Details Date Type Department Care Team (Latest Contact Info) Description 04/22/2019 Abstract [facility] CONVERSIONS Dental, Provider, DDS Social [...] [facility] ADULT DENTAL [address] [place] [address] Amado, Inna [address] [place] [address] documented as of this encounter Visit Diagnoses Not on filedocumented in this encounter Care Teams Restaurant General Manager Relationship Specialty Start Date End Date Sabina Cervantes DO [address] [place] [address] PCP - General Family Medicine 06/13/12 Mary Dean 03/09/25 04/28/25 documented as of this encounter
--- OUTSIDE RECORDS SUMMARY | 2025-05-25 15:29 | XMS_ITS | Encounter Summary ---
Author Organization [employer] Address [address] [place] [address] Care Team Providers Care Final Inspector Balance Wheel Name Role Phone Sabina Cervantes DO Primary Care Provider + [phone] Mary Dean Unavailable Reason for Visit * Reason Onset Date Comments Med Refill 09/13/2023 Encounter Details Date Type Department Care Team ([facility] st Contact Info) Description 09/13/2023 Telephone [facility] MEDICINE [address] [place] [address] Sabina Cervantes DO [address] [place], [place] [id number] Med Refill Social History Tobacco Use Types [...] from pt requesting med refill; Ibuprofen 600MG 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 [facility] - [place], [place] - [address] [facility] documented in this encounter Plan of Treatment Upcoming Encounters Date Type Department Care Team (Late st Contact Info) Description 08/11/2025 8:45 AM EST Office Visit [facility] ADULT DENTAL [address] [place] [address] Amado, Inna [address] [place] [address] documented as of this encounter Visit Diagnoses Not on filedocumented in this encounter Additional Health Concerns Assessment Noted Time PHQ-9 Depression Total Score: 0 07/23/19 23 11:34 AM EST documented as of this encounter Care Teams Final Inspector Balance Wheel Relationship Specialty Start Date End Date Sabina Cervantes DO [address] [place] [address] PCP - General Family Medicine 06/13/12 Mary Dean 03/09/25 04/28/25 documented as of this encounter
--- OUTSIDE RECORDS SUMMARY | 2025-05-25 15:29 | XMS_ITS | Patient Health Record ---
Author Organization [facility] [facility] Address [address] [place] [address] Care Team Providers Care Arcade Game Technician Name Role Phone Sabina Cervantes M.D. Primary Care Provider Rosendo Gilmore Unavailable [phone] Allergies No Known Allergies Reason For Referral No Information Medications Medication SIG (Take, Route, Frequency, Duration) Notes Start Date End Date Status Rosuvastatin Calcium 20 MG Tablet TAKE 1 TABLET BY MOUTH EVERY DAY Oral; Duration: 90 I739,Unavailabl e Active Levothyroxine Sodium 100 MCG Tablet TAKE 1 TABLET BY MOUTH DAILY BEFORE BREAKFAST Oral; Duration: 90 Active Amitriptyline HCl 10 MG Tablet TAKE 2 TABLETS BY MOUTH EVERY DAY AT BEDTIME Oral; Duration: 90 R52,Unavailable Active Dulcolax (colon prep) 5 MG Tablet Delayed Release take at 3:00 p.m and 7:00p.m. Orally two tablets twice a day for one day; Duration: 1 day 01/11/2024 Active Omeprazole 20 MG Capsule Delayed Release TAKE 1 CAPSULE BY MOUTH EVERY DAY BEFORE A MEAL Oral; Duration: 90 Active Simethicone 125 MG Tablet Chewable CHEW AND SWALLOW 1 TABLET BY MOUTH FOUR TIMES DAILY NEEDED FOR GAS Oral; Duration: 15 R140,Unavailabl e Active Loratadine 10 MG Tablet TAKE 1 TABLET BY MOUTH EVERY DAY Oral; Duration: 90 J302,Unavailabl e Active Latanoprost 0.005 % Solution INSTILL 1 DROP INTO BOTH EYES EVERY DAY AT NIGHT Ophthalmic; Duration: 90 Active Dicyclomine HCl 10 MG Capsule TAKE 1 CAPSULE BY MOUTH THREE TIMES DAILY NEEDED FOR ABDOMINAL PAIN Oral; Duration: 10 Active D3 Super Strength 50 MCG (1999 UT) Capsule TAKE 1 CAPSULE BY MOUTH EVERY DAY Oral; Duration: 90 E559,Unavailabl e Active MiraLax (colon prep) 17 GM/SCOOP Powder 1 238Gm bottle mixed with Gatorade or Crystal Light Orally begin at 5:00 p.m. the day before the procedure; Duration: 1 day 01/11/2024 Active Aspirin 81 MG Tablet Chewable 1 tablet Orally Once a day Active Immunizations Vaccine Route Administration Date Status Comme nts Influenza Unknown 05/01/2018 Administered Social History Social History Additional Details Category Social Info Options Details Miscellaneous: Marital status: single Occupation: unemployed Section Notes: Smoker; no alcohol Smoker 1/3 ppd; no alcohol Smoker approx 1 ppd; no alco hol Problems Problem Type SNOMED Code ICD Code Onset Dates Problem Status W/U Status Risk Notes Problem Screening for malignant neoplasm of colon (158180650) Encounter for screening for malignant neoplasm of colon (Z12.11) Active confirmed Problem History of adenomatous polyp of colon (153145864) History of adenomatous polyp of colon (Z86.010) Active confirmed Problem Diverticular disease of colon (944634110) Diverticulosis of large intestine without perforation or abscess without bleeding (K57.30) Active confirmed Problem Constipation (29501432) Constipation, unspecified constipation type (K59.00) Active confirmed Problem Gastroesophageal reflux disease (989278403) GERD without esophagitis (K21.9) Active confirmed Plan Of Treatment Pending Test Test Name Order Date Pathology 05/06/2024 Future Test Test Name Order Date COLONOSCOPY 03/31/2013 COLONOSCOPY 05/06/2018 COLONOSCOPY 01/09/2024 Insurance Providers Payer Name Payer Address Payer Phone Subscriber Number Group Number Insured Name Patient Relationship to Insured Coverage Start Date Coverage End Date [place] [address] [place] [phone] [id number] SEMIDELeilani, ADA Self - patient is the insured Medical (General) History Medical History History ICD Code EGD 09-27-2010---mild gastritis-no H.pylo ri-no esophagitis GERD Claudication Fibromyalgia Ovarian cysts Denies MA,DM,CVA,Lung disease,renal dise ase Bronchitis Neuropathy--feet Colonoscopy in 03/2013--smal l tubular adenomas, diverticulosis, internal hemorroids Gallbladder polyps--sees Dr. Burnham Colonoscopy 07/2018 with 1 small tubular adenoma removed Surgical History Surgery Date(Month/Year) Tubal ligation Glaucoma eye surgery 2023
== END 2025-05-25 11:39 | disposition home or self-care (01) ==
LOC: HO.MAMMO 11:38
PROVIDERS: PCP Family Medicine; Visit Provider Family Medicine
DX: Z12.31 Encounter for screening mammogram for malignant neoplasm of breast (principal)
CPT/HCPCS: 77063; 77067

== ENCOUNTER → 2025-05-25 12:15 | Outpatient (BNV) | payer MEDICAID, SELFPAY | PROVIDERS: PCP Family Medicine; Visit Provider Radiology Body Imaging | DX: Z12.31 Encounter for screening mammogram for malignant neoplasm of breast (principal) | CPT/HCPCS: 77063; 77067 ==

== ENCOUNTER 2025-06-10 09:37 | Outpatient (AMB) | payer MEDICAID, SELFPAY ==
--- NOTE | 2025-06-10 09:51 | MHC.OFFVIS ---
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 Patient states she has bilateral leg pain all day. States she has neuropathy and thats why she is here. Asked if she had any other symptoms including swelling, numbing, tingling or cramping she stated no. 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 She reports having neuropathy that causes a lot of pain in both of her legs, but states she is not diabetic. She reports walking a block or 2 but believes that the neuropathy is the most significant issue that she is currently experiencing. The patient is a current smoker, consuming half a pack on a stressful day. She can walk more than one block and reports having back issues. A carotid ultrasound from 12/07/2024 showed 0-49% stenosis bilaterally. An ultrasound of her legs was performed years ago. [facility] Medical History (Updated 06/11/25 @ 08:34 by Willi Banuelos MD) Irritable bowel syndrome with constipation Fatty liver PAD (peripheral artery disease) Hypothyroidism Post-menopausal Obstructive airway disease Tubular adenoma of colon (~2012) Nicotine dependence, cigarettes, uncomplicated Neuropathy High cholesterol Anemia Depression GERD (gastroesophageal reflux disease) Fibromyalgia Surgical History Hx of eye surgery History of left breast biopsy History of esophagogastroduodenoscopy (EGD) History of colonoscopy History of ovarian cystectomy History of bilateral tubal ligation Family History Father Kidney problem Mother Diabetes Social History Household Members: None Household Members Other:: lives alone Housing: Apartment Are you a primary residential care facility manager to a significant other at home: No Alcohol intake: never Patient Tobacco Use Status: Current everyday Tobacco user Tobacco use type: Cigarette Cigarettes Per Day: 10 Years Smoked: onset 17yo - 1/2ppd x 45yrs - 22phy Current occupational status: disabled Sexual orientation: Straight/Heterosexual Gender identity: Female Female Reproductive History Menstrual Age of Menarche: 17 Date of menopause: 07/01/02 Review of Systems Const All systems reviewed & are unremarkable except as noted in HPI and below Reports no additional complaints ENT Reports Normal hearing present Card Denies chest pain, Denies chest pain at rest, Denies chest pain with activity and Denies pedal edema Resp Denies cough GI Denies abdominal pain Musc Denies abnormal gait, Denies muscle cramps and Denies radiating pain into limb Skin/Breast Denies skin ulcer and Denies wounds Neuro Reports Normal hearing present and Denies abnormal gait Psych Reports no additional complaints Physical Exam Const General: cooperative, healthy appearing and comfortable Orientation/consciousness: oriented to person, oriented to place and oriented to time HEENT Head: Yes normal to inspection Neck Neck: Yes normal visual inspection Carotids: no bruits Chest Chest palpation & inspection: normal inspection of the chest Resp Effort & Inspection: normal respiratory effort and able to speak in complete sentences Auscultation: clear to auscultation bilaterally, no crackles, no rales, no rhonchi and no wheezes Cardio Other: Bilateral DP signals Rate: regular rate Rhythm: regular rhythm Heart sounds: S1 normal heart sound present and S2 normal heart sound present Bruits: no carotid bruits GI Inspection: Yes normal to inspection Skin Wounds: no wounds Hair: normal Neuro General: oriented to person, oriented to place and oriented to time Cranial nerves: Yes CN's II-XII intact bilaterally and Yes Normal hearing present Cognition (Neuro): normal cognition Motor exam (neuro): 5/5 motor strength present throughout Extrem Other: venous exam: No significant superficial varicosities or spider telangiectasias, minimal edema General: No clubbing, No cyanosis and No edema Psych Appearance: grossly normal Mental Status: mental status grossly normal Speech and movement: Normal speech and movement present Assessment & Plan Assessment & Plan (1) PAD (peripheral artery disease): Code(s): I73.9 - Peripheral vascular disease, unspecified Category: Medical Plan: In short patient may have a element of peripheral vascular disease. Unclear etiology as to what the source of this is an it may be an element of neuropathy as well. I have taken the liberty of ordering noninvasive arterial testing and the patient will follow up with us after testing. Thank you for allowing us to assist in this patient's care. If there are any questions or concerns please do not hesitate to contact us. Orders: Orders US arterial duplex LE Today I73.9 - Peripheral vascular disease, unspecified Coding Level of Care Code New Pt Level 4 (56112) Diagnoses PAD (peripheral artery disease) I73.9
== END 2025-06-10 10:15 | disposition home or self-care (01) ==
LOC: HO.HVS 09:38
PROVIDERS: PCP Family Medicine; Visit Provider Surgery Vascular Surgery
DX: I73.9 Peripheral vascular disease, unspecified (principal)
CPT/HCPCS: 99204

== ENCOUNTER → 2025-06-10 09:37 | Outpatient (BNVA) | payer MEDICAID, SELFPAY | PROVIDERS: PCP Family Medicine; Visit Provider Surgery Vascular Surgery | DX: I73.9 Peripheral vascular disease, unspecified (principal) | CPT/HCPCS: 99202 ==

== ENCOUNTER 2025-06-21 18:45 | Emergency (ER) | payer MEDICAID, SELFPAY ==
--- OUTSIDE RECORDS SUMMARY | 2024-05-06 03:30 | XMS_ITS ---
Author Organization [facility] Address [address] [place] [address] Care Team Providers Care Testing Shaking Shipping Name Role Phone Sabina Cervantes M.D. Primary Care Provider Amy Rosendo Interiano Unavailable [phone] REASON FOR VISIT screening,hx polyps Problems Problem Type SNOMED Code ICD Code Onset Dates Problem Status W/U Status Risk Notes Problem Diverticular disease of colon (801890761) Diverticulosis of large intestine without perforation or abscess without bleeding (K57.30) Active confirmed Encounters Encounter Location Date Provider Diagnosis [facility] [place] Outpatient [address] [place], [place] [phone] 05/06/2024 Rosendo Padilla Colon cancer scree bhavesh [...] * RUBY CALLEDOB:1960 ( 64 yo F)Acc No.[id number]:05/06/2024 COLON WITH MAC Patient: RUBY CHARLTON Provider: Mike Padilla MD :1960 A ge:63 Y S ex:Female Date:05/06/2024 Address:[address] [place] [address] [address] , [id number] Pcp:Sabina Cervantes M.D. Subjective: * Chief Complaints: [...] REMOVAL COLONOSCOPY Billing Information: * Procedure Codes: 06678 LESION REMOVAL COLONOSCOPY. * The named appointment provid er may or may not be the originator of this progress note, and it is not deemed complete until electronically signed by the appointment provider. Sign off status: Pending * Provider: Mike Padilla MD Date: 1 07/06/2023 Generated for Patria horta/Keanu/Nikkiitting on: 08/22/2024 08:46 PM EST
--- NOTE | ~2025-06-21 | XR_ITS ---
CLINICAL HISTORY: Coughing. Pnuemonia? 2 view chest x-ray. Comparison: CT chest 04/08/2025 Findings: No consolidation or effusion. Cardiac and mediastinal contours are stable. Bones unremarkable. Impression: 1. No acute pulmonary disease. This document has been electronically signed by: Raul Arriaza MD on 06/21/2025 20:29:22
[2025-06-21 19:26] VITALS: BP 160/81; PULSE 90; RESP 18; TEMP 36.6; O2SAT 99; BMI 27.4
--- NOTE | 2025-06-21 19:30 | ED_ITS ---
HPI - General Adult General Chief complaint: Upper Respiratory Symptoms Stated complaint: Flu like symptoms for 3 days Time Seen by Provider: 06/21/25 22:25 Source: patient, RN notes reviewed, old records reviewed and official court interpreter Mode of arrival: ambulatory Limitations: no limitations History of Present Illness ED Provider: Daniel HPI narrative: 64-year-old female presents for evaluation of flu-like symptoms. She reports cough, body aches and fever. Her symptoms started 2 days ago She reports that 2 weeks ago she went to her primary doctor for similar symptoms and was diagnosed with influenza B She did get better but her symptoms returned 2 days ago. She does have positive sick contacts with a friend that she was helping move who was also sick with similar symptoms The patient reports right-sided chest pain with coughing Related Data Home Medications ?Medication ?Instructions ?Recorded ?Confirmed amitriptyline 10 mg tablet 20 mg PO BEDTIME 08/16/20 1 07/04/23 aspirin 81 mg tablet,delayed 81 mg PO DAILY 08/16/20 1 07/06/23 release (Adult Aspirin Regimen) omeprazole 20 mg capsule,delayed 20 mg PO DAILY 05/04/24 release rosuvastatin 20 mg tablet (Crestor) 20 mg PO DAILY 05/04/24 cholecalciferol (vitamin D3) 50 50 mcg PO DAILY mcg (2,000 unit) capsule (Vitamin D3) levothyroxine 100 mcg tablet 100 mcg PO QAM 05/08/24 omega 6-hyb-con-fish oil 1,000 mg 1 cap PO DAILY 04/02 (120 mg-180 mg) capsule (Fish Oil) Previous Rx's ?Medication ?Instructions ?Recorded lisinopril 2.5 mg tablet 7.5 mg (3 x 2.5 mg) PO .COMP LILLIAN 90 04/02/25 days #270 tabs codeine 10 mg-guaifenesin 100 mg/5 10 ml PO Q4-6H PRN cough #473 mL 06/21/25 mL oral liquid Allergies Allergy/AdvReac Type Severity Reaction Status Date / Time No Known Allergies Allergy Verified 06/21/25 19:29 Review of Systems Constitutional: Constitutional: Reports body ache(s), Reports chills, Reports fever(s) and Reports headache(s) Eyes: Eyes: Denies blurry vision ENT: Denies vertigo, Denies dizziness, Reports headache(s), Reports sore throat and Denies throat swelling Cardiovascular: Cardiovascular: Denies dyspnea and Denies dyspnea on exertion Respiratory: Respiratory: Reports cough, Reports pain on inspiration, Reports pain with cough, Denies dyspnea and Denies dyspnea on exertion Gastrointestinal: Gastrointestinal: Denies abdominal pain, Denies nausea and Denies vomiting Musculoskeletal: Musculoskeletal: Denies back pain Integumentary/Breasts: Skin/Breast: Denies rash Neurologic: Denies vertigo, Denies dizziness and Reports headache(s) Allergic/Immunologic: Allergic/Immunologic: Denies throat swelling [facility] Past Medical History Medical History (Updated 06/22/25 @ 00:01 by Background [place]) Irritable bowel syndrome with constipation Fatty liver PAD (peripheral artery disease) Hypothyroidism Post-menopausal Obstructive airway disease Tubular adenoma of colon (~2012) Nicotine dependence, cigarettes, uncomplicated Neuropathy High cholesterol Anemia Depression GERD (gastroesophageal reflux disease) Fibromyalgia Surgical History Hx of eye surgery History of left breast biopsy History of esophagogastroduodenoscopy (EGD) History of colonoscopy History of ovarian cystectomy History of bilateral tubal ligation Family History Family History Father Kidney problem Mother Diabetes Social History Social History Household Members: None Household Members Other:: lives alone Housing: Apartment Are you a primary skin care specialist to a significant other at home: No Alcohol intake: never Patient Tobacco Use Status: Current everyday Tobacco user Tobacco use type: Cigarette Cigarettes Per Day: 10 Years Smoked: onset 17yo - 1/2ppd x 45yrs - 22phy Smoked in Last 30 Days: Yes Advance Directives: No Advance Directives Information Provided: No Do you have a plan to hurt others: No Plan Patient : No Current occupational status: disabled Sexual orientation: Straight/Heterosexual Gender identity: Female Physical Exam ED Vital Signs: Vital Signs - 24 hr 06/21/25 19:26 06/21/25 21:43 06/21/25 22:57 Temperature 98 F 100.4 F 99.5 F Pulse Rate 90 80 74 Respiratory Rate 18 19 19 Blood Pressure 160/81 H 132/68 107/58 L Pulse Oximetry 99 98 98 Oxygen Delivery Method Room Air Room Air Room Air 06/21/25 23:05 Temperature 99.5 F Pulse Rate 74 Respiratory Rate 19 Blood Pressure 107/58 L Pulse Oximetry 98 Oxygen Delivery Method Room Air BMI result Body Mass Index 27.4 Const General: healthy appearing, comfortable, no acute distress, alert and awake Nutritional Appearance: well nourished Orientation/consciousness: patient oriented x3 HENMT Head: Yes normocephalic and Yes atraumatic Throat: Yes posterior oropharynx normal Eyes Eyelids: Yes eyelids normal Conjunctivae: conjunctivae normal Sclerae: sclerae normal Corneas: corneas normal Pupils: Equal, round and reactive pupils present EOM: EOMs intact bilaterally Neck Neck: Yes full ROM Resp Effort & Inspection: normal respiratory effort, able to speak in complete sentences, no audible wheezes and not labored Auscultation: clear to auscultation bilaterally Cardio Rate: regular rate Rhythm: regular rhythm GI Inspection: No distended Palpation (GI): Soft to palpation, not firm, nontender, no guarding and not rigid Skin General skin exam: elasticity normal Neuro General: patient oriented x3 Cranial nerves: Yes Equal, round and reactive pupils present and Yes Bilaterally intact EOM present Cognition (Neuro): normal cognition Extrem Other: Moving all extremities well without any obvious deformities Course Course Course Narrative: RME: 64 yold female presents to the ED for coughig, headache, fever, and bodyahces. xray and swabs ordered Medical Decision Making Medical Decision Making MDM Narrative: 64-year-old female presents for evaluation of flu-like symptoms. She was in fact positive for influenza A. She had a chest x-ray ordered given that she recently had influenza B and there was concern for postviral pneumonia. This does not show any consolidation. The patient's vital signs are stable. She is stable for discharge with symptomatic care Differential Diagnosis Differential Diagnoses: The differential diagnosis associated with the presentation includes Influenza A Influenza B COVID-19 Strep pharyngitis Pneumonia Lab Data Labs: Lab Results 06/21/25 Range/Units 19:38 Influenza Type A (PCR) POSITIVE A (Negative) Influenza Type B (PCR) NEGATIVE (Negative) RSV RNA Qual (PCR) NEGATIVE (Negative) SARS-CoV-2 RNA (RT-PCR) NEGATIVE (Negative) S. pyogenes GrpA YOVANA Negative (Negative) Independent Interpretation I performed an independent interpretation of an: Plain X-Ray Interpretation: No focal infiltrates Radiology Impression Discussion of test interpretation with radiology: I have reviewed the radiologist's reading. Radiologist Impression: Chart Viewer - [facility] ? Diagnostics DATE TYPE STATUS REF RANGE/AUTHOR Hx Today 20:29 ArsalanRaul 04/09/25 08:58 Marcin Martinez 12/08/24 09:13 Bethanie Iraheta 12/08/24 05:17 ClaytonHenry 05/21/24 12:09 LorettaPhilip mcgee 05/15/24 16:29 RaghuGena 05/06/24 07:45 10/11/23 10:00 Perez Benitez 10/11/23 10:00 Josephine Miller 09/30/23 11:45 Jennifer Leon 05/17/23 15:08 Mary Rowe 07/25/22 08:21 Mary Ann Hogan 09/13/21 11:10 Anne Mata 04/13/21 10:10 Alex Das 08/05/20 10:15 Fazal Keyes [place] I ED 64, F1960 MRN#? [id number] DEP ER,?Emergency Department??? 5ft 2in 68kg BMI: 27.4kg/m? 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 ONSET Total No Data to Display Irritable bowel syndrome with constipation Fatty liver PAD (peripheral artery disease) Hypothyroidism Post-menopausal Obstructive airway disease Tubular adenoma of colon ~2012 Nicotine dependence, cigarettes, uncomplicated Neuropathy High cholesterol Anemia Depression GERD (gastroesophageal reflux disease) Fibromyalgia Hx of eye surgery History of left breast biopsy History of esophagogastroduodenoscopy (EGD) History of colonoscopy History of ovarian cystectomy History of bilateral tubal ligation No Data to Display Today 19:38 Today 19:38 Today 19:38 Today 19:38 Today 19:38 Signed Today No Data to Display No Data to Display INITIAL Today 19:26 CURRENT Today 23:05 Diagnostics Reports Lenora Leon I??64??F??1960 ? Allergy/Adv: No Known Allergies [address] [address] XRay Report Signed Patient: CarolynLenora Marquis MR#: [id number] : 1960 Acct:[id number] Age/Sex: 64 / F ADM Date: 06/21/25 Loc: HO.ED Attending Dr: Ordering Physician: Naveed Figueroa Date of Service: 06/21/25 Procedure(s): XR chest 2V Accession Number(s): [id number] cc: Naveed Figueroa; Sabina Cervantes DO~ Reason for Exam: Coughing. Pnuemonia? CLINICAL HISTORY: Coughing. Pnuemonia? 2 view chest x-ray. Comparison: CT chest 04/08/2025 Findings: No consolidation or effusion. Cardiac and mediastinal contours are stable. Bones unremarkable. Impression: 1. No acute pulmonary disease. This document has been electronically signed by: Raul Arriaza MD on 06/21/2025 20:29:22 Dictated By: Raul Arriaza MD Signed By: <Electronically signed by Raul Arriaza MD in [place]> 06/21/252029 DD/ 28 TD/TT: 06/21/252028 [place] Laborer: Discharge Plan Discharge Clinical Impression: Influenza A Patient Disposition: Home, Self-Care Instructions: Influenza (ED) Additional Instructions: You tested positive for influenza a today. This is a different strain of the virus then what you had 2 weeks ago. You do not have pneumonia on your chest x-ray Use Tylenol as needed for fevers and body aches. You may use nifedipine with the codeine to help with your coughing and pain. Follow up with your primary doctor, return for new or worsening symptoms Prescriptions: New codeine-guaifenesin 10-100 mg/5 mL liquid 10 ml PO Q4-6H PRN (Reason: cough) Qty: 473 0RF No Action aspirin [Adult Aspirin Regimen] 81 mg tablet,delayed release (DR/EC) 81 mg PO DAILY omeprazole 20 mg capsule,delayed release(DR/EC) 20 mg PO DAILY amitriptyline 10 mg tablet 20 mg PO BEDTIME rosuvastatin [Crestor] 20 mg tablet 20 mg PO DAILY levothyroxine 100 mcg tablet 100 mcg PO QAM cholecalciferol (vitamin D3) [Vitamin D3] 50 mcg (2,000 unit) capsule 50 mcg PO DAILY omega 3-fmd-nbi-fish oil [Fish Oil] 1,000 (120-180) mg capsule 1 cap PO DAILY lisinopril 2.5 mg tablet 7.5 mg PO .COMPLEX 90 Days Qty: 270 3RF Rx Instructions: 7.5 mg orally 2.5 mg AM and 5 mg PM; Interventions: ED Discharge Assessment Last Done: 06/21/25 23:05 Discharge Date/Time: 06/21/25 23:12 Print Language: Congolese
[2025-06-21 20:10] LABS: IDNOW Serial# 6674DD1D; Strep A Nucleic Acid Negative (Negative)
[2025-06-21 20:25] LABS: Resp Syncy Virus RNA Qual PCR NEGATIVE (Negative); SARS COV2 PCR INHOUSE NEGATIVE (Negative)
--- OUTSIDE RECORDS SUMMARY | 2025-06-21 20:46 | XMS_ITS | Patient Health Record ---
Author Organization [facility] Address [address] [place] [address] Care Team Providers Care Marketing Communications Leader Name Role Phone Sabina Cervantes M.D. Primary Care Provider Rosendo Gilmore Unavailable [phone] Allergies No Known Allergies Reason For Referral [...] Problem Screening for malignant neoplasm of colon (743782953) Encounter for screening for malignant neoplasm of colon (Z12.11) Active confirmed Problem History of adenomatous polyp of colon (194362768) History of adenomatous polyp of colon (Z86.010) Active confirmed Problem Diverticular disease of colon (422476540) Diverticulosis of large intestine without perforation or abscess without bleeding (K57.30) Active confirmed Problem Constipation (35554513) Constipation, unspecified constipation type (K59.00) Active confirmed Problem Gastroesophageal reflux disease (256103601) GERD without esophagitis (K21.9) Active confirmed Plan Of Treatment Pending Test Test Name Order Date Pathology 05/06/2024 Future Test Test Name Order Date COLONOSCOPY 03/31/2013 COLONOSCOPY 05/06/2018 COLONOSCOPY 01/09/2024 Insurance Providers Payer Name Payer Address Payer Phone Subscriber Number Group Number Insured Name Patient Relationship to Insured Coverage Start Date Coverage End Date [place] [address] [place] [address] [id number] SEMIDELeilani, ADA Self - patient is the insured Medical (General) History Medical History History ICD Code EGD 09-27-2010---mild gastritis-no H.pylo ri-no esophagitis GERD Claudication Fibromyalgia Ovarian cysts Denies RI,DM,CVA,Lung disease,renal dise ase Bronchitis Neuropathy--feet Colonoscopy in 03/2013--smal l tubular adenomas, diverticulosis, internal hemorroids Gallbladder polyps--sees Dr. Burnham Colonoscopy 07/2018 with 1 small tubular adenoma removed Surgical History Surgery Date(Month/Year) Tubal ligation Glaucoma eye surgery 2023
--- OUTSIDE RECORDS SUMMARY | 2025-06-21 20:46 | XMS_ITS | Encounter Summary ---
Author Organization [employer] Address [address] [facility] [address] [place] [address] Care Team Providers Care Metal Filer Name Role Phone Sabina Cervantes DO Primary Care Provider [phone]- [phone] Mary Dean Unavailable Encounter Details Date Type Department Care Team (Late st Contact Info) Description 06/13/2022 Orders Only [facility] [address] [place] [address] Va Toribio LPN Social History Tobacco Use [...] Care Team (Late st Contact Info) Description 07/07/2025 10:00 AM EST Office Visit [facility] MEDICINE [address] [place] [address] Sabina Cervantes DO [address] [place] [address] 08/11/2025 8:45 AM EST Office Visit [facility] ADULT DENTAL [address] [place] [address] Amado, Inna [address] [place] [address] documented as of this encounter Visit Diagnoses Not on filedocumented in this encounter Care Teams Metal Filer Relationship Specialty Start Date End Date Sabina Cervantes DO [address] [place] [address] PCP - General Family Medicine 06/13/12 Mary Dean 03/09/25 04/28/25 documented as of this encounter
--- OUTSIDE RECORDS SUMMARY | 2025-06-21 20:46 | XMS_ITS | Encounter Summary ---
Author Organization [employer] Address [address] [facility] [address] [place] [address] Care Team Providers Care Turf Grower Name Role Phone Sabina Cervantes DO Primary Care Provider [phone]- [phone] Mary Dean Unavailable Encounter Details Date Type Department Care Team (Late st Contact Info) Description 07/04/2022 Orders Only [facility] [address] [place], [place] [phone] Sabina Barnard LPN Social History Tobacco Use [...] Description 07/07/2025 10:00 AM EST Office Visit [facility] MEDICINE [address] [place] [address] Sabina Cervantes DO [address] [place] [address] 08/11/2025 8:45 AM EST Office Visit [facility] ADULT DENTAL [address] [place] [address] Amado, Inna [address] [place] [address] documented as of this encounter Visit Diagnoses Not on filedocumented in this encounter Care Teams Turf Grower Relationship Specialty Start Date End Date Sabina Cervantes DO [address] [place] [address] PCP - General Family Medicine 06/13/12 Mary Dean 03/09/25 04/28/25 documented as of this encounter
--- OUTSIDE RECORDS SUMMARY | 2025-06-21 20:46 | XMS_ITS | Encounter Summary ---
Author Organization [employer] Address [address] [facility] [address] [place] [address] Care Team Providers Care Ornamental Painter Name Role Phone Sabina Cervantes DO Primary Care Provider [phone]- [phone] JermaineMary Unavailable Encounter Details Date Type Department Care Team (Latest Contact Info) Description 04/22/2019 Abstract [facility] CONVERSIONS Dental, Provider, DDS Social History [...] Description 07/07/2025 10:00 AM EST Office Visit [facility] MEDICINE [address] [place] [address] Sabina Cervantes DO [address] [place] [address] 08/11/2025 8:45 AM EST Office Visit [facility] ADULT DENTAL [address] [place] [address] Amado, Inna [address] [place] [address] documented as of this encounter Visit Diagnoses Not on filedocumented in this encounter Care Teams Ornamental Painter Relationship Specialty Start Date End Date Sabina Cervantes DO [address] [place] [id number] PCP - General Family Medicine 06/13/12 Mary Dean 03/09/25 04/28/25 documented as of this encounter
--- OUTSIDE RECORDS SUMMARY | 2025-06-21 20:46 | XMS_ITS | Clinical Summary ---
Author Organization [employer] Address [address] [place] [address] Care Team Providers Care Leaflet Distributor Name Role Phone Sabina Cervantes DO Primary Care Provider Allergies No known active allergies Medications latanoprost (Xalatan) 0.005 % ophthalmic solution INSTILL 1 DROP INTO BOTH EYES AT BEDTIME 04/18/20 22 Active simethicone (Mylicon) 125 MG chewable tabletIndicatio ns:Bloating CHEW and SWALLOW 1 TABLET BY MOUTH FOUR TIMES DAILY NEEDED FOR GAS 60 tablet 1 05/17/20 23 Active Blood Pressure kit 1 each 1 (one) time per week. 1 kit 01/17/20 24 Active Diclofenac Sodium 1 % gel Apply 2 g topically if needed in the morning, at noon, in the evening, and at bedtime (pain). 150 g 3 01/17/20 24 Active lisinopril 2.5 MG tablet Take 1 tablet by mouth 2 times daily. 10/01/19 25 Active Aspirin Low Dose 81 MG EC tabletIndicatio ns:Peripheral vascular disease (CMS/HCC) TAKE 1 TABLET BY MOUTH EVERY DAY 90 tablet 3 10/28/19 25 Active lidocaine (Lidoderm) 5 % patch APPLY 2 PATCHES TOPICALLY TO SKIN, LEAVE ON FOR 12 HOURS AND OFF FOR 12 HOURS DIRECTED 60 patch 3 5 11:50 AM EST 11/17/19 25 Active omeprazole (PriLOSEC) [...] at bedtime (insomnia). 60 tablet 3 5 11:50 AM EST 03/15/20 25 Active omega-3 (Fish Oil) 1000 MG capsule Take 1 capsule (1,000 mg) by mouth Once per day. 90 capsule 3 03/30/20 25 Active amitriptyline (Elavil) 10 MG tabletIndicatio ns:Pain TAKE 2 TABLETS BY MOUTH EVERY DAY AT BEDTIME 180 tablet 1 5 11:05 AM EST 05/18/20 25 Active butalbital-acet aminophen-caffe ine 50-325-40 MG tablet TAKE 1 TABLET BY MOUTH ONCE DAILY NEEDED FOR HEADACHE 20 tablet 1 5 11:50 AM EST 06/07/20 25 Active dicyclomine (Bentyl) 10 MG capsule TAKE 1 CAPSULE BY MOUTH THREE TIMES DAILY NEEDED FOR ABDOMINAL PAIN 30 capsule 1 05/14/20 23 025 Discontinued(Th erapy completed) fluticasone (Flonase) 50 MCG/ACT nasal spray USE 2 SPRAYS IN EACH NOSTRIL EVERY DAY 48 g 10/16/19 24 025 Discontinued(Th erapy completed) loratadine (Claritin) 10 MG tabletIndicatio ns:Seasonal allergic rhinitis, unspecified trigger TAKE 1 TABLET BY MOUTH EVERY DAY 90 tablet 04/30/20 24 025 Discontinued(Th erapy completed) butalbital-acet aminophen-caffe ine 50-325-40 MG tablet TAKE 1 TABLET BY MOUTH EVERY DAY NEEDED FOR HEADACHE 20 tablet 1 5 11:05 AM EST 11/06/19 25 025 Discontinued Active Problems Problem Noted [...] Encounters Date Type Department Care Team Description 06/21/2025 Orders Only GENERIC EXTERNAL DATA DEPARTMENT Provider, Generic External Data 06/15/2025 Refill [facility] [address] [place] [address] Sabina Cervantes DO Bloating 06/07/2025 10:00 AM EST Office Visit [facility] [address] [place] [address] Mckenna Vásquez FNP Influenza B 06/07/2025 Travel 06/06/2025 Refill [facility] [address] [place] [address] Sabina Cervantes DO 05/25/2025 Orders Only [facility] External Provider, [facility] 05/17/2025 Refill [facility] [address] [place] [address] Sabina Cervantes DO Pain 05/14/2025 3:30 PM EST Office Visit [facility] [address] [place] [address] Dallas, Nimisha, OD Primary open angle glaucoma of both eyes, unspecified glaucoma stage (Primary Dx); Sebaceous cyst of left upper eyelid; Early cataracts, bilateral; Presbyopia of both eyes 05/14/2025 Travel 04/28/2025 Patient Outreach [facility] [address] [place] [address] Sabina Cervantes DO Care Coordination (C3CM/CHW Espinoza Khanna f/u, program graduation ) 04/08/2025 Orders Only [facility] External Provider, [facility] 04/08/2025 Patient Outreach [address] [address] Sabina Cervantes DO Care Coordination (C3/espinoza Rae f/u, program graduation ) 03/31/[address] [address] Sabina Cervantes DO telephone call 03/30/[address] [address] Sabina Cervantes DO 03/29/2025 Orders Only GENERIC EXTERNAL DATA DEPARTMENT Provider, Generic External Data 03/25/2025 Patient Outreach [address] [address] Sabina Cervantes DO Care Coordination ([facility]/Kayode Piresoh f/u call) from Last 3 Months Immunizations Immunization Administration [...] Sign Reading Time Taken Comments Blood Pressure 138/76 06/07/2025 9:38 AM EST Pulse 80 06/07/2025 9:38 AM EST Temperature 36.6 C (97.8 F) 06/07/2025 9:38 AM EST Respiratory Rate 20 06/07/2025 9:38 AM EST Oxygen Saturation 97% 06/07/2025 9:38 AM EST Inhaled Oxygen Concentration - - Weight 71.2 kg (157 lb) 06/07/2025 9:38 AM EST Height 160 cm (5' 3 ) 06/07/2025 9:38 AM EST Body Mass Index 27.81 06/07/2025 9:38 AM EST Plan of Treatment Upcoming Encounters Date Type Department Care Team (Late st Contact Info) Description 07/07/2025 10:00 AM EST Office Visit [facility] [address] [place] [address] Sabina Cervantes DO [address] [place] [address] 08/11/2025 8:45 AM EST Office Visit [facility] [address] [place] [address] Inna Fischer [address] [place] [address] Health Maintenance Due Date Last Done Comments [...] 2025 , 03/20/2021, 04/21/2020, Additional history exists Depression Monitoring 09/12/2025 03/15/2025, 025 Alcohol/Substance Use Screening 10/23/2025 10/23/2024 Disability Screening 10/23/2025 10/23/2024 SDOH Screening 03/08/2026 03/08/2025 Diabetes: Hemoglobin A1C 03/29/2026 025, 05/01/2024, 09/23/2023, Additional history exists Mammogram 05/25/2026 05/25/2025, 05/01, 05/13/2023, Additional history exists Tobacco Screening 06/07/2026 06/07/2025 Dental X-Ray: Full Mouth 10/04/2027 025, 01/14/2023, [...] Procedure Name Priority Date/Time Associated Diagnosis Comments XR CHEST 2 VIEWS Routine 06/21/2025 8:29 PM EST SARS COV2/INFLUENZA A/B AND RSV RNA QL NAAT Routine 06/21/2025 7:38 PM EST STREP A NUCLEIC ACID Routine 06/21/2025 7:38 PM EST POCT COVID-19 AG INGRAM ID NOW Routine 06/07/2025 9:59 AM EST Influenza B POCT INFLUENZA B (ID NOW RAPID MOLECULAR) Routine 06/07/2025 9:59 AM EST Influenza B POCT INFLUENZA A (ID NOW RAPID MOLECULAR) Routine 06/07/2025 9:59 AM EST Influenza B BI MAMMOGRAM SCREENING TOMOSYNTHESIS BILATERAL Routine 05/25/2025 12:[address] LUNG SCREENING Routine 04/09/2025 8:5 8 [...] Bereavement Healthcare maintenance Dietary counseling Exercise counseling HPV DNA, LOW/HIGH RISK Routine 8:13 AM EDT PAP SMEAR Routine 03/17/2025 8:13 AM EDT PANORAMIC RADIOGRAPHIC IMAGE Routine 10/02/2024 11:00 AM EDT Full PROPHYLAXIS - ADULT Routine 09/24/2023 8:00 [...] Recently Relevant to Health Maintenance Results * XR Chest 2 Views (06/21/2025 8:29 PM EST) Anatomical Region Laterality Modality Chest Radiographic Loraine ging 06/21/2025 8:29 PM EST Narrative 06/21/2025 8:31 PM EST [address] [address] XRay Report Signed Patient: Lenora Leon I MR#: [id number] 6 : 1960 Acct:[id number] Age/Sex: 64 / F ADM Date: 06/21/25 Loc: HO.ED Attending Dr: Ordering Physician: Naveed Figueroa Date of Service: 06/21/25 Procedure(s): XR chest 2V Accession Number(s): [id number] cc: Naveed Figueroa; Sabina Cervantes DO Reason for Exam: Coughing. Pnuemonia? CLINICAL HISTORY: Coughing. Pnuemonia? 2 view chest x-ray. Comparison: CT chest 04/08/2025 Findings: No consolidation or effusion. Cardiac and mediastinal contours are stable. Bones unremarkable. Impression: 1. No acute pulmonary disease. This document has been electronically signed by: Raul Arriaza MD on 06/21/2025 20:29:22 Dictated By: Raul Arriaza MD Signed By: <Electronically signed by Raul Arriaza MD in OV> 06/21/252029 DD/ 28 TD/TT: 06/21/252028 Research Professor Of Biostatistics: Procedure Note Donotuseinterpreter, Image - 06/21/[address] [address] XRay Report Signed Patient: Lenora Leon IMR#: [id number] 6 : 1960cct:[id number] Age/Sex: 64 / FADM Date: 06/21/25 Loc: HO.ED Attending Dr: Ordering Physician: Naveed Figueroa Date of Service: 06/21/25 Procedure(s): XR chest 2V Accession Number(s): [id number] cc: Naveed Figueroa; Sabina Cervantes DO Reason for Exam: Coughing. Pnuemonia? CLINICAL HISTORY: Coughing. Pnuemonia? 2 view chest x-ray. Comparison: CT chest 04/08/2025 Findings: No consolidation or effusion. Cardiac and mediastinal contours are stable. Bones unremarkable. Impression: 1. No acute pulmonary disease. This document has been electronically signed by: Raul Arriaza MD on 06/21/2025 20:29:22 Dictated By: Raul Arriaza MD Signed By: <Electronically signed by Raul Arriaza MD in OV> 06/21/252029 DD/ 28 TD/TT: 06/21/252028 Research Professor Of Biostatistics: [facility] External Provider IMG XR PROCEDURES Final Result * Strep A Nucleic Acid (06/21/2025 7:38 PM EST) IDNOW SERIAL# [id number] [facility] Strep A Nucleic Acid Negative Negative [facility] Comment:All test results mus t be correlated with clinical findings.This test has not been evaluated for monitoring treatment ofinfection.Additional follow-up testing using the culture method isrequired if the result is negative and clinical symptomspersist, or in the event of an acute rheumatic feveroutbreak. 06/21/2025 7:38 PM EST 06/21/2025 7:44 PM EST Generic External Data Provider LAB MICROBIOLOGY - GENERAL ORDERABLES Final Result [facility] [address] [place] [phone] * (ABNORMAL) SARS-CoV-2 RNA, Influenza A/B, and RSV RNA, Ql NAAT (06/21/2025 7:38 PM EST) Influenza A PCR POSITIVE(A) Negative [facility] Influenza B PCR NEGATIVE Negative [facility] Resp Syncy Virus RNA Qual PCR NEGATIVE Negative [facility] SARS COV2 PCR NEGATIVE Negative [facility] Comment:All test results mus t be correlated with clinical findings.Negative results do not preclude SARS-CoV2, influenza Avirus, influenza B virus and/or RSV infectionand should not be used as the sole basis for treatment orother patient management decisions. Negative results must becombined with clinical observations, patient history, andepidemiological information.This test has not been evaluated for monitoring treatment ofinfection.This test has been authorized by the FDA under an EmergencyUse Authorization (EUA) for use by authorized laboratories.Testing performed on the [employer] GeneXpert utilizingreal-time RT-PCR.All SARS CoV2 and positive influenza A/B results arereported to [facility]. 06/21/2025 7:38 PM EST 06/21/2025 7:44 PM EST us Generic External Data Provider LAB MICROBIOLOGY - GENERAL ORDERABLES Final Result Performing Organization Address [facility] de Phone Number [facility] [address] [place] [phone] * (ABNORMAL) Influenza B (ID NOW Rapid Molecular) (06/07/2025 9:59 AM EST) Influenza B Positive( A) Negative, Indeterminate [facility] Swab 06/07/2025 9:59 AM EST Mckenna Riannao [employer] MEMBER POINT OF CARE TEST ENTER/EDIT ORDERABLES Final Result Performing Organization Address [facility] de Phone Number [facility] [address] [place] [phone] * Influenza A (ID NOW Rapid Molecular) (06/07/2025 9:59 AM EST) Influenza A Negative Negative, Indeterminate [facility] Swab 06/07/2025 9:59 AM EST us Mckenna Okhipo [employer] MEMBER POINT OF CARE TEST ENTER/EDIT ORDERABLES Final Result Performing Organization Address [facility] [employer] de Phone Number [facility] [address] [place] [phone] * POCT COVID-19 Ag Ingram ID NOW (06/07/2025 9:59 AM EST) Coronavirus Antigen PCR Negative Negative, Indeterminate, None Detected, Trace, 3+, Specimen unsatisfactory for evaluation, Weakly Positive, 1+, 2+ Swab 06/07/2025 9:59 AM EST Mckenna Vásquez [employer] MEMBER POINT OF CARE TEST ENTER/EDIT ORDERABLES Final Result * BI Mammogram Screening Tomosynthesis Bilateral (05/25/2025 12:03 PM EST) Anatomical Region Laterality Modality Breast Bilateral Mammography 05/25/2025 12:0 3 PM EST Narrative 06/08/2025 6:54 AM EST [facility] [place] [address] Mammography Report Signed Patient: Lenora Leon I MR#: [id number] 6 : 1960 Acct:[id number] Age/Sex: 64 / F ADM Date: 05/25/25 Loc: MAMMO Attending Dr: Sabina Cervantes DO Ordering Physician: Maurisio Good MD Results: 2Benign Date of Service: 05/25/25 Follow Up: 1 Year From [facility] Mammogram Procedure(s): MM tomosynthesis screening BI Accession Number(s): [id number] cc: Sabina Cervantes DO; Maurisio Good MD Reason For Exam: Z12.31 - Encounter for screening mammogram for malignant neoplasm of breast EXAMINATION: MM SCREENING DIGITAL BREAST TOMOSYNTHESIS, BILATERAL CLINICAL INFORMATION: Screening. Asymptomatic. Ultrasound-guided needle core biopsy of the left breast on August 16, 2020 (Hydromark Open coil shape clip placed); pathology showed benign breast tissue with columnar cell change and apocrine metaplasia. COMPARISON: Comparison made to multiple prior, most recent right diagnostic mammogram on May 13, 2023, and most remote July 24, 2019. Due to technical issues, the images of the most recent screening mammogram from May 19, 2024 are not available for review. TECHNIQUE: Digital breast tomosynthesis is performed in mediolateral oblique and craniocaudal views along with computer-aided detection (CAD). Synthesized 2D images are generated from the tomosynthesis. FINDINGS: BREAST COMPOSITION: The breasts are heterogeneously dense, which may obscure small masses. RIGHT BREAST: No significant masses, suspicious calcifications or other abnormalities are seen. LEFT BREAST: Tissue marker from previous needle core biopsy. No significant masses, suspicious calcifications or other abnormalities are seen. MM/MM tomosynthesis screening BI IMPRESSION: BILATERAL BREASTS: Benign, no mammographic evidence of malignancy. Normal interval follow-up is recommended in 12 months. ASSESSMENT: BI-RADS: Category 2: Benign RECOMMENDATION: Routine annual mammography screening. FOLLOW-UP: 1 year F/U This examination should not preclude the clinical evaluation of a suspicious palpable abnormality. This patient's information was entered into a reminder system with a target due date for their next mammogram. Electronically signed by: Leonides Cook MD 06/08/2025 06:51 AM EST Dictated By: Leonides Cook MD Signed By: <Electronically signed by Leonides Cook MD in OV> 06/08/25 0651 DD/ 1203 TD/TT: 05/25/25 1212 Research Professor Of Biostatistics: Procedure Note Donotuseinterpreter, Image - 06/08/[facility] [address] [place], [place] [address] Mammography Report Signed Patient: Lenora Leon IMR#: [id number] 6 : 1960cct:[id number] Age/Sex: 64 / FADM Date: 05/25/25 Loc: MAMMO Attending Dr: Sabina Cervantes DO Ordering Physician: Maurisio Good MDResults: 2Benign Date of Service: 05/25/25Follow Up: 1 Year From Orig inal Mammogram Procedure(s): MM tomosynthesis screening BI Accession Number(s): [id number] cc: Sabina Cervantes DO; Maurisio Good MD Reason For Exam: Z12.31 - Encounter for screening mammogram for malignantneoplasm of breast EXAMINATION: MM SCREENING DIGITAL BREAST TOMOSYNTHESIS, BILATERAL CLINICAL INFORMATION: Screening. Asymptomatic. Ultrasound-guided needle core biopsy of the left breast on August 16, 2020 (Hydromark Open coil shape clip placed); pathology showed benign breast tissue with columnar cell change and apocrine metaplasia. COMPARISON: Comparison made to multiple prior, most recent right diagnostic mammogram on May 13, 2023, and most remote July 24, 2019. Due to technical issues, the images of the most recent screening mammogram from May 19, 2024 are not available for review. TECHNIQUE: Digital breast tomosynthesis is performed in mediolateral oblique and craniocaudal views along with computer-aided detection (CAD). Synthesized 2D images are generated from the tomosynthesis. FINDINGS: BREAST COMPOSITION: The breasts are heterogeneously dense, which may obscure small masses. RIGHT BREAST: No significant masses, suspicious calcifications or other abnormalities are seen. LEFT BREAST: Tissue marker from previous needle core biopsy. No significant masses, suspicious calcifications or other abnormalities are seen. MM/MM tomosynthesis screening BI IMPRESSION: BILATERAL BREASTS: Benign, no mammographic evidence of malignancy. Normal interval follow-up is recommended in 12 months. ASSESSMENT: BI-RADS: Category 2: Benign RECOMMENDATION: Routine annual mammography screening. FOLLOW-UP: 1 year F/U This examination should not preclude the clinical evaluation of a suspicious palpable abnormality. This patient's information was entered into a reminder system with a target due date for their next mammogram. Electronically signed by: Leonides Cook MD 06/08/2025 06:51 AM [facility] Dictated By: Leonides Cook MD Signed By: <Electronically signed by Leonides Cook MD in OV> 06/08/25 0651 DD/ 1203 TD/TT: 05/25/25 1212 Research Professor Of Biostatistics: [facility] External Provider IMG BI PROCEDURES Final Result * CT Lung Screening Low dose (04/09/2025 8:58 AM EDT) Anatomical Region Laterality Modality Lung Computed Tomogra phy 04/09/2025 8:58 AM EDT Narrative 04/09/2025 9:00 AM EDT [address] [address] [address] Scan Report Signed Patient: Lenora Leon I MR#: [id number] 6 : 1960 Acct:[id number] Age/Sex: 64 / F ADM Date: 04/08/25 Loc: HO.CT Attending Dr: Jeannette Black PA-C Ordering Physician: Jeannette Black PA-C Date of Service: 04/08/25 Procedure(s): CT lung screen follow up Accession Number(s): [id number] cc: Sabina Cervantes DO; Jeannette Black PA-C Report Number: [id number]: Total DLP = 43.00 mGy-cm Reason for [...] in OV> 04/09/25899 DD/ 7 TD/TT: 04/09/25857 Research Professor Of Biostatistics: Procedure Note Donotuseinterpreter, Image - 04/09/[address] [address] [address] Scan Report Signed Patient: Lenora Leon IMR#: [id number] 6 : 1960cct:[id number] Age/Sex: 64 / FADM Date: 04/08/25 Loc: HO.CT Attending Dr: Jeannette Black PA-C Ordering Physician: Jeannette Black PA-C Date of Service: 04/08/25 Procedure(s): CT lung screen follow up Accession Number(s): [id number] cc: Sabina Cervantes DO; Jeannette Black PA-C Report Number: [id number]: Total DLP = 43.00 mGy-cm Reason for [...] in OV> 04/09/25899 DD/ 7 TD/TT: 04/09/25857 Research Professor Of Biostatistics: us [facility] External Provider IMG CT PROCEDURES Final Result * Vitamin D, 25-Hydroxy, Total, Immunoassay (03/29/2025 8:03 AM EDT) Vitamin D 25-OH Total 43.7 >30 ng/mL [facility] Comment: Health Based Reference Values*< 20 ng/mL Awlbujnoq14-27 ng/mL Insufficient> 30 ng/mL Sufficient*Maribel VANESSA. N [...] DO LAB BLOOD ORDERABLES Final R esult [facility] [address] [place] [phone] * Alpha-Fetoprotein, Tumor Marker (03/29/2025 8:03 AM EDT) Alpha Fetoprotein 3.8 ng/mL [facility] Comment:Reference Range: <6. 1The use of AFP as a tumor marker in females is not recommended.This test was performed using the Sunitha Coulterchemiluminescent method. Values obtained fromdifferent assay methods cannot be usedinterchangeably. AFP levels, regardless ofvalue, should not be interpreted as absoluteevidence of the presence or absence of disease.THIS TEST WAS PERFORMED AT:[facility] [place] [id number] OCONNOR MD Blood Venous blood specimen / Unknown 03/29/2025 8:03 AM EDT 03/29/2025 8:03 AM EDT Sabina Fordjonagold DO LAB BLOOD ORDERABLES Final R esult Performing Organization Address City/[facility]/ZIP Co de Phone Number [facility] [address] [place] [phone] * TSH (03/29/2025 8:03 AM EDT) Thyroid Stimulating Hormone 0.91 0.32 - 4.0 uIU/mL [facility] Comment:TSH 3rd Generation ( [facility]) Blood Venous blood specimen / Unknown 03/29/2025 8:03 AM EDT 03/29/2025 8:03 AM EDT Sabina Fordjonagold DO LAB BLOOD ORDERABLES Final R esult Performing Organization Address [facility] [employer] de Phone Number [facility] [address] [place] [phone] * T4, Free (03/29/2025 8:03 AM EDT) Free T4 (Free Thyroxine) 1.30 0.71 - 1.85 ng/dL [facility] Blood Venous blood specimen / Unknown 03/29/2025 8:03 AM EDT 03/29/2025 8:03 AM EDT Sabina Fordjonagold DO LAB BLOOD ORDERABLES Final R esult Performing Organization Address City/[facility]/ZIP Co de Phone Number [facility] [address] [place] [phone] * (ABNORMAL) Hemoglobin A1c (03/29/2025 8:03 AM EDT) Hemoglobin A1c 6.2(H) <6.0 % [facility] Comment:Hemoglobin A1C Refer ence Range Adults: 4.8 - 6.0 % Non diabetic: < 6.0 % Goal: < 7.0 %Additional Action Suggested: > 8.0 %Note: Hemoglobin A1c results are invalid for patients with abnormal amounts of HbF. Blood transfusions may impact the HbA1c concentration in the patient sample. Estimated Average Glucose 131 mg/dL [facility] Comment:eAG = Estimated ave rage glucose which is %A1C expressed asaverage glucose, using the formula of the I8A-WafgwmpMynkfwl Glucose study (ADAG), Diabetes Care, Vol.31,#8,2007 Blood Venous blood specimen / Unknown 03/29/2025 8:03 AM EDT 03/29/2025 8:03 AM EDT us Sabina Cervantes DO LAB BLOOD ORDERABLES Final R esult [facility] [address] [place] [phone] * Hepatic Function Panel (03/29/2025 8:03 AM EDT) Bilirubin, Total 0.4 0.0 - 1.0 mg/dL [facility] Bilirubin, Direct 0.2 0.0 - 0.5 mg/dL [facility] Aspartate Amino Transferase 19 5 - 31 U/L [facility] Alanine Aminotransferase 20 0 - 31 U/L [facility] Total Protein 7.1 6.5 - 8.0 g/dL [facility] Albumin Level 4.4 3.5 - 5.0 g/dL [facility] Alkaline Phosphatase 67 39 - 117 U/L [facility] Blood Venous blood specimen / Unknown 03/29/2025 8:03 AM EDT 03/29/2025 8:03 AM EDT us Sabina Cervantes DO LAB BLOOD ORDERABLES Final R esult Performing Organization Address City/[facility]/ZIP Co de Phone Number [facility] [address] [place] [address] [phone] * (ABNORMAL) Lipid Panel, Standard (03/29/2025 8:03 AM EDT) Triglycerides 216(H) <150 mg/dL [facility] Comment:Desirable Triglyceri de: less than 150 mg/dLBorderline High Triglyceride 150-199 mg/dLHigh Triglyceride: 200-499 mg/dLVery High Triglyceride: greater than or equal to 5OO mg/dL Cholesterol 151 <200 mg/dL [facility] Comment:Desirable Cholestero l: less than 200 mg/dLBorderline High Cholesterol: 200-239 mg/dLHigh Cholesterol: greater than 239 mg/dL LDL Cholesterol Calculated 68 <100 mg/dL [facility] Comment:Desirable LDL: less than 100 mg/dLNear Optimal/Above Optimal LDL: 110- 129 mg/dLBorderline High LDL: 130-159 mg/dLHigh LDL: 160-189 mg/dLVery High LDL: greater than or equal to 190 mg/dL HDL Cholesterol 40(L) >40 mg/dL [facility] Comment:Desirable HDL: great er than 40 mg/dL Note: This HDL assay may give artificially low results in patients with liver disease. Blood Venous blood specimen / Unknown 03/29/2025 8:03 AM EDT 03/29/2025 8:03 AM EDT us Sabina Cervantes DO LAB BLOOD ORDERABLES Final R esult [facility] [address] [place], [place] [phone] * Basic Metabolic Panel (03/29/2025 8:03 AM EDT) Sodium 142 135 - 145 mmol/L [facility] Potassium 3.8 3.3 - 5.1 mmol/L [facility] Chloride 107 96 - 108 mmol/L [facility] Carbon Dioxide 27 22 - 29 mmol/L [facility] Anion Gap 12 12 - 20 [facility] Urea Nitrogen (BUN) 14 9 - 16 mg/dL [facility] Creatinine, Serum 0.62 0.5 - 1.4 mg/dL [facility] Estimated Glomerular Filt Rate >60 [facility] Comment:Chronic Kidney Disea se: Estimated GFR < 60 mL/min/1.15v3Ogropw Kidney Disease: Estimated GFR < 15 mL/min/1.73m2 Glucose 84 60 - 115 mg/dL [facility] Calcium 9.8 8.4 - 10.2 mg/dL [facility] Blood Venous blood specimen / Unknown 03/29/2025 8:03 AM EDT 03/29/2025 8:03 AM EDT us Sabina Cervantes DO LAB BLOOD ORDERABLES Final R esult Performing Organization Address [facility]/[employer] de Phone Number [facility] [address] [place] [address] [phone] * (ABNORMAL) Protein Creatinine Ratio, Urine (03/29/2025 7:58 AM EDT) Creatinine, Urine 33.79 mg/dL [facility] Protein, Total, Random Urine 19(H) <12 mg/dL [facility] Protein/Creati nine Ratio, Ur 0.56(H) <0.2 [facility] Comment:The spot urine prote in:creatinine ratio may increase to 0.3during normal . 03/29/2025 7:58 AM EDT 03/29/2025 9:02 AM EDT us Generic External Data Provider LAB URINE ORDERAB LES Final Result Performing Organization Address [facility] [employer] de Phone Number [facility] [address] [place] [address] [phone] * CBC (03/29/2025 7:55 AM EDT) White Blood Count 8.6 4.8 - 10.8 X10*3/uL [facility] Red Blood Count 4.63 4.20 - 5.50 X10*6/uL [facility] Hemoglobin 13.8 12.0 - 16.0 g/dl [facility] Hematocrit 41.0 37.0 - 47.0 % [facility] Mean Corpuscular Volume 88.6 80.0 - 98.0 fL [facility] Mean Corpuscular Hemoglobin 29.8 27.0 - 33.0 pg [facility] Mean Corpuscular HGB Conc 33.7 31.0 - 35.0 g/dl [facility] Red Cell Distribution Width 13.2 11.0 - 16.0 % [facility] Platelet Count 298 160 - 400 X10*3/uL [facility] Mean Platelet Volume 10.2 9.4 - 12.3 fL [facility] NRBC Pct Auto 0.0 0.0 - 0.2 /100WBC [facility] NRBC Abs Auto 0.000 0.0 - 0.012 X10*3/uL [facility] Blood Venous blood specimen / Unknown 03/29/2025 7:55 AM EDT 03/29/2025 9:11 AM EDT us Sabina Cervantes DO LAB BLOOD ORDERABLES Final R esult [facility] [address] [place] [phone] [phone] * HPV DNA, Low/High Risk (03/17/2025 8:13 AM EDT) HPV High Risk Negative Negative [facility] HPV Genotype 16 Negative Negative [facility] HPV Genotype 18 Negative Negative [facility] Comment:HPV testing performe d at [facility] (CLIA#[id number]), [address] [place] [address].Testing for HPV was performed using the Aron [...] Provider LAB BLOOD ORDERAB LES Final Result [facility] [address] [place] [phone] * Pap Smear (03/17/2025 8:13 AM EDT) 03/17/2025 8:13 AM EDT 03/18/2025 7:46 AM EDT Narrative [facility] - 03/22/2025 9:26 AM EDT ----- ------- Name: Lenora Leon Benitez Age/Sex: 64/F [facility] 1960 [id number]#: [id number] Attend Dr: Maurisio Good MD Re03/17/25 Status: DEP REF Location: [facility] Disch: ----- ------- SPEC : [id number] RECD: 03/18/25 STATUS: KYRIE REYNOLDS NUM: [id number] RENÉ: 03/17/[address]: Maurisio Good MD ENTERED: 03/18/25 SP TYPE: Pap [facility] DR: Sabina Cervantes DO ORDERED: Pap Smear [...] and HPV testing will be performed at [facility] (CLIA #[id number]), [address] [place] [address]. Testing for HPV was performed using the [employer] system. The presence of HPV in the [...] detected. All professional services are performed by [facility] ([address] [place] [address]; ; CLIA #[id number]). The PAP Test is a screening procedure with the inherent possibility of both false negative and false positive results. Results should be interpreted in the context of historic and current clinical findings. Reliability of the PAP Test is enhanced by performing the test on a regular repetitive basis. CONTINUED ON NEXT PAGE ----- ------- Name: Lenora Leon Benitez Age/Sex: 64/F : 1960 Unit#: [id number] Attend Dr: Maurisio Good MD Re03/17/25 Status: DEP REF Location: HO.LNP Disch: ----- ------- SPEC : [id number] RECD: 03/18/25 STATUS: KYRIE REYNOLDS NUM: [id number] RENÉ: 03/17/[address] [facility] [address]: Maurisio Good MD ENTERED: 03/18/25 SP TYPE: Pap Smr OTHR DR: Sabina Cervantes DO ORDERED: Pap Smear Copies To: Sabina Cervantse DO [address] [address] Maurisio Good MD [facility] [address] [place] [address] [place] [phone] ----- ------- Signed (signature on file) BG Tucker ([facility]) 03/22/25 0926 ----- ------- END OF REPORT us Generic External Data Provider LAB CYTOLOGY MANOJ SPARROW Final Result [facility] [address] [place], [place] [phone] * HEPATITIS C AB W/REFL TO HCV RNA, QN, PCR (01/29/2020 10:04 AM EDT) HEPATITIS C ANTIBODY NON-REACT ALICIA NON-REACT ALICIA [facility] INDEX 0.01 <1.00 [facility] Comment: HCV antibody was non-reactive. There is no laboratory evidence of HCV infection. In most cases, no further action is required. However, if recent HCV exposure is suspected, a test for HCV RNA (test code 14733) is suggested. For additional information please refer to http://[employer]/faq/UQK80i5 (This link is being provided for informational/ educational purposes only.) HEPATITIS C ANTIBODY NON-REACT ALICIA NON-REACT ALICIA [facility] INDEX 0.01 <1.00 [facility] Comment: HCV antibody was non-reactive. There is no laboratory evidence of HCV infection. In most cases, no further action is required. However, if recent HCV exposure is suspected, a test for HCV RNA (test code 45563) is suggested. For additional information please refer to http://[employer]/faq/VTI20h8 (This link is being provided for informational/ educational purposes only.) HEPATITIS C ANTIBODY NON-REACT ALICIA NON-REACT ALICIA [facility] INDEX 0.01 <1.00 [facility] Comment: HCV antibody was non-reactive. There is no laboratory evidence of HCV infection. In most cases, no further action is required. However, if recent HCV exposure is suspected, a test for HCV RNA (test code 51446) is suggested. For additional information please refer to http://[employer]/faq/JSX46b5 (This link is being provided for informational/ educational purposes only.) HEPATITIS C ANTIBODY NON-REACT ALICIA NON-REACT ALICIA [facility] INDEX 0.01 <1.00 [facility] Comment: HCV antibody was non-reactive. There is no laboratory evidence of HCV infection. In most cases, no further action is required. However, if recent HCV exposure is suspected, a test for HCV RNA (test code 72817) is suggested. For additional information please refer to http://[employer]/faq/SOK94p2 (This link is being provided for informational/ educational purposes only.) 01/29/2020 10:0 4 AM EDT Sabina Cervantes DO HISTORICAL/NON ORDERABLE LAB S Final Result [facility] [address] [place] [address], * HIV 1/2 ANTIGEN/ANTIBODY,FOURTH GENERATION W/RFL (01/29/2020 10:04 AM EDT) HIV-1/2 ANTIGEN AND ANTIBODIES, 4TH GENERATION W/ REFLEX NON-REACT ALICIA NON-REACT ALICIA [facility] Comment: HIV-1 antigen and HIV-1/HIV-2 [...] purpose. For additional information please refer to http://[employer]/faq/XEI914 (This link is being provided for informational/ educational purposes only.) The performance of this assay has not been clinically validated in patients less than 2 years old. HIV-1/2 ANTIGEN AND ANTIBODIES, 4TH GENERATION W/ REFLEX NON-REACT ALICIA NON-REACT ALICIA [facility] Comment: HIV-1 antigen and HIV-1/HIV-2 [...] purpose. For additional information please refer to http://[employer]/faq/MIK666 (This link is being provided for informational/ educational purposes only.) The performance of this assay has not been clinically validated in patients less than 2 years old. HIV-1/2 ANTIGEN AND ANTIBODIES, 4TH GENERATION W/ REFLEX NON-REACT ALICIA NON-REACT ALICIA [facility] Comment: HIV-1 antigen and HIV-1/HIV-2 [...] purpose. For additional information please refer to http://[employer]/faq/GBG936 (This link is being provided for informational/ educational purposes only.) The performance of this assay has not been clinically validated in patients less than 2 years old. 01/29/2020 10:0 4 AM EDT Sabina Cervantes DO LAB BLOOD ORDERABLES Final R esult [facility] [address] * Hm Colonoscopy (07/25/2018 10:20 AM EST) Historical Provider HEALTH MAINTENANCE Final Result from Last 3 Months or Most Recently Relevant to Health Maintenance Insurance [facility] C3 DENTAL-[facility] MEDICAID STAND ADULT Care Teams Leaflet Distributor Relationship Specialty Start Date End Date Sabina Cervantes DO [address] [facility] [place] [address] PCP - General Family Medicine 06/13/12
--- OUTSIDE RECORDS SUMMARY | 2025-06-21 20:46 | XMS_ITS | Encounter Summary ---
Author Organization [employer] Address [address] [facility] [address] [place] [address] Care Team Providers Care Assistant Director Of Financial Aid Name Role Phone Sabina Cervantes DO Primary Care Provider + [phone] Encounter Details Date Type Department Care Team ([facility] st Contact Info) Description 06/21/2025 Orders Only GENERIC EXTERNAL DATA [...] Description 07/07/2025 10:00 AM EST Office Visit [facility] MEDICINE [address] [place] [address] Sabina Cervantes DO [address] [place] [address] 08/11/2025 8:45 AM EST Office Visit [facility] ADULT DENTAL [address] [place] [address] Inna Fischer [address] [place] [address] documented as of this encounter Procedures Procedure Name Priority Date/Time Associated Diagnosis Comments XR CHEST 2 VIEWS Routine 06/21/2025 8:29 PM EST STREP A NUCLEIC ACID Routine 06/21/2025 7:38 PM EST SARS COV2/INFLUENZA A/B AND RSV RNA QL NAAT Routine 06/21/2025 7:38 PM EST documented in this encounter Results * XR Chest 2 Views (06/21/2025 8:29 PM EST) Anatomical Region Laterality Modality Chest Radiographic Loraine ging 06/21/2025 8:29 PM EST Narrative 06/21/2025 8:31 PM EST [address] [address] XRay Report Signed Patient: Lenora Leon I MR#: [id number] 6 : 1960 Acct:[id number] Age/Sex: 64 / F ADM Date: 06/21/25 Loc: .ED Attending Dr: Ordering Physician: Naveed Figueroa Date of Service: 06/21/25 Procedure(s): XR chest 2V Accession Number(s): [id number] cc: Naveed Figueroa; Sabina Cervantes DO Reason [...] in OV> 06/21/252029 DD/ 28 TD/TT: 06/21/252028 [employer]: Procedure Note Donotuseinterpreter, Image - 06/21/[address] [address] XRay Report Signed Patient: Lenora Leon IMR#: [id number] 6 : 1960cct:[id number] Age/Sex: 64 / FADM Date: 06/21/25 Loc: .ED Attending Dr: Ordering Physician: Naveed Figueroa Date of Service: 06/21/25 Procedure(s): XR chest 2V Accession Number(s): [id number] cc: Naveed Figueroa; Sabina Cervantes DO Reason [...] in OV> 06/21/252029 DD/ 28 TD/TT: 06/21/252028 Security Chief Museum: [facility] External Provider IMG XR PROCEDURES Final Result * (ABNORMAL) SARS-CoV-2 RNA, Influenza A/B, and RSV RNA, Ql NAAT (06/21/2025 7:38 PM EST) Influenza A PCR POSITIVE(A) Negative [facility] Influenza B PCR NEGATIVE Negative [facility] Resp Syncy Virus RNA Qual PCR NEGATIVE Negative [facility] SARS COV2 PCR NEGATIVE Negative [facility] Comment:All test results mus t be [...] use by authorized laboratories.Testing performed on the [employer] GeneXpert utilizingreal-time RT-PCR.All SARS CoV2 and positive influenza A/B results arereported to [facility]. 06/21/2025 7:38 PM EST 06/21/2025 7:44 PM EST Generic External Data Provider LAB MICROBIOLOGY - GENERAL ORDERABLES Final Result [facility] [address] [place] [phone] * Strep A Nucleic Acid (06/21/2025 7:38 PM EST) IDNOW SERIAL# [id number] [facility] Strep A Nucleic Acid Negative Negative [facility] Comment:All test results mus t [...] LAB MICROBIOLOGY - GENERAL ORDERABLES Final Result [facility] [address] [place] [address] [phone] documented in this encounter Visit Diagnoses Not on filedocumented in this encounter Additional Health Concerns Assessment Noted Time PHQ-9 Depression Total Score: 12 03/15/ 025 8:59 AM EDT documented as of this encounter Care Teams Assistant Director Of Financial Aid Relationship Specialty Start Date End Date Sabina Cervantes DO [address] [place] [address] PCP - General Family Medicine 06/13/12 documented as of this encounter
--- OUTSIDE RECORDS SUMMARY | 2025-06-21 20:46 | XMS_ITS | Encounter Summary ---
Author Organization [employer] Address [address] [facility] 7[address] [place] [address] Care Team Providers Care Motorcycle Delivery Driver Name Role Phone Sabina Cervantes DO Primary Care Provider + [phone] Reason for Visit * Reason Comments Med Refill Encounter Details Date Type Department Care Team ([facility] st Contact Info) Description 06/15/2025 Refill [facility] MEDICINE [address] [place] [address] Sabina Cervantes DO [address] [place] [address] Bloating Social History Tobacco Use Types Packs/Day Years [...] with others, in a hotel, in a chcf, living outside on the street, on a [...] Description 07/07/2025 10:00 AM EST Office Visit [facility] MEDICINE [address] [place] [address] Sabina Cervantes DO [address] [place] [address] 08/11/2025 8:45 AM EST Office Visit [facility] ADULT DENTAL [address] [place] [address] Amado Inna [address] [place] [address] documented as of this encounter Visit Diagnoses Diagnosis Bloating Flatulence, eructation, and gas pain documented in this encounter Additional Health Concerns Assessment Noted Time PHQ-9 Depression Total Score: 12 025 8:59 AM EDT documented as of this encounter Care Teams Motorcycle Delivery Driver Relationship Specialty Start Date End Date Sabina Cervantes DO [address] [place] [address] PCP - General Family Medicine 06/13/12 documented as of this encounter
--- OUTSIDE RECORDS SUMMARY | 2025-06-21 20:46 | XMS_ITS | Encounter Summary ---
Author Organization [employer] Address [address] [facility] 7t [place] [address] Care Team Providers Care Insurance Healthcare Representative Name Role Phone Sabina Cervantes DO Primary Care Provider +- [phone] Mary Dean Unavailable Encounter Details Date Type Department Care Team (Late Contact Info) Description 04/05/2023 Abstract [facility] [address] [place] [address] Padma Kim Social History Tobacco Use Types [...] Department Care Team (Late Contact Info) Description 07/07/2025 10:00 AM EST Office Visit [facility] [address] [place] [address] Sabina Cervantes DO [address] [place] [address] 08/11/2025 8:45 AM EST Office Visit [facility] ADULT DENTAL [address] [place] [address] AmadoInna werner [address] [place] [address] documented as of this encounter Procedures Procedure Name Priority Date/Time Associated Diagnosis Comments PAP/HPV Routine 04/25/2020 documented in this encounter Results * Pap Smear (04/25/2020) Pap Negative for intraephithelial lesion or malignancy Negative for intraephithelial lesion or malignancy, Other us Historical Provider HEALTH MAINTENANCE Final Result documented in this encounter Visit Diagnoses Not on filedocumented in this encounter Additional Health Concerns Assessment Noted Time PHQ-9 Depression Total Score: 0 07/23/19 23 11:34 AM EST documented as of this encounter Care Teams Insurance Healthcare Representative Relationship Specialty Start Date End Date Sabina Cervantes DO [address] [place] [address] PCP - General Family Medicine 06/13/12 Mary Dean 03/09/25 04/28/25 documented as of this encounter
--- OUTSIDE RECORDS SUMMARY | 2025-06-21 20:46 | XMS_ITS | Encounter Summary ---
Author Organization [employer] Address [address] [facility] [address] [place] [address] Care Team Providers Care Header Setup Operator Name Role Phone Sabina Cervantes DO Primary Care Provider + [phone] Mary Dean Unavailable Reason for Visit * Reason Onset Date Comments Med Refill 09/13/2023 Encounter Details Date Type Department Care Team ([facility] st Contact Info) Description 09/13/2023 Telephone [facility] MEDICINE [address] [place] [address] Sabina Cervantes DO [address] [place], [place] [phone] Med Refill Social History Tobacco Use Types [...] from pt requesting med refill; Ibuprofen 600MG Nurseryperson don't see med on chart but pt stated she received constantly. [facility] - [place], [place] - [address] [facility] documented in this encounter Plan of Treatment Upcoming Encounters Date Type Department Care Team (Late st Contact Info) Description 07/07/2025 10:00 AM EST Office Visit [facility] MEDICINE [address] [place] [address] Sabina Cervantes DO [address] [place] [address] 08/11/2025 8:45 AM EST Office Visit [facility] ADULT DENTAL [address] [place] [address] Inna Fischer [address] [place] [address] documented as of this encounter Visit Diagnoses Not on filedocumented in this encounter Additional Health Concerns Assessment Noted Time PHQ-9 Depression Total Score: 0 07/23/19 23 11:34 AM EST documented as of this encounter Care Teams Header Setup Operator Relationship Specialty Start Date End Date Sabina Cervantes DO 230 [place] [address] PCP - General Family Medicine 06/13/12 Mary Dean 03/09/25 04/28/25 documented as of this encounter
--- OUTSIDE RECORDS SUMMARY | 2025-06-21 20:46 | XMS_ITS | Encounter Summary ---
Author Organization [employer] Address [address] [place] [address] [address]t [address] Floor [place] [phone] Care Team Providers Care Senior Contract Specialist Name Role Phone Sabina Cervantes DO Primary Care Provider +- [phone] Mary Dean Unavailable Reason for Visit * Reason Comments Med Refill Encounter Details Date Type Department Care Team (Late Contact Info) Description 10/05/2022 Refill [facility] MEDICINE [address] [place] [address] Anika Hernandez MD [address] [place] [address] Social History Tobacco Use Types Packs/Day Years [...] Description 07/07/2025 10:00 AM EST Office Visit [facility] MEDICINE [address] [place], [place] [phone] Sabina Cervantes DO [address] [place], [place] [phone] 08/11/2025 8:45 AM EST Office Visit [facility] ADULT DENTAL [address] [place], [place] [phone] Inna Fischer [address] [place], [place] [phone] documented as of this encounter Visit Diagnoses Not on filedocumented in this encounter Additional Health Concerns Assessment Noted Time PHQ-9 Depression Total Score: 0 07/23/19 11:34 AM EST documented as of this encounter Care Teams Senior Contract Specialist Relationship Specialty Start Date End Date Sabina Cervantes DO [address] [place], [place] [phone] PCP - General Family Medicine 06/13/12 Mary Dean 03/09/25 04/28/25 documented as of this encounter
--- OUTSIDE RECORDS SUMMARY | 2025-06-21 20:46 | XMS_ITS | Encounter Summary ---
Author Organization [employer] Address [address] [place] [address] Care Team Providers Care Supervisor Paint Name Role Phone Sabina Cervantes DO Primary Care Provider + [phone] Mary Dean Unavailable Encounter Details Date Type Department Care Team (Late st Contact Info) Description 10/08/2023 Orders Only [facility] [address] [place] [address] ProviderLizett MD Social History Tobacco Use Types [...] Description 07/07/2025 10:00 AM EST Office Visit [facility] [address] [place] [address] Sabina Cervantes DO [address] [place] [address] 08/11/2025 8:45 AM EST Office Visit [facility] [address] [place] [address] Inna Fischer [address] [place] [address] documented as of this encounter Procedures Procedure [...] as of this encounter Care Teams Supervisor Paint Relationship Specialty Start Date End Date Sabina Cervantes DO [address] [place] [address] PCP - General Family Medicine 06/13/12 Mary Dean 03/09/25 04/28/25 documented as of this encounter
--- NOTE | 2025-06-21 20:48 | PC.NURSE ---
Pt ambulatory to ED 3 for treatment, assumed care of pt at this time. A&Ox3, skin wn for ethnicity. Reports testing positive for Flu B 06/07/25. Began feeling sick again Saturday, tested positive for Flu A today. Fever, body aches, cough. Awaiting primary provider eval, aware of plan of care.
[2025-06-21 21:43] VITALS: BP 132/68; PULSE 80; RESP 19; TEMP 38; O2SAT 98
[2025-06-21 22:57] VITALS: BP 107/58; PULSE 74; RESP 19; TEMP 37.5; O2SAT 98
[2025-06-21 23:05] VITALS: BP 107/58; PULSE 74; RESP 19; TEMP 37.5; O2SAT 98
== END 2025-06-21 23:12 | disposition home or self-care (01) ==
PROVIDERS: Physician Assistant; Emergency Provider Emergency Medicine; PCP Family Medicine
DX: J10.1 Influenza due to other identified influenza virus with other respiratory manifestations (principal); R05.9 Cough, unspecified; R50.9 Fever, unspecified; M79.10 Myalgia, unspecified site; E78.00 Pure hypercholesterolemia, unspecified; F17.200 Nicotine dependence, unspecified, uncomplicated; Z71.6 Tobacco abuse counseling
CPT/HCPCS: 71046; 87637; 87651; 99283; 99284

== ENCOUNTER → 2025-06-21 19:29 | Outpatient (BNV) | payer MEDICAID, SELFPAY | PROVIDERS: PCP Family Medicine; Visit Provider Radiology Diagnostic Radiology | DX: R05.9 Cough, unspecified (principal) | CPT/HCPCS: 71046 ==